=== PATIENT | male | born 1940 | race Caucasian/White ===

== ENCOUNTER 2020-01-01 15:48 | Inpatient (IN) | payer MEDICARE, OTHER ==
--- NOTE | 2020-01-01 15:59 | ED ---
SOB HPI - General Chief Complaint: Shortness of Breath Stated Complaint: abnormal labs Time Seen by Provider: 01/01/20 15:49 Source: patient, RN notes reviewed, old records reviewed Mode of arrival: wheelchair Limitations: no limitations - History of Present Illness Initial Comments: This is a 79-year-old male to the ER for evaluation patient to the ER for evaluation regards to shortness of breath. No chest pain. She is accepted in transfer from outside facility for evaluation. Patient presents today for evaluation regards to continued evaluation regarding shortness of breath MD Complaint: shortness of breath, cough Severity: moderate Severity scale (1-10): 4 Quality: dull Consistency: constant Improves With: nothing Worsens With: lying flat, exertion, movement Known History Of: asthma, congestive heart failure Context: recent URI Associated Symptoms: cough, sputum production Treatments Prior to Arrival: none - Related Data Home Medications Medication Instructions Recorded Confirmed Aspirin EC [Ecotrin Low Dose] 81 mg PO DAILY 01/01/20 01/01/20 Atorvastatin Calcium [Lipitor] 80 mg PO HS 01/01/20 01/01/20 Carvedilol [Coreg] 25 mg PO BID 01/01/20 01/01/20 Cholecalciferol [Vitamin D3 (25 2,000 unit PO DAILY 01/01/20 01/01/20 Mcg = 1000 Iu)] Loratadine [Claritin] 10 mg PO DAILY 01/01/20 01/01/20 Multivitamins, Thera [Multivitamin 1 tab PO DAILY 01/01/20 01/01/20 (formulary)] Vascepa 1gm 1 gm PO QID 01/01/20 01/01/20 metFORMIN HCL [Glucophage] 1,000 mg PO BID 01/01/20 01/01/20 Allergies Allergy/AdvReac Type Severity Reaction Status Date / Time No Known Allergies Allergy Verified 01/01/20 16:53 Review of Systems ROS Statement: Those systems with pertinent positive or pertinent negative responses have been documented in the HPI. ROS Other: All systems not noted in ROS Statement are negative. Past Medical History Past Medical History: Coronary Artery Disease (CAD), Cancer, Diabetes Mellitus, Hyperlipidemia, Hypertension History of Any Multi-Drug Resistant Organisms: None Reported Past Surgical History: Appendectomy, Heart Catheterization With Stent Additional Past Surgical History / Comment(s): skin cancer, left upper lobe resection lung CA Smoking Status: Former smoker Past Alcohol Use History: None Reported Past Drug Use History: None Reported General Exam Limitations: no limitations General appearance: alert, in no apparent distress Head exam: Present: atraumatic, normocephalic, normal inspection Eye exam: Present: normal appearance, PERRL, EOMI. Absent: scleral icterus, conjunctival injection, periorbital swelling ENT exam: Present: normal exam, mucous membranes moist Neck exam: Present: normal inspection. Absent: tenderness, meningismus, lymphadenopathy Respiratory exam: Present: normal lung sounds bilaterally. Absent: respiratory distress, wheezes, rales, rhonchi, stridor Cardiovascular Exam: Present: regular rate, normal rhythm, normal heart sounds. Absent: systolic murmur, diastolic murmur, rubs, gallop, clicks GI/Abdominal exam: Present: soft, normal bowel sounds. Absent: distended, tenderness, guarding, rebound, rigid Extremities exam: Present: normal inspection, full ROM, normal capillary refill. Absent: tenderness, pedal edema, joint swelling, calf tenderness Back exam: Present: normal inspection Neurological exam: Present: alert, oriented X3, CN II-XII intact Psychiatric exam: Present: normal affect, normal mood Skin exam: Present: warm, dry, intact, normal color. Absent: rash Course Vital Signs 01/01/20 01/01/20 15:50 17:10 Temperature 97.8 F Pulse Rate 89 Respiratory 18 17 Rate Blood Pressure 181/95 O2 Sat by Pulse 96 Oximetry - Reevaluation(s) Reevaluation #1: 01/01/20 16:30 Medical records reviewed Reevaluation #2: 01/01/20 16:30 Transfer paperwork is reviewed Reevaluation #3: 01/01/20 18:25 Patient informed of elevated troponin here in the ER EKG is without change CT chest is negative for acute disease - Consultations Consultation #1: Patient will be admitted to [facility] physicians Medical Decision Making - Medical Decision Making 79 male DF for evaluation patient Dese for evaluation of shortness of breath now she with exertion he also during exertion gets lower extremity pain leg pain. Patient is elevated troponin here in the ER nonacute non-STEMI. No EKG changes CT was negative for PE - Lab Data Result diagrams: 01/01/20 16:44 01/01/20 16:44 Lab Results 01/01/20 01/01/20 01/01/20 Range/Units 16:44 16:44 16:44 WBC 6.7 (3.8-10.6) k/uL RBC 4.80 (4.30-5.90) m/uL Hgb 14.4 (13.0-17.5) gm/dL Hct 44.8 (39.0-53.0) % MCV 93.3 (80.0-100.0) fL MCH 30.1 (25.0-35.0) pg MCHC 32.2 (31.0-37.0) g/dL RDW 14.3 (11.5-15.5) % Plt Count 212 (150-450) k/uL Neutrophils % 60 % Lymphocytes % 27 % Monocytes % 7 % Eosinophils % 2 % Basophils % 1 % Neutrophils # 4.0 (1.3-7.7) k/uL Lymphocytes # 1.8 (1.0-4.8) k/uL Monocytes # 0.5 (0-1.0) k/uL Eosinophils # 0.2 (0-0.7) k/uL Basophils # 0.1 (0-0.2) k/uL PT 11.2 (9.0-12.0) sec INR 1.1 (<1.2) APTT 25.2 (22.0-30.0) sec Sodium 134 L (137-145) mmol/L Potassium 5.1 (3.5-5.1) mmol/L Chloride 103 (98-107) mmol/L Carbon Dioxide 23 (22-30) mmol/L Anion Gap 8 mmol/L BUN 30 H (9-20) mg/dL Creatinine 0.92 (0.66-1.25) mg/dL Est GFR (CKD-EPI)AfAm >90 (>60 ml/min/1.73 sqM) Est GFR (CKD-EPI)NonAf 80 (>60 ml/min/1.73 sqM) Glucose 125 H (74-99) mg/dL Calcium 8.6 (8.4-10.2) mg/dL Magnesium 1.2 L (1.6-2.3) mg/dL Total Bilirubin 0.9 (0.2-1.3) mg/dL AST 71 H (17-59) U/L ALT 58 H (4-49) U/L Alkaline Phosphatase 93 (38-126) U/L Troponin I (0.000-0.034) ng/mL NT-Pro-B Natriuret Pep pg/mL Total Protein 6.4 (6.3-8.2) g/dL Albumin 3.9 (3.5-5.0) g/dL 01/01/20 01/01/20 Range/Units 16:44 16:44 WBC (3.8-10.6) k/uL RBC (4.30-5.90) m/uL Hgb (13.0-17.5) gm/dL Hct (39.0-53.0) % MCV (80.0-100.0) fL MCH (25.0-35.0) pg MCHC (31.0-37.0) g/dL RDW (11.5-15.5) % Plt Count (150-450) k/uL Neutrophils % % Lymphocytes % % Monocytes % % Eosinophils % % Basophils % % Neutrophils # (1.3-7.7) k/uL Lymphocytes # (1.0-4.8) k/uL Monocytes # (0-1.0) k/uL Eosinophils # (0-0.7) k/uL Basophils # (0-0.2) k/uL PT (9.0-12.0) sec INR (<1.2) APTT (22.0-30.0) sec Sodium (137-145) mmol/L Potassium (3.5-5.1) mmol/L Chloride (98-107) mmol/L Carbon Dioxide (22-30) mmol/L Anion Gap mmol/L BUN (9-20) mg/dL Creatinine (0.66-1.25) mg/dL Est GFR (CKD-EPI)AfAm (>60 ml/min/1.73 sqM) Est GFR (CKD-EPI)NonAf (>60 ml/min/1.73 sqM) Glucose (74-99) mg/dL Calcium (8.4-10.2) mg/dL Magnesium (1.6-2.3) mg/dL Total Bilirubin (0.2-1.3) mg/dL AST (17-59) U/L ALT (4-49) U/L Alkaline Phosphatase (38-126) U/L Troponin I 0.279 H* (0.000-0.034) ng/mL NT-Pro-B Natriuret Pep 1200 pg/mL Total Protein (6.3-8.2) g/dL Albumin (3.5-5.0) g/dL - EKG Data -: EKG Interpreted by Me (EKG shows sinus rhythm 86 MA 134 QRS 100 QTc 469) - Radiology Data Radiology results: report reviewed (CTA chest negative for PE), image reviewed Critical Care Time Critical Care Time: Yes Total Critical Care Time: 31 Disposition Clinical Impression: NSTEMI (non-ST elevated myocardial infarction) Disposition: ADMITTED IP TO THIS HOSP Condition: Fair Is patient prescribed a controlled substance at d/c from ED?: No Referrals: Jack Torres MD [Primary Care Provider] - 1-2 days
[2020-01-01] MEDS ORDERED: SODIUM CHLORIDE 0.9% 1,000 ML IV STA (16:39)
[2020-01-01] MEDS ORDERED: SODIUM CHLORIDE 0.9% 500 ML 500 ML IV STA (16:39)
[2020-01-01 17:03] LABS: Basophils # (A) 0.1 k/uL (0-0.2); Basophils % (A) 1 %; Eosinophils # (A) 0.2 k/uL (0-0.7); Eosinophils % (A) 2 %; HCT 44.8 % (39.0-53.0); HGB 14.4 gm/dL (13.0-17.5); Lymphocytes # (A) 1.8 k/uL (1.0-4.8); Lymphocytes % (A) 27 %; MCH 30.1 pg (25.0-35.0); MCHC 32.2 g/dL (31.0-37.0); MCV 93.3 fL (80.0-100.0); Mean Platelet Volume 7.1; Monocytes # (A) 0.5 k/uL (0-1.0); Monocytes % (A) 7 %; Neutrophils % (A) 60 %; Platelet Count 212 k/uL (150-450); RDW 14.3 % (11.5-15.5); WBC 6.7 k/uL (3.8-10.6)
[2020-01-01 17:13] LABS: ALT 58 U/L (4-49); AST 71 U/L (17-59); African American GFR (CKD) >90 (>60 ml/min/1.73 sqM); Albumin 3.9 g/dL (3.5-5.0); Alkaline Phosphatase 93 U/L (38-126); Anion Gap 8 mmol/L; Blood Urea Nitrogen 30 mg/dL (9-20); Calcium 8.6 mg/dL (8.4-10.2); Carbon Dioxide 23 mmol/L (22-30); Chloride 103 mmol/L (98-107); Glucose 125 mg/dL (74-99); Magnesium 1.2 mg/dL (1.6-2.3); Non-African American GFR(CKD) 80 (>60 ml/min/1.73 sqM); Potassium 5.1 mmol/L (3.5-5.1); Sodium 134 mmol/L (137-145); Total Bilirubin 0.9 mg/dL (0.2-1.3); Total Protein 6.4 g/dL (6.3-8.2)
[2020-01-01 17:14] LABS: INR 1.1 (<1.2); Partial Thromboplastin Time 25.2 sec (22.0-30.0); Prothrombin Time 11.2 sec (9.0-12.0)
--- NOTE | 2020-01-01 18:05 | CT ---
EXAMINATION TYPE: CT angio chest DATE OF EXAM: 01/01/2020 COMPARISON: None HISTORY: Elevated d-dimer and shortness of breath. CT DLP: 342.7 mGycm Automated exposure control for dose reduction was used. CONTRAST: CTA scan of the thorax is performed with IV Contrast, patient injected with 73ml mL of Isovue 370, pu lmonary embolism protocol. MIP images are created and reviewed. 3D reconstructed images are created on an independent workstation and reviewed. FINDINGS: LUNGS: The lungs are grossly clear, there is no concerning parenchymal mass or nodule identified. T here are extensive emphysematous changes within the lungs. Some minimal thickening along the minor fi ssure noted on axial image #100. Interstitial changes are present at the lung bases. Calcified granul jose cruz likely present in the subpleural region at the right lung base. There is no pleural effusion or p neumothorax seen. The tracheobronchial tree is patent. AORTA: No additional significant abnormality is seen. MEDIASTINUM: There is satisfactory enhancement of the pulmonary artery and its branches, there is no CT evidence for pulmonary embolism. There are no greater than 1 cm hilar or mediastinal lymph nodes. There are coronary calcifications present No pericardial effusion is seen. Some soft tissue promine nce present in the infrahilar location on the right OTHER: Small hiatal hernia is present. Calcified gallstones present within the gallbladder. IMPRESSION: THICKENING ALONG THE MINOR FISSURE DOES NOT APPEAR MASSLIKE, FOLLOW-UP TO ASSESS FOR STABILITY, SUSPE CT THERE MAY BE SOME RIGHT HILAR ADENOPATHY. EXTENSIVE EMPHYSEMA. CORONARY ARTERY DISEASE. NO EVIDENT PULMONARY EMBOLISM. SMALL HIATAL HERNIA. INTERSTITIAL LUNG DISEASE. CHOLELITHIASIS.
[2020-01-01] MEDS ORDERED: HEPARIN SODIUM,PORCINE 5,000 UNIT/ML 1 ML VIAL IV ONE (18:21)
[2020-01-01] MEDS ORDERED: ASPIRIN 81 MG PO STA (18:21)
[2020-01-01] MEDS ORDERED: MAGNESIUM OXIDE 400 MG TAB PO STA (18:21)
[2020-01-01] MEDS ORDERED: NITROGLYCERIN SL TABS 0.4 MG TAB SUBLINGUAL PRN (18:21)
[2020-01-01] MEDS ORDERED: HEPARIN SODIUM,PORCINE 5,000 UNIT/ML 1 ML VIAL IV PRN (18:21)
[2020-01-01] MEDS ORDERED: HEPARIN SOD,PORK IN 0.45% NACL 25,000 UNIT in 0.45% NACL 1 250ML.BAG IV SCH (18:30)
[2020-01-01] MEDS: MAGNESIUM SULFATE-D5W PMX 1 GM in DEXTROSE/WATER 1 100ML.BAG IVPB SCH ×2 (19:25→21:29)
[2020-01-01] MEDS ORDERED: LABETALOL 5 MG/ML VIAL MDV IVP STA (19:32)
[2020-01-01] MEDS ORDERED: METOPROLOL TARTRATE 25 MG TAB PO SCH (21:00)
[2020-01-01] MEDS: ATORVASTATIN 80 MG TAB PO SCH (21:29)
[2020-01-01] MEDS: carvediloL 12.5 MG TAB PO SCH (21:31)
[2020-01-01 21:35] LABS: Glucose,Whole Blood 139 mg/dL (75-99)
[2020-01-01] MEDS: INSULIN ASPART (NovoLOG) 100 UNIT/ML VIAL SQ SCH (21:35)
[2020-01-02] MEDS ORDERED: LORazepam 2 MG/ML INJ IV PRN ×3 (00:07)
--- NOTE | 2020-01-02 00:07 | P.HPIM ---
History of Present Illness H&P Date: 01/01/20 Chief Complaint: Exertional dyspnea, elevated troponin 79-year-old male with diabetes mellitus, hypertension, coronary artery disease with stents 20 years ago. Patient comes in due to abnormal blood test result of elevated troponin at his PCP office who recommended that he goes to the hospital for evaluation. Patient adds that for the past 2 months he's been having exertional dyspnea whenever he used to walk long distances however now he is limited to 200 yards when he starts having difficulty in breathing he stops and will resolve on its own within 10-15 minutes. He denies any chest pain when he feels heaviness and can't breathe. He denies any passing out or sweating or lightheadedness nausea or vomiting. Patient hadn't had any cardiac workup in a while he gets most of his care in [place] where he spends 8 months out of the year. Currently he denies any chest pain he feels comfortable resting denies any headache fevers chills denies any sick contact or recent traveling denies any abdominal pain nausea or vomiting denies any GI bleeding In the ED CTA of the chest showed no acute PE but showed evidence of possible cholelithiasis. EKG showed normal sinus rhythm Troponins were elevated Magnesium was low Review of Systems Pertinent positives as noted in HPI. All other systems were reviewed and are negative Past Medical History Past Medical History: Coronary Artery Disease (CAD), Cancer, Diabetes Mellitus, Hyperlipidemia, Hypertension History of Any Multi-Drug Resistant Organisms: None Reported Past Surgical History: Appendectomy, Heart Catheterization With Stent Additional Past Surgical History / Comment(s): skin cancer, left upper lobe resection lung CA Smoking Status: Former smoker Past Alcohol Use History: None Reported Past Drug Use History: None Reported - Past Family History Father Family Medical History: Coronary Artery Disease (CAD) Medications and Allergies Home Medications Medication Instructions Recorded Confirmed Type Aspirin EC [Ecotrin Low Dose] 81 mg PO DAILY 01/01/20 01/01/20 History Atorvastatin Calcium [Lipitor] 80 mg PO HS 01/01/20 01/01/20 History Carvedilol [Coreg] 25 mg PO BID 01/01/20 01/01/20 History Cholecalciferol [Vitamin D3 (25 2,000 unit PO DAILY 01/01/20 01/01/20 History Mcg = 1000 Iu)] Loratadine [Claritin] 10 mg PO DAILY 01/01/20 01/01/20 History Multivitamins, Thera [Multivitamin 1 tab PO DAILY 01/01/20 01/01/20 History (formulary)] Vascepa 1gm 1 gm PO QID 01/01/20 01/01/20 History metFORMIN HCL [Glucophage] 1,000 mg PO BID 01/01/20 01/01/20 History Allergies Allergy/AdvReac Type Severity Reaction Status Date / Time No Known Allergies Allergy Verified 01/01/20 16:53 Physical Exam Vitals: Vital Signs Temp Pulse Resp BP Pulse Ox 01/01/20 19:12 80 18 197/107 94 L 01/01/20 17:10 17 01/01/20 15:50 97.8 F 89 18 181/95 96 Intake and Output 01/01/20 01/01/20 01/01/20 06:59 14:59 22:59 Other: Weight 73.936 kg Constitutional: No acute distress, conversant, pleasant Eyes: Anicteric sclerae, moist conjunctiva, Pupils equal round reactive to light ENMT: NC/AT Oropharynx clear, no erythema, or exudates Neck: Supple, FROM, no masses, or JVD No carotid bruits No thyromegaly Lungs: Clear to auscultation Clear to percussion Normal respiratory effort, no accessory muscle use Cardiovascular: Heart regular in rate and rhythm, No murmurs, gallops, or rubs No peripheral edema Abdominal: Soft Nontender, no guarding, rebound or rigidity Abdomen moving with respiration Normoactive bowel sounds No hepatomegaly, No splenomegaly No palpable mass No abdominal wall hernia noted Skin: Normal temperature, tone, texture, turgor No induration No subcutaneous nodules No rash, lesions No ulcers Extremities: No digital cyanosis No clubbing Pedal pulses intact and symmetrical Radial pulses intact and symmetrical No calf tenderness Psychiatric: Alert and oriented to person, place and time Appropriate affect fair judgement Neuro Muscles Strength 5/5 in all 4 extremities Sensation to light touch grossly present throughout Cranial nerves II-XII grossly intact No focal sensory deficits Lymphatics: no palpable cervical or supraclavicular , or inguinal lymph nodes Results CBC & Chem 7: 01/01/20 16:44 01/01/20 16:44 Labs: Abnormal Lab Results - Last 24 Hours (Table) 01/01/20 01/01/20 Range/Units 16:44 16:44 Sodium 134 L (137-145) mmol/L BUN 30 H (9-20) mg/dL Glucose 125 H (74-99) mg/dL Magnesium 1.2 L (1.6-2.3) mg/dL AST 71 H (17-59) U/L ALT 58 H (4-49) U/L Troponin I 0.279 H* (0.000-0.034) ng/mL Assessment and Plan Assessment: NSTEMI Exertional dyspnea suggestive of angina History of CAD with stents 20 years ago Trend cardiac enzymes Cardiac monitoring Cardiology consult Aspirin and statin nitro when necessary Resume home meds Pain control Supplemental oxygen if needed to keep O2 sat above 92% Heparin drip Regular alcohol intake on daily basis Monitor for any symptoms or signs of alcohol withdrawal Benzos per CIWA Thiamine Hypomagnesemia Replace and follow up levels in the morning Chronic conditions Diabetes mellitus insulin sliding scale Hypertension, hyperlipidemia resume home meds CODE STATUS: Full code DVT prophylaxis: On heparin drip for ACS Discussed with: Patient, ER Anticipated length of stay more than [address]: Home A total of 75 minutes was spent on the care of this complex patient more than 50% of the time was spent in counseling and care coordination.
[2020-01-02 06:06] LABS: Basophils % (A) 1 %; Eosinophils # (A) 0.1 k/uL (0-0.7); Eosinophils % (A) 2 %; HGB 14.2 gm/dL (13.0-17.5); Lymphocytes # (A) 1.4 k/uL (1.0-4.8); Lymphocytes % (A) 24 %; MCHC 32.2 g/dL (31.0-37.0); MCV 93.2 fL (80.0-100.0); Monocytes # (A) 0.5 k/uL (0-1.0); Monocytes % (A) 8 %; Neutrophils # (A) 3.8 k/uL (1.3-7.7); Neutrophils % (A) 64 %; Platelet Count 202 k/uL (150-450); RBC 4.72 m/uL (4.30-5.90); RDW 13.9 % (11.5-15.5); WBC 5.9 k/uL (3.8-10.6)
[2020-01-02 06:16] LABS: ALT 44 U/L (4-49); AST 36 U/L (17-59); African American GFR (CKD) >90 (>60 ml/min/1.73 sqM); Albumin 3.3 g/dL (3.5-5.0); Alkaline Phosphatase 89 U/L (38-126); Anion Gap 5 mmol/L; Blood Urea Nitrogen 20 mg/dL (9-20); Calcium 8.1 mg/dL (8.4-10.2); Carbon Dioxide 27 mmol/L (22-30); Chloride 105 mmol/L (98-107); Cholesterol 134 mg/dL (<200); Glucose 119 mg/dL (74-99); HDL Cholesterol 55 mg/dL (40-60); LDL Cholesterol,Calculated 63 mg/dL (0-99); Magnesium 1.6 mg/dL (1.6-2.3); Non-African American GFR(CKD) 84 (>60 ml/min/1.73 sqM); Potassium 4.1 mmol/L (3.5-5.1); Sodium 137 mmol/L (137-145); Total Protein 5.7 g/dL (6.3-8.2); Triglycerides 79 mg/dL (<150)
[2020-01-02] MEDS: carvediloL 12.5 MG TAB PO SCH ×2 (06:36→18:08)
[2020-01-02] MEDS: INSULIN ASPART (NovoLOG) 100 UNIT/ML VIAL SQ SCH ×4 (06:41→21:27)
[2020-01-02 06:43] LABS: Glucose,Whole Blood 119 mg/dL (75-99)
[2020-01-02] MEDS ORDERED: ASPIRIN 325 MG TAB PO SCH (09:00)
[2020-01-02] MEDS ORDERED: ATORVASTATIN 80 MG TAB PO STA (09:13)
[2020-01-02] MEDS ORDERED: ALPRAZolam 0.5 MG TAB PO PRN (09:13)
[2020-01-02] MEDS ORDERED: ASPIRIN 325 MG TAB PO STA (09:13)
[2020-01-02] MEDS ORDERED: SODIUM CHLORIDE 0.9% 1,000 ML in EMPTY BAG 1 BAG IV ONE (09:13)
[2020-01-02] MEDS ORDERED: NITROGLYCERIN SL TABS 0.4 MG TAB SUBLINGUAL PRN (09:13)
[2020-01-02] MEDS ORDERED: ALPRAZolam 0.25 MG TAB PO PRN (09:13)
--- NOTE | 2020-01-02 10:17 | CONS ---
CONSULTATION Mr. Clayton is a 79-year-old male with known history of hyperlipidemia, history of diabetes mellitus, hypertension, prior history of smoking, history of coronary artery disease, status post 2 vessel stenting in 1998 with chronically occluded 1 vessel, who presented to the emergency room with progressive dyspnea. He has been having the symptoms for couple months, but yesterday seen his primary care physician in [place] when he had a troponin that was unremarkable. In view of that, was referred back to the hospital. He has been complaining of progressive dyspnea over the last 2 months, limiting his activity. He has no associated chest pain. He has no dizziness or palpitation. No syncope. No PND, orthopnea, or peripheral edema. 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 Coronary risk factors are remarkable for the hypertension, hyperlipidemia, and diabetes mellitus. MEDICATION: Include aspirin, 1 g 4 times a day, metformin 1 g twice a day, carvedilol 25 mg twice a day and Lipitor 80 mg daily. REVIEW OF SYSTEMS: RESPIRATORY SYSTEM: He has dyspnea on exertion. No recent wheezing or cough. GI SYSTEM: No recent GI bleeding. No peptic ulcer disease. SYSTEM: No dysuria or hematuria. NERVOUS SYSTEM: No stroke or seizure. PHYSICAL EXAMINATION: He is a 79-year-old male, alert, oriented, in no apparent distress. Blood pressure 154/80 with a heart rate in the 70s. HEAD: Normocephalic. EYES: Sclerae nonicteric. NECK: Good upstroke, no jugular venous distention. LUNGS: Clear to auscultation. HEART: Regular rate and rhythm, S1, S2. No S3 with systolic murmur, ejection type heard at the base. No diastolic murmur, no rub. ABDOMEN: Soft, nontender, positive bowel sounds, no organomegaly. EXTREMITIES: No edema, intact pulses. LAB DATA: Revealed BUN and creatinine 20 and 0.85, potassium 4.1, hemoglobin of 14.2. His troponin 0.29, 0.28, 0.27. Cholesterol is 134, LDL of 63. EKG revealed a sinus mechanism, normal axis and intervals with nonspecific ST-T wave changes. Chest CT angiogram revealed a small hiatal hernia with gallstones. IMPRESSION: 1. Progressive symptoms of dyspnea on exertion with mild elevation of troponin suggestive of non ST-segment elevation myocardial infarction. 2. History of coronary artery disease, status post percutaneous revascularization in known chronically occluded vessel with a prior history of cardiomyopathy, according to the patient, improved. 3. History of hypertension. 4. Hyperlipidemia. 5. Diabetes mellitus. 6. History of daily alcohol intake. RECOMMENDATION: I would recommend to obtain an echocardiogram with Doppler. I will recommend to proceed with coronary angiography to assess his status and guide his treatment. The rationale behind the procedures, risks, and complication were discussed with the patient who is in full understanding and agreement. Depending on the results of testing, further recommendation will be made. Thank you for this consult. Will follow with you. DEISY / IJN: [id number] /
--- NOTE | 2020-01-02 12:00 | ECHOF ---
Referral Reason:cp MEASUREMENTS -------- HEIGHT: 182.9 cm WEIGHT: 73.9 kg BP: RVIDd: 3.1 cm (< 3.3) IVSd: 1.2 cm (0.6 - 1.1) LVIDd: 4.9 cm (3.9 - 5.3) LVPWd: 1.1 cm (0.6 - 1.1) EDV(Teich): 112 ml IVSs: 1.5 cm LVIDs: 4.2 cm LVPWs: 1.2 cm %IVS Thck: 25 % ESV(Teich): 79 ml EF(Teich): 29 % %FS: 14 % SV(Teich): 32 ml LA Diam: 4.7 cm (2.7 - 3.8) LALs A4C: 5.2 cm LAAs A4C: 18.0 cm LAESV A-L A4C: 53 ml LAESV MOD A4C: 51 ml LALs A2C: 4.7 cm LAAs A2C: 18.0 cm LAESV A-L A2C: 59 ml LAESV MOD A2C: 55 ml LAESV(A-L): 59 ml LAESV Index (A-L): 30.23 ml/m Ao Diam: 3.4 cm (2.0 - 3.7) AV Cusp: 1.4 cm (1.5 - 2.6) LA Diam: 4.5 cm (2.7 - 3.8) MV EXCURSION: 18.048 mm (> 18.000) MV EF SLOPE: 57 mm/s (70 - 150) EPSS: 1.2 cm MV E Tyler: 0.39 m/s MV DecT: 263 ms MV Dec Upton: 1.5 m/s MV A Tyler: 0.64 m/s MV E/A Ratio: 0.61 MV PHT: 76 ms TR Vmax: 2.35 m/s TR maxP.16 mmHg RAP: 5.00 mmHg RVSP: 27.16 mmHg FINDINGS -------- Sinus rhythm. This was a technically good study. The left ventricular size is normal. There is mild concentric left ventricular hypertrophy. Overa ll left ventricular systolic function is mild-moderately impaired with, an EF between 40 - 45 %. Se ptal Hypokinesis The right ventricle is normal in size. The left atrium is moderately dilated. LA is moderately dilated 34-39 ml/m2 The right atrial size is normal. The aortic valve is trileaflet, and appears structurally normal. No aortic stenosis or regurgitation. Mild mitral regurgitation is present. Mild tricuspid regurgitation present. Right ventricular systolic pressure is normal at < 35 mmHg. There is no pulmonic regurgitation present. The aortic root size is normal. There is no pericardial effusion. CONCLUSIONS -------- 1. The left ventricular size is normal. 2. There is mild concentric left ventricular hypertrophy. 3. Overall left ventricular systolic function is mild-moderately impaired with, an EF between 40 - 45 %. 4. Septal Hypokinesis 5. The right ventricle is normal in size. 6. The left atrium is moderately dilated. 7. LA is moderately dilated 34-39 ml/m2 8. The right atrial size is normal. 9. Mild mitral regurgitation is present. 10. Mild tricuspid regurgitation present. MEN'[employer] GOLF COACH: Chikis Sanchez RDCS
[2020-01-02 12:16] LABS: Glucose,Whole Blood 136 mg/dL (75-99)
[2020-01-02] MEDS ORDERED: VERAPAMIL 2.5 MG/ML 2 ML AMP ONE (12:21)
[2020-01-02] MEDS ORDERED: LIDOCAINE 1% INJ 10MG/ML (20 ML MDV) ONE (12:21)
[2020-01-02] MEDS ORDERED: SODIUM CHLORIDE 0.9% 1,000 ML IV ONE (12:44)
[2020-01-02] MEDS ORDERED: fentaNYL (PF) 50 MCG/ML 2 ML AMP ONE (12:46)
[2020-01-02] MEDS ORDERED: fentaNYL (PF) 50 MCG/ML 2 ML AMP IVP ONE (13:03)
[2020-01-02] MEDS ORDERED: LIDOCAINE 1% INJ 10MG/ML (20 ML MDV) SQ ONE (13:07)
[2020-01-02] MEDS ORDERED: VERAPAMIL SYRINGE (5 MG/10 ML) INTRAARTER ONE (13:13)
[2020-01-02] MEDS ORDERED: HEPARIN SODIUM 1,000 UN/ML (10ML VL) IV ONE (13:25)
[2020-01-02] MEDS ORDERED: IOPAMIDOL-370 100ML BTL INJ ONE (13:27)
[2020-01-02] MEDS ORDERED: RX INFO: IV CONTRAST WAS GIVEN 1 EACH MISC MISCELLANE PRN (13:47)
[2020-01-02] MEDS ORDERED: HEPARIN SODIUM,PORCINE 5,000 UNIT/ML 1 ML VIAL IV PRN (13:50)
[2020-01-02] MEDS ORDERED: SODIUM CHLORIDE 0.9% 1,000 ML IV SCH (14:00)
--- NOTE | 2020-01-02 14:34 | CC ---
CARDIAC CATHETERIZATION REPORT Mr. Clayton is a 79-year-old male with known history of coronary artery disease, status post percutaneous revascularization done over 10 years ago at [facility], history of hypertension, hyperlipidemia, diabetes mellitus, who presented with symptoms of progressive dyspnea going on for the last few weeks. He had minimal troponin elevation, but no acute ST-segment changes. In view of that, recommendation made regarding cardiac catheterization. The procedures, risks, and complication were discussed with the patient who is in full understanding and agreement. 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 Using Xylocaine anesthesia and Seldinger technique, a 6-[place] sheath was introduced in the right radial artery. Selective right and left coronary angiography performed using 5-[place] 3.5 bend right and left Holli catheter, multiple views of the coronary artery including hemiaxial views obtained, the 5-[place] right and left Holli catheter was used to cross the aortic valve and left ventricular end-diastolic pressure was calculated. Following that, catheter and sheath were removed. Hemostasis was obtained with deployment of a TR band. There was no immediate complication. Patient is returned to his room in stable condition. Of note, the patient received 4000 units of intravenous heparin as well as intra-arterial verapamil. FINDINGS: FLUOROSCOPY: There was severe calcification involving all the coronary arteries next. LEFT MAIN: This is a large-sized vessel, bifurcating into left circumflex, left anterior descending artery. Left main coronary artery has no evidence of high-grade stenosis. LEFT ANTERIOR DESCENDING ARTERY: This is a large-sized vessel, reaching toward the apex with a wraparound apex segment, proximally. The left anterior descending artery has an eccentric lesion in a heavily calcified segment with stenosis up to 80%-90%. The stented segment in the mid LAD is patent with [id number] in-stent restenosis. The rest of the vessel has no high-grade stenosis. LEFT CIRCUMFLEX: This is a large nondominant vessel, giving rise to a large obtuse marginal branch. The left circumflex proximally has a 90% to 95% stenosis. There is another plaque in the mid segment of the left circumflex with area of stenosis up to 80%. There appears to be a stent in the mid circumflex that is patent. RIGHT CORONARY ARTERY: This vessel is totally occluded proximally with collaterals with a conus branch to the mid RCA into the distal RCA. There is also collateral from the left coronary system toward the right PDA. LEFT VENTRICULOGRAM: Left ventriculogram is not performed. HEMODYNAMICS: There was no gradient across the aortic valve. The left ventricular end- diastolic pressure was 8-12 mmHg. CONCLUSION: 1. Severely calcified coronary artery. 2. Severe triple-vessel coronary artery disease with chronic occlusion of the right coronary artery and significant disease in the LAD and the left circumflex. RECOMMENDATION: In view of the multivessel disease, history of diabetes and the severe calcification, I recommend proceeding with evaluation for coronary artery bypass grafting. The rationale behind that recommendation were discussed with the patient and he is full understanding and agreement. Duration of procedure is 23 minutes. MMROSINAL / COCON: [id number] /
[2020-01-02] MEDS: HEPARIN SOD,PORK IN 0.45% NACL 25,000 UNIT in 0.45% NACL 1 250ML.BAG IV SCH (15:12)
[2020-01-02] MEDS: NITROGLYCERIN OINT 1 INCH/GM PACKET TOPICAL SCH (15:14)
[2020-01-02] MEDS ORDERED: MD COMMUNICATION TO PHARMACY 1 EACH MISC PO ONE ×4 (15:15)
[2020-01-02 15:23] LABS: INR 1.2 (<1.2)
[2020-01-02 16:13] LABS: Basophils % (A) 1 %; Eosinophils # (A) 0.2 k/uL (0-0.7); Eosinophils % (A) 3 %; HCT 45.1 % (39.0-53.0); HGB 14.2 gm/dL (13.0-17.5); Lymphocytes # (A) 1.4 k/uL (1.0-4.8); Lymphocytes % (A) 21 %; MCH 29.6 pg (25.0-35.0); MCHC 31.5 g/dL (31.0-37.0); MCV 94.1 fL (80.0-100.0); Mean Platelet Volume 7.1; Monocytes # (A) 0.4 k/uL (0-1.0); Monocytes % (A) 7 %; Neutrophils # (A) 4.4 k/uL (1.3-7.7); Neutrophils % (A) 68 %; Platelet Count 197 k/uL (150-450); RBC 4.79 m/uL (4.30-5.90); RDW 13.9 % (11.5-15.5); WBC 6.5 k/uL (3.8-10.6)
[2020-01-02 16:36] LABS: Partial Thromboplastin Time 109.1 sec (22.0-30.0)
[2020-01-02 16:56] LABS: Glucose,Whole Blood 118 mg/dL (75-99)
--- NOTE | 2020-01-02 17:07 | P.GSCN ---
History of Present Illness Consult date: 01/02/20 Reason for Consult: Non-STEMI this admission, multivessel coronary artery disease, evaluation for myocardial revascularization surgery. Requesting physician: Deloris Huizar History of present illness: This is a 79-year-old gentleman who is followed by Dr. Jack Torres family care physician in [facility]. He is a past medical history significant for hypertension, hyperlipidemia, previous myocardial infarction in 1998 and previous stent placement to his left anterior descending coronary artery and circumflex artery in 1998, history of lung cancer status post left upper lobectomy in 2012 with 3 treatments of chemotherapy postoperatively, basal and squamous cell skin cancer, diabetes mellitus type 2, remote history of nicotine abuse quit smoking 15 years ago, daily alcohol use with 4 glasses of wine daily and family history of early onset coronary artery disease with his father dying of an [place] in his early 50s and 2 of his uncles dying in their early 50s of myocardial infarction. The patient spends most of his time in [place] and the bower in [place] in the [place] area. He reports that he is quite active and plays golf about 3 days a week, and recently has been complaining of progressive shortness of breath over the last couple of months and weakness to his bilateral lower extremities. Denies any complaints of chest pain, nausea, vomiting, fever, chills, orthopnea, peripheral edema, presyncope or syncope. Due to his complaints of progressive shortness of breath and weakness to his lower extremities he sought medical attention at his primary care office. According to the patient and his he underwent some blood work at his physician's office and was subsequently called by the primary care office informing him that he needed to proceed to the nearest emergency department. He presented to the emergency department here at [facility] yesterday 01/01/2020 with the above mentioned symptoms. While in the emergency department a 12-lead EKG was completed which demonstrated normal sinus rhythm with nonspecific STT wave changes. He also underwent a CT angiogram of his chest which showed no evidence of pulmonary embolism, coronary artery calcifications, extensive emphysema, interstitial lung disease, a small hiatal hernia with cholelithiasis. A 2-D echocardiogram was also completed which showed an overall left ventricular systolic function to be mild to moderately impaired with an ejection fraction between 40 and 45%, septal hypokinesis, mild mitral valve regurgitation and mild tricuspid valve regurgitation. Laboratory results showed a WBC count of 6.7, hemoglobin 14.4, platelets 212, BUN 30, creatinine 0.92, magnesium 1.2, AST 71, ALT 58, and positive troponins as high as 0.290. Due to the patient's presenting symptoms, positive troponins and h istory of coronary artery disease he was seen by Dr. Huizar from cardiology associates. The patient underwent a heart catheterization today 01/02/2020 which demonstrated an 80-90% stenosis to his proximal left anterior descending coronary artery, the stented segment in the mid left anterior descending coronary artery to be patent with mild to moderate in stent restenosis, a 90-95% stenosis to his proximal circumflex coronary artery, and 80% stenosis to his mid circumflex coronary artery, the stent to his mid circumflex coronary artery showed to be patent, and a totally occluded right coronary artery proximally with collaterals with a conus branch to the mid right coronary artery into the distal right coronary artery. It also demonstrated collaterals from the left coronary artery toward the right PDA. The cardiac catheterization findings were discussed with the patient and his by Dr. Huizar and a consult was placed to Dr. Tam Gama for further treatment recommendations and recommendations on myocardial revascularization surgery. Review of Systems A 14 point review of systems was negative except as mentioned in the HPI. Past Medical History Past Medical History: Coronary Artery Disease (CAD), Cancer, COPD, Diabetes Mellitus, Eye Disorder (History of cataracts bilaterally), Hyperlipidemia, Hypertension, Myocardial Infarction (non Q-wave) History of Any Multi-Drug Resistant Organisms: None Reported Past Surgical History: Appendectomy, Heart Catheterization With Stent Additional Past Surgical History / Comment(s): skin cancer, left upper lobe resection lung CA in 2012, bilateral cataracts. Past Anesthesia/Blood Transfusion Reactions: No Reported Reaction Date of Last Stent Placement:: 1998 Past Psychological History: No Psychological Hx Reported Smoking Status: Former smoker (Quit 15 years ago) Past Alcohol Use History: Daily (Drinks 4 glasses of wine daily) Past Drug Use History: None Reported - Past Family History Father Family Medical History: Coronary Artery Disease (CAD) (Past awake in his early 50s from a myocardial infarction), Myocardial Infarction (AZ) Mother Additional Family Medical History / Comment(s): Rheumatoid arthritis Medications and Allergies Home Medications Medication Instructions Recorded Confirmed Type Aspirin EC [Ecotrin Low Dose] 81 mg PO DAILY 01/01/20 01/01/20 History Atorvastatin Calcium [Lipitor] 80 mg PO HS 01/01/20 01/01/20 History Carvedilol [Coreg] 25 mg PO BID 01/01/20 01/01/20 History Cholecalciferol [Vitamin D3 (25 2,000 unit PO DAILY 01/01/20 01/01/20 History Mcg = 1000 Iu)] Loratadine [Claritin] 10 mg PO DAILY 01/01/20 01/01/20 History Multivitamins, Thera [Multivitamin 1 tab PO DAILY 01/01/20 01/01/20 History (formulary)] Vascepa 1gm 1 gm PO QID 01/01/20 01/01/20 History metFORMIN HCL [Glucophage] 1,000 mg PO BID 01/01/20 01/01/20 History Allergies Allergy/AdvReac Type Severity Reaction Status Date / Time No Known Allergies Allergy Verified 01/01/20 16:53 Surgical - Exam Vital Signs Temp Pulse Resp BP Pulse Ox 97.8 F 89 18 181/95 96 01/01/20 15:50 01/01/20 15:50 01/01/20 15:50 01/01/20 15:50 01/01/20 15:50 - General well developed, well nourished, no distress, no pain - Eyes PERRL, normal ocular movement - ENT normal pinna, normal nares, normal mucosa, no hearing loss, no congestion - Neck Neck is supple, no lymphadenopathy. no masses, no bruits, trachea midline, no venous distension - Respiratory Lungs sounds essentially clear throughout, few scattered crackles to his right lower lobe. No wheezes or rhonchi. Respirations are symmetrical and nonlabored. - Cardiovascular Regular rhythm and rate. S1 and S2 present, negative for S3 or gallop. Positive systolic murmur 2/6 or best to his left sternal border. - Abdomen Abdomen is soft, nontender and nondistended. Active bowel sounds present in all 4 abdominal quadrants. No guarding or rigidity. No organomegaly appreciated. - Genitourinary Deferred - Rectum Deferred - Integumentary no rash, no growths, no abnormal pigmentation - Neurologic Cranial nerves II through XII intact. normal coordination, normal sensation - Musculoskeletal normal gait, normal posture - Psychiatric oriented to time, oriented to person, oriented to place, speech is normal, memory intact Results - Labs 01/02/20 14:46 01/02/20 05:32 Abnormal Lab Results - Last 24 Hours (Table) 01/01/20 01/01/20 01/01/20 Range/Units 16:44 16:44 20:10 APTT (22.0-30.0) sec Sodium 134 L (137-145) mmol/L BUN 30 H (9-20) mg/dL Glucose 125 H (74-99) mg/dL POC Glucose (mg/dL) (75-99) mg/dL Calcium (8.4-10.2) mg/dL Magnesium 1.2 L (1.6-2.3) mg/dL AST 71 H (17-59) U/L ALT 58 H (4-49) U/L Troponin I 0.279 H* 0.282 H* (0.000-0.034) ng/mL Total Protein (6.3-8.2) g/dL Albumin (3.5-5.0) g/dL 01/01/20 01/01/20 01/02/20 Range/Units 21:34 22:50 01:04 APTT 50.3 H (22.0-30.0) sec Sodium (137-145) mmol/L BUN (9-20) mg/dL Glucose (74-99) mg/dL POC Glucose (mg/dL) 139 H (75-99) mg/dL Calcium (8.4-10.2) mg/dL Magnesium (1.6-2.3) mg/dL AST (17-59) U/L ALT (4-49) U/L Troponin I 0.290 H* (0.000-0.034) ng/mL Total Protein (6.3-8.2) g/dL Albumin (3.5-5.0) g/dL 01/02/20 01/02/20 01/02/20 Range/Units 05:32 06:38 12:14 APTT (22.0-30.0) sec Sodium (137-145) mmol/L BUN (9-20) mg/dL Glucose 119 H (74-99) mg/dL POC Glucose (mg/dL) 119 H 136 H (75-99) mg/dL Calcium 8.1 L (8.4-10.2) mg/dL Magnesium (1.6-2.3) mg/dL AST (17-59) U/L ALT (4-49) U/L Troponin I (0.000-0.034) ng/mL Total Protein 5.7 L (6.3-8.2) g/dL Albumin 3.3 L (3.5-5.0) g/dL Diabetes panel 01/01/20 01/02/20 Range/Units 16:44 05:32 Sodium 134 L 137 (137-145) mmol/L Potassium 5.1 4.1 (3.5-5.1) mmol/L Chloride 103 105 (98-107) mmol/L Carbon Dioxide 23 27 (22-30) mmol/L BUN 30 H 20 (9-20) mg/dL Creatinine 0.92 0.85 (0.66-1.25) mg/dL Glucose 125 H 119 H (74-99) mg/dL Calcium 8.6 8.1 L (8.4-10.2) mg/dL AST 71 H 36 (17-59) U/L ALT 58 H 44 (4-49) U/L Alkaline Phosphatase 93 89 (38-126) U/L Total Protein 6.4 5.7 L (6.3-8.2) g/dL Albumin 3.9 3.3 L (3.5-5.0) g/dL Triglycerides 79 (<150) mg/dL HDL Cholesterol 55 (40-60) mg/dL Calcium panel 01/01/20 01/02/20 Range/Units 16:44 05:32 Calcium 8.6 8.1 L (8.4-10.2) mg/dL Albumin 3.9 3.3 L (3.5-5.0) g/dL Pituitary panel 01/01/20 01/02/20 Range/Units 16:44 05:32 Sodium 134 L 137 (137-145) mmol/L Potassium 5.1 4.1 (3.5-5.1) mmol/L Chloride 103 105 (98-107) mmol/L Carbon Dioxide 23 27 (22-30) mmol/L BUN 30 H 20 (9-20) mg/dL Creatinine 0.92 0.85 (0.66-1.25) mg/dL Glucose 125 H 119 H (74-99) mg/dL Calcium 8.6 8.1 L (8.4-10.2) mg/dL Adrenal panel 01/01/20 01/02/20 Range/Units 16:44 05:32 Sodium 134 L 137 (137-145) mmol/L Potassium 5.1 4.1 (3.5-5.1) mmol/L Chloride 103 105 (98-107) mmol/L Carbon Dioxide 23 27 (22-30) mmol/L BUN 30 H 20 (9-20) mg/dL Creatinine 0.92 0.85 (0.66-1.25) mg/dL Glucose 125 H 119 H (74-99) mg/dL Calcium 8.6 8.1 L (8.4-10.2) mg/dL Total Bilirubin 0.9 1.0 (0.2-1.3) mg/dL AST 71 H 36 (17-59) U/L ALT 58 H 44 (4-49) U/L Alkaline Phosphatase 93 89 (38-126) U/L Total Protein 6.4 5.7 L (6.3-8.2) g/dL Albumin 3.9 3.3 L (3.5-5.0) g/dL - Imaging Additional studies: 2-D echocardiogram report and cardiac catheterization results reviewed. Assessment and Plan Assessment: 1. Multivessel coronary artery disease 2. Positive troponins this admission, non-ST elevation myocardial infarction this admission 3. Progressive dyspnea on exertion 4. History of hypertension 5. Hyperlipidemia 6. Diabetes mellitus type 2, on oral agents 7. Daily EtOH use, 4 glasses of wine daily 8. Remote history of nicotine dependence quit 15 years ago 9. History of lung cancer, status post left upper lobectomy in 2012 10. History of coronary artery disease status post stent placement to his left anterior descending coronary artery and right coronary artery in 1998 11. Family history of early onset coronary artery disease 12. History of skin cancer, squamous cell and basal cell carcinoma Plan: The patient was seen and examined at the bedside on the cardiac stepdown unit, with his present. His chart and diagnostics were reviewed. His case was discussed in detail with Dr. Tam Gama from cardiothoracic surgery, and the patient will be evaluated by the cardiothoracic surgeon tomorrow. Preoperative testing and preoperative teaching was initiated. A 5 m walk test was completed with time 1: 4.08 seconds, time 2: 3.95 seconds, time 3: 3.83 seconds. The usual preoperative course of myocardial revascularization surgery was discussed in detail with the patient and his at his bedside, risks and benefits were reviewed and all questions were answered to the best of my ability. Once his preoperative testing has been collected a STS risk score will be calculated in discussed with the patient by the cardiothoracic surgeon. Discussed with the patient the possibility for myocardial revascularization surgery and once his preoperative testing has been collected will be scheduled for myocardial revascularization surgery with date to follow. Continue to optimize with medical management, aspirin, statin and beta junior. Cardiology management recommendations per Dr. Huizar. Medical management and other comorbidities per primary care service. More recommendations to follow based on patient's clinical course, preoperative testing results and once the cardiothoracic surgeon has a chance to review the patient's cardiac catheterization films. Thank you Dr. Huizar for this consult and we look forward to working with you in the care of this patient. Time with Patient: Greater than 30
--- NOTE | 2020-01-02 17:16 | P.PN ---
Subjective Progress Note Date: 01/02/20 Principal diagnosis: Severe CAD Patient was seen after cardiac cath. He denies any chest pain, shortness breath or palpitations. No nausea or vomiting. No fever or chills. Objective - Vital Signs Vital signs: Vital Signs Temp 97.6 F 01/02/20 15:23 Pulse 71 01/02/20 15:23 Resp 16 01/02/20 15:23 BP 168/84 01/02/20 15:23 Pulse Ox 98 01/02/20 15:23 Intake & Output 01/01/20 01/02/20 01/02/20 18:59 06:59 18:59 Intake Total 1640 198 Output Total 1050 300 Balance 590 -102 Weight 73.936 kg 74.09 kg Intake: IV 50 Intake, IV Titration 1040 148 Amount Sodium Chloride 0.9% 1, 1040 000 ml @ 130 mls/hr IV . [id number] STA Rx#:[id number] Sodium Chloride 0.9% 1, 148 000 ml In Empty Bag 1 bag @ 1 ML/KG/HR 74.09 mls/ hr IV .[id number] ONE Rx#: [id number] Oral 600 Output: Urine 1050 300 Other: Voiding Method Toilet # Voids 2 - Exam General: [non toxic], [no distress], [appears at stated age] Derm: [warm], [dry] Head: [atraumatic], [normocephalic], [symmetric] Eyes: [EOMI], [no lid lag], [anicteric sclera] Mouth: [no lip lesion], [mucus membranes moist] Cardiovascular: [S1S2 reg], [no murmur], [positive posterior tibial pulse bilateral], Lungs: [CTA bilateral], [no rhonchi, no rales] , [no accessory muscle use] Abdominal: [soft], [ nontender to palpation], [no guarding], [no appreciable organomegaly] Ext: [no gross muscle atrophy], [no edema], [no contractures] Neuro: [ CN II-XI grossly intact], [no focal neuro deficits] Psych: [Alert], [oriented], [appropriate affect] - Labs CBC & Chem 7: 01/02/20 14:46 01/02/20 05:32 Labs: Abnormal Lab Results - Last 24 Hours (Table) 01/01/20 01/01/20 01/01/20 Range/Units 16:44 16:44 20:10 INR (<1.2) APTT (22.0-30.0) sec Sodium 134 L (137-145) mmol/L BUN 30 H (9-20) mg/dL Glucose 125 H (74-99) mg/dL POC Glucose (mg/dL) (75-99) mg/dL Calcium (8.4-10.2) mg/dL Magnesium 1.2 L (1.6-2.3) mg/dL AST 71 H (17-59) U/L ALT 58 H (4-49) U/L Troponin I 0.279 H* 0.282 H* (0.000-0.034) ng/mL Total Protein (6.3-8.2) g/dL Albumin (3.5-5.0) g/dL 01/01/20 01/01/20 01/02/20 Range/Units 21:34 22:50 01:04 INR (<1.2) APTT 50.3 H (22.0-30.0) sec Sodium (137-145) mmol/L BUN (9-20) mg/dL Glucose (74-99) mg/dL POC Glucose (mg/dL) 139 H (75-99) mg/dL Calcium (8.4-10.2) mg/dL Magnesium (1.6-2.3) mg/dL AST (17-59) U/L ALT (4-49) U/L Troponin I 0.290 H* (0.000-0.034) ng/mL Total Protein (6.3-8.2) g/dL Albumin (3.5-5.0) g/dL 01/02/20 01/02/20 01/02/20 Range/Units 05:32 06:38 12:14 INR (<1.2) APTT (22.0-30.0) sec Sodium (137-145) mmol/L BUN (9-20) mg/dL Glucose 119 H (74-99) mg/dL POC Glucose (mg/dL) 119 H 136 H (75-99) mg/dL Calcium 8.1 L (8.4-10.2) mg/dL Magnesium (1.6-2.3) mg/dL AST (17-59) U/L ALT (4-49) U/L Troponin I (0.000-0.034) ng/mL Total Protein 5.7 L (6.3-8.2) g/dL Albumin 3.3 L (3.5-5.0) g/dL 01/02/20 01/02/20 Range/Units 14:46 16:38 INR 1.2 H (<1.2) APTT 109.1 H* (22.0-30.0) sec Sodium (137-145) mmol/L BUN (9-20) mg/dL Glucose (74-99) mg/dL POC Glucose (mg/dL) 118 H (75-99) mg/dL Calcium (8.4-10.2) mg/dL Magnesium (1.6-2.3) mg/dL AST (17-59) U/L ALT (4-49) U/L Troponin I (0.000-0.034) ng/mL Total Protein (6.3-8.2) g/dL Albumin (3.5-5.0) g/dL Assessment and Plan Assessment: Severe CAD with non-ST elevation Diabetes mellitus Hypertension Dyslipidemia Cardiac cath shows multivessel disease. Continue aspirin and Lipitor. Ca rdiology recommends cardiothoracic surgery for CABG. Continue beta junior. Telemetry monitoring. Follow echocardiogram. Insulin sliding scale. Regular Accu-Cheks. Hypoglycemic precautions. Continue Coreg. Monitor vitals, adjust medications if necessary. Continue Lipitor.
[2020-01-02] MEDS: THIAMINE 100 MG TAB PO SCH (18:08)
--- NOTE | 2020-01-02 18:25 | US ---
EXAMINATION TYPE: US carotid duplex BILAT DATE OF EXAM: 01/02/2020 COMPARISON: NONE CLINICAL HISTORY: Pre-Op Cardiac Surgery. EXAM MEASUREMENTS: RIGHT: Peak Systolic Velocity (PSV) cm/sec ----- Right CCA: 59.7 ----- Right ICA: 76.8 ----- Right ECA: 127.4 ICA/CCA ratio: 1.3 RIGHT: End Diastole cm/sec ----- Right CCA: 12.0 ----- Right ICA: 27.4 ----- Right ECA: 4.7 LEFT: Peak Systolic Velocity (PSV) cm/sec ----- Left CCA: 50.5 ----- Left ICA: 69.1 ----- Left ECA: 167.3 ICA/CCA ratio: 1.4 LEFT: End Diastole cm/sec ----- Left CCA: 9.5 ----- Left ICA: 23.0 ----- Left ECA: 0.0 VERTEBRALS (direction of flow): Right Vertebral: Antegrade Left Vertebral: Antegrade Rhythm: Normal Grayscale images show moderate to severe eccentric plaque centered at bilateral carotid bulb level bu t velocity measurements and ratios in both internal carotid arteries remain within normal limits. Inc reased peak systolic velocity left external carotid artery incidentally noted. IMPRESSION: Moderate to severe atelectatic change bilaterally without hemodynamically significant janeen nosis seen in either internal carotid artery. Criteria for Assigning % of Stenosis / Diameter reduction (Estimation based on the indirect measurements of the internal carotid artery velocities (ICA PSV). 1. Normal (no stenosis)=ICA PSV < 125 cm/s: ratio < 2.0: ICA EDV<40 cm/s. 2. Less than 50% stenosis=ICA PSV < 125 cm/s: ratio < 2.0: ICA EDV<40 cm/s. 3. 50 to 69% stenosis=ICA PSV of 125 to 230 cm/s: ration 2.0 ? 4.0: ICA EDV 40-100 cm/s. 4. Greater than 70% stenosis to near occlusion= ICA PSV > 230 cm/s: ratio > 4.0: ICA EDV > 100 cm/s. 5. Near occlusion= ICA PSV velocities may be low or undetectable: variable ratio and ICA EDV. 6. Total occlusion=unable to detect flow.
--- NOTE | 2020-01-02 19:21 | XR ---
EXAMINATION TYPE: XR chest 2V DATE OF EXAM: 01/02/2020 COMPARISON: CTA chest yesterday. HISTORY: Preopen cardiac surgery. TECHNIQUE: Frontal and lateral views of the chest are obtained. FINDINGS: There is background chronic emphysematous and pulmonary fibrotic changes bilaterally witho ut new suspicious focal air space opacity, pleural effusion, or pneumothorax seen. Stable left basila r pleural thickening. The cardiac silhouette size is stable and upper limits of normal. The osseous structures are demineralized. Underlying dextroconvex scoliosis centered mid to lower thoracic spine is present. IMPRESSION: Chronic changes without acute pulmonary process.
[2020-01-02 20:23] LABS: Glucose,Whole Blood 210 mg/dL (75-99)
[2020-01-02] MEDS: ATORVASTATIN 80 MG TAB PO SCH (20:30)
[2020-01-02] MEDS: MUPIROCIN 2% OINT 22 GM TUBE NASAL SCH (21:37)
[2020-01-03 02:15] LABS: Appearance,Urine Clear (Clear); Bilirubin,Urine Negative (Negative); Blood,Urine Negative (Negative); Color,Urine Yellow; Glucose,Urine (UA) 2+ (Negative); Hyaline Casts,Urine 1 /lpf (0-2); Ketones,Urine Negative (Negative); Leukocyte Esterase,Urine Negative (Negative); Mucus,Urine Rare /hpf; Nitrite,Urine Negative (Negative); PH, Urine 6.5 (5.0-8.0); Protein,Urine 2+ (Negative); RBC,Urine <1 /hpf (0-5); Specific Gravity,Urine 1.025 (1.001-1.035); Squamous Epithelial Cell,Urine <1 /hpf (0-4); Urobilinogen,Urine <2.0 mg/dL (<2.0); WBC,Urine <1 /hpf (0-5)
[2020-01-03 04:22] LABS: Glucose,Whole Blood 100 mg/dL (75-99)
[2020-01-03] MEDS ORDERED: CLEVIDIPINE BUTYRATE 25 MG in EMPTY BAG 1 BAG IV ONE (05:00)
[2020-01-03] MEDS ORDERED: NOREPINEPHRINE 4 MG in SODIUM CHLORIDE 0.9% 250 ML IV ONE (05:00)
[2020-01-03] MEDS ORDERED: LACTATED RINGERS 1,000 ML IV ONE (05:00)
[2020-01-03] MEDS ORDERED: NITROGLYCERIN-D5W PMX 50 MG in DEXTROSE/WATER 1 250ML.BAG IV ONE (05:00)
[2020-01-03] MEDS: NITROGLYCERIN OINT 1 INCH/GM PACKET TOPICAL SCH ×3 (06:08→17:52)
[2020-01-03 06:12] LABS: Glucose,Whole Blood 118 mg/dL (75-99)
[2020-01-03] MEDS: INSULIN ASPART (NovoLOG) 100 UNIT/ML VIAL SQ SCH ×4 (06:44→20:23)
[2020-01-03] MEDS: carvediloL 12.5 MG TAB PO SCH ×2 (06:54→17:52)
[2020-01-03] MEDS: THIAMINE 100 MG TAB PO SCH ×2 (06:54→17:51)
[2020-01-03 07:59] LABS: Basophils # (A) 0.1 k/uL (0-0.2); Basophils % (A) 1 %; Eosinophils # (A) 0.2 k/uL (0-0.7); Eosinophils % (A) 3 %; HCT 46.4 % (39.0-53.0); HGB 14.6 gm/dL (13.0-17.5); Lymphocytes # (A) 1.1 k/uL (1.0-4.8); Lymphocytes % (A) 17 %; MCH 29.4 pg (25.0-35.0); MCHC 31.4 g/dL (31.0-37.0); MCV 93.6 fL (80.0-100.0); Mean Platelet Volume 6.9; Monocytes # (A) 0.5 k/uL (0-1.0); Monocytes % (A) 7 %; Neutrophils # (A) 4.5 k/uL (1.3-7.7); Neutrophils % (A) 69 %; Platelet Count 206 k/uL (150-450); RBC 4.96 m/uL (4.30-5.90); RDW 14.2 % (11.5-15.5); WBC 6.6 k/uL (3.8-10.6)
[2020-01-03 08:08] LABS: INR 1.1 (<1.2); Partial Thromboplastin Time 43.1 sec (22.0-30.0); Prothrombin Time 10.9 sec (9.0-12.0)
[2020-01-03 08:23] LABS: Potassium 4.1 mmol/L (3.5-5.1)
[2020-01-03 08:25] LABS: African American GFR (CKD) >90 (>60 ml/min/1.73 sqM); Anion Gap 6 mmol/L; Blood Urea Nitrogen 20 mg/dL (9-20); Calcium 8.6 mg/dL (8.4-10.2); Carbon Dioxide 27 mmol/L (22-30); Chloride 103 mmol/L (98-107); Glucose 123 mg/dL (74-99); Magnesium 1.3 mg/dL (1.6-2.3); Non-African American GFR(CKD) 87 (>60 ml/min/1.73 sqM); Sodium 136 mmol/L (137-145)
[2020-01-03] MEDS ORDERED: ASPIRIN 81 MG PO SCH (09:00)
[2020-01-03] MEDS: MUPIROCIN 2% OINT 22 GM TUBE NASAL SCH ×2 (09:02→20:58)
[2020-01-03] MEDS: lisinopriL 5 MG TAB PO SCH ×2 (10:48→20:10)
--- NOTE | 2020-01-03 10:48 | PN ---
PROGRESS NOTE Mr. Clayton is a 79-year-old male who presented with non ST-segment elevation myocardial infarction, underwent cardiac catheterization, was found to have severe triple-vessel coronary artery disease with heavily calcified coronary arteries. His echocardiogram revealed a mildly to moderately impaired left ventricular systolic function. He is doing well since last night. His breathing is stable overall. He denies any dizziness or palpitation. He denies any nausea. He is in sinus mechanism. He continues to be on aspirin once a day, on IV heparin, Lipitor 80 mg daily, Coreg 25 mg twice a day, nitroglycerin paste 1 inch q.8 hours. PHYSICAL EXAMINATION: Blood pressure running in the 120s to 160s with a heart rate in the 70s. LUNGS: Clear. HEART: Regular rate and rhythm, S1, S2. No S3 with a systolic murmur, no diastolic murmur. ABDOMEN: Soft, nontender. EXTREMITIES: No edema, right radial pulse intact. LAB DATA: Revealed troponin down to 0.182. BUN and creatinine 20 and 0.8, hemoglobin of 14.6. He had a chest x-ray that showed no acute infiltrate. IMPRESSION: 1. Severe triple-vessel coronary artery disease with non ST-segment elevation myocardial infarction. 2. Prior history of coronary artery disease. 3. Hypertension. 4. Hyperlipidemia. RECOMMENDATION: We will await the input of the cardiovascular surgeon for surgical intervention. Patient had diabetes and multivessel disease with proximal LAD. I will add to his regimen lisinopril to optimize his blood pressure control. Depending on the surgeon's decision, I am hopeful that he will undergo coronary artery bypass grafting tomorrow. MMODL / IJN: [id number] /
[2020-01-03 12:02] LABS: Glucose,Whole Blood 147 mg/dL (75-99)
[2020-01-03] MEDS: MAGNESIUM SULFATE-D5W PMX 1 GM in DEXTROSE/WATER 1 100ML.BAG IVPB SCH ×3 (13:05→17:15)
--- NOTE | 2020-01-03 13:30 | P.CNPUL ---
History of Present Illness Consult date: 01/03/20 Requesting physician: Sathish Mitchell Reason for consult: dyspnea Chief complaint: Exertional dyspnea History of present illness: This is a 79-year-old white male patient with past medical history lung cancer status post left upper lobectomy in 2012 followed by chemotherapy postoperatively, [id number] smoking history, currently in remission, hypertension, hyperlipidemia, previous myocardial infarction in 1998, coronary artery disease with PCI and stenting of the LAD and the circumflex in 1998, daily EtOH use, diabetes mellitus, family history of early onset coronary artery disease. Patient has a PCP in [facility], however patient spends a lot of time in the [facility] in the summer. He has been having symptoms of progressive exertional dyspnea the last couple months and weakness in his bilateral lower extremities. Denied any chest pain, no nausea, vomiting, or diaphoresis, no orthopnea, no peripheral edema, no palpitations. On 01/01/2020 patient presented to the emergency department for evaluation of his shortness of breath. He was transferred from another facility. Patient was noted to have elevated troponins here in the emergency department concerning for nonacute non- ST elevated myocardial infarction. EKG showed normal sinus rhythm with nonspecific ST abnormality. CTA chest showed thickening along the minor fissure which does not appear masslike, some right hilar adenopathy, extensive emphysema, coronary artery disease, no evident pulmonary embolism, small hiatal hernia, interstitial lung disease and cholelithiasis. His troponins were 0.279, 0.282, 0.290, 0.182. Heart catheterization was done yesterday on 01/02/2020 showing severely calcified coronary artery, severe triple-vessel coronary artery disease with chronic occlusion of the right coronary artery and significant disease in LAD and the left circumflex. Patient was referred to CT surgery for consideration for myocardial revascularization. Echocardiogram showed mild concentric LVH, mild to moderate impairment of the LV function with an EF of 40- 45%, septal hypokinesis, no aortic stenosis or regurgitation, mild MR, mild TR, no pulmonary hypertension. Chronic Doppler was negative for evidence of hemodynamically significant stenosis. Bedside spirometry revealed FEV1 of 1.64 L or 55% of predicted, FVC is 2.92 L or 70% of predicted, with FEV1/FVC of 78% of predicted, consistent with moderately severe obstruction. Review of Systems All systems: negative Constitutional: Denies chills, Denies fever Eyes: denies blurred vision, denies pain Ears, nose, mouth and throat: Denies headache, Denies sore throat Cardiovascular: Denies chest pain, Denies shortness of breath Respiratory: Reports dyspnea, Denies cough Gastrointestinal: Denies abdominal pain, Denies diarrhea, Denies nausea, Denies vomiting Musculoskeletal: Denies myalgias Integumentary: Denies pruritus, Denies rash Neurological: Denies numbness, Denies weakness Psychiatric: Denies anxiety, Denies depression Endocrine: Denies fatigue, Denies weight change Past Medical History Past Medical History: Coronary Artery Disease (CAD), Cancer, COPD, Diabetes Mellitus, Eye Disorder (History of cataracts bilaterally), Hyperlipidemia, Hypertension, Myocardial Infarction (non Q-wave) History of Any Multi-Drug Resistant Organisms: None Reported Past Surgical History: Appendectomy, Heart Catheterization With Stent Additional Past Surgical History / Comment(s): skin cancer, left upper lobe r esection lung CA in 2012, bilateral cataracts. Past Anesthesia/Blood Transfusion Reactions: No Reported Reaction Date of Last Stent Placement:: 1998 Past Psychological History: No Psychological Hx Reported Smoking Status: Former smoker (Quit 15 years ago) Past Alcohol Use History: Daily (Drinks 4 glasses of wine daily) Past Drug Use History: None Reported - Past Family History Father Family Medical History: Coronary Artery Disease (CAD) (Past awake in his early 50s from a myocardial infarction), Myocardial Infarction (ID) Mother Additional Family Medical History / Comment(s): Rheumatoid arthritis Medications and Allergies Home Medications Medication Instructions Recorded Confirmed Type Aspirin EC [Ecotrin Low Dose] 81 mg PO DAILY 01/01/20 01/01/20 History Atorvastatin Calcium [Lipitor] 80 mg PO HS 01/01/20 01/01/20 History Carvedilol [Coreg] 25 mg PO BID 01/01/20 01/01/20 History Cholecalciferol [Vitamin D3 (25 2,000 unit PO DAILY 01/01/20 01/01/20 History Mcg = 1000 Iu)] Loratadine [Claritin] 10 mg PO DAILY 01/01/20 01/01/20 History Multivitamins, Thera [Multivitamin 1 tab PO DAILY 01/01/20 01/01/20 History (formulary)] Vascepa 1gm 1 gm PO QID 01/01/20 01/01/20 History metFORMIN HCL [Glucophage] 1,000 mg PO BID 01/01/20 01/01/20 History Allergies Allergy/AdvReac Type Severity Reaction Status Date / Time No Known Allergies Allergy Verified 01/01/20 16:53 Physical Exam Vitals: Vital Signs Temp Pulse Resp BP Pulse Ox 01/03/20 08:00 97.6 F 76 132/75 95 01/03/20 04:00 71 17 159/84 98 01/03/20 00:00 77 17 128/72 98 01/02/20 20:00 97.6 F 85 16 139/76 93 L 01/02/20 18:21 97 01/02/20 17:32 97.6 F 93 16 157/87 95 01/02/20 16:32 98.6 F 70 16 169/95 97 01/02/20 16:00 97.6 F 83 16 157/87 95 01/02/20 15:23 97.6 F 71 16 168/84 98 01/02/20 15:02 98.2 F 70 16 160/86 97 01/02/20 14:32 98.0 F 67 16 175/89 97 01/02/20 14:17 98.0 F 67 16 168/84 97 01/02/20 14:02 98.2 F 67 16 165/89 97 01/02/20 13:47 98.2 F 70 16 150/91 90 L Intake and Output 01/02/20 01/03/20 01/03/20 22:59 06:59 14:59 Intake Total 267.266 49.565 545.201 Output Total 400 200 Balance -132.734 49.565 345.201 Intake: Intake, IV Titration 27.266 49.565 65.201 Amount Heparin Sod,Pork in 0.45% 27.266 49.565 65.201 NaCl 25,000 unit In 0.45 % NaCl 1 250ml.bag @ 12 UNITS/KG/HR 8.891 mls/hr IV .Q24H [facility] Rx#: [id number] Oral 240 480 Output: Urine 400 200 Other: Voiding Method Toilet Toilet # Voids 1 1 Weight 72.3 kg GENERAL EXAM: Alert, very pleasant, 79-year-old thin white male on 2 L of oxygen and the pulse ox of 95%, comfortable in no apparent distress. HEAD: Normocephalic/atraumatic. EYES: Normal reaction of pupils, equal size. Conjunctiva pink, sclera white. NOSE: Clear with pink turbinates. THROAT: No erythema or exudates. NECK: No masses, no JVD, no thyroid enlargement, no adenopathy. CHEST: No chest wall deformity. Symmetrical expansion. LUNGS: Equal air entry with no crackles, wheeze, rhonchi or dullness. CVS: Regular rate and rhythm, normal S1 and S2, no gallops, no murmurs, no rubs ABDOMEN: Soft, nontender. No hepatosplenomegaly, normal bowel sounds, no guarding or rigidity. EXTREMITIES: No clubbing, no edema, no cyanosis, 2+ pulses and upper and lower extremities. MUSCULOSKELETAL: Muscle strength and tone normal. SPINE: No scoliosis or deformity SKIN: No rashes CENTRAL NERVOUS SYSTEM: Alert and oriented -3. No focal deficits, tone is n ormal in all 4 extremities. PSYCHIATRIC: Alert and oriented -3. Appropriate affect. Intact judgment and insight. Results - Laboratory Findings CBC and BMP: 01/03/20 07:40 01/03/20 07:40 PT/INR, D-dimer PT 10.9 sec (9.0-12.0) 01/03/20 07:40 INR 1.1 (<1.2) 01/03/20 07:40 Abnormal lab findings: Abnormal Labs 01/01/20 01/01/20 01/01/20 16:44 16:44 20:10 INR APTT Sodium 134 L BUN 30 H Glucose 125 H POC Glucose (mg/dL) Calcium Magnesium 1.2 L AST 71 H ALT 58 H Troponin I 0.279 H* 0.282 H* Total Protein Albumin Urine Protein Urine Glucose (UA) Urine Mucus Crossmatch 01/01/20 01/01/20 01/02/20 21:34 22:50 01:04 INR APTT 50.3 H Sodium BUN Glucose POC Glucose (mg/dL) 139 H Calcium Magnesium AST ALT Troponin I 0.290 H* Total Protein Albumin Urine Protein Urine Glucose (UA) Urine Mucus Crossmatch 01/02/20 01/02/20 01/02/20 05:32 06:38 12:14 INR APTT Sodium BUN Glucose 119 H POC Glucose (mg/dL) 119 H 136 H Calcium 8.1 L Magnesium AST ALT Troponin I Total Protein 5.7 L Albumin 3.3 L Urine Protein Urine Glucose (UA) Urine Mucus Crossmatch 01/02/20 01/02/20 01/02/20 14:46 16:38 20:21 INR 1.2 H APTT 109.1 H* Sodium BUN Glucose POC Glucose (mg/dL) 118 H 210 H Calcium Magnesium AST ALT Troponin I Total Protein Albumin Urine Protein Urine Glucose (UA) Urine Mucus Crossmatch 01/02/20 01/02/20 01/03/20 23:00 23:15 04:18 INR APTT 31.4 H Sodium BUN Glucose POC Glucose (mg/dL) 100 H Calcium Magnesium AST ALT Troponin I Total Protein Albumin Urine Protein 2+ H Urine Glucose (UA) 2+ H Urine Mucus Rare H Crossmatch 01/03/20 01/03/20 01/03/20 06:10 07:40 07:40 INR APTT 43.1 H Sodium 136 L BUN Glucose 123 H POC Glucose (mg/dL) 118 H Calcium Magnesium 1.3 L AST ALT Troponin I Total Protein Albumin Urine Protein Urine Glucose (UA) Urine Mucus Crossmatch 01/03/20 01/03/20 01/03/20 07:40 07:40 11:50 INR APTT Sodium BUN Glucose POC Glucose (mg/dL) 147 H Calcium Magnesium AST ALT Troponin I 0.182 H* Total Protein Albumin Urine Protein Urine Glucose (UA) Urine Mucus Crossmatch See Detail - Diagnostic Findings Chest x-ray: report reviewed, image reviewed CT scan - chest: report reviewed, image reviewed Additional studies: EKG, echocardiogram, cardiac cath report, carotid Doppler reviewed Assessment and Plan Plan: Assessment: #1. Acute non-ST elevated myocardial infarction #2. Multivessel coronary artery disease, showing severely calcified coronary artery, severe triple-vessel coronary artery disease with chronic occlusion of the right coronary artery and significant disease in the LAD and the left circumflex, and patient is being evaluated for myocardial revascularization surgery #3. Progressive exertional dyspnea related to the above #4. History of tobacco dependence, currently in remission, carries [id number] smoking history #5. History of lung cancer, status post left upper lobectomy in 2013 followed by chemotherapy #6. Diabetes mellitus type 2 #7. History of coronary artery disease with previous PCI stenting of the LAD and RCA in 1998 #8. Family history of early onset coronary artery disease #9. History of skin cancer #10. Daily EtOH use #11. Bedside spirometry revealed FEV1 of 55% of predicted, FVC of 70% of predicted, consistent with moderately severe obstruction, related to history of COPD Plan: Bedside spirometry results reviewed, patient has moderately severe COPD. Will add albuterol inhaler 4 times daily, patient is awaiting to be evaluated for myocardial revascularization surgery. We will continue the patient's in the postoperative period. Appears to be stable at this time, he is undergoing preoperative evaluation. I performed a history & physical examination of the patient and discussed their management with my nurse practitioner, Pratibha Waller. I reviewed the nurse practitioner's note and agree with the documented findings and plan of care. Lung sounds are positive for diminished breath sounds. The findings and the impression was discussed with the patient. I attest to the documentation by the nurse practitioner. Time with Patient: Greater than 30
[2020-01-03 13:32] LABS: Hemoglobin A1C 6.7 % (4.0-6.0)
[2020-01-03 14:56] LABS: Hepatitis A Antibody IgM Non-Reactive (Non-Reactive); Hepatitis B Core IgM Non-Reactive (Non-Reactive); Hepatitis B Surface Antigen Non-Reactive (Non-Reactive); Hepatitis C IgG Antibody Non-Reactive (Non-Reactive)
--- NOTE | 2020-01-03 16:13 | P.PN ---
Subjective Progress Note Date: 01/03/20 Principal diagnosis: Multivessel coronary artery disease, non-ST elevation myocardial infarction this admission. 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 The patient is ambulatory in his room, currently sitting in a recliner in no acute distress. Denies any pain. Does complain of mild shortness of breath with exertion but currently is not having any shortness of breath. Remains in normal sinus rhythm. Anticipates coronary artery bypass surgery tomorrow, all questions were answered by Dr. Gama. Objective - Vital Signs Vital signs: Vital Signs Temp 97.6 F 01/02/20 20:00 Pulse 71 01/03/20 04:00 Resp 17 01/03/20 04:00 BP 159/84 01/03/20 04:00 Pulse Ox 98 01/03/20 04:00 Intake & Output 01/02/20 01/03/20 01/03/20 18:59 06:59 18:59 Intake Total 465.266 49.565 545.201 Output Total 300 400 200 Balance 165.266 -350.435 345.201 Weight 72.3 kg Intake: IV 50 Intake, IV Titration 175.266 49.565 65.201 Amount Heparin Sod,Pork in 0.45% 27.266 49.565 65.201 NaCl 25,000 unit In 0.45 % NaCl 1 250ml.bag @ 12 UNITS/KG/HR 8.891 mls/hr IV .Q24H [facility] Rx#: [id number] Sodium Chloride 0.9% 1, 148 000 ml In Empty Bag 1 bag @ 1 ML/KG/HR 74.09 mls/ hr IV .[id number] [facility] Rx#: [id number] Oral 240 480 Output: Urine 300 400 200 Other: Voiding Method Toilet # Voids 1 1 - Constitutional General appearance: Present: cooperative, no acute distress - Respiratory Details: Lungs sounds clear bilaterally. Respirations even, nonlabored. Currently on 2 L nasal cannula with oxygen saturation 92%. Able to achieve 2000 mL on his incentive spirometry. Strong cough. - Cardiovascular Details: S1, S2 present. Regular rate and rhythm, sinus rhythm on telemetry. Palpable peripheral pulses bilaterally. No edema present. No calf pain or tenderness noted. - Gastrointestinal Gastrointestinal Comment(s): Abdomen soft, nontender, nondistended. Active bowel sounds present 4 quadrants. Tolerating diet. - Genitourinary Genitourinary Comment(s): Continues to void - Integumentary Integumentary Comment(s): Skin is warm and dry with evidence of good perfusion - Neurologic Neurologic: Present: CNII-XII intact - Musculoskeletal Musculoskeletal: Present: gait normal, strength equal bilaterally - Psychiatric Psychiatric: Present: A&O x's 3, appropriate affect, intact judgment & insight - Allied health notes Allied health notes reviewed: nursing - Labs CBC & Chem 7: 01/03/20 07:40 01/03/20 07:40 Labs: Abnormal Lab Results - Last 24 Hours (Table) 01/02/20 01/02/20 01/02/20 Range/Units 12:14 14:46 16:38 INR 1.2 H (<1.2) APTT 109.1 H* (22.0-30.0) sec Sodium (137-145) mmol/L Glucose (74-99) mg/dL POC Glucose (mg/dL) 136 H 118 H (75-99) mg/dL Magnesium (1.6-2.3) mg/dL Troponin I (0.000-0.034) ng/mL Urine Protein (Negative) Urine Glucose (UA) (Negative) Urine Mucus (None) /hpf Crossmatch 01/02/20 01/02/20 01/02/20 Range/Units 20:21 23:00 23:15 INR (<1.2) APTT 31.4 H (22.0-30.0) sec Sodium (137-145) mmol/L Glucose (74-99) mg/dL POC Glucose (mg/dL) 210 H (75-99) mg/dL Magnesium (1.6-2.3) mg/dL Troponin I (0.000-0.034) ng/mL Urine Protein 2+ H (Negative) Urine Glucose (UA) 2+ H (Negative) Urine Mucus Rare H (None) /hpf Crossmatch 01/03/20 01/03/20 01/03/20 Range/Units 04:18 06:10 07:40 INR (<1.2) APTT 43.1 H (22.0-30.0) sec Sodium (137-145) mmol/L Glucose (74-99) mg/dL POC Glucose (mg/dL) 100 H 118 H (75-99) mg/dL Magnesium (1.6-2.3) mg/dL Troponin I (0.000-0.034) ng/mL Urine Protein (Negative) Urine Glucose (UA) (Negative) Urine Mucus (None) /hpf Crossmatch 01/03/20 01/03/20 01/03/20 Range/Units 07:40 07:40 07:40 INR (<1.2) APTT (22.0-30.0) sec Sodium 136 L (137-145) mmol/L Glucose 123 H (74-99) mg/dL POC Glucose (mg/dL) (75-99) mg/dL Magnesium 1.3 L (1.6-2.3) mg/dL Troponin I 0.182 H* (0.000-0.034) ng/mL Urine Protein (Negative) Urine Glucose (UA) (Negative) Urine Mucus (None) /hpf Crossmatch See Detail Microbiology - Last 24 Hours (Table) 01/02/20 21:35 Nasal Screen MRSA/MSSA - Preliminary Nasal Swab Assessment and Plan Assessment: 1. Multivessel coronary artery disease, non-STEMI this admission 2. History of coronary artery disease status post stent placement to the LAD and RCA in 1998 3. History of hypertension 4. History of hyperlipidemia 5. Diabetes mellitus type 2 with preoperative hemoglobin A1c 6.7% 6. Daily EtOH use 7. 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 History of lung cancer, status post left upper lobectomy in 2013 followed by chemotherapy 9. History of squamous cell and basal cell skin cancer 10. Family history of early onset coronary artery disease Plan: 1. Continue aspirin, statin, beta junior therapy, heparin drip 2. Our plan is for myocardial revascularization with extracorporeal circulation on standby, left internal mammary artery and endoscopic vein harvesting with intraoperative transesophageal echocardiogram to be performed by Dr. Gama tomorrow. Nothing by mouth after midnight 3. STS risk score calculated and discussed with patient 4. Increase activity, ambulate as tolerated 5. Continue CIWA protocol 6. Medical management other comorbidities per primary care service 7. More recommendations to follow Time with Patient: Greater than 30
--- NOTE | 2020-01-03 16:59 | P.PN ---
Subjective Progress Note Date: 01/03/20 Principal diagnosis: Severe CAD Patient was seen and examined. He denies any chest pain, shortness breath or palpitations. No nausea or vomiting. No fever or chills. Agreeable for surgery [facility] plans for CABG tomorrow. Objective - Vital Signs Vital signs: Vital Signs Temp 97.6 F 01/03/20 08:00 Pulse 79 01/03/20 12:00 Resp 17 01/03/20 04:00 BP 150/77 01/03/20 12:00 Pulse Ox 92 L 01/03/20 12:00 Intake & Output 01/02/20 01/03/20 01/03/20 18:59 06:59 18:59 Intake Total 465.266 49.565 665.201 Output Total 300 400 200 Balance 165.266 -350.435 465.201 Weight 72.3 kg Intake: IV 50 Intake, IV Titration 175.266 49.565 65.201 Amount Heparin Sod,Pork in 0.45% 27.266 49.565 65.201 NaCl 25,000 unit In 0.45 % NaCl 1 250ml.bag @ 12 UNITS/KG/HR 8.891 mls/hr IV .Q24H [facility] Rx#: [id number] Sodium Chloride 0.9% 1, 148 000 ml In Empty Bag 1 bag @ 1 ML/KG/HR 74.09 mls/ hr IV .[id number] [facility] Rx#: [id number] Oral 240 600 Output: Urine 300 400 200 Other: Voiding Method Toilet # Voids 1 1 - Exam General: [non toxic], [no distress], [appears at stated age] Derm: [warm], [dry] Head: [atraumatic], [normocephalic], [symmetric] Eyes: [EOMI], [no lid lag], [anicteric sclera] Mouth: [no lip lesion], [mucus membranes moist] Cardiovascular: [S1S2 reg], [no murmur], [positive posterior tibial pulse bilateral], Lungs: [CTA bilateral], [no rhonchi, no rales] , [no accessory muscle use] Abdominal: [soft], [ nontender to palpation], [no guarding], [no appreciable organomegaly] Ext: [no gross muscle atrophy], [no edema], [no contractures] Neuro: [ CN II-XI grossly intact], [no focal neuro deficits] Psych: [Alert], [oriented], [appropriate affect] - Labs CBC & Chem 7: 01/03/20 07:40 01/03/20 07:40 Labs: Abnormal Lab Results - Last 24 Hours (Table) 01/02/20 01/02/20 01/02/20 Range/Units 20:21 23:00 23:15 APTT 31.4 H (22.0-30.0) sec Sodium (137-145) mmol/L Glucose (74-99) mg/dL POC Glucose (mg/dL) 210 H (75-99) mg/dL Hemoglobin A1c (4.0-6.0) % Magnesium (1.6-2.3) mg/dL Troponin I (0.000-0.034) ng/mL Urine Protein 2+ H (Negative) Urine Glucose (UA) 2+ H (Negative) Urine Mucus Rare H (None) /hpf Crossmatch 01/03/20 01/03/20 01/03/20 Range/Units 04:18 06:10 07:40 APTT 43.1 H (22.0-30.0) sec Sodium (137-145) mmol/L Glucose (74-99) mg/dL POC Glucose (mg/dL) 100 H 118 H (75-99) mg/dL Hemoglobin A1c (4.0-6.0) % Magnesium (1.6-2.3) mg/dL Troponin I (0.000-0.034) ng/mL Urine Protein (Negative) Urine Glucose (UA) (Negative) Urine Mucus (None) /hpf Crossmatch 01/03/20 01/03/20 01/03/20 Range/Units 07:40 07:40 07:40 APTT (22.0-30.0) sec Sodium 136 L (137-145) mmol/L Glucose 123 H (74-99) mg/dL POC Glucose (mg/dL) (75-99) mg/dL Hemoglobin A1c 6.7 H (4.0-6.0) % Magnesium 1.3 L (1.6-2.3) mg/dL Troponin I (0.000-0.034) ng/mL Urine Protein (Negative) Urine Glucose (UA) (Negative) Urine Mucus (None) /hpf Crossmatch See Detail 01/03/20 01/03/20 Range/Units 07:40 11:50 APTT (22.0-30.0) sec Sodium (137-145) mmol/L Glucose (74-99) mg/dL POC Glucose (mg/dL) 147 H (75-99) mg/dL Hemoglobin A1c (4.0-6.0) % Magnesium (1.6-2.3) mg/dL Troponin I 0.182 H* (0.000-0.034) ng/mL Urine Protein (Negative) Urine Glucose (UA) (Negative) Urine Mucus (None) /hpf Crossmatch Microbiology - Last 24 Hours (Table) 01/02/20 21:35 Nasal Screen MRSA/MSSA - Preliminary Nasal Swab Assessment and Plan Assessment: Severe CAD with non-ST elevation Diabetes mellitus Hypertension Dyslipidemia Cardiac cath shows multivessel disease. Continue aspirin and Lipitor. Cardiology recommends cardiothoracic surgery for CABG, scheduled for tomorrow. Continue beta junior. Telemetry monitoring. Follow echocardiogram. Insulin sliding scale. Regular Accu-Cheks. Hypoglycemic precautions. Continue Coreg. Monitor vitals, adjust medications if necessary. Continue Lipitor. [Preoperative imaging underway. Plans for CABG tomorrow. Patient is pending clinical improvement. Pulmonology and cardiology on board.]
[2020-01-03 17:09] LABS: Glucose,Whole Blood 192 mg/dL (75-99)
[2020-01-03] MEDS: HEPARIN SOD,PORK IN 0.45% NACL 25,000 UNIT in 0.45% NACL 1 250ML.BAG IV SCH ×2 (17:57→20:11)
[2020-01-03] MEDS: ALBUTEROL HFA INHALER INHALATION SCH ×2 (18:35→19:31)
[2020-01-03 20:04] LABS: Glucose,Whole Blood 120 mg/dL (75-99)
[2020-01-03] MEDS: ATORVASTATIN 80 MG TAB PO SCH (20:10)
[2020-01-04] MEDS: NITROGLYCERIN OINT 1 INCH/GM PACKET TOPICAL SCH (01:21)
[2020-01-04 02:00] LABS: Glucose,Whole Blood 120 mg/dL (75-99)
[2020-01-04] MEDS ORDERED: NITROGLYCERIN-D5W PMX 25 MG/250 ML BTL IV ONE (05:00)
[2020-01-04] MEDS ORDERED: PHENYLEPHRINE 10 MG/ML VIAL IV ONE (05:00)
[2020-01-04] MEDS ORDERED: TRANEXAMIC ACID 2,000 MG in SODIUM CHLORIDE 0.9% 80 ML IV ONE (05:00)
[2020-01-04] MEDS ORDERED: ceFAZolin 2 GM in SODIUM CHLORIDE 0.9% 30 ML IVPB ONE (05:00)
[2020-01-04] MEDS ORDERED: SODIUM BICARB 8.4% 50 ML SYR (1 MEQ/ML) IV ONE (05:00)
[2020-01-04] MEDS ORDERED: PAPAVERINE 360 MG in SODIUM CHLORIDE 0.9% 90 ML IV ONE (05:00)
[2020-01-04] MEDS ORDERED: ceFAZolin 2,000 MG in SODIUM CHLORIDE 0.9% 30 ML IVPB ONE (05:00)
[2020-01-04] MEDS ORDERED: PROTAMINE SULFATE 10 MG/ML 25 ML VIAL IV ONE (05:00)
[2020-01-04] MEDS ORDERED: MAGNESIUM SULFATE SYG 4.06 MEQ/ML SYRINGE IV ONE (05:00)
[2020-01-04] MEDS ORDERED: CALCIUM CHLORIDE 100 MG/ML 10 ML SYRINGE IVP ONE (05:00)
[2020-01-04] MEDS ORDERED: MANNITOL 25% 12.5 GM/50 ML VIAL IV ONE ×2 (05:00)
[2020-01-04] MEDS ORDERED: ASPIRIN 325 MG TAB PO ONE (05:00)
[2020-01-04] MEDS ORDERED: PHENYLEPHRINE 40 MG in SODIUM CHLORIDE 0.9% 250 ML IV ONE (05:00)
[2020-01-04] MEDS ORDERED: HEPARIN SODIUM,PORCINE 5,000 UNIT in SODIUM CHLORIDE 0.9% 500 ML 500 ML IV ONE (05:00)
[2020-01-04] MEDS ORDERED: CARDIOPLEGIC SOLN (K+ 16 MEQ/L 1,000 ML with SOD BICARB SYR 8.4% (1 MEQ/ML) 20 ML, LIDO... PERFUSION ONE ×3 (05:00)
[2020-01-04] MEDS ORDERED: HEPARIN SODIUM 1,000 UN/ML (10ML VL) IV ONE (05:00)
[2020-01-04] MEDS ORDERED: ceFAZolin 1,000 MG in SODIUM CHLORIDE 0.9% IRRIGATIO 1,000 ML IRRIGATION ONE (05:00)
[2020-01-04] MEDS ORDERED: ATORVASTATIN 10 MG TAB PO ONE (05:00)
[2020-01-04] MEDS ORDERED: CHLORHEXIDINE GLUCONATE 15 ML CUP MUCOUS MEM ONE (05:00)
[2020-01-04] MEDS ORDERED: METOPROLOL TARTRATE 12.5 MG TAB PO ONE (05:00)
[2020-01-04] MEDS ORDERED: ALBUMIN HUMAN 5% 500 ML in EMPTY BAG 1 BAG IVPB ONE ×6 (05:00)
[2020-01-04] MEDS ORDERED: INSULIN REGULAR 100 UNIT in SODIUM CHLORIDE 0.9% 100 ML IV ONE (05:00)
[2020-01-04] MEDS ORDERED: PROTAMINE SULFATE 250 MG in EMPTY BAG 1 BAG IV ONE (05:00)
[2020-01-04] MEDS ORDERED: ALBUMIN HUMAN 25% 50 ML in EMPTY BAG 1 BAG IVPB ONE (05:00)
[2020-01-04 05:30] LABS: Glucose,Whole Blood 153 mg/dL (75-99)
[2020-01-04] MEDS ORDERED: IV FLUID CONTINUATION 600 ML IV ONE (06:00)
[2020-01-04] MEDS ORDERED: MAGNESIUM SULFATE 4 MEQ/ML 10ML VIAL ONE (07:34)
[2020-01-04] MEDS ORDERED: PROPOFOL 10 MG/ML 20 ML VIAL IV ONE (07:34)
[2020-01-04] MEDS ORDERED: fentaNYL (PF) 50 MCG/ML 2 ML AMP ONE (07:34)
[2020-01-04] MEDS ORDERED: ALBUMIN HUMAN 5% (25gm) 500 ML VIAL IVPB ONE (07:34)
[2020-01-04] MEDS ORDERED: SODIUM CHLORIDE 0.9% IRRIG 1,000 ML BTL IRRIGATION ONE (07:34)
[2020-01-04] MEDS ORDERED: fentaNYL (PF) 50 MCG/ML 50 ML VIAL ONE (07:34)
[2020-01-04] MEDS ORDERED: MIDAZOLAM 2 MG/2 ML VIAL ONE (07:34)
[2020-01-04] MEDS ORDERED: ELECTROLYTE-R (PH 7.4) 1,000 ML IV.SOLN IV ONE (07:34)
[2020-01-04] MEDS ORDERED: INSULIN REGULAR 100 UNIT/ML VIAL ONE (07:34)
[2020-01-04] MEDS ORDERED: POTASSIUM CHLORIDE OPEN HEART 20 MEQ/50 ML BAG IVPB ONE (07:34)
[2020-01-04] MEDS ORDERED: VECURONIUM 10 MG VIAL IV ONE (07:34)
[2020-01-04] MEDS ORDERED: NITROGLYCERIN-D5W PMX 50 MG/250 ML BOTTLE IV ONE (07:34)
[2020-01-04] MEDS ORDERED: HEPARIN SODIUM,PORCINE 5,000 UNIT/ML 1 ML VIAL ONE (07:34)
[2020-01-04] MEDS ORDERED: EPINEPHrine 1 MG/ML 1 ML AMP ONE (07:34)
[2020-01-04] MEDS ORDERED: TRANEXAMIC ACID 1,000 MG/10 ML VIAL ONE (07:34)
[2020-01-04] MEDS ORDERED: SODIUM CHLORIDE 0.9% 250 ML BAG ONE (07:34)
[2020-01-04] MEDS ORDERED: CALCIUM CHLORIDE 100 MG/ML 10 ML SYRINGE ONE (07:34)
[2020-01-04] MEDS: ALBUTEROL HFA INHALER INHALATION SCH ×2 (08:10→12:50)
[2020-01-04 08:32] LABS: ABG Base Excess -2.9 mmol/L; ABG Glucose Whole Blood 121 mg/dL (75-99); ABG HCO3 23 mmol/L (21-25); ABG Hematocrit 40 % (34.0-46.0); ABG Ionized Calcium 4.6 mg/dL (4.5-5.3); ABG Lactic Acid Whole Blood 0.7 mmol/L (0.5-1.6); ABG Oxygen Saturation 99.8 % (94-97); ABG PCO2 40 mmHg (35-45); ABG PH 7.36 (7.35-7.45); ABG PO2 231 mmHg (83-108); ABG Potassium Whole Blood 3.9 mmol/L (3.4-4.5); ABG Sodium Whole Blood 137 mmol/L (135-146); ABG TCO2 24 mmol/L (19-24)
[2020-01-04 10:03] LABS: ABG Base Excess -5.8 mmol/L; ABG Glucose Whole Blood 148 mg/dL (75-99); ABG HCO3 22 mmol/L (21-25); ABG Hematocrit 35 % (34.0-46.0); ABG Ionized Calcium 4.6 mg/dL (4.5-5.3); ABG Lactic Acid Whole Blood 0.5 mmol/L (0.5-1.6); ABG Oxygen Saturation 99.9 % (94-97); ABG PCO2 52 mmHg (35-45); ABG PH 7.23 (7.35-7.45); ABG PO2 356 mmHg (83-108); ABG Potassium Whole Blood 4.6 mmol/L (3.4-4.5); ABG Sodium Whole Blood 137 mmol/L (135-146); ABG TCO2 24 mmol/L (19-24)
[2020-01-04 10:26] LABS: ABG Base Excess -4.5 mmol/L; ABG Glucose Whole Blood 162 mg/dL (75-99); ABG HCO3 23 mmol/L (21-25); ABG Hematocrit 33 % (34.0-46.0); ABG Ionized Calcium 4.3 mg/dL (4.5-5.3); ABG Lactic Acid Whole Blood 0.5 mmol/L (0.5-1.6); ABG PCO2 50 mmHg (35-45); ABG PH 7.27 (7.35-7.45); ABG Potassium Whole Blood 4.3 mmol/L (3.4-4.5); ABG Sodium Whole Blood 139 mmol/L (135-146); ABG TCO2 24 mmol/L (19-24)
[2020-01-04 10:59] LABS: ABG Base Excess -10.5 mmol/L; ABG Glucose Whole Blood 214 mg/dL (75-99); ABG HCO3 18 mmol/L (21-25); ABG Hematocrit 33 % (34.0-46.0); ABG Ionized Calcium 4.2 mg/dL (4.5-5.3); ABG Oxygen Saturation 96.7 % (94-97); ABG PCO2 54 mmHg (35-45); ABG PO2 110 mmHg (83-108); ABG Potassium Whole Blood 4.4 mmol/L (3.4-4.5); ABG Sodium Whole Blood 138 mmol/L (135-146); ABG TCO2 20 mmol/L (19-24)
[2020-01-04 11:10] LABS: ABG Base Excess -2.2 mmol/L; ABG Glucose Whole Blood 195 mg/dL (75-99); ABG HCO3 22 mmol/L (21-25); ABG Lactic Acid Whole Blood 1.7 mmol/L (0.5-1.6); ABG PCO2 36 mmHg (35-45); ABG Potassium Whole Blood 3.8 mmol/L (3.4-4.5); ABG Sodium Whole Blood 141 mmol/L (135-146); ABG TCO2 24 mmol/L (19-24)
[2020-01-04] MEDS ORDERED: SODIUM CHLORIDE 0.9% 50 ML with VASOPRESSIN 20 UNIT IVPB ONE ×2 (11:15)
[2020-01-04 12:05] LABS: ABG Base Excess -2.7 mmol/L; ABG Glucose Whole Blood 135 mg/dL (75-99); ABG HCO3 22 mmol/L (21-25); ABG Ionized Calcium 3.9 mg/dL (4.5-5.3); ABG Lactic Acid Whole Blood 1.4 mmol/L (0.5-1.6); ABG PCO2 39 mmHg (35-45); ABG PH 7.37 (7.35-7.45); ABG PO2 329 mmHg (83-108); ABG Potassium Whole Blood 3.8 mmol/L (3.4-4.5); ABG Sodium Whole Blood 137 mmol/L (135-146); ABG TCO2 24 mmol/L (19-24)
[2020-01-04 12:30] LABS: ABG Base Excess -2.1 mmol/L; ABG Glucose Whole Blood 116 mg/dL (75-99); ABG HCO3 23 mmol/L (21-25); ABG Ionized Calcium 3.8 mg/dL (4.5-5.3); ABG Lactic Acid Whole Blood 1.1 mmol/L (0.5-1.6); ABG PCO2 39 mmHg (35-45); ABG PH 7.38 (7.35-7.45); ABG PO2 363 mmHg (83-108); ABG Potassium Whole Blood 3.5 mmol/L (3.4-4.5); ABG Sodium Whole Blood 139 mmol/L (135-146); ABG TCO2 24 mmol/L (19-24)
[2020-01-04 13:02] LABS: ABG Base Excess -6.2 mmol/L; ABG Glucose Whole Blood 119 mg/dL (75-99); ABG HCO3 22 mmol/L (21-25); ABG Ionized Calcium 4.8 mg/dL (4.5-5.3); ABG Oxygen Saturation 96.2 % (94-97); ABG PCO2 58 mmHg (35-45); ABG PO2 96 mmHg (83-108); ABG Potassium Whole Blood 4.6 mmol/L (3.4-4.5); ABG Sodium Whole Blood 138 mmol/L (135-146); ABG TCO2 24 mmol/L (19-24)
[2020-01-04 13:21] LABS: ABG Base Excess -2.6 mmol/L; ABG Glucose Whole Blood 160 mg/dL (75-99); ABG HCO3 25 mmol/L (21-25); ABG Ionized Calcium 4.5 mg/dL (4.5-5.3); ABG Oxygen Saturation 90.3 % (94-97); ABG PCO2 59 mmHg (35-45); ABG PH 7.24 (7.35-7.45); ABG PO2 66 mmHg (83-108); ABG Potassium Whole Blood 3.6 mmol/L (3.4-4.5); ABG Sodium Whole Blood 140 mmol/L (135-146); ABG TCO2 27 mmol/L (19-24)
[2020-01-04 13:30] LABS: ABG PO2 >420 mmHg (83-108)
[2020-01-04 13:31] LABS: ABG Lactic Acid Whole Blood 2.5 mmol/L (0.5-1.6); ABG PH 7.14 (7.35-7.45)
[2020-01-04 13:32] LABS: ABG Hematocrit 22 % (34.0-46.0); ABG Ionized Calcium 3.5 mg/dL (4.5-5.3); ABG PO2 >420 mmHg (83-108)
[2020-01-04 13:33] LABS: ABG Hematocrit 24 % (34.0-46.0)
[2020-01-04 13:34] LABS: ABG Hematocrit 22 % (34.0-46.0)
[2020-01-04 13:34] LABS: ABG Lactic Acid Whole Blood 2.8 mmol/L (0.5-1.6); ABG PH 7.18 (7.35-7.45)
[2020-01-04 13:35] LABS: ABG Hematocrit 23 % (34.0-46.0); ABG Lactic Acid Whole Blood 2.4 mmol/L (0.5-1.6)
[2020-01-04 13:35] LABS: ABG Hematocrit 22 % (34.0-46.0)
[2020-01-04 13:42] LABS: ABG Base Excess -1.6 mmol/L; ABG Glucose Whole Blood 164 mg/dL (75-99); ABG HCO3 25 mmol/L (21-25); ABG Oxygen Saturation 97.3 % (94-97); ABG PCO2 49 mmHg (35-45); ABG PH 7.31 (7.35-7.45); ABG PO2 91 mmHg (83-108); ABG Potassium Whole Blood 3.7 mmol/L (3.4-4.5); ABG Sodium Whole Blood 141 mmol/L (135-146); ABG TCO2 26 mmol/L (19-24)
[2020-01-04 14:03] LABS: ABG Hematocrit 21 % (34.0-46.0)
[2020-01-04 14:04] LABS: ABG Ionized Calcium 3.4 mg/dL (4.5-5.3)
[2020-01-04 14:27] LABS: ABG Base Excess -0.6 mmol/L; ABG Glucose Whole Blood 143 mg/dL (75-99); ABG HCO3 25 mmol/L (21-25); ABG Oxygen Saturation 98.7 % (94-97); ABG PCO2 44 mmHg (35-45); ABG PH 7.36 (7.35-7.45); ABG PO2 117 mmHg (83-108); ABG Potassium Whole Blood 3.4 mmol/L (3.4-4.5); ABG Sodium Whole Blood 141 mmol/L (135-146); ABG TCO2 26 mmol/L (19-24)
[2020-01-04 14:28] LABS: ABG Ionized Calcium 3.9 mg/dL (4.5-5.3)
[2020-01-04 14:43] LABS: ABG Hematocrit 24 % (34.0-46.0); ABG Lactic Acid Whole Blood 2.3 mmol/L (0.5-1.6)
[2020-01-04 15:26] LABS: Glucose,Whole Blood 161 mg/dL (75-99)
[2020-01-04] MEDS ORDERED: ALBUMIN HUMAN 5% 250 ML IVPB ONE ×2 (15:29)
[2020-01-04] MEDS ORDERED: METOCLOPRAMIDE 5 MG/ML 2 ML VIAL IVP PRN (15:43)
[2020-01-04] MEDS ORDERED: BENZOCAINE/MENTHOL LOZENG 1 EACH LOZENGE MUCOUS MEM PRN (15:43)
[2020-01-04] MEDS ORDERED: IPRATROPIUM-ALBUTEROL 3 ML NEB INHALATION PRN (15:43)
[2020-01-04] MEDS ORDERED: Magnesium Replacement Protocol 1 EACH MISC MISCELLANE PRN (15:43)
[2020-01-04] MEDS ORDERED: ONDANSETRON 4 MG/2 ML VIAL IVP PRN (15:43)
[2020-01-04] MEDS ORDERED: DEXTROSE 5% IN WATER 100 ML with AMIODARONE 150 MG IV PRN (15:43)
[2020-01-04] MEDS ORDERED: AMIODARONE 360 MG in DEXTROSE 5% IN WATER 200 ML IV PRN ×2 (15:43)
[2020-01-04] MEDS ORDERED: CALCIUM GLUCONATE 2 GM in SODIUM CHLORIDE 0.9% 100 ML IVPB PRN (15:43)
[2020-01-04] MEDS ORDERED: Potassium Replacement Protocol 1 EACH MISC MISCELLANE PRN (15:43)
[2020-01-04] MEDS ORDERED: AMIODARONE 300 MG in DEXTROSE 5% IN WATER 250 ML IV PRN ×2 (15:43)
[2020-01-04] MEDS ORDERED: Phosphorus Replacement Protoco 1 EACH MISC MISCELLANE PRN (15:43)
[2020-01-04] MEDS ORDERED: LORazepam 2 MG/ML INJ IV PRN ×3 (15:43)
[2020-01-04 15:56] LABS: ABG Base Excess -0.6 mmol/L; ABG HCO3 26 mmol/L (21-25); ABG Oxygen Saturation 93.4 % (94-97); ABG PCO2 56 mmHg (35-45); ABG PH 7.28 (7.35-7.45); ABG PO2 75 mmHg (83-108); ABG TCO2 28 mmol/L (19-24)
[2020-01-04 15:58] LABS: Ionized Calcium 5.2 mg/dL (4.5-5.3)
--- NOTE | 2020-01-04 15:59 | P.OP ---
Date of Procedure: 01/04/20 Preoperative Diagnosis: Coronary artery disease, unstable angina, subendocardial VT Postoperative Diagnosis: Same Procedure(s) Performed: Coronary artery bypass grafting 3 with off-pump PIÑA to LAD and on pump beating heart saphenous vein graft to the acute marginal and saphenous vein graft to the obtuse marginal with endarterectomy and patch angioplasty of the acute marginal. Also placement of intra-aortic balloon pump and ligation of left atrial ap pendage with a 40 mm AtriCure clip and endovascular vein harvest Implants: 40 mm AtriCure Anesthesia: ROBERT Surgeon: Tam Gama [employer] Tech #1: Sathish Mitchell [employer] Tech #2: Analilia Moncada Estimated Blood Loss (ml): 500 Urine output (ml): 900 Pathology: other (Endarterectomy left circumflex coronary artery) Condition: stable Disposition: ICU Indications for Procedure: 79-year-old male with history of Operative Findings: The heart was displaced far into the left chest and rotated clockwise and posteriorly. Coronary arteries were diffusely diseased and calcified. Saphenous vein and PIÑA were good. Description of Procedure: The patient was brought to the operating room, placed supine on the operating table, anesthetized and intubated. [place] catheter had been placed via the right internal jugular approach and radial artery line had been placed in the preop holding area. The anterior torso and lower extremities were sterilely prepped and draped in standard fashion. The left greater saphenous vein was harvested from mid calf to groin using endoscopic vein harvest technique and was of good quality. Simultaneous sternotomy was performed left hemisternum was retracted upwards. The heart was displaced into the left chest and the left pleural space was completely fused. Adhesions were taken down and the left internal mammary artery was harvested on a vascular pedicle left intact on its origin from the subclavian and divided distally. There was an excellent conduit. 32-Ecuadorean chest tube was placed in the anterior chest base to drain this area. Standard sternal retractor was placed. Pericardium was opened in the midline and the heart exposed with pericardial sutures. Heart was noted to be rotated significantly to the left. We were able to expose the LAD. Patient was systemically heparinized. The LAD was stabilized in its proximal portion. The LAD was diffusely calcified. Proximally there was a area of the LAD that was soft and blue and was felt to be graftable. The LAD was opened here. A probe only passed a short distance proximally with passed easily distally. Blood flow was controlled with a 1.5 mm flow through. It was a 2 mm vessel. PIÑA to the LAD anastomosis was performed with running 8-0 Prolene suture. On completion the anastomosis the flow through was removed 50 probe the proximal distal portion anastomosis. Suture was tied with good result and hemostasis and the inflow open. The AMY pedicle was tacked surrounding epicardium with 6-0 silk sutures. Next the saphenous vein was evaluated and the best piece was prepared for use for the obtuse marginal coronary artery. It was loaded onto passport anastomotic connector and connected to the ascending aorta to the left of midline in the midportion of the ascending aorta. Inferior wall was examined. The PDA was not felt to be an appropriate target for bypass. The distal circumflex posterior lateral branch was very very small and also not appropriate. Was decided to Simply graft the colon branch. The OM branch was very calcified to touch however there was evidence of the loose spot fairly proximally. Unfortunately we lifted the heart to close the obtuse marginal coronary artery the patient's pressure dropped. Despite multiple manipulations to try to expose the left side of the heart we could not successfully do the rotational abnormalities. In the interim in doing so blood pressure did not, however and the right ventricle looked particularly dilated. We began open cardiac massage and metanephrine and the patient initially responded well. He has not interim an intra-aortic balloon pump was placed via the right femoral artery percutaneously and she was. This proceeded without event. Despite this the patient again became hypotensive with a distended right ventricle 1V epinephrine were off. At this point it was felt best solution was repeated go on pump and complete the bypass surgery pump-assisted. It was cannulated for cardiopulmonary bypass 7 mm soft flow cannula the distal ascending aorta and a two-stage venous cannula through the right atrium into the inferior vena cava. His placed on bypass and stabilized. We now able to expose the lateral wall the heart and stabilize the obtuse marginal vessel. On opening spot it became evident that there was severe calcific plaque which would not allow standard bypass in this area. The arteriotomy was extended distally and endarterectomy of this circumflex coronary artery was performed. We got an excellent distal feather and were very happy with our endarterectomy we then did a long patch angioplasty with vein graft. Proceeded uneventfully. On completion the inflow was opened and good hemostasis was noted. Because of the RV dysfunction it was decided to try to graft something on the right side. The PDA was again examined and again felt not to be an appropriate target. There was a large acute marginal branch and it was decided to graft this. The vessel was stabilized and opened and easily accepted a 1.5 mm probe proximally and distally. Blood flow w as controlled a 1.5 mm flow through. End to side anastomosis between a second piece of saphenous vein to the acute marginal branch was performed with running 7-0 Prolene suture. On completion of the anastomosis good backbleeding was noted in the acute marginal after removal of the flow through effectively probing the proximal distal portion anastomosis. Suture was tied with good hemostasis the vein was cut to appropriate length to meet the ascending aorta. The heartstring device was deployed in the mid anterior descending aorta and the proximal anastomosis performed with running 5-0 Prolene. Patient approximately anastomosis the heartstring device was suture was tied with good result and hemostasis. Inflow was open. A 40 mm AtriCure clip was applied to the base of the left atrial appendage. Patient was now weaned from cardioplegic bypass with Primacor and was cut. He well, cardiac outputs were good and ventricular function on both the right and left ventricle looked good. We began protamine and decannulated in standard fashion. The right atrial site was oversewn with a 0 silk tie is aortic site was oversewn with a 4 pledgeted Prolene suture. Just is protamine was finishing the patient became severely hypotensive with elevated pulmonary artery pressures and again the right ventricle dilated. This was felt to be due to a protamine reaction. Open cardiac massage was given and resuscitation was performed with epinephrine. Once the blood pressure recovered an epinephrine drip was started. Over the next 40 minutes we stabilized the patient on epinephrine and Levophed and low- dose along with a Primacor drip. He also had the balloon pump. Once we were satisfied that the patient was hemodynamically stable we obtained hemostasis throughout. The right pleural space was drained with a 32-Ecuadorean chest tube in the mediastinum with 36-Ecuadorean chest tube. Chest was irrigated with antibiotic solution and after assuring good hemostasis and hemodynamic stability the sternum was closed with 8 sternal wires. Fascia was closed with 0 Ethibond. Atrial and ventricular pacing wires had been placed and initially the patient was paced but at this point patient was in sinus rhythm the patient was put on VVI back-up. Fascia was closed with 0 Ethibond, containing is 66 layers of the leg were closed with layers of Vicryl suture, dry sterile dressings were applied the patient was transferred to the ICU in stable condition. He did receive 1 unit of packed red blood cells prior to separation from cardiotomy bypass and also received 1 bag of platelets and 4 bags of FFP. Inotropes on transfer were Primacor and low dose epi.
[2020-01-04 16:00] LABS: Allen Test Performed? no
--- NOTE | 2020-01-04 16:04 | P.PN ---
Subjective Progress Note Date: 01/04/20 Principal diagnosis: coronary artery disease, exertional dyspnea This is a 79-year-old white male patient with past medical history lung cancer status post left upper lobectomy in 2012 followed by chemotherapy postoperatively, [id number] smoking history, currently in remission, hypertension, hyperlipidemia, previous myocardial infarction in 1998, coronary artery disease with PCI and stenting of the LAD and the circumflex in 1998, daily EtOH use, diabetes mellitus, family history of early onset coronary artery disease. Patient has a PCP in [facility], however patient spends a lot of time in the [facility] in the summer. He has been having symptoms of progressive exertional dyspnea the last couple months and weakness in his bilateral lower extremities. Denied any chest pain, no nausea, vomiting, or diaphoresis, no orthopnea, no peripheral edema, no palpitations. On 01/01/2020 patient presented to the emergency department for evaluation of his shortness of breath. He was transferred from another facility. Patient was noted to have elevated troponins here in the emergency department concerning for nonacute non- ST elevated myocardial infarction. EKG showed normal sinus rhythm with nonspecific ST abnormality. CTA chest showed thickening along the minor fissure which does not appear masslike, some right hilar adenopathy, extensive emphysema, coronary artery disease, no evident pulmonary embolism, small hiatal hernia, interstitial lung disease and cholelithiasis. His troponins were 0.279, 0.282, 0.290, 0.182. Heart catheterization was done yesterday on 01/02/2020 showing severely calcified coronary artery, severe triple-vessel coronary artery disease with chronic occlusion of the right coronary artery and significant disease in LAD and the left circumflex. Patient was referred to CT surgery for consideration for myocardial revascularization. Echocardiogram showed mild concentric LVH, mild to moderate impairment of the LV function with an EF of 40- 45%, septal hypokinesis, no aortic stenosis or regurgitation, mild MR, mild TR, no pulmonary hypertension. Chronic Doppler was negative for evidence of hemodynamically significant stenosis. Bedside spirometry revealed FEV1 of 1.64 L or 55% of predicted, FVC is 2.92 L or 70% of predicted, with FEV1/FVC of 78% of predicted, consistent with moderately severe obstruction. On 01/04/2020 patient seen in follow-up in the postoperative period following three-vessel coronary artery bypass grafting in the intensive care unit, he is sedated, intubated, current vent settings are SIMV with a rate of 12, tidal volume is 500, FiO2 100%, PEEP of 5, the rate was increased to 16. Currently on lactated Ringer's at 50 ML per hour, nitroglycerin at 10 mics per minute, levo fed at 0.02 mics per kilo per minute, nitroglycerin at 5 mics per kilo per minute, Primacor is at 0.375 mics per kilo per minute, and epinephrine at 0.3 mics per kilo per minute, during the surgery patient had to be placed on IABP on which he remains with one-to-one augmentation, and augmented diastolic of 10 9 mmHg, PA pressures are 80/27, CVP is 12, cardiac output is 5.1, and cardiac index is 2.7. Patient has pacemaker wires in place, currently in sinus rhythm. postoperative blood gas shows pO2 of 117, pCO2 44, and pH of 7.36, operative hemoglobin was 7.7. patient received 1 unit of packed red blood cells, 4 units of fresh frozen plasma and 1 unit of platelets, with another one ordered. 2 mediastinal chest tubes with 80 mL of sanguinous output, and right and left chest tubes Y connected together with 100 mL of sanguinous output. patient is still quite sedated, no plans for extubation in view of hemodynamic status, IABP support. Awaiting repeat blood gases and postoperative chest x-ray. Objective - Vital Signs Vital signs: Vital Signs Temp 97.8 F 01/04/20 06:36 Pulse 94 01/04/20 06:36 Resp 20 01/04/20 06:36 BP 189/97 01/04/20 06:36 Pulse Ox 98 01/04/20 06:36 Intake & Output 01/03/20 01/04/20 01/04/20 18:59 06:59 18:59 Intake Total 1025.201 801.413 8256 Output Total 200 3400 Balance 825.201 132.968 -1648 Weight 73.8 kg Intake: IV 25 33 Intake, IV Titration 185.201 107.968 Amount Heparin Sod,Pork in 0.45% 65.201 107.968 NaCl 25,000 unit In 0.45 % NaCl 1 250ml.bag @ 12 UNITS/KG/HR 8.891 mls/hr IV .Q[facility]H [facility] Rx#: [id number] Sodium Chloride 0.9% 1, 120 000 ml @ 100 mls/hr IV . Q10H [facility] Rx#:[id number] Oral 840 Blood Product 1719 Ffp 24 Cpd Unit 306 [id number] Ffp 24 Cpd Unit 298 [id number] Ffp 24 Cpd Unit 303 [id number] Ffp 24 Cpd Unit 290 [id number] Platelet Pheresis Acda1 212 Unit [id number] Rc As-1 Unit 310 [id number] Output: Urine 200 900 Estimated Blood Loss 2500 Other: Voiding Method Toilet # Voids 1 2 - Exam GENERAL EXAM: sedated, intubated, white male, on SIMV mode of ventilation, with FiO2 100%, on multiple drips, and IABP with 1:1 augmentation, comfortable in no apparent distress. HEAD: Normocephalic/atraumatic. EYES: Normal reaction of pupils, equal size. Conjunctiva pink, sclera white. NOSE: Clear with pink turbinates. THROAT: No erythema or exudates. NECK: No masses, no JVD, no thyroid enlargement, no adenopathy. CHEST: No chest wall deformity. Symmetrical expansion. midsternal incision is clean dry and intact, AV wires connected to external pacemaker box with the backup rate, 2 mediastinal and right and left pleural chest tubes in place, with moderate amount of ceruminous output and the Pleurx, no evidence of air leak LUNGS: Equal air entry with no crackles, wheeze, rhonchi or dullness. CVS: Regular rate and rhythm, normal S1 and S2, no gallops, no murmurs, no rubs ABDOMEN: Soft, nontender. No hepatosplenomegaly, normal bowel sounds, no guarding or rigidity. EXTREMITIES: No clubbing, no edema, no cyanosis, 2+ pulses and upper and lower extremities.SCDs are present on bilateral lower extremities MUSCULOSKELETAL: Muscle strength and tone normal. SPINE: No scoliosis or deformity SKIN: No rashes CENTRAL NERVOUS SYSTEM: sedated. No focal deficits, tone is normal in all 4 extremities. - Labs CBC & Chem 7: 01/03/20 07:40 01/03/20 07:40 Labs: Abnormal Lab Results - Last 24 Hours (Table) 01/03/20 01/03/20 01/03/20 Range/Units 07:40 16:58 18:08 APTT 56.2 H (22.0-30.0) sec ABG pH (7.35-7.45) ABG pCO2 (35-45) mmHg ABG pO2 (83-108) mmHg ABG HCO3 (21-25) mmol/L ABG Total CO2 (19-24) mmol/L ABG O2 Saturation (94-97) % ABG Hematocrit (34.0-46.0) % ABG Potassium (3.4-4.5) mmol/L ABG Ionized Calcium (4.5-5.3) mg/dL ABG Glucose (75-99) mg/dL ABG Lactic Acid (0.5-1.6) mmol/L Hemoglobin (13.0-17.5) gm/dL POC Glucose (mg/dL) 192 H (75-99) mg/dL Arterial Blood Potassium (3.4-4.5) mmol/L Arterial Blood Glucose (75-99) mg/dL Crossmatch See Detail 01/03/20 01/04/20 01/04/20 Range/Units 20:02 01:59 05:29 APTT (22.0-30.0) sec ABG pH (7.35-7.45) ABG pCO2 (35-45) mmHg ABG pO2 (83-108) mmHg ABG HCO3 (21-25) mmol/L ABG Total CO2 (19-24) mmol/L ABG O2 Saturation (94-97) % ABG Hematocrit (34.0-46.0) % ABG Potassium (3.4-4.5) mmol/L ABG Ionized Calcium (4.5-5.3) mg/dL ABG Glucose (75-99) mg/dL ABG Lactic Acid (0.5-1.6) mmol/L Hemoglobin (13.0-17.5) gm/dL POC Glucose (mg/dL) 120 H 120 H 153 H (75-99) mg/dL Arterial Blood Potassium (3.4-4.5) mmol/L Arterial Blood Glucose (75-99) mg/dL Crossmatch 01/04/20 01/04/20 01/04/20 Range/Units 08:25 08:36 10:30 APTT (22.0-30.0) sec ABG pH 7.23 L 7.27 L (7.35-7.45) ABG pCO2 52 H 50 H (35-45) mmHg ABG pO2 356 H 231 H >420 H (83-108) mmHg ABG HCO3 (21-25) mmol/L ABG Total CO2 (19-24) mmol/L ABG O2 Saturation 99.9 H 99.8 H 100.0 H (94-97) % ABG Hematocrit 33 L (34.0-46.0) % ABG Potassium 4.6 H (3.4-4.5) mmol/L ABG Ionized Calcium 4.3 L (4.5-5.3) mg/dL ABG Glucose 148 H 121 H 162 H (75-99) mg/dL ABG Lactic Acid (0.5-1.6) mmol/L Hemoglobin 11.4 L 12.9 L 10.6 L (13.0-17.5) gm/dL POC Glucose (mg/dL) (75-99) mg/dL Arterial Blood Potassium 4.6 H (3.4-4.5) mmol/L Arterial Blood Glucose 148 H 121 H 162 H (75-99) mg/dL Crossmatch 01/04/20 01/04/20 01/04/20 Range/Units 11:03 11:14 12:09 APTT (22.0-30.0) sec ABG pH 7.14 L* (7.35-7.45) ABG pCO2 54 H (35-45) mmHg ABG pO2 110 H >420 H 329 H (83-108) mmHg ABG HCO3 18 L (21-25) mmol/L ABG Total CO2 (19-24) mmol/L ABG O2 Saturation 100.0 H 100.0 H (94-97) % ABG Hematocrit 33 L 22 L 24 L (34.0-46.0) % ABG Potassium (3.4-4.5) mmol/L ABG Ionized Calcium 4.2 L 3.5 L* 3.9 L (4.5-5.3) mg/dL ABG Glucose 214 H 195 H 135 H (75-99) mg/dL ABG Lactic Acid 2.5 H* 1.7 H (0.5-1.6) mmol/L Hemoglobin 10.8 L 7.2 L 7.7 L (13.0-17.5) gm/dL POC Glucose (mg/dL) (75-99) mg/dL Arterial Blood Potassium (3.4-4.5) mmol/L Arterial Blood Glucose 214 H 195 H 135 H (75-99) mg/dL Crossmatch 01/04/20 01/04/20 01/04/20 Range/Units 12:34 13:06 13:25 APTT (22.0-30.0) sec ABG pH 7.18 L* 7.24 L (7.35-7.45) ABG pCO2 58 H 59 H (35-45) mmHg ABG pO2 363 H 66 L (83-108) mmHg ABG HCO3 (21-25) mmol/L ABG Total CO2 27 H (19-24) mmol/L ABG O2 Saturation 100.0 H 90.3 L (94-97) % ABG Hematocrit 22 L 22 L 23 L (34.0-46.0) % ABG Potassium 4.6 H (3.4-4.5) mmol/L ABG Ionized Calcium 3.8 L (4.5-5.3) mg/dL ABG Glucose 116 H 119 H 160 H (75-99) mg/dL ABG Lactic Acid 2.8 H* 2.4 H* (0.5-1.6) mmol/L Hemoglobin 7.2 L 7.2 L 7.5 L (13.0-17.5) gm/dL POC Glucose (mg/dL) (75-99) mg/dL Arterial Blood Potassium 4.6 H (3.4-4.5) mmol/L Arterial Blood Glucose 116 H 119 H 160 H (75-99) mg/dL Crossmatch 01/04/20 01/04/20 01/04/20 Range/Units 13:46 14:31 15:23 APTT (22.0-30.0) sec ABG pH 7.31 L (7.35-7.45) ABG pCO2 49 H (35-45) mmHg ABG pO2 117 H (83-108) mmHg ABG HCO3 (21-25) mmol/L ABG Total CO2 26 H 26 H (19-24) mmol/L ABG O2 Saturation 97.3 H 98.7 H (94-97) % ABG Hematocrit 21 L 24 L (34.0-46.0) % ABG Potassium (3.4-4.5) mmol/L ABG Ionized Calcium 3.4 L* 3.9 L (4.5-5.3) mg/dL ABG Glucose 164 H 143 H (75-99) mg/dL ABG Lactic Acid 2.0 H 2.3 H* (0.5-1.6) mmol/L Hemoglobin 6.8 L* 7.7 L (13.0-17.5) gm/dL POC Glucose (mg/dL) 161 H (75-99) mg/dL Arterial Blood Potassium (3.4-4.5) mmol/L Arterial Blood Glucose 164 H 143 H (75-99) mg/dL Crossmatch Microbiology - Last 24 Hours (Table) 01/02/20 21:35 Nasal Screen MRSA/MSSA - Final Nasal Swab Staphylococcus aureus,Not MRSA Assessment and Plan Plan: Assessment: #1. Acute non-ST elevated myocardial infarction #2. Multivessel coronary artery disease, showing severely calcified coronary artery, severe triple-vessel coronary artery disease with chronic occlusion of the right coronary artery and significant disease in the LAD and the left circumflex, status post three-vessel bypass grafting including PIÑA to the LAD, on 01/04/2020 with intraoperative and postoperative IABP support at 1:1 augmentation #3. Acute blood loss anemia related to myocardial revascularization surgery, normal outcome of surgery, requiring transfusion with 1 unit of packed red blood cells, 4 units of fresh frozen plasma, and 2 units of platelets #4. Routine postoperative ventilator management, patient will be maintained on ventilator support on postoperative day 0 in view of postoperative bleeding and hemodynamic instability, requiring IABP support #5. Progressive exertional dyspnea related to the above #6. History of tobacco dependence, currently in remission, carries [id number] smoking history #7. History of lung cancer, status post left upper lobectomy in 2012 followed by chemotherapy #8. Diabetes mellitus type 2 #9. History of coronary artery disease with previous PCI stenting of the LAD and RCA in 1998 #10. Family history of early onset coronary artery disease #11. History of skin cancer #12. Daily EtOH use #13. Bedside spirometry revealed FEV1 of 55% of predicted, FVC of 70% of predicted, consistent with moderately severe obstruction, related to history of COPD Plan: Repeat postoperative blood gases are pending, chest x-rays pending, case discussed with cardiothoracic surgery, we'll maintain ventilator support today in view of postoperative bleeding, and hypotension. Patient remains on pre ssors, and milrinone, has received blood product. Continue nebulized treatments while on the vent, close hemodynamic monitoring, close chest tube output monitoring. continue close glucose monitoring, urine output, cardiac dysrhythmia. we'll continue to closely follow along with CT surgery. I performed a history & physical examination of the patient and discussed their management with my nurse practitioner, Pratibha Waller. I reviewed the nurse practitioner's note and agree with the documented findings and plan of care. Lung sounds are positive for diminished breath sounds. The findings and the impression was discussed with the patient. I attest to the documentation by the nurse practitioner. Time with Patient: Greater than 30
--- NOTE | 2020-01-04 16:05 | XR ---
EXAMINATION TYPE: XR chest 1V portable DATE OF EXAM: 01/04/2020 Comparison: 01/02/2020 Clinical History: 79-year-old male Post Operative Cardiac Surgery Findings: Distal main pulmonary outflow tract. Mediastinal drains are present. Bilateral chest tubes. No apprec iable pneumothorax. Median sternotomy wires with postoperative clips. Epicardial pacer leads. Patchy bibasilar opacities as well as diffuse interstitial opacities. Small left effusion. Impression: 1. Findings suggest postoperative interstitial pulmonary edema. 2. More focal patchy pulmonary edema at the left greater than right lung bases with small left effus ion.
[2020-01-04 16:07] LABS: ALT 17 U/L (4-49); AST 38 U/L (17-59); African American GFR (CKD) >90 (>60 ml/min/1.73 sqM); Albumin 2.7 g/dL (3.5-5.0); Alkaline Phosphatase 35 U/L (38-126); Anion Gap 2 mmol/L; Blood Urea Nitrogen 15 mg/dL (9-20); Calcium 8.6 mg/dL (8.4-10.2); Carbon Dioxide 27 mmol/L (22-30); Chloride 107 mmol/L (98-107); Glucose 143 mg/dL (74-99); INR 1.3 (<1.2); Magnesium 2.1 mg/dL (1.6-2.3); Non-African American GFR(CKD) >90 (>60 ml/min/1.73 sqM); Partial Thromboplastin Time 32.1 sec (22.0-30.0); Potassium 3.6 mmol/L (3.5-5.1); Sodium 136 mmol/L (137-145); Total Bilirubin 1.2 mg/dL (0.2-1.3); Total Protein 4.3 g/dL (6.3-8.2)
[2020-01-04] MEDS: EPINEPHrine 4 MG in DEXTROSE 5% IN WATER 250 ML IV ONE ×4 (16:07→20:20)
[2020-01-04] MEDS: LACTATED RINGERS 1,000 ML IV SCH (16:09)
[2020-01-04] MEDS: ALBUMIN HUMAN 5% 250 ML in EMPTY BAG 1 BAG IVPB PRN (16:10)
[2020-01-04 16:11] LABS: Basophils % (A) 0 %; Eosinophils # (A) 0.1 k/uL (0-0.7); Eosinophils % (A) 1 %; HCT 23.6 % (39.0-53.0); Lymphocytes # (A) 1.2 k/uL (1.0-4.8); Lymphocytes % (A) 11 %; MCH 30.5 pg (25.0-35.0); MCHC 32.8 g/dL (31.0-37.0); MCV 93.1 fL (80.0-100.0); Mean Platelet Volume 7.6; Monocytes # (A) 0.7 k/uL (0-1.0); Monocytes % (A) 7 %; Neutrophils # (A) 8.3 k/uL (1.3-7.7); Neutrophils % (A) 80 %; Platelet Count 124 k/uL (150-450); RBC 2.54 m/uL (4.30-5.90); RDW 14.4 % (11.5-15.5); WBC 10.4 k/uL (3.8-10.6)
[2020-01-04] MEDS: MILRINONE-D5W PMX 20 MG in DEXTROSE/WATER 1 100ML.BAG IV SCH ×2 (16:13→22:17)
[2020-01-04 16:15] LABS: HGB 7.7 gm/dL (13.0-17.5)
[2020-01-04 16:21] LABS: Glucose,Whole Blood 177 mg/dL (75-99)
[2020-01-04] MEDS: INSULIN REGULAR 100 UNIT in SODIUM CHLORIDE 0.9% 100 ML IV SCH (16:27)
[2020-01-04 16:28] LABS: ABG Base Excess -1.2 mmol/L; ABG HCO3 26 mmol/L (21-25); ABG PCO2 54 mmHg (35-45); ABG PH 7.29 (7.35-7.45); ABG PO2 81 mmHg (83-108); ABG TCO2 27 mmol/L (19-24)
[2020-01-04 16:31] LABS: Allen Test Performed? no
[2020-01-04] MEDS: IPRATROPIUM-ALBUTEROL 3 ML NEB INHALATION SCH ×3 (16:50→20:05)
[2020-01-04 17:01] LABS: ABG Base Excess -1.7 mmol/L; ABG HCO3 25 mmol/L (21-25); ABG Oxygen Saturation 96.1 % (94-97); ABG PCO2 52 mmHg (35-45); ABG PH 7.29 (7.35-7.45); ABG PO2 87 mmHg (83-108); ABG TCO2 27 mmol/L (19-24); Allen Test Performed? Yes
--- NOTE | 2020-01-04 17:48 | P.PN ---
Subjective Progress Note Date: 01/04/20 Principal diagnosis: Severe CAD Patient was seen and examined. Status post CABG. Currently sedated and intubated. Rate of 16, tidal volume 500, FiO2 100% with PEEP of 5. Patient is currently on epinephrine drip at 0.15 mics per kilo per minute. Intra-aortic balloon pump was placed with one-to-one augmentation during the surgery. Patient with mediastinal chest tubes and bilateral chest tubes with bloody output. ABG shows pH 7.29, pCO2 of 52, pO2 of 87. 2 unit PRBC ordered along with 4 units FFP and 2 units platelets. Objective - Vital Signs Vital signs: Vital Signs Temp 95.2 F L 01/04/20 17:09 Pulse 90 01/04/20 17:09 Resp 22 01/04/20 17:09 BP 156/38 01/04/20 17:09 Pulse Ox 98 01/04/20 06:36 Intake & Output 01/03/20 01/04/20 01/04/20 18:59 06:59 18:59 Intake Total 1025.201 328.622 9603 Output Total 200 3400 Balance 825.201 132.968 -1648 Weight 73.8 kg Intake: IV 25 33 Intake, IV Titration 185.201 107.968 Amount Heparin Sod,Pork in 0.45% 65.201 107.968 NaCl 25,000 unit In 0.45 % NaCl 1 250ml.bag @ 12 UNITS/KG/HR 8.891 mls/hr IV .Q24H FRANK Rx#: [id number] Sodium Chloride 0.9% 1, 120 000 ml @ 100 mls/hr IV . Q10H FRANK Rx#:[id number] Oral 840 Blood Product 1719 Ffp 24 Cpd Unit 306 [id number] Ffp 24 Cpd Unit 298 [id number] Ffp 24 Cpd Unit 303 [id number] Ffp 24 Cpd Unit 290 [id number] Platelet Irr Pheresis 3 0 Acda Unit [id number] Platelet Pheresis Acda1 212 Unit [id number] Rc As-1 Unit 310 [id number] Output: Urine 200 900 Estimated Blood Loss 2500 Other: Voiding Method Toilet # Voids 1 2 - Exam General: [non toxic], [sedated and intubated], [appears at stated age], [intra- aortic balloon pump in place] Derm: [warm], [dry] Head: [atraumatic], [normocephalic], [symmetric] Eyes: [EOMI], [no lid lag], [anicteric sclera] Mouth: [no lip lesion], [mucus membranes moist] Cardiovascular: [S1S2 reg], [no murmur], [positive posterior tibial pulse bilateral], [mediastinal and chest tube producing bloody output] Lungs: [Decreased breath sounds bilateral], [no rhonchi, no rales] , [no accessory muscle use] Abdominal: [soft], [ nontender to palpation], [no guarding], [no appreciable organomegaly] Ext: [no gross muscle atrophy], [no edema], [no contractures] Neuro: [Unable to determine] Psych: [Sedated] - Labs CBC & Chem 7: 01/04/20 15:30 01/04/20 15:30 Labs: Abnormal Lab Results - Last 24 Hours (Table) 01/03/20 01/03/20 01/03/20 Range/Units 07:40 18:08 20:02 RBC (4.30-5.90) m/uL Hgb (13.0-17.5) gm/dL Hct (39.0-53.0) % Plt Count (150-450) k/uL Neutrophils # (1.3-7.7) k/uL PT (9.0-12.0) sec INR (<1.2) APTT 56.2 H (22.0-30.0) sec Fibrinogen (200-500) mg/dL ABG pH (7.35-7.45) ABG pCO2 (35-45) mmHg ABG pO2 (83-108) mmHg ABG HCO3 (21-25) mmol/L ABG Total CO2 (19-24) mmol/L ABG O2 Saturation (94-97) % ABG Hematocrit (34.0-46.0) % ABG Potassium (3.4-4.5) mmol/L ABG Ionized Calcium (4.5-5.3) mg/dL ABG Glucose (75-99) mg/dL ABG Lactic Acid (0.5-1.6) mmol/L Hemoglobin (13.0-17.5) gm/dL Sodium (137-145) mmol/L Glucose (74-99) mg/dL POC Glucose (mg/dL) 120 H (75-99) mg/dL Alkaline Phosphatase (38-126) U/L Total Protein (6.3-8.2) g/dL Albumin (3.5-5.0) g/dL Arterial Blood Potassium (3.4-4.5) mmol/L Arterial Blood Glucose (75-99) mg/dL Crossmatch See Detail 01/04/20 01/04/20 01/04/20 Range/Units 01:59 05:29 08:25 RBC (4.30-5.90) m/uL Hgb (13.0-17.5) gm/dL Hct (39.0-53.0) % Plt Count (150-450) k/uL Neutrophils # (1.3-7.7) k/uL PT (9.0-12.0) sec INR (<1.2) APTT (22.0-30.0) sec Fibrinogen (200-500) mg/dL ABG pH 7.23 L (7.35-7.45) ABG pCO2 52 H (35-45) mmHg ABG pO2 356 H (83-108) mmHg ABG HCO3 (21-25) mmol/L ABG Total CO2 (19-24) mmol/L ABG O2 Saturation 99.9 H (94-97) % ABG Hematocrit (34.0-46.0) % ABG Potassium 4.6 H (3.4-4.5) mmol/L ABG Ionized Calcium (4.5-5.3) mg/dL ABG Glucose 148 H (75-99) mg/dL ABG Lactic Acid (0.5-1.6) mmol/L Hemoglobin 11.4 L (13.0-17.5) gm/dL Sodium (137-145) mmol/L Glucose (74-99) mg/dL POC Glucose (mg/dL) 120 H 153 H (75-99) mg/dL Alkaline Phosphatase (38-126) U/L Total Protein (6.3-8.2) g/dL Albumin (3.5-5.0) g/dL Arterial Blood Potassium 4.6 H (3.4-4.5) mmol/L Arterial Blood Glucose 148 H (75-99) mg/dL Crossmatch 01/04/20 01/04/20 01/04/20 Range/Units 08:36 10:30 11:03 RBC (4.30-5.90) m/uL Hgb (13.0-17.5) gm/dL Hct (39.0-53.0) % Plt Count (150-450) k/uL Neutrophils # (1.3-7.7) k/uL PT (9.0-12.0) sec INR (<1.2) APTT (22.0-30.0) sec Fibrinogen (200-500) mg/dL ABG pH 7.27 L 7.14 L* (7.35-7.45) ABG pCO2 50 H 54 H (35-45) mmHg ABG pO2 231 H >420 H 110 H (83-108) mmHg ABG HCO3 18 L (21-25) mmol/L ABG Total CO2 (19-24) mmol/L ABG O2 Saturation 99.8 H 100.0 H (94-97) % ABG Hematocrit 33 L 33 L (34.0-46.0) % ABG Potassium (3.4-4.5) mmol/L ABG Ionized Calcium 4.3 L 4.2 L (4.5-5.3) mg/dL ABG Glucose 121 H 162 H 214 H (75-99) mg/dL ABG Lactic Acid 2.5 H* (0.5-1.6) mmol/L Hemoglobin 12.9 L 10.6 L 10.8 L (13.0-17.5) gm/dL Sodium (137-145) mmol/L Glucose (74-99) mg/dL POC Glucose (mg/dL) (75-99) mg/dL Alkaline Phosphatase (38-126) U/L Total Protein (6.3-8.2) g/dL Albumin (3.5-5.0) g/dL Arterial Blood Potassium (3.4-4.5) mmol/L Arterial Blood Glucose 121 H 162 H 214 H (75-99) mg/dL Crossmatch 01/04/20 01/04/20 01/04/20 Range/Units 11:14 12:09 12:34 RBC (4.30-5.90) m/uL Hgb (13.0-17.5) gm/dL Hct (39.0-53.0) % Plt Count (150-450) k/uL Neutrophils # (1.3-7.7) k/uL PT (9.0-12.0) sec INR (<1.2) APTT (22.0-30.0) sec Fibrinogen (200-500) mg/dL ABG pH (7.35-7.45) ABG pCO2 (35-45) mmHg ABG pO2 >420 H 329 H 363 H (83-108) mmHg ABG HCO3 (21-25) mmol/L ABG Total CO2 (19-24) mmol/L ABG O2 Saturation 100.0 H 100.0 H 100.0 H (94-97) % ABG Hematocrit 22 L 24 L 22 L (34.0-46.0) % ABG Potassium (3.4-4.5) mmol/L ABG Ionized Calcium 3.5 L* 3.9 L 3.8 L (4.5-5.3) mg/dL ABG Glucose 195 H 135 H 116 H (75-99) mg/dL ABG Lactic Acid 1.7 H (0.5-1.6) mmol/L Hemoglobin 7.2 L 7.7 L 7.2 L (13.0-17.5) gm/dL Sodium (137-145) mmol/L Glucose (74-99) mg/dL POC Glucose (mg/dL) (75-99) mg/dL Alkaline Phosphatase (38-126) U/L Total Protein (6.3-8.2) g/dL Albumin (3.5-5.0) g/dL Arterial Blood Potassium (3.4-4.5) mmol/L Arterial Blood Glucose 195 H 135 H 116 H (75-99) mg/dL Crossmatch 01/04/20 01/04/20 01/04/20 Range/Units 13:06 13:25 13:46 RBC (4.30-5.90) m/uL Hgb (13.0-17.5) gm/dL Hct (39.0-53.0) % Plt Count (150-450) k/uL Neutrophils # (1.3-7.7) k/uL PT (9.0-12.0) sec INR (<1.2) APTT (22.0-30.0) sec Fibrinogen (200-500) mg/dL ABG pH 7.18 L* 7.24 L 7.31 L (7.35-7.45) ABG pCO2 58 H 59 H 49 H (35-45) mmHg ABG pO2 66 L (83-108) mmHg ABG HCO3 (21-25) mmol/L ABG Total CO2 27 H 26 H (19-24) mmol/L ABG O2 Saturation 90.3 L 97.3 H (94-97) % ABG Hematocrit 22 L 23 L 21 L (34.0-46.0) % ABG Potassium 4.6 H (3.4-4.5) mmol/L ABG Ionized Calcium 3.4 L* (4.5-5.3) mg/dL ABG Glucose 119 H 160 H 164 H (75-99) mg/dL ABG Lactic Acid 2.8 H* 2.4 H* 2.0 H (0.5-1.6) mmol/L Hemoglobin 7.2 L 7.5 L 6.8 L* (13.0-17.5) gm/dL Sodium (137-145) mmol/L Glucose (74-99) mg/dL POC Glucose (mg/dL) (75-99) mg/dL Alkaline Phosphatase (38-126) U/L Total Protein (6.3-8.2) g/dL Albumin (3.5-5.0) g/dL Arterial Blood Potassium 4.6 H (3.4-4.5) mmol/L Arterial Blood Glucose 119 H 160 H 164 H (75-99) mg/dL Crossmatch 01/04/20 01/04/20 01/04/20 Range/Units 14:31 15:23 15:30 RBC 2.54 L (4.30-5.90) m/uL Hgb 7.7 L D (13.0-17.5) gm/dL Hct 23.6 L (39.0-53.0) % Plt Count 124 L (150-450) k/uL Neutrophils # 8.3 H (1.3-7.7) k/uL PT (9.0-12.0) sec INR (<1.2) APTT (22.0-30.0) sec Fibrinogen (200-500) mg/dL ABG pH (7.35-7.45) ABG pCO2 (35-45) mmHg ABG pO2 117 H (83-108) mmHg ABG HCO3 (21-25) mmol/L ABG Total CO2 26 H (19-24) mmol/L ABG O2 Saturation 98.7 H (94-97) % ABG Hematocrit 24 L (34.0-46.0) % ABG Potassium (3.4-4.5) mmol/L ABG Ionized Calcium 3.9 L (4.5-5.3) mg/dL ABG Glucose 143 H (75-99) mg/dL ABG Lactic Acid 2.3 H* (0.5-1.6) mmol/L Hemoglobin 7.7 L (13.0-17.5) gm/dL Sodium (137-145) mmol/L Glucose (74-99) mg/dL POC Glucose (mg/dL) 161 H (75-99) mg/dL Alkaline Phosphatase (38-126) U/L Total Protein (6.3-8.2) g/dL Albumin (3.5-5.0) g/dL Arterial Blood Potassium (3.4-4.5) mmol/L Arterial Blood Glucose 143 H (75-99) mg/dL Crossmatch 01/04/20 01/04/20 01/04/20 Range/Units 15:30 15:30 15:30 RBC (4.30-5.90) m/uL Hgb (13.0-17.5) gm/dL Hct (39.0-53.0) % Plt Count (150-450) k/uL Neutrophils # (1.3-7.7) k/uL PT 13.0 H (9.0-12.0) sec INR 1.3 H (<1.2) APTT 32.1 H (22.0-30.0) sec Fibrinogen 144 L (200-500) mg/dL ABG pH (7.35-7.45) ABG pCO2 (35-45) mmHg ABG pO2 (83-108) mmHg ABG HCO3 (21-25) mmol/L ABG Total CO2 (19-24) mmol/L ABG O2 Saturation (94-97) % ABG Hematocrit (34.0-46.0) % ABG Potassium (3.4-4.5) mmol/L ABG Ionized Calcium (4.5-5.3) mg/dL ABG Glucose (75-99) mg/dL ABG Lactic Acid (0.5-1.6) mmol/L Hemoglobin (13.0-17.5) gm/dL Sodium 136 L (137-145) mmol/L Glucose 143 H (74-99) mg/dL POC Glucose (mg/dL) (75-99) mg/dL Alkaline Phosphatase 35 L (38-126) U/L Total Protein 4.3 L (6.3-8.2) g/dL Albumin 2.7 L (3.5-5.0) g/dL Arterial Blood Potassium (3.4-4.5) mmol/L Arterial Blood Glucose (75-99) mg/dL Crossmatch 01/04/20 01/04/20 01/04/20 Range/Units 15:52 16:19 16:22 RBC (4.30-5.90) m/uL Hgb (13.0-17.5) gm/dL Hct (39.0-53.0) % Plt Count (150-450) k/uL Neutrophils # (1.3-7.7) k/uL PT (9.0-12.0) sec INR (<1.2) APTT (22.0-30.0) sec Fibrinogen (200-500) mg/dL ABG pH 7.28 L 7.29 L (7.35-7.45) ABG pCO2 56 H 54 H (35-45) mmHg ABG pO2 75 L 81 L (83-108) mmHg ABG HCO3 26 H 26 H (21-25) mmol/L ABG Total CO2 28 H 27 H (19-24) mmol/L ABG O2 Saturation 93.4 L (94-97) % ABG Hematocrit (34.0-46.0) % ABG Potassium (3.4-4.5) mmol/L ABG Ionized Calcium (4.5-5.3) mg/dL ABG Glucose (75-99) mg/dL ABG Lactic Acid (0.5-1.6) mmol/L Hemoglobin (13.0-17.5) gm/dL Sodium (137-145) mmol/L Glucose (74-99) mg/dL POC Glucose (mg/dL) 177 H (75-99) mg/dL Alkaline Phosphatase (38-126) U/L Total Protein (6.3-8.2) g/dL Albumin (3.5-5.0) g/dL Arterial Blood Potassium (3.4-4.5) mmol/L Arterial Blood Glucose (75-99) mg/dL Crossmatch 01/04/20 Range/Units 16:56 RBC (4.30-5.90) m/uL Hgb (13.0-17.5) gm/dL Hct (39.0-53.0) % Plt Count (150-450) k/uL Neutrophils # (1.3-7.7) k/uL PT (9.0-12.0) sec INR (<1.2) APTT (22.0-30.0) sec Fibrinogen (200-500) mg/dL ABG pH 7.29 L (7.35-7.45) ABG pCO2 52 H (35-45) mmHg ABG pO2 (83-108) mmHg ABG HCO3 (21-25) mmol/L ABG Total CO2 27 H (19-24) mmol/L ABG O2 Saturation (94-97) % ABG Hematocrit (34.0-46.0) % ABG Potassium (3.4-4.5) mmol/L ABG Ionized Calcium (4.5-5.3) mg/dL ABG Glucose (75-99) mg/dL ABG Lactic Acid (0.5-1.6) mmol/L Hemoglobin (13.0-17.5) gm/dL Sodium (137-145) mmol/L Glucose (74-99) mg/dL POC Glucose (mg/dL) (75-99) mg/dL Alkaline Phosphatase (38-126) U/L Total Protein (6.3-8.2) g/dL Albumin (3.5-5.0) g/dL Arterial Blood Potassium (3.4-4.5) mmol/L Arterial Blood Glucose (75-99) mg/dL Crossmatch Microbiology - Last 24 Hours (Table) 01/02/20 21:35 Nasal Screen MRSA/MSSA - Final Nasal Swab Staphylococcus aureus,Not MRSA Assessment and Plan Assessment: Acute hypoxic respiratory failure Acute blood loss anemia Hypotension Severe CAD with non-ST elevation Diabetes mellitus Hypertension Dyslipidemia COPD Currently sedated and ventilated. Daily ABG. Repeat chest x-ray tomorrow morning. Full ventilator support. Ventilator management as per pulmonology. Hemoglobin 7.7. INR 1.3. 2 units PRBC, 2 units of platelets and 4 units of FFP has been ordered. Repeat CBC tomorrow morning. Continue epinephrine drip. Continue milrinone drip. Maintain MAP greater than 65. Cardiac cath shows multivessel disease. POD 0 CABG triple-vessel bypass. Continue aspirin and Lipitor. Continue beta junior. Telemetry monitoring. Cardiology and Cardiothoracic surgery on board. [id number] glucose 177. Insulin sliding scale. Regular Accu-Cheks. Hypoglycemic precautions. Continue Coreg. Monitor vitals, adjust medications if necessary. Continue Lipitor. DuoNeb as needed for shortness of breath or wheezing.
[2020-01-04] MEDS: ACETAMINOPHEN IV (For NPO) 1,000 MG in EMPTY BAG 1 BAG IVPB SCH ×2 (17:57→23:54)
[2020-01-04] MEDS: POTASSIUM CHLORIDE 10 MEQ in WATER FOR INJECTION 1 100ML.BAG IVPB SCH ×2 (17:59→21:21)
[2020-01-04 18:06] LABS: Glucose,Whole Blood 173 mg/dL (75-99)
[2020-01-04 18:20] LABS: ABG Base Excess -1.5 mmol/L; ABG HCO3 25 mmol/L (21-25); ABG Oxygen Saturation 99.2 % (94-97); ABG PCO2 51 mmHg (35-45); ABG PO2 149 mmHg (83-108); ABG TCO2 27 mmol/L (19-24); Allen Test Performed? Yes
[2020-01-04 18:41] LABS: Basophils % (A) 0 %; Eosinophils # (A) 0.1 k/uL (0-0.7); Eosinophils % (A) 1 %; HCT 20.8 % (39.0-53.0); Lymphocytes # (A) 0.8 k/uL (1.0-4.8); Lymphocytes % (A) 7 %; MCH 29.8 pg (25.0-35.0); MCHC 31.9 g/dL (31.0-37.0); MCV 93.5 fL (80.0-100.0); Mean Platelet Volume 7.7; Monocytes # (A) 0.6 k/uL (0-1.0); Monocytes % (A) 6 %; Neutrophils # (A) 9.6 k/uL (1.3-7.7); Neutrophils % (A) 86 %; Platelet Count 172 k/uL (150-450); RBC 2.23 m/uL (4.30-5.90); RDW 14.5 % (11.5-15.5); WBC 11.2 k/uL (3.8-10.6)
[2020-01-04 18:46] LABS: HGB 6.6 gm/dL (13.0-17.5)
[2020-01-04] MEDS ORDERED: FUROSEMIDE 10 MG/ML 2 ML VIAL IV STA (18:55)
[2020-01-04 19:10] LABS: Glucose,Whole Blood 181 mg/dL (75-99)
[2020-01-04 20:03] LABS: Glucose,Whole Blood 177 mg/dL (75-99)
[2020-01-04 20:59] LABS: Glucose,Whole Blood 176 mg/dL (75-99)
[2020-01-04] MEDS: THIAMINE 100 MG TAB PO SCH (21:26)
[2020-01-04 21:37] LABS: Basophils % (A) 0 %; Eosinophils # (A) 0.1 k/uL (0-0.7); Eosinophils % (A) 1 %; HCT 21.9 % (39.0-53.0); HGB 7.2 gm/dL (13.0-17.5); Lymphocytes # (A) 0.5 k/uL (1.0-4.8); Lymphocytes % (A) 5 %; MCH 29.4 pg (25.0-35.0); MCHC 32.9 g/dL (31.0-37.0); MCV 89.6 fL (80.0-100.0); Monocytes # (A) 0.6 k/uL (0-1.0); Monocytes % (A) 6 %; Neutrophils # (A) 8.5 k/uL (1.3-7.7); Neutrophils % (A) 88 %; Platelet Count 146 k/uL (150-450); RBC 2.44 m/uL (4.30-5.90); RDW 15.2 % (11.5-15.5); WBC 9.8 k/uL (3.8-10.6)
[2020-01-04 22:17] LABS: Glucose,Whole Blood 151 mg/dL (75-99)
[2020-01-04 23:09] LABS: Glucose,Whole Blood 157 mg/dL (75-99)
[2020-01-04] MEDS: HEPARIN SODIUM,PORCINE 5,000 UNIT/ML 1 ML VIAL SQ SCH (23:52)
[2020-01-05 00:05] LABS: ABG Base Excess -1.1 mmol/L; ABG HCO3 24 mmol/L (21-25); ABG Oxygen Saturation 97.8 % (94-97); ABG PCO2 37 mmHg (35-45); ABG PH 7.41 (7.35-7.45); ABG PO2 91 mmHg (83-108); ABG TCO2 25 mmol/L (19-24)
[2020-01-05 00:19] LABS: Glucose,Whole Blood 149 mg/dL (75-99)
[2020-01-05] MEDS: EPINEPHrine 4 MG in DEXTROSE 5% IN WATER 250 ML IV ONE ×6 (00:21→07:34)
[2020-01-05 01:00] LABS: Glucose,Whole Blood 153 mg/dL (75-99)
[2020-01-05 01:02] LABS: Magnesium 1.8 mg/dL (1.6-2.3); Potassium 3.7 mmol/L (3.5-5.1)
[2020-01-05] MEDS: MUPIROCIN 2% OINT 22 GM TUBE NASAL SCH ×3 (01:02→21:37)
[2020-01-05] MEDS ORDERED: POTASSIUM CHLORIDE 20 MEQ in WATER FOR INJECTION 1 100ML.BAG IVPB ONE (01:26)
[2020-01-05] MEDS: MAGNESIUM SULFATE-D5W PMX 1 GM in DEXTROSE/WATER 1 100ML.BAG IVPB SCH ×2 (01:39→03:13)
[2020-01-05 02:09] LABS: Glucose,Whole Blood 148 mg/dL (75-99)
[2020-01-05 03:21] LABS: Glucose,Whole Blood 152 mg/dL (75-99)
[2020-01-05] MEDS ORDERED: HYDROcodone/APAP 5-325MG 1 EACH TAB PO PRN (03:31)
[2020-01-05 04:13] LABS: Glucose,Whole Blood 158 mg/dL (75-99)
[2020-01-05 04:40] LABS: Basophils % (A) 0 %; Eosinophils # (A) 0.1 k/uL (0-0.7); Eosinophils % (A) 1 %; HCT 20.9 % (39.0-53.0); Lymphocytes # (A) 0.9 k/uL (1.0-4.8); Lymphocytes % (A) 9 %; MCH 29.5 pg (25.0-35.0); MCHC 32.6 g/dL (31.0-37.0); MCV 90.5 fL (80.0-100.0); Mean Platelet Volume 7.9; Monocytes # (A) 0.8 k/uL (0-1.0); Monocytes % (A) 7 %; Neutrophils # (A) 8.5 k/uL (1.3-7.7); Neutrophils % (A) 81 %; Platelet Count 144 k/uL (150-450); RBC 2.31 m/uL (4.30-5.90); RDW 15.6 % (11.5-15.5); WBC 10.4 k/uL (3.8-10.6)
[2020-01-05 04:43] LABS: Ionized Calcium 4.9 mg/dL (4.5-5.3)
[2020-01-05 04:44] LABS: HGB 6.8 gm/dL (13.0-17.5)
[2020-01-05 04:53] LABS: Albumin 2.4 g/dL (3.5-5.0); Calcium 7.8 mg/dL (8.4-10.2); Magnesium 2.5 mg/dL (1.6-2.3); Potassium 3.9 mmol/L (3.5-5.1); Total Bilirubin 0.6 mg/dL (0.2-1.3); Total Protein 3.9 g/dL (6.3-8.2)
[2020-01-05] MEDS ORDERED: POTASSIUM CHLORIDE 20 MEQ in WATER FOR INJECTION 1 100ML.BAG IVPB STA (05:11)
[2020-01-05 05:19] LABS: Glucose,Whole Blood 136 mg/dL (75-99)
[2020-01-05 06:19] LABS: Glucose,Whole Blood 137 mg/dL (75-99)
[2020-01-05 06:58] LABS: Glucose,Whole Blood 133 mg/dL (75-99)
--- NOTE | 2020-01-05 07:17 | XR ---
EXAMINATION TYPE: XR chest 1V portable DATE OF EXAM: 01/05/2020 CLINICAL HISTORY: Postopen cardiac surgery progress study. TECHNIQUE: Single AP portable semiupright view of the chest is obtained. COMPARISON: Chest x-ray from one day earlier and older studies FINDINGS: Stable endotracheal tube. New orogastric tube projects below diaphragm. Stable right physician/internist al jugular [place] catheter. Stable bilateral chest tubes and mediastinal drainage catheter. Left a trial appendage clip along with overlying sternal wires and mediastinal clips are all redemonstrated. Background reticular interstitial changes bilaterally with small left pleural effusion. No pneumothor ax seen bilaterally. Cardiac silhouette size remains within normal limits. Osseous structures are int act. IMPRESSION: Suspect bilateral interstitial edema on background chronic parenchymal change with persis tent small left pleural effusion and associated left basilar atelectasis. No significant change from most recent x-ray. Post cardiac surgical changes redemonstrated and stable. No pneumothorax noted.
[2020-01-05 07:38] LABS: ABG Base Excess -2.5 mmol/L; ABG HCO3 22 mmol/L (21-25); ABG Oxygen Saturation 98.8 % (94-97); ABG PCO2 37 mmHg (35-45); ABG PH 7.39 (7.35-7.45); ABG PO2 109 mmHg (83-108); ABG TCO2 24 mmol/L (19-24)
[2020-01-05 07:39] LABS: Allen Test Performed? no
[2020-01-05 08:00] LABS: Glucose,Whole Blood 123 mg/dL (75-99)
[2020-01-05] MEDS: IPRATROPIUM-ALBUTEROL 3 ML NEB INHALATION SCH ×4 (08:07→20:15)
[2020-01-05] MEDS: ASPIRIN 325 MG TAB PO SCH (08:39)
[2020-01-05] MEDS: HEPARIN SODIUM,PORCINE 5,000 UNIT/ML 1 ML VIAL SQ SCH ×3 (08:39→23:11)
[2020-01-05] MEDS: PANTOPRAZOLE 40 MG/10 ML VIAL IVP SCH (08:40)
[2020-01-05] MEDS: METOPROLOL TARTRATE 12.5 MG TAB PO SCH ×2 (08:40→21:28)
[2020-01-05] MEDS: ATORVASTATIN 40 MG TAB PO SCH (08:40)
[2020-01-05] MEDS: THIAMINE 100 MG TAB PO SCH ×2 (08:40→17:46)
[2020-01-05] MEDS ORDERED: MAGNESIUM HYDROXIDE 2,400 MG/10 ML CUP PO PRN (09:00)
[2020-01-05] MEDS ORDERED: bisacodyL 10 MG SUPP RECTAL PRN (09:00)
[2020-01-05 09:01] LABS: Glucose,Whole Blood 117 mg/dL (75-99)
[2020-01-05] MEDS ORDERED: LIDOCAINE 1% INJ 10MG/ML (20 ML MDV) ONE (09:25)
--- NOTE | 2020-01-05 10:01 | PN ---
PROGRESS NOTE Mr. Clayton is a 79-year-old male with a history of coronary artery disease who presented with non ST-segment elevation myocardial infarction. He underwent coronary bypass grafting yesterday. He received a PIÑA to the LAD, saphenous vein graft to the obtuse marginal branch and through obtuse marginal branch with placement of intraaortic balloon pump and left atrial appendage clipping. Ultimately, he had episode of hypotension requiring the balloon pump placement. He continues to have intraaortic balloon pump. He is in sinus mechanism. He is on norepinephrine and Primacor. He is intubated and sedated. He has no evidence of significant ventricular ectopic activity. PHYSICAL EXAMINATION: His blood pressure is 141/40 with a heart rate in the 80s, his PA pressure is in the 50s. LUNGS: Clear anteriorly HEART: Regular rate and rhythm, S1, S2. No S3. No rub appreciated. ABDOMEN: Soft with no organomegaly. EXTREMITIES: No edema. Intraaortic balloon pump in place. Oozing is noted from the right IJ [place]-Malaika. LAB DATA: Revealed a pH 7.39, pCO2 of 37, PO2 of 109. His hemoglobin is 6.8, BUN and creatinine 17 and 1.03. IMPRESSION: 1. Status post coronary artery bypass grafting. 2. Placement of intraaortic balloon pump intraoperatively. 3. Prior history of stenting done over 10 years. 4. History of diabetes. 5. Hypertension. 6. Hyperlipidemia. RECOMMENDATION: From the cardiac standpoint, will continue present therapy with supportive care. I am hopeful that we can wean the intraaortic balloon pump off after weaning the vasopressors. Depending on his progress, further recommendation will be made regarding weaning and extubation. MMODL / IJN: [id number] /
[2020-01-05 10:05] LABS: ABG Base Excess -3.1 mmol/L; ABG HCO3 22 mmol/L (21-25); ABG Oxygen Saturation 97.6 % (94-97); ABG PCO2 35 mmHg (35-45); ABG PO2 91 mmHg (83-108); ABG TCO2 23 mmol/L (19-24)
[2020-01-05 10:10] LABS: Glucose,Whole Blood 105 mg/dL (75-99)
[2020-01-05 10:32] LABS: INR 1.2 (<1.2)
[2020-01-05 10:33] LABS: Partial Thromboplastin Time 32.6 sec (22.0-30.0)
[2020-01-05 10:57] LABS: Glucose,Whole Blood 108 mg/dL (75-99)
[2020-01-05] MEDS: LACTATED RINGERS 1,000 ML IV SCH (11:00)
[2020-01-05] MEDS: MILRINONE-D5W PMX 20 MG in DEXTROSE/WATER 1 100ML.BAG IV SCH ×2 (11:01→22:15)
[2020-01-05] MEDS: NOREPINEPHRINE 4 MG in SODIUM CHLORIDE 0.9% 250 ML IV SCH (11:01)
[2020-01-05 12:01] LABS: Glucose,Whole Blood 119 mg/dL (75-99)
[2020-01-05] MEDS ORDERED: ALBUMIN HUMAN 25% 50 ML in EMPTY BAG 1 BAG IVPB ONE (12:07)
[2020-01-05] MEDS ORDERED: FUROSEMIDE 10 MG/ML 2 ML VIAL IV ONE (12:07)
[2020-01-05 12:58] LABS: Glucose,Whole Blood 134 mg/dL (75-99)
--- NOTE | 2020-01-05 13:13 | P.PN ---
Subjective Progress Note Date: 01/05/20 Pt continues to be intubated/sedated, IABP in place, 2 x chest tubes and 1 x mediastinal chest tube with bloody output, +RIJ, +salazar. Current gtts include: amiodarone, LR, milrinone, norepinephrine, propofol, Objective - Vital Signs Vital signs: Vital Signs Temp 97.9 F 01/05/20 12:00 Pulse 90 01/05/20 12:45 Resp 23 01/05/20 12:45 BP 110/57 01/05/20 12:45 Pulse Ox 95 01/05/20 12:45 Intake & Output 01/04/20 01/05/20 01/05/20 18:59 06:59 18:59 Intake Total 2750.883 3410.939 1258.000 Output Total 4390 1350 368 Balance -0074.845 7537.939 890.000 Weight 85.2 kg 85.2 kg Intake: IV 120 533 494 Lactated Ringers 1,000 ml 250 @ 50 mls/hr IV .Q20H [facility] Rx#:[id number] Nitroglycerine 33 6 cardiac output 60 380 160 pressure bags 27 120 78 Intake, IV Titration 609.541 1115.939 454.000 Amount ACETAMINOPHEN IV (For NPO 200 ) 1,000 mg In Empty Bag 1 bag @ 400 mls/hr IVPB Q6HR [facility] Rx#:[id number] Albumin Human 5% 250 ml 250 250 In Empty Bag 1 bag @ 250 mls/hr IVPB Q1HR PRN Rx#: [id number] EPINEPHrine 4 mg In 131.917 801.841 261.530 Dextrose 5% in Water 250 ml @ 0.01 MCG/KG/MIN 2. 768 mls/hr IV .Q24H [facility] Rx#:[id number] Insulin Regular 100 unit 59.971 21.917 In Sodium Chloride 0.9% 100 ml @ Per Protocol IV .Q0M [facility] Rx#:[id number] Lactated Ringers 1,000 ml 150 600 @ 50 mls/hr IV .Q20H [facility] Rx#:[id number] Magnesium Sulfate-D5w Pmx 200 1 gm In Dextrose/Water 1 100ml.bag @ 100 mls/hr IVPB Q1H [facility] Rx#: [id number] Milrinone-D5w Pmx 20 mg 50.372 100 In Dextrose/Water 1 100ml .bag @ Per Protocol IV . Q0M [facility] Rx#:[id number] Potassium Chloride 10 meq 100 100 In Water For Injection 1 100ml.bag @ 100 mls/hr IVPB Q1H [facility] Rx#: [id number] Potassium Chloride 20 meq 100 In Water For Injection 1 100ml.bag @ 50 mls/hr IVPB ONCE ONE Rx#: [id number] Potassium Chloride 20 meq 100 In Water For Injection 1 100ml.bag @ 50 mls/hr IVPB ONCE STA Rx#: [id number] ceFAZolin 2 gm In Sodium 50 50 Chloride 0.9% 50 ml @ 100 mls/hr IVPB Q8HR [facility] Rx# :[id number] propofoL 1,000 mg In 18.966 55.755 70.553 Empty Bag 1 bag @ Titrate IV .Q0M [facility] Rx#: [id number] Blood Product 1930 310 310 Ffp 24 Cpd Unit 306 [id number] Ffp 24 Cpd Unit 298 [id number] Ffp 24 Cpd Unit 303 [id number] Ffp 24 Cpd Unit 290 [id number] Platelet Irr Pheresis 3 211 Acda Unit [id number] Platelet Pheresis Acda1 212 Unit [id number] Rc As-1 Unit 0 310 [id number] Rc As-1 Unit 0 310 [id number] Rc As-1 Unit 310 [id number] Output: Chest Tube Drainage 840 900 185 left and right pleural 590 330 45 mediastinal x2 250 570 140 Urine 1050 450 183 Estimated Blood Loss 2500 Other: Voiding Method Indwelling Catheter Indwelling Catheter Indwelling Catheter ABP, PAP, CO, CI - Last Documented Arterial Blood Pressure 128/51 Pulmonary Artery Pressure 50/24 Cardiac Output 6.3 Cardiac Index 3.3 - Exam Gen: intubated/sedated HEENT: normocephalic, atraumatic, moist mucous membranes : no SPT, no CVAT, salazar catheter is present MSK: no pitting edema, no clubbing - Labs CBC & Chem 7: 01/05/20 04:25 01/05/20 10:05 Labs: Abnormal Lab Results - Last 24 Hours (Table) 01/03/20 01/04/20 01/04/20 Range/Units 07:40 08:25 08:36 WBC (3.8-10.6) k/uL RBC (4.30-5.90) m/uL Hgb (13.0-17.5) gm/dL Hct (39.0-53.0) % RDW (11.5-15.5) % Plt Count (150-450) k/uL Neutrophils # (1.3-7.7) k/uL Lymphocytes # (1.0-4.8) k/uL PT (9.0-12.0) sec INR (<1.2) APTT (22.0-30.0) sec Fibrinogen (200-500) mg/dL ABG pH 7.23 L (7.35-7.45) ABG pCO2 52 H (35-45) mmHg ABG pO2 356 H 231 H (83-108) mmHg ABG HCO3 (21-25) mmol/L ABG Total CO2 (19-24) mmol/L ABG O2 Saturation 99.9 H 99.8 H (94-97) % ABG Hematocrit (34.0-46.0) % ABG Potassium 4.6 H (3.4-4.5) mmol/L ABG Ionized Calcium (4.5-5.3) mg/dL ABG Glucose 148 H 121 H (75-99) mg/dL ABG Lactic Acid (0.5-1.6) mmol/L Hemoglobin 11.4 L 12.9 L (13.0-17.5) gm/dL Sodium (137-145) mmol/L Glucose (74-99) mg/dL POC Glucose (mg/dL) (75-99) mg/dL Calcium (8.4-10.2) mg/dL Magnesium (1.6-2.3) mg/dL Alkaline Phosphatase (38-126) U/L Total Protein (6.3-8.2) g/dL Albumin (3.5-5.0) g/dL Arterial Blood Potassium 4.6 H (3.4-4.5) mmol/L Arterial Blood Glucose 148 H 121 H (75-99) mg/dL Crossmatch See Detail 01/04/20 01/04/20 01/04/20 Range/Units 10:30 11:03 11:14 WBC (3.8-10.6) k/uL RBC (4.30-5.90) m/uL Hgb (13.0-17.5) gm/dL Hct (39.0-53.0) % RDW (11.5-15.5) % Plt Count (150-450) k/uL Neutrophils # (1.3-7.7) k/uL Lymphocytes # (1.0-4.8) k/uL PT (9.0-12.0) sec INR (<1.2) APTT (22.0-30.0) sec Fibrinogen (200-500) mg/dL ABG pH 7.27 L 7.14 L* (7.35-7.45) ABG pCO2 50 H 54 H (35-45) mmHg ABG pO2 >420 H 110 H >420 H (83-108) mmHg ABG HCO3 18 L (21-25) mmol/L ABG Total CO2 (19-24) mmol/L ABG O2 Saturation 100.0 H 100.0 H (94-97) % ABG Hematocrit 33 L 33 L 22 L (34.0-46.0) % ABG Potassium (3.4-4.5) mmol/L ABG Ionized Calcium 4.3 L 4.2 L 3.5 L* (4.5-5.3) mg/dL ABG Glucose 162 H 214 H 195 H (75-99) mg/dL ABG Lactic Acid 2.5 H* 1.7 H (0.5-1.6) mmol/L Hemoglobin 10.6 L 10.8 L 7.2 L (13.0-17.5) gm/dL Sodium (137-145) mmol/L Glucose (74-99) mg/dL POC Glucose (mg/dL) (75-99) mg/dL Calcium (8.4-10.2) mg/dL Magnesium (1.6-2.3) mg/dL Alkaline Phosphatase (38-126) U/L Total Protein (6.3-8.2) g/dL Albumin (3.5-5.0) g/dL Arterial Blood Potassium (3.4-4.5) mmol/L Arterial Blood Glucose 162 H 214 H 195 H (75-99) mg/dL Crossmatch 01/04/20 01/04/20 01/04/20 Range/Units 12:09 12:34 13:06 WBC (3.8-10.6) k/uL RBC (4.30-5.90) m/uL Hgb (13.0-17.5) gm/dL Hct (39.0-53.0) % RDW (11.5-15.5) % Plt Count (150-450) k/uL Neutrophils # (1.3-7.7) k/uL Lymphocytes # (1.0-4.8) k/uL PT (9.0-12.0) sec INR (<1.2) APTT (22.0-30.0) sec Fibrinogen (200-500) mg/dL ABG pH 7.18 L* (7.35-7.45) ABG pCO2 58 H (35-45) mmHg ABG pO2 329 H 363 H (83-108) mmHg ABG HCO3 (21-25) mmol/L ABG Total CO2 (19-24) mmol/L ABG O2 Saturation 100.0 H 100.0 H (94-97) % ABG Hematocrit 24 L 22 L 22 L (34.0-46.0) % ABG Potassium 4.6 H (3.4-4.5) mmol/L ABG Ionized Calcium 3.9 L 3.8 L (4.5-5.3) mg/dL ABG Glucose 135 H 116 H 119 H (75-99) mg/dL ABG Lactic Acid 2.8 H* (0.5-1.6) mmol/L Hemoglobin 7.7 L 7.2 L 7.2 L (13.0-17.5) gm/dL Sodium (137-145) mmol/L Glucose (74-99) mg/dL POC Glucose (mg/dL) (75-99) mg/dL Calcium (8.4-10.2) mg/dL Magnesium (1.6-2.3) mg/dL Alkaline Phosphatase (38-126) U/L Total Protein (6.3-8.2) g/dL Albumin (3.5-5.0) g/dL Arterial Blood Potassium 4.6 H (3.4-4.5) mmol/L Arterial Blood Glucose 135 H 116 H 119 H (75-99) mg/dL Crossmatch 01/04/20 01/04/20 01/04/20 Range/Units 13:25 13:46 14:31 WBC (3.8-10.6) k/uL RBC (4.30-5.90) m/uL Hgb (13.0-17.5) gm/dL Hct (39.0-53.0) % RDW (11.5-15.5) % Plt Count (150-450) k/uL Neutrophils # (1.3-7.7) k/uL Lymphocytes # (1.0-4.8) k/uL PT (9.0-12.0) sec INR (<1.2) APTT (22.0-30.0) sec Fibrinogen (200-500) mg/dL ABG pH 7.24 L 7.31 L (7.35-7.45) ABG pCO2 59 H 49 H (35-45) mmHg ABG pO2 66 L 117 H (83-108) mmHg ABG HCO3 (21-25) mmol/L ABG Total CO2 27 H 26 H 26 H (19-24) mmol/L ABG O2 Saturation 90.3 L 97.3 H 98.7 H (94-97) % ABG Hematocrit 23 L 21 L 24 L (34.0-46.0) % ABG Potassium (3.4-4.5) mmol/L ABG Ionized Calcium 3.4 L* 3.9 L (4.5-5.3) mg/dL ABG Glucose 160 H 164 H 143 H (75-99) mg/dL ABG Lactic Acid 2.4 H* 2.0 H 2.3 H* (0.5-1.6) mmol/L Hemoglobin 7.5 L 6.8 L* 7.7 L (13.0-17.5) gm/dL Sodium (137-145) mmol/L Glucose (74-99) mg/dL POC Glucose (mg/dL) (75-99) mg/dL Calcium (8.4-10.2) mg/dL Magnesium (1.6-2.3) mg/dL Alkaline Phosphatase (38-126) U/L Total Protein (6.3-8.2) g/dL Albumin (3.5-5.0) g/dL Arterial Blood Potassium (3.4-4.5) mmol/L Arterial Blood Glucose 160 H 164 H 143 H (75-99) mg/dL Crossmatch 01/04/20 01/04/20 01/04/20 Range/Units 15:23 15:30 15:30 WBC (3.8-10.6) k/uL RBC 2.54 L (4.30-5.90) m/uL Hgb 7.7 L D (13.0-17.5) gm/dL Hct 23.6 L (39.0-53.0) % RDW (11.5-15.5) % Plt Count 124 L (150-450) k/uL Neutrophils # 8.3 H (1.3-7.7) k/uL Lymphocytes # (1.0-4.8) k/uL PT 13.0 H (9.0-12.0) sec INR 1.3 H (<1.2) APTT 32.1 H (22.0-30.0) sec Fibrinogen (200-500) mg/dL ABG pH (7.35-7.45) ABG pCO2 (35-45) mmHg ABG pO2 (83-108) mmHg ABG HCO3 (21-25) mmol/L ABG Total CO2 (19-24) mmol/L ABG O2 Saturation (94-97) % ABG Hematocrit (34.0-46.0) % ABG Potassium (3.4-4.5) mmol/L ABG Ionized Calcium (4.5-5.3) mg/dL ABG Glucose (75-99) mg/dL ABG Lactic Acid (0.5-1.6) mmol/L Hemoglobin (13.0-17.5) gm/dL Sodium (137-145) mmol/L Glucose (74-99) mg/dL POC Glucose (mg/dL) 161 H (75-99) mg/dL Calcium (8.4-10.2) mg/dL Magnesium (1.6-2.3) mg/dL Alkaline Phosphatase (38-126) U/L Total Protein (6.3-8.2) g/dL Albumin (3.5-5.0) g/dL Arterial Blood Potassium (3.4-4.5) mmol/L Arterial Blood Glucose (75-99) mg/dL Crossmatch 01/04/20 01/04/20 01/04/20 Range/Units 15:30 15:30 15:52 WBC (3.8-10.6) k/uL RBC (4.30-5.90) m/uL Hgb (13.0-17.5) gm/dL Hct (39.0-53.0) % RDW (11.5-15.5) % Plt Count (150-450) k/uL Neutrophils # (1.3-7.7) k/uL Lymphocytes # (1.0-4.8) k/uL PT (9.0-12.0) sec INR (<1.2) APTT (22.0-30.0) sec Fibrinogen 144 L (200-500) mg/dL ABG pH 7.28 L (7.35-7.45) ABG pCO2 56 H (35-45) mmHg ABG pO2 75 L (83-108) mmHg ABG HCO3 26 H (21-25) mmol/L ABG Total CO2 28 H (19-24) mmol/L ABG O2 Saturation 93.4 L (94-97) % ABG Hematocrit (34.0-46.0) % ABG Potassium (3.4-4.5) mmol/L ABG Ionized Calcium (4.5-5.3) mg/dL ABG Glucose (75-99) mg/dL ABG Lactic Acid (0.5-1.6) mmol/L Hemoglobin (13.0-17.5) gm/dL Sodium 136 L (137-145) mmol/L Glucose 143 H (74-99) mg/dL POC Glucose (mg/dL) (75-99) mg/dL Calcium (8.4-10.2) mg/dL Magnesium (1.6-2.3) mg/dL Alkaline Phosphatase 35 L (38-126) U/L Total Protein 4.3 L (6.3-8.2) g/dL Albumin 2.7 L (3.5-5.0) g/dL Arterial Blood Potassium (3.4-4.5) mmol/L Arterial Blood Glucose (75-99) mg/dL Crossmatch 01/04/20 01/04/20 01/04/20 Range/Units 16:19 16:22 16:56 WBC (3.8-10.6) k/uL RBC (4.30-5.90) m/uL Hgb (13.0-17.5) gm/dL Hct (39.0-53.0) % RDW (11.5-15.5) % Plt Count (150-450) k/uL Neutrophils # (1.3-7.7) k/uL Lymphocytes # (1.0-4.8) k/uL PT (9.0-12.0) sec INR (<1.2) APTT (22.0-30.0) sec Fibrinogen (200-500) mg/dL ABG pH 7.29 L 7.29 L (7.35-7.45) ABG pCO2 54 H 52 H (35-45) mmHg ABG pO2 81 L (83-108) mmHg ABG HCO3 26 H (21-25) mmol/L ABG Total CO2 27 H 27 H (19-24) mmol/L ABG O2 Saturation (94-97) % ABG Hematocrit (34.0-46.0) % ABG Potassium (3.4-4.5) mmol/L ABG Ionized Calcium (4.5-5.3) mg/dL ABG Glucose (75-99) mg/dL ABG Lactic Acid (0.5-1.6) mmol/L Hemoglobin (13.0-17.5) gm/dL Sodium (137-145) mmol/L Glucose (74-99) mg/dL POC Glucose (mg/dL) 177 H (75-99) mg/dL Calcium (8.4-10.2) mg/dL Magnesium (1.6-2.3) mg/dL Alkaline Phosphatase (38-126) U/L Total Protein (6.3-8.2) g/dL Albumin (3.5-5.0) g/dL Arterial Blood Potassium (3.4-4.5) mmol/L Arterial Blood Glucose (75-99) mg/dL Crossmatch 01/04/20 01/04/20 01/04/20 Range/Units 18:05 18:18 18:33 WBC 11.2 H (3.8-10.6) k/uL RBC 2.23 L (4.30-5.90) m/uL Hgb 6.6 L* (13.0-17.5) gm/dL Hct 20.8 L (39.0-53.0) % RDW (11.5-15.5) % Plt Count (150-450) k/uL Neutrophils # 9.6 H (1.3-7.7) k/uL Lymphocytes # 0.8 L (1.0-4.8) k/uL PT (9.0-12.0) sec INR (<1.2) APTT (22.0-30.0) sec Fibrinogen (200-500) mg/dL ABG pH 7.30 L (7.35-7.45) ABG pCO2 51 H (35-45) mmHg ABG pO2 149 H (83-108) mmHg ABG HCO3 (21-25) mmol/L ABG Total CO2 27 H (19-24) mmol/L ABG O2 Saturation 99.2 H (94-97) % ABG Hematocrit (34.0-46.0) % ABG Potassium (3.4-4.5) mmol/L ABG Ionized Calcium (4.5-5.3) mg/dL ABG Glucose (75-99) mg/dL ABG Lactic Acid (0.5-1.6) mmol/L Hemoglobin (13.0-17.5) gm/dL Sodium (137-145) mmol/L Glucose (74-99) mg/dL POC Glucose (mg/dL) 173 H (75-99) mg/dL Calcium (8.4-10.2) mg/dL Magnesium (1.6-2.3) mg/dL Alkaline Phosphatase (38-126) U/L Total Protein (6.3-8.2) g/dL Albumin (3.5-5.0) g/dL Arterial Blood Potassium (3.4-4.5) mmol/L Arterial Blood Glucose (75-99) mg/dL Crossmatch 01/04/20 01/04/20 01/04/20 Range/Units 19:08 20:01 20:57 WBC (3.8-10.6) k/uL RBC (4.30-5.90) m/uL Hgb (13.0-17.5) gm/dL Hct (39.0-53.0) % RDW (11.5-15.5) % Plt Count (150-450) k/uL Neutrophils # (1.3-7.7) k/uL Lymphocytes # (1.0-4.8) k/uL PT (9.0-12.0) sec INR (<1.2) APTT (22.0-30.0) sec Fibrinogen (200-500) mg/dL ABG pH (7.35-7.45) ABG pCO2 (35-45) mmHg ABG pO2 (83-108) mmHg ABG HCO3 (21-25) mmol/L ABG Total CO2 (19-24) mmol/L ABG O2 Saturation (94-97) % ABG Hematocrit (34.0-46.0) % ABG Potassium (3.4-4.5) mmol/L ABG Ionized Calcium (4.5-5.3) mg/dL ABG Glucose (75-99) mg/dL ABG Lactic Acid (0.5-1.6) mmol/L Hemoglobin (13.0-17.5) gm/dL Sodium (137-145) mmol/L Glucose (74-99) mg/dL POC Glucose (mg/dL) 181 H 177 H 176 H (75-99) mg/dL Calcium (8.4-10.2) mg/dL Magnesium (1.6-2.3) mg/dL Alkaline Phosphatase (38-126) U/L Total Protein (6.3-8.2) g/dL Albumin (3.5-5.0) g/dL Arterial Blood Potassium (3.4-4.5) mmol/L Arterial Blood Glucose (75-99) mg/dL Crossmatch 01/04/20 01/04/20 01/04/20 Range/Units 21:30 21:30 22:16 WBC (3.8-10.6) k/uL RBC 2.44 L (4.30-5.90) m/uL Hgb 7.2 L (13.0-17.5) gm/dL Hct 21.9 L (39.0-53.0) % RDW (11.5-15.5) % Plt Count 146 L (150-450) k/uL Neutrophils # 8.5 H (1.3-7.7) k/uL Lymphocytes # 0.5 L (1.0-4.8) k/uL PT (9.0-12.0) sec INR (<1.2) APTT (22.0-30.0) sec Fibrinogen 145 L (200-500) mg/dL ABG pH (7.35-7.45) ABG pCO2 (35-45) mmHg ABG pO2 (83-108) mmHg ABG HCO3 (21-25) mmol/L ABG Total CO2 (19-24) mmol/L ABG O2 Saturation (94-97) % ABG Hematocrit (34.0-46.0) % ABG Potassium (3.4-4.5) mmol/L ABG Ionized Calcium (4.5-5.3) mg/dL ABG Glucose (75-99) mg/dL ABG Lactic Acid (0.5-1.6) mmol/L Hemoglobin (13.0-17.5) gm/dL Sodium (137-145) mmol/L Glucose (74-99) mg/dL POC Glucose (mg/dL) 151 H (75-99) mg/dL Calcium (8.4-10.2) mg/dL Magnesium (1.6-2.3) mg/dL Alkaline Phosphatase (38-126) U/L Total Protein (6.3-8.2) g/dL Albumin (3.5-5.0) g/dL Arterial Blood Potassium (3.4-4.5) mmol/L Arterial Blood Glucose (75-99) mg/dL Crossmatch 01/04/20 01/05/20 01/05/20 Range/Units 23:07 00:03 00:17 WBC (3.8-10.6) k/uL RBC (4.30-5.90) m/uL Hgb (13.0-17.5) gm/dL Hct (39.0-53.0) % RDW (11.5-15.5) % Plt Count (150-450) k/uL Neutrophils # (1.3-7.7) k/uL Lymphocytes # (1.0-4.8) k/uL PT (9.0-12.0) sec INR (<1.2) APTT (22.0-30.0) sec Fibrinogen (200-500) mg/dL ABG pH (7.35-7.45) ABG pCO2 (35-45) mmHg ABG pO2 (83-108) mmHg ABG HCO3 (21-25) mmol/L ABG Total CO2 25 H (19-24) mmol/L ABG O2 Saturation 97.8 H (94-97) % ABG Hematocrit (34.0-46.0) % ABG Potassium (3.4-4.5) mmol/L ABG Ionized Calcium (4.5-5.3) mg/dL ABG Glucose (75-99) mg/dL ABG Lactic Acid (0.5-1.6) mmol/L Hemoglobin (13.0-17.5) gm/dL Sodium (137-145) mmol/L Glucose (74-99) mg/dL POC Glucose (mg/dL) 157 H 149 H (75-99) mg/dL Calcium (8.4-10.2) mg/dL Magnesium (1.6-2.3) mg/dL Alkaline Phosphatase (38-126) U/L Total Protein (6.3-8.2) g/dL Albumin (3.5-5.0) g/dL Arterial Blood Potassium (3.4-4.5) mmol/L Arterial Blood Glucose (75-99) mg/dL Crossmatch 01/05/20 01/05/20 01/05/20 Range/Units 00:59 02:06 03:19 WBC (3.8-10.6) k/uL RBC (4.30-5.90) m/uL Hgb (13.0-17.5) gm/dL Hct (39.0-53.0) % RDW (11.5-15.5) % Plt Count (150-450) k/uL Neutrophils # (1.3-7.7) k/uL Lymphocytes # (1.0-4.8) k/uL PT (9.0-12.0) sec INR (<1.2) APTT (22.0-30.0) sec Fibrinogen (200-500) mg/dL ABG pH (7.35-7.45) ABG pCO2 (35-45) mmHg ABG pO2 (83-108) mmHg ABG HCO3 (21-25) mmol/L ABG Total CO2 (19-24) mmol/L ABG O2 Saturation (94-97) % ABG Hematocrit (34.0-46.0) % ABG Potassium (3.4-4.5) mmol/L ABG Ionized Calcium (4.5-5.3) mg/dL ABG Glucose (75-99) mg/dL ABG Lactic Acid (0.5-1.6) mmol/L Hemoglobin (13.0-17.5) gm/dL Sodium (137-145) mmol/L Glucose (74-99) mg/dL POC Glucose (mg/dL) 153 H 148 H 152 H (75-99) mg/dL Calcium (8.4-10.2) mg/dL Magnesium (1.6-2.3) mg/dL Alkaline Phosphatase (38-126) U/L Total Protein (6.3-8.2) g/dL Albumin (3.5-5.0) g/dL Arterial Blood Potassium (3.4-4.5) mmol/L Arterial Blood Glucose (75-99) mg/dL Crossmatch 01/05/20 01/05/20 01/05/20 Range/Units 04:12 04:25 04:25 WBC (3.8-10.6) k/uL RBC 2.31 L (4.30-5.90) m/uL Hgb 6.8 L* (13.0-17.5) gm/dL Hct 20.9 L (39.0-53.0) % RDW 15.6 H (11.5-15.5) % Plt Count 144 L (150-450) k/uL Neutrophils # 8.5 H (1.3-7.7) k/uL Lymphocytes # 0.9 L (1.0-4.8) k/uL PT (9.0-12.0) sec INR (<1.2) APTT (22.0-30.0) sec Fibrinogen (200-500) mg/dL ABG pH (7.35-7.45) ABG pCO2 (35-45) mmHg ABG pO2 (83-108) mmHg ABG HCO3 (21-25) mmol/L ABG Total CO2 (19-24) mmol/L ABG O2 Saturation (94-97) % ABG Hematocrit (34.0-46.0) % ABG Potassium (3.4-4.5) mmol/L ABG Ionized Calcium (4.5-5.3) mg/dL ABG Glucose (75-99) mg/dL ABG Lactic Acid (0.5-1.6) mmol/L Hemoglobin (13.0-17.5) gm/dL Sodium 132 L (137-145) mmol/L Glucose 146 H (74-99) mg/dL POC Glucose (mg/dL) 158 H (75-99) mg/dL Calcium 7.8 L (8.4-10.2) mg/dL Magnesium 2.5 H (1.6-2.3) mg/dL Alkaline Phosphatase 32 L (38-126) U/L Total Protein 3.9 L (6.3-8.2) g/dL Albumin 2.4 L (3.5-5.0) g/dL Arterial Blood Potassium (3.4-4.5) mmol/L Arterial Blood Glucose (75-99) mg/dL Crossmatch 01/05/20 01/05/20 01/05/20 Range/Units 05:18 06:18 06:56 WBC (3.8-10.6) k/uL RBC (4.30-5.90) m/uL Hgb (13.0-17.5) gm/dL Hct (39.0-53.0) % RDW (11.5-15.5) % Plt Count (150-450) k/uL Neutrophils # (1.3-7.7) k/uL Lymphocytes # (1.0-4.8) k/uL PT (9.0-12.0) sec INR (<1.2) APTT (22.0-30.0) sec Fibrinogen (200-500) mg/dL ABG pH (7.35-7.45) ABG pCO2 (35-45) mmHg ABG pO2 (83-108) mmHg ABG HCO3 (21-25) mmol/L ABG Total CO2 (19-24) mmol/L ABG O2 Saturation (94-97) % ABG Hematocrit (34.0-46.0) % ABG Potassium (3.4-4.5) mmol/L ABG Ionized Calcium (4.5-5.3) mg/dL ABG Glucose (75-99) mg/dL ABG Lactic Acid (0.5-1.6) mmol/L Hemoglobin (13.0-17.5) gm/dL Sodium (137-145) mmol/L Glucose (74-99) mg/dL POC Glucose (mg/dL) 136 H 137 H 133 H (75-99) mg/dL Calcium (8.4-10.2) mg/dL Magnesium (1.6-2.3) mg/dL Alkaline Phosphatase (38-126) U/L Total Protein (6.3-8.2) g/dL Albumin (3.5-5.0) g/dL Arterial Blood Potassium (3.4-4.5) mmol/L Arterial Blood Glucose (75-99) mg/dL Crossmatch 01/05/20 01/05/20 01/05/20 Range/Units 07:37 07:58 08:59 WBC (3.8-10.6) k/uL RBC (4.30-5.90) m/uL Hgb (13.0-17.5) gm/dL Hct (39.0-53.0) % RDW (11.5-15.5) % Plt Count (150-450) k/uL Neutrophils # (1.3-7.7) k/uL Lymphocytes # (1.0-4.8) k/uL PT (9.0-12.0) sec INR (<1.2) APTT (22.0-30.0) sec Fibrinogen (200-500) mg/dL ABG pH (7.35-7.45) ABG pCO2 (35-45) mmHg ABG pO2 109 H (83-108) mmHg ABG HCO3 (21-25) mmol/L ABG Total CO2 (19-24) mmol/L ABG O2 Saturation 98.8 H (94-97) % ABG Hematocrit (34.0-46.0) % ABG Potassium (3.4-4.5) mmol/L ABG Ionized Calcium (4.5-5.3) mg/dL ABG Glucose (75-99) mg/dL ABG Lactic Acid (0.5-1.6) mmol/L Hemoglobin (13.0-17.5) gm/dL Sodium (137-145) mmol/L Glucose (74-99) mg/dL POC Glucose (mg/dL) 123 H 117 H (75-99) mg/dL Calcium (8.4-10.2) mg/dL Magnesium (1.6-2.3) mg/dL Alkaline Phosphatase (38-126) U/L Total Protein (6.3-8.2) g/dL Albumin (3.5-5.0) g/dL Arterial Blood Potassium (3.4-4.5) mmol/L Arterial Blood Glucose (75-99) mg/dL Crossmatch 01/05/20 01/05/20 01/05/20 Range/Units 10:03 10:04 10:05 WBC (3.8-10.6) k/uL RBC (4.30-5.90) m/uL Hgb (13.0-17.5) gm/dL Hct (39.0-53.0) % RDW (11.5-15.5) % Plt Count (150-450) k/uL Neutrophils # (1.3-7.7) k/uL Lymphocytes # (1.0-4.8) k/uL PT (9.0-12.0) sec INR 1.2 H (<1.2) APTT 32.6 H (22.0-30.0) sec Fibrinogen (200-500) mg/dL ABG pH (7.35-7.45) ABG pCO2 (35-45) mmHg ABG pO2 (83-108) mmHg ABG HCO3 (21-25) mmol/L ABG Total CO2 (19-24) mmol/L ABG O2 Saturation 97.6 H (94-97) % ABG Hematocrit (34.0-46.0) % ABG Potassium (3.4-4.5) mmol/L ABG Ionized Calcium (4.5-5.3) mg/dL ABG Glucose (75-99) mg/dL ABG Lactic Acid (0.5-1.6) mmol/L Hemoglobin (13.0-17.5) gm/dL Sodium (137-145) mmol/L Glucose (74-99) mg/dL POC Glucose (mg/dL) 105 H (75-99) mg/dL Calcium (8.4-10.2) mg/dL Magnesium (1.6-2.3) mg/dL Alkaline Phosphatase (38-126) U/L Total Protein (6.3-8.2) g/dL Albumin (3.5-5.0) g/dL Arterial Blood Potassium (3.4-4.5) mmol/L Arterial Blood Glucose (75-99) mg/dL Crossmatch 01/05/20 01/05/20 01/05/20 Range/Units 10:55 12:00 12:56 WBC (3.8-10.6) k/uL RBC (4.30-5.90) m/uL Hgb (13.0-17.5) gm/dL Hct (39.0-53.0) % RDW (11.5-15.5) % Plt Count (150-450) k/uL Neutrophils # (1.3-7.7) k/uL Lymphocytes # (1.0-4.8) k/uL PT (9.0-12.0) sec INR (<1.2) APTT (22.0-30.0) sec Fibrinogen (200-500) mg/dL ABG pH (7.35-7.45) ABG pCO2 (35-45) mmHg ABG pO2 (83-108) mmHg ABG HCO3 (21-25) mmol/L ABG Total CO2 (19-24) mmol/L ABG O2 Saturation (94-97) % ABG Hematocrit (34.0-46.0) % ABG Potassium (3.4-4.5) mmol/L ABG Ionized Calcium (4.5-5.3) mg/dL ABG Glucose (75-99) mg/dL ABG Lactic Acid (0.5-1.6) mmol/L Hemoglobin (13.0-17.5) gm/dL Sodium (137-145) mmol/L Glucose (74-99) mg/dL POC Glucose (mg/dL) 108 H 119 H 134 H (75-99) mg/dL Calcium (8.4-10.2) mg/dL Magnesium (1.6-2.3) mg/dL Alkaline Phosphatase (38-126) U/L Total Protein (6.3-8.2) g/dL Albumin (3.5-5.0) g/dL Arterial Blood Potassium (3.4-4.5) mmol/L Arterial Blood Glucose (75-99) mg/dL Crossmatch Microbiology - Last 24 Hours (Table) 01/02/20 21:35 Nasal Screen MRSA/MSSA - Final Nasal Swab Staphylococcus aureus,Not MRSA Assessment and Plan Assessment: Acute hypoxic respiratory failure Acute blood loss anemia Hypotension Severe CAD with non-ST elevation Diabetes mellitus Hypertension Dyslipidemia COPD Currently sedated and ventilated. Daily ABG. Repeat chest x-ray tomorrow morning. Full ventilator support. Ventilator management as per pulmonology. Hemoglobin 7.7. INR 1.3. Repeat CBC tomorrow morning. Continue epinephrine drip. Continue milrinone drip. Maintain MAP greater than 65. Cardiac cath shows multivessel disease. POD 1 CABG triple-vessel bypass. Continue aspirin and Lipitor. Continue beta junior. Telemetry monitoring. Cardiology and Cardiothoracic surgery on board. [id number] glucose 177. Insulin sliding scale. Regular Accu-Cheks. Hypoglycemic precautions. Continue Coreg. Monitor vitals, adjust medications if necessary. Continue Lipitor. DuoNeb as needed for shortness of breath or wheezing Start Tube feedings today
[2020-01-05] MEDS: POTASSIUM CHLORIDE 10 MEQ in WATER FOR INJECTION 1 100ML.BAG IVPB SCH ×2 (13:15→16:00)
[2020-01-05] MEDS: EPINEPHrine 4 MG in DEXTROSE 5% IN WATER 250 ML IV SCH ×4 (13:27→17:55)
--- NOTE | 2020-01-05 13:51 | P.PN ---
Subjective Progress Note Date: 01/05/20 Principal diagnosis: Multivessel coronary artery disease, non-ST elevation myocardial infarction this admission, unstable angina. Past medical history significant for coronary art kate disease with stent placement to the LAD and RCA in 1998, hypertension, hyperlipidemia, diabetes mellitus type 2, daily EtOH use, previous tobacco dependence, lung cancer status post left upper lobectomy in 2012, followed by chemotherapy, squamous cell and basal cell skin cancer, and family history of early onset coronary artery disease. POD #1 coronary artery bypass grafting 3 with off-pump left internal mammary artery to the left anterior descending coronary artery and on pump beating heart saphenous vein graft to the acute marginal and a saphenous vein graft to the obtuse marginal with endarterectomy and patch angioplasty of the obtuse marginal. Also placement of intra-aortic balloon pump and ligation of the left atrial appendage with a 40 mm AtriCure clip and endovascular vein harvest left greater saphenous vein from the thigh to just below the knee. Postoperative acute blood loss anemia, expected given cardiopulmonary bypass and hemodilution. Postoperative hypotension, unexpected, currently on epinephrine drip. The patient was seen in follow-up today on 01/05/2020 at his bedside in the intensive care unit. He remains intubated with mechanical ventilator support and is sedated on propofol drip. Current mechanical ventilator settings are assist control 24, TV 550, FiO2 65% and PEEP of 5. He remains with epinephrine drip in place at 0.24 mcg/kg/m. Current cardiac output is 5.1, cardiac index 2.7, PA pressures 62/27, CVP 12 mm/hg. Lab results this morning show a hemoglobin 10.4, hemoglobin 6.8, hematocrit 20.9, platelets 144, BUN 17 and creatinine 1.03. He was transfused 1 unit of PRBCs this morning. IABP remains in place on a one-to-one setting, current augmented pressure is 120 mmHg, with blood pressure 91/58 with a map of 87 mmHg. Bedside telemetry showing normal sinus rhythm heart rate 85, atrial and ventricular epicardial pacemaker wires remain in place and connected the backup bedside pacemaker generator with a VVI 50 BPM. The patient is moving all 4 extremities appropriately with verbal stimuli and shaking his head yes and no appropriately to questions. Left and right pleural chest tubes and mediastinal chest tubes remain in place to low continuous wall suction -20 cm H2O. No air leak is present. Draining thin serosanguineous drainage with 80 mL output from the left and right pleural chest tubes in the last 8 hours and 950 mL output since surgery. Mediastinal chest tubes with 300 mL output in the last 8 hours and 900 mL output since surgery. Objective - Vital Signs Vital signs: Vital Signs Temp 97.9 F 01/05/20 12:00 Pulse 90 01/05/20 12:45 Resp 23 01/05/20 12:45 BP 110/57 01/05/20 12:45 Pulse Ox 95 01/05/20 12:45 Intake & Output 01/04/20 01/05/20 01/05/20 18:59 06:59 18:59 Intake Total 2750.883 3410.939 1258.000 Output Total 4390 1350 368 Balance -9853.904 7469.939 890.000 Weight 85.2 kg 85.2 kg Intake: IV 120 533 494 Lactated Ringers 1,000 ml 250 @ 50 mls/hr IV .Q20H [facility] Rx#:[id number] Nitroglycerine 33 6 cardiac output 60 380 160 pressure bags 27 120 78 Intake, IV Titration 643.157 3743.939 454.000 Amount ACETAMINOPHEN IV (For NPO 200 ) 1,000 mg In Empty Bag 1 bag @ 400 mls/hr IVPB Q6HR [facility] Rx#:[id number] Albumin Human 5% 250 ml 250 250 In Empty Bag 1 bag @ 250 mls/hr IVPB Q1HR PRN Rx#: [id number] EPINEPHrine 4 mg In 131.917 801.841 261.530 Dextrose 5% in Water 250 ml @ 0.01 MCG/KG/MIN 2. 768 mls/hr IV .Q24H ONE Rx#:[id number] Insulin Regular 100 unit 59.971 21.917 In Sodium Chloride 0.9% 100 ml @ Per Protocol IV .Q0M [facility] Rx#:[id number] Lactated Ringers 1,000 ml 150 600 @ 50 mls/hr IV .Q20H [facility] Rx#:[id number] Magnesium Sulfate-D5w Pmx 200 1 gm In Dextrose/Water 1 100ml.bag @ 100 mls/hr IVPB Q1H [facility] Rx#: [id number] Milrinone-D5w Pmx 20 mg 50.372 100 In Dextrose/Water 1 100ml .bag @ Per Protocol IV . Q0M [facility] Rx#:[id number] Potassium Chloride 10 meq 100 100 In Water For Injection 1 100ml.bag @ 100 mls/hr IVPB Q1H [facility] Rx#: [id number] Potassium Chloride 20 meq 100 In Water For Injection 1 100ml.bag @ 50 mls/hr IVPB ONCE ONE Rx#: [id number] Potassium Chloride 20 meq 100 In Water For Injection 1 100ml.bag @ 50 mls/hr IVPB ONCE STA Rx#: [id number] ceFAZolin 2 gm In Sodium 50 50 Chloride 0.9% 50 ml @ 100 mls/hr IVPB Q8HR [facility] Rx# :[id number] propofoL 1,000 mg In 18.966 55.755 70.553 Empty Bag 1 bag @ Titrate IV .Q0M [facility] Rx#: [id number] Blood Product 1930 310 310 Ffp 24 Cpd Unit 306 [id number] Ffp 24 Cpd Unit 298 [id number] Ffp 24 Cpd Unit 303 [id number] Ffp 24 Cpd Unit 290 [id number] Platelet Irr Pheresis 3 211 Acda Unit [id number] Platelet Pheresis Acda1 212 Unit [id number] Rc As-1 Unit 0 310 [id number] Rc As-1 Unit 0 310 [id number] Rc As-1 Unit 310 [id number] Output: Chest Tube Drainage 840 900 185 left and right pleural 590 330 45 mediastinal x2 250 570 140 Urine 1050 450 183 Estimated Blood Loss 2500 Other: Voiding Method Indwelling Catheter Indwelling Catheter Indwelling Catheter ABP, PAP, CO, CI - Last Documented Arterial Blood Pressure 128/51 Pulmonary Artery Pressure 50/24 Cardiac Output 6.3 Cardiac Index 3.3 - Constitutional Constitutional Comment(s): Patient remains sedated on propofol drip, intubated with mechanical ventilator support. Moving all 4 extremities appropriately with verbal stimuli. - EENT Eyes: Present: PERRLA, normal appearance ENT: Present: hearing grossly normal - Neck Details: Neck is supple, no JVD. Right IJ Cordis with Hardy-Malaika catheter in place. - Respiratory Details: Lung sounds essentially clear throughout, diminished to his bilateral bases. No wheezes, rhonchi or crackles. Respirations are symmetrical and nonlabored with mechanical ventilator support. Current mechanical ventilator settings are assist control 24, TV 550, FiO2 65% and PEEP of 5. Left and right pleural chest tubes and mediastinal chest tubes remain in place to low continuous wall suction -20 cm H2O. No air leak is present. Draining thin serosanguineous drainage with 80 mL output from the left and right pleural chest tubes in the last 8 hours and 950 mL output since surgery. Mediastinal chest tubes with 300 mL output in the last 8 hours and 900 mL output since surgery. ABG results this morning show a pH of 7.40, pCO2 35, pO2 91, HCO3 22, oxygen saturation 97.6 and base excess - 3.1. - Cardiovascular Details: Regular rhythm and rate. S1 and S2 present, negative for S3, gallop or murmur. Sternum is stable. Knee-high EDUARDO hose and sequential compression devices in place to his bilateral lower extremities. Right IJ Cordis with Hardy-Malaika catheter in place, current cardiac output 5.1, cardiac index 2.7, PA pressures 62/27, CVP 12 mmHg. Right radial arterial line in place and functioning. Right femoral IABP in place on a one-to-one setting with current augmented pressure 120 mmHg, with blood pressure 91/58 with a map of 87 mmHg. no edema present. Atrial and ventricular epicardial pacemaker wires in place and connected to backup bedside pacemaker generator with a VVI 50 BPM. Positive palpable pulses to all 4 extremities. - Gastrointestinal Gastrointestinal Comment(s): Abdomen soft, nontender nondistended. Active bowel sounds present all 4 abdominal quadrants. No guarding or rigidity. No organomegaly appreciated. OG tube in place to low intermittent wall suction. - Genitourinary Genitourinary Comment(s): Prieto catheter for accurate I&O. Draining clear raoul urine with 300 mL output in the last 8 hours. - Integumentary Integumentary Comment(s): Skin is warm and dry. No clubbing or cyanosis is present. Midline sternal incision is clean, dry and approximated. No drainage or redness is present. Left lower extremity EVH site is clean, dry and approximated. No drainage or redness is present. Right groin IABP insertion site clean, dry and intact. Scant serosanguineous drainage from the right IJ insertion site. - Neurologic Neurologic Comment(s): Unable to thoroughly assess due to the patient being sedated on propofol drip. - Musculoskeletal Musculoskeletal: Present: generalized weakness, strength equal bilaterally - Psychiatric Psychiatric Comment(s): Unable to thoroughly assess due to the patient being sedated on propofol drip and he remains intubated with mechanical ventilator support. - Allied health notes Allied health notes reviewed: nursing - Labs CBC & Chem 7: 01/05/20 04:25 01/05/20 10:05 Labs: Abnormal Lab Results - Last 24 Hours (Table) 01/03/20 01/04/20 01/04/20 Range/Units 07:40 08:25 08:36 WBC (3.8-10.6) k/uL RBC (4.30-5.90) m/uL Hgb (13.0-17.5) gm/dL Hct (39.0-53.0) % RDW (11.5-15.5) % Plt Count (150-450) k/uL Neutrophils # (1.3-7.7) k/uL Lymphocytes # (1.0-4.8) k/uL PT (9.0-12.0) sec INR (<1.2) APTT (22.0-30.0) sec Fibrinogen (200-500) mg/dL ABG pH 7.23 L (7.35-7.45) ABG pCO2 52 H (35-45) mmHg ABG pO2 356 H 231 H (83-108) mmHg ABG HCO3 (21-25) mmol/L ABG Total CO2 (19-24) mmol/L ABG O2 Saturation 99.9 H 99.8 H (94-97) % ABG Hematocrit (34.0-46.0) % ABG Potassium 4.6 H (3.4-4.5) mmol/L ABG Ionized Calcium (4.5-5.3) mg/dL ABG Glucose 148 H 121 H (75-99) mg/dL ABG Lactic Acid (0.5-1.6) mmol/L Hemoglobin 11.4 L 12.9 L (13.0-17.5) gm/dL Sodium (137-145) mmol/L Glucose (74-99) mg/dL POC Glucose (mg/dL) (75-99) mg/dL Calcium (8.4-10.2) mg/dL Magnesium (1.6-2.3) mg/dL Alkaline Phosphatase (38-126) U/L Total Protein (6.3-8.2) g/dL Albumin (3.5-5.0) g/dL Arterial Blood Potassium 4.6 H (3.4-4.5) mmol/L Arterial Blood Glucose 148 H 121 H (75-99) mg/dL Crossmatch See Detail 01/04/20 01/04/20 01/04/20 Range/Units 10:30 11:03 11:14 WBC (3.8-10.6) k/uL RBC (4.30-5.90) m/uL Hgb (13.0-17.5) gm/dL Hct (39.0-53.0) % RDW (11.5-15.5) % Plt Count (150-450) k/uL Neutrophils # (1.3-7.7) k/uL Lymphocytes # (1.0-4.8) k/uL PT (9.0-12.0) sec INR (<1.2) APTT (22.0-30.0) sec Fibrinogen (200-500) mg/dL ABG pH 7.27 L 7.14 L* (7.35-7.45) ABG pCO2 50 H 54 H (35-45) mmHg ABG pO2 >420 H 110 H >420 H (83-108) mmHg ABG HCO3 18 L (21-25) mmol/L ABG Total CO2 (19-24) mmol/L ABG O2 Saturation 100.0 H 100.0 H (94-97) % ABG Hematocrit 33 L 33 L 22 L (34.0-46.0) % ABG Potassium (3.4-4.5) mmol/L ABG Ionized Calcium 4.3 L 4.2 L 3.5 L* (4.5-5.3) mg/dL ABG Glucose 162 H 214 H 195 H (75-99) mg/dL ABG Lactic Acid 2.5 H* 1.7 H (0.5-1.6) mmol/L Hemoglobin 10.6 L 10.8 L 7.2 L (13.0-17.5) gm/dL Sodium (137-145) mmol/L Glucose (74-99) mg/dL POC Glucose (mg/dL) (75-99) mg/dL Calcium (8.4-10.2) mg/dL Magnesium (1.6-2.3) mg/dL Alkaline Phosphatase (38-126) U/L Total Protein (6.3-8.2) g/dL Albumin (3.5-5.0) g/dL Arterial Blood Potassium (3.4-4.5) mmol/L Arterial Blood Glucose 162 H 214 H 195 H (75-99) mg/dL Crossmatch 01/04/20 01/04/20 01/04/20 Range/Units 12:09 12:34 13:06 WBC (3.8-10.6) k/uL RBC (4.30-5.90) m/uL Hgb (13.0-17.5) gm/dL Hct (39.0-53.0) % RDW (11.5-15.5) % Plt Count (150-450) k/uL Neutrophils # (1.3-7.7) k/uL Lymphocytes # (1.0-4.8) k/uL PT (9.0-12.0) sec INR (<1.2) APTT (22.0-30.0) sec Fibrinogen (200-500) mg/dL ABG pH 7.18 L* (7.35-7.45) ABG pCO2 58 H (35-45) mmHg ABG pO2 329 H 363 H (83-108) mmHg ABG HCO3 (21-25) mmol/L ABG Total CO2 (19-24) mmol/L ABG O2 Saturation 100.0 H 100.0 H (94-97) % ABG Hematocrit 24 L 22 L 22 L (34.0-46.0) % ABG Potassium 4.6 H (3.4-4.5) mmol/L ABG Ionized Calcium 3.9 L 3.8 L (4.5-5.3) mg/dL ABG Glucose 135 H 116 H 119 H (75-99) mg/dL ABG Lactic Acid 2.8 H* (0.5-1.6) mmol/L Hemoglobin 7.7 L 7.2 L 7.2 L (13.0-17.5) gm/dL Sodium (137-145) mmol/L Glucose (74-99) mg/dL POC Glucose (mg/dL) (75-99) mg/dL Calcium (8.4-10.2) mg/dL Magnesium (1.6-2.3) mg/dL Alkaline Phosphatase (38-126) U/L Total Protein (6.3-8.2) g/dL Albumin (3.5-5.0) g/dL Arterial Blood Potassium 4.6 H (3.4-4.5) mmol/L Arterial Blood Glucose 135 H 116 H 119 H (75-99) mg/dL Crossmatch 01/04/20 01/04/20 01/04/20 Range/Units 13:25 13:46 14:31 WBC (3.8-10.6) k/uL RBC (4.30-5.90) m/uL Hgb (13.0-17.5) gm/dL Hct (39.0-53.0) % RDW (11.5-15.5) % Plt Count (150-450) k/uL Neutrophils # (1.3-7.7) k/uL Lymphocytes # (1.0-4.8) k/uL PT (9.0-12.0) sec INR (<1.2) APTT (22.0-30.0) sec Fibrinogen (200-500) mg/dL ABG pH 7.24 L 7.31 L (7.35-7.45) ABG pCO2 59 H 49 H (35-45) mmHg ABG pO2 66 L 117 H (83-108) mmHg ABG HCO3 (21-25) mmol/L ABG Total CO2 27 H 26 H 26 H (19-24) mmol/L ABG O2 Saturation 90.3 L 97.3 H 98.7 H (94-97) % ABG Hematocrit 23 L 21 L 24 L (34.0-46.0) % ABG Potassium (3.4-4.5) mmol/L ABG Ionized Calcium 3.4 L* 3.9 L (4.5-5.3) mg/dL ABG Glucose 160 H 164 H 143 H (75-99) mg/dL ABG Lactic Acid 2.4 H* 2.0 H 2.3 H* (0.5-1.6) mmol/L Hemoglobin 7.5 L 6.8 L* 7.7 L (13.0-17.5) gm/dL Sodium (137-145) mmol/L Glucose (74-99) mg/dL POC Glucose (mg/dL) (75-99) mg/dL Calcium (8.4-10.2) mg/dL Magnesium (1.6-2.3) mg/dL Alkaline Phosphatase (38-126) U/L Total Protein (6.3-8.2) g/dL Albumin (3.5-5.0) g/dL Arterial Blood Potassium (3.4-4.5) mmol/L Arterial Blood Glucose 160 H 164 H 143 H (75-99) mg/dL Crossmatch 01/04/20 01/04/20 01/04/20 Range/Units 15:23 15:30 15:30 WBC (3.8-10.6) k/uL RBC 2.54 L (4.30-5.90) m/uL Hgb 7.7 L D (13.0-17.5) gm/dL Hct 23.6 L (39.0-53.0) % RDW (11.5-15.5) % Plt Count 124 L (150-450) k/uL Neutrophils # 8.3 H (1.3-7.7) k/uL Lymphocytes # (1.0-4.8) k/uL PT 13.0 H (9.0-12.0) sec INR 1.3 H (<1.2) APTT 32.1 H (22.0-30.0) sec Fibrinogen (200-500) mg/dL ABG pH (7.35-7.45) ABG pCO2 (35-45) mmHg ABG pO2 (83-108) mmHg ABG HCO3 (21-25) mmol/L ABG Total CO2 (19-24) mmol/L ABG O2 Saturation (94-97) % ABG Hematocrit (34.0-46.0) % ABG Potassium (3.4-4.5) mmol/L ABG Ionized Calcium (4.5-5.3) mg/dL ABG Glucose (75-99) mg/dL ABG Lactic Acid (0.5-1.6) mmol/L Hemoglobin (13.0-17.5) gm/dL Sodium (137-145) mmol/L Glucose (74-99) mg/dL POC Glucose (mg/dL) 161 H (75-99) mg/dL Calcium (8.4-10.2) mg/dL Magnesium (1.6-2.3) mg/dL Alkaline Phosphatase (38-126) U/L Total Protein (6.3-8.2) g/dL Albumin (3.5-5.0) g/dL Arterial Blood Potassium (3.4-4.5) mmol/L Arterial Blood Glucose (75-99) mg/dL Crossmatch 01/04/20 01/04/20 01/04/20 Range/Units 15:30 15:30 15:52 WBC (3.8-10.6) k/uL RBC (4.30-5.90) m/uL Hgb (13.0-17.5) gm/dL Hct (39.0-53.0) % RDW (11.5-15.5) % Plt Count (150-450) k/uL Neutrophils # (1.3-7.7) k/uL Lymphocytes # (1.0-4.8) k/uL PT (9.0-12.0) sec INR (<1.2) APTT (22.0-30.0) sec Fibrinogen 144 L (200-500) mg/dL ABG pH 7.28 L (7.35-7.45) ABG pCO2 56 H (35-45) mmHg ABG pO2 75 L (83-108) mmHg ABG HCO3 26 H (21-25) mmol/L ABG Total CO2 28 H (19-24) mmol/L ABG O2 Saturation 93.4 L (94-97) % ABG Hematocrit (34.0-46.0) % ABG Potassium (3.4-4.5) mmol/L ABG Ionized Calcium (4.5-5.3) mg/dL ABG Glucose (75-99) mg/dL ABG Lactic Acid (0.5-1.6) mmol/L Hemoglobin (13.0-17.5) gm/dL Sodium 136 L (137-145) mmol/L Glucose 143 H (74-99) mg/dL POC Glucose (mg/dL) (75-99) mg/dL Calcium (8.4-10.2) mg/dL Magnesium (1.6-2.3) mg/dL Alkaline Phosphatase 35 L (38-126) U/L Total Protein 4.3 L (6.3-8.2) g/dL Albumin 2.7 L (3.5-5.0) g/dL Arterial Blood Potassium (3.4-4.5) mmol/L Arterial Blood Glucose (75-99) mg/dL Crossmatch 01/04/20 01/04/20 01/04/20 Range/Units 16:19 16:22 16:56 WBC (3.8-10.6) k/uL RBC (4.30-5.90) m/uL Hgb (13.0-17.5) gm/dL Hct (39.0-53.0) % RDW (11.5-15.5) % Plt Count (150-450) k/uL Neutrophils # (1.3-7.7) k/uL Lymphocytes # (1.0-4.8) k/uL PT (9.0-12.0) sec INR (<1.2) APTT (22.0-30.0) sec Fibrinogen (200-500) mg/dL ABG pH 7.29 L 7.29 L (7.35-7.45) ABG pCO2 54 H 52 H (35-45) mmHg ABG pO2 81 L (83-108) mmHg ABG HCO3 26 H (21-25) mmol/L ABG Total CO2 27 H 27 H (19-24) mmol/L ABG O2 Saturation (94-97) % ABG Hematocrit (34.0-46.0) % ABG Potassium (3.4-4.5) mmol/L ABG Ionized Calcium (4.5-5.3) mg/dL ABG Glucose (75-99) mg/dL ABG Lactic Acid (0.5-1.6) mmol/L Hemoglobin (13.0-17.5) gm/dL Sodium (137-145) mmol/L Glucose (74-99) mg/dL POC Glucose (mg/dL) 177 H (75-99) mg/dL Calcium (8.4-10.2) mg/dL Magnesium (1.6-2.3) mg/dL Alkaline Phosphatase (38-126) U/L Total Protein (6.3-8.2) g/dL Albumin (3.5-5.0) g/dL Arterial Blood Potassium (3.4-4.5) mmol/L Arterial Blood Glucose (75-99) mg/dL Crossmatch 01/04/20 01/04/20 01/04/20 Range/Units 18:05 18:18 18:33 WBC 11.2 H (3.8-10.6) k/uL RBC 2.23 L (4.30-5.90) m/uL Hgb 6.6 L* (13.0-17.5) gm/dL Hct 20.8 L (39.0-53.0) % RDW (11.5-15.5) % Plt Count (150-450) k/uL Neutrophils # 9.6 H (1.3-7.7) k/uL Lymphocytes # 0.8 L (1.0-4.8) k/uL PT (9.0-12.0) sec INR (<1.2) APTT (22.0-30.0) sec Fibrinogen (200-500) mg/dL ABG pH 7.30 L (7.35-7.45) ABG pCO2 51 H (35-45) mmHg ABG pO2 149 H (83-108) mmHg ABG HCO3 (21-25) mmol/L ABG Total CO2 27 H (19-24) mmol/L ABG O2 Saturation 99.2 H (94-97) % ABG Hematocrit (34.0-46.0) % ABG Potassium (3.4-4.5) mmol/L ABG Ionized Calcium (4.5-5.3) mg/dL ABG Glucose (75-99) mg/dL ABG Lactic Acid (0.5-1.6) mmol/L Hemoglobin (13.0-17.5) gm/dL Sodium (137-145) mmol/L Glucose (74-99) mg/dL POC Glucose (mg/dL) 173 H (75-99) mg/dL Calcium (8.4-10.2) mg/dL Magnesium (1.6-2.3) mg/dL Alkaline Phosphatase (38-126) U/L Total Protein (6.3-8.2) g/dL Albumin (3.5-5.0) g/dL Arterial Blood Potassium (3.4-4.5) mmol/L Arterial Blood Glucose (75-99) mg/dL Crossmatch 01/04/20 01/04/20 01/04/20 Range/Units 19:08 20:01 20:57 WBC (3.8-10.6) k/uL RBC (4.30-5.90) m/uL Hgb (13.0-17.5) gm/dL Hct (39.0-53.0) % RDW (11.5-15.5) % Plt Count (150-450) k/uL Neutrophils # (1.3-7.7) k/uL Lymphocytes # (1.0-4.8) k/uL PT (9.0-12.0) sec INR (<1.2) APTT (22.0-30.0) sec Fibrinogen (200-500) mg/dL ABG pH (7.35-7.45) ABG pCO2 (35-45) mmHg ABG pO2 (83-108) mmHg ABG HCO3 (21-25) mmol/L ABG Total CO2 (19-24) mmol/L ABG O2 Saturation (94-97) % ABG Hematocrit (34.0-46.0) % ABG Potassium (3.4-4.5) mmol/L ABG Ionized Calcium (4.5-5.3) mg/dL ABG Glucose (75-99) mg/dL ABG Lactic Acid (0.5-1.6) mmol/L Hemoglobin (13.0-17.5) gm/dL Sodium (137-145) mmol/L Glucose (74-99) mg/dL POC Glucose (mg/dL) 181 H 177 H 176 H (75-99) mg/dL Calcium (8.4-10.2) mg/dL Magnesium (1.6-2.3) mg/dL Alkaline Phosphatase (38-126) U/L Total Protein (6.3-8.2) g/dL Albumin (3.5-5.0) g/dL Arterial Blood Potassium (3.4-4.5) mmol/L Arterial Blood Glucose (75-99) mg/dL Crossmatch 01/04/20 01/04/20 01/04/20 Range/Units 21:30 21:30 22:16 WBC (3.8-10.6) k/uL RBC 2.44 L (4.30-5.90) m/uL Hgb 7.2 L (13.0-17.5) gm/dL Hct 21.9 L (39.0-53.0) % RDW (11.5-15.5) % Plt Count 146 L (150-450) k/uL Neutrophils # 8.5 H (1.3-7.7) k/uL Lymphocytes # 0.5 L (1.0-4.8) k/uL PT (9.0-12.0) sec INR (<1.2) APTT (22.0-30.0) sec Fibrinogen 145 L (200-500) mg/dL ABG pH (7.35-7.45) ABG pCO2 (35-45) mmHg ABG pO2 (83-108) mmHg ABG HCO3 (21-25) mmol/L ABG Total CO2 (19-24) mmol/L ABG O2 Saturation (94-97) % ABG Hematocrit (34.0-46.0) % ABG Potassium (3.4-4.5) mmol/L ABG Ionized Calcium (4.5-5.3) mg/dL ABG Glucose (75-99) mg/dL ABG Lactic Acid (0.5-1.6) mmol/L Hemoglobin (13.0-17.5) gm/dL Sodium (137-145) mmol/L Glucose (74-99) mg/dL POC Glucose (mg/dL) 151 H (75-99) mg/dL Calcium (8.4-10.2) mg/dL Magnesium (1.6-2.3) mg/dL Alkaline Phosphatase (38-126) U/L Total Protein (6.3-8.2) g/dL Albumin (3.5-5.0) g/dL Arterial Blood Potassium (3.4-4.5) mmol/L Arterial Blood Glucose (75-99) mg/dL Crossmatch 01/04/20 01/05/20 01/05/20 Range/Units 23:07 00:03 00:17 WBC (3.8-10.6) k/uL RBC (4.30-5.90) m/uL Hgb (13.0-17.5) gm/dL Hct (39.0-53.0) % RDW (11.5-15.5) % Plt Count (150-450) k/uL Neutrophils # (1.3-7.7) k/uL Lymphocytes # (1.0-4.8) k/uL PT (9.0-12.0) sec INR (<1.2) APTT (22.0-30.0) sec Fibrinogen (200-500) mg/dL ABG pH (7.35-7.45) ABG pCO2 (35-45) mmHg ABG pO2 (83-108) mmHg ABG HCO3 (21-25) mmol/L ABG Total CO2 25 H (19-24) mmol/L ABG O2 Saturation 97.8 H (94-97) % ABG Hematocrit (34.0-46.0) % ABG Potassium (3.4-4.5) mmol/L ABG Ionized Calcium (4.5-5.3) mg/dL ABG Glucose (75-99) mg/dL ABG Lactic Acid (0.5-1.6) mmol/L Hemoglobin (13.0-17.5) gm/dL Sodium (137-145) mmol/L Glucose (74-99) mg/dL POC Glucose (mg/dL) 157 H 149 H (75-99) mg/dL Calcium (8.4-10.2) mg/dL Magnesium (1.6-2.3) mg/dL Alkaline Phosphatase (38-126) U/L Total Protein (6.3-8.2) g/dL Albumin (3.5-5.0) g/dL Arterial Blood Potassium (3.4-4.5) mmol/L Arterial Blood Glucose (75-99) mg/dL Crossmatch 01/05/20 01/05/20 01/05/20 Range/Units 00:59 02:06 03:19 WBC (3.8-10.6) k/uL RBC (4.30-5.90) m/uL Hgb (13.0-17.5) gm/dL Hct (39.0-53.0) % RDW (11.5-15.5) % Plt Count (150-450) k/uL Neutrophils # (1.3-7.7) k/uL Lymphocytes # (1.0-4.8) k/uL PT (9.0-12.0) sec INR (<1.2) APTT (22.0-30.0) sec Fibrinogen (200-500) mg/dL ABG pH (7.35-7.45) ABG pCO2 (35-45) mmHg ABG pO2 (83-108) mmHg ABG HCO3 (21-25) mmol/L ABG Total CO2 (19-24) mmol/L ABG O2 Saturation (94-97) % ABG Hematocrit (34.0-46.0) % ABG Potassium (3.4-4.5) mmol/L ABG Ionized Calcium (4.5-5.3) mg/dL ABG Glucose (75-99) mg/dL ABG Lactic Acid (0.5-1.6) mmol/L Hemoglobin (13.0-17.5) gm/dL Sodium (137-145) mmol/L Glucose (74-99) mg/dL POC Glucose (mg/dL) 153 H 148 H 152 H (75-99) mg/dL Calcium (8.4-10.2) mg/dL Magnesium (1.6-2.3) mg/dL Alkaline Phosphatase (38-126) U/L Total Protein (6.3-8.2) g/dL Albumin (3.5-5.0) g/dL Arterial Blood Potassium (3.4-4.5) mmol/L Arterial Blood Glucose (75-99) mg/dL Crossmatch 01/05/20 01/05/20 01/05/20 Range/Units 04:12 04:25 04:25 WBC (3.8-10.6) k/uL RBC 2.31 L (4.30-5.90) m/uL Hgb 6.8 L* (13.0-17.5) gm/dL Hct 20.9 L (39.0-53.0) % RDW 15.6 H (11.5-15.5) % Plt Count 144 L (150-450) k/uL Neutrophils # 8.5 H (1.3-7.7) k/uL Lymphocytes # 0.9 L (1.0-4.8) k/uL PT (9.0-12.0) sec INR (<1.2) APTT (22.0-30.0) sec Fibrinogen (200-500) mg/dL ABG pH (7.35-7.45) ABG pCO2 (35-45) mmHg ABG pO2 (83-108) mmHg ABG HCO3 (21-25) mmol/L ABG Total CO2 (19-24) mmol/L ABG O2 Saturation (94-97) % ABG Hematocrit (34.0-46.0) % ABG Potassium (3.4-4.5) mmol/L ABG Ionized Calcium (4.5-5.3) mg/dL ABG Glucose (75-99) mg/dL ABG Lactic Acid (0.5-1.6) mmol/L Hemoglobin (13.0-17.5) gm/dL Sodium 132 L (137-145) mmol/L Glucose 146 H (74-99) mg/dL POC Glucose (mg/dL) 158 H (75-99) mg/dL Calcium 7.8 L (8.4-10.2) mg/dL Magnesium 2.5 H (1.6-2.3) mg/dL Alkaline Phosphatase 32 L (38-126) U/L Total Protein 3.9 L (6.3-8.2) g/dL Albumin 2.4 L (3.5-5.0) g/dL Arterial Blood Potassium (3.4-4.5) mmol/L Arterial Blood Glucose (75-99) mg/dL Crossmatch 01/05/20 01/05/20 01/05/20 Range/Units 05:18 06:18 06:56 WBC (3.8-10.6) k/uL RBC (4.30-5.90) m/uL Hgb (13.0-17.5) gm/dL Hct (39.0-53.0) % RDW (11.5-15.5) % Plt Count (150-450) k/uL Neutrophils # (1.3-7.7) k/uL Lymphocytes # (1.0-4.8) k/uL PT (9.0-12.0) sec INR (<1.2) APTT (22.0-30.0) sec Fibrinogen (200-500) mg/dL ABG pH (7.35-7.45) ABG pCO2 (35-45) mmHg ABG pO2 (83-108) mmHg ABG HCO3 (21-25) mmol/L ABG Total CO2 (19-24) mmol/L ABG O2 Saturation (94-97) % ABG Hematocrit (34.0-46.0) % ABG Potassium (3.4-4.5) mmol/L ABG Ionized Calcium (4.5-5.3) mg/dL ABG Glucose (75-99) mg/dL ABG Lactic Acid (0.5-1.6) mmol/L Hemoglobin (13.0-17.5) gm/dL Sodium (137-145) mmol/L Glucose (74-99) mg/dL POC Glucose (mg/dL) 136 H 137 H 133 H (75-99) mg/dL Calcium (8.4-10.2) mg/dL Magnesium (1.6-2.3) mg/dL Alkaline Phosphatase (38-126) U/L Total Protein (6.3-8.2) g/dL Albumin (3.5-5.0) g/dL Arterial Blood Potassium (3.4-4.5) mmol/L Arterial Blood Glucose (75-99) mg/dL Crossmatch 01/05/20 01/05/20 01/05/20 Range/Units 07:37 07:58 08:59 WBC (3.8-10.6) k/uL RBC (4.30-5.90) m/uL Hgb (13.0-17.5) gm/dL Hct (39.0-53.0) % RDW (11.5-15.5) % Plt Count (150-450) k/uL Neutrophils # (1.3-7.7) k/uL Lymphocytes # (1.0-4.8) k/uL PT (9.0-12.0) sec INR (<1.2) APTT (22.0-30.0) sec Fibrinogen (200-500) mg/dL ABG pH (7.35-7.45) ABG pCO2 (35-45) mmHg ABG pO2 109 H (83-108) mmHg ABG HCO3 (21-25) mmol/L ABG Total CO2 (19-24) mmol/L ABG O2 Saturation 98.8 H (94-97) % ABG Hematocrit (34.0-46.0) % ABG Potassium (3.4-4.5) mmol/L ABG Ionized Calcium (4.5-5.3) mg/dL ABG Glucose (75-99) mg/dL ABG Lactic Acid (0.5-1.6) mmol/L Hemoglobin (13.0-17.5) gm/dL Sodium (137-145) mmol/L Glucose (74-99) mg/dL POC Glucose (mg/dL) 123 H 117 H (75-99) mg/dL Calcium (8.4-10.2) mg/dL Magnesium (1.6-2.3) mg/dL Alkaline Phosphatase (38-126) U/L Total Protein (6.3-8.2) g/dL Albumin (3.5-5.0) g/dL Arterial Blood Potassium (3.4-4.5) mmol/L Arterial Blood Glucose (75-99) mg/dL Crossmatch 01/05/20 01/05/20 01/05/20 Range/Units 10:03 10:04 10:05 WBC (3.8-10.6) k/uL RBC (4.30-5.90) m/uL Hgb (13.0-17.5) gm/dL Hct (39.0-53.0) % RDW (11.5-15.5) % Plt Count (150-450) k/uL Neutrophils # (1.3-7.7) k/uL Lymphocytes # (1.0-4.8) k/uL PT (9.0-12.0) sec INR 1.2 H (<1.2) APTT 32.6 H (22.0-30.0) sec Fibrinogen (200-500) mg/dL ABG pH (7.35-7.45) ABG pCO2 (35-45) mmHg ABG pO2 (83-108) mmHg ABG HCO3 (21-25) mmol/L ABG Total CO2 (19-24) mmol/L ABG O2 Saturation 97.6 H (94-97) % ABG Hematocrit (34.0-46.0) % ABG Potassium (3.4-4.5) mmol/L ABG Ionized Calcium (4.5-5.3) mg/dL ABG Glucose (75-99) mg/dL ABG Lactic Acid (0.5-1.6) mmol/L Hemoglobin (13.0-17.5) gm/dL Sodium (137-145) mmol/L Glucose (74-99) mg/dL POC Glucose (mg/dL) 105 H (75-99) mg/dL Calcium (8.4-10.2) mg/dL Magnesium (1.6-2.3) mg/dL Alkaline Phosphatase (38-126) U/L Total Protein (6.3-8.2) g/dL Albumin (3.5-5.0) g/dL Arterial Blood Potassium (3.4-4.5) mmol/L Arterial Blood Glucose (75-99) mg/dL Crossmatch 01/05/20 01/05/20 01/05/20 Range/Units 10:55 12:00 12:56 WBC (3.8-10.6) k/uL RBC (4.30-5.90) m/uL Hgb (13.0-17.5) gm/dL Hct (39.0-53.0) % RDW (11.5-15.5) % Plt Count (150-450) k/uL Neutrophils # (1.3-7.7) k/uL Lymphocytes # (1.0-4.8) k/uL PT (9.0-12.0) sec INR (<1.2) APTT (22.0-30.0) sec Fibrinogen (200-500) mg/dL ABG pH (7.35-7.45) ABG pCO2 (35-45) mmHg ABG pO2 (83-108) mmHg ABG HCO3 (21-25) mmol/L ABG Total CO2 (19-24) mmol/L ABG O2 Saturation (94-97) % ABG Hematocrit (34.0-46.0) % ABG Potassium (3.4-4.5) mmol/L ABG Ionized Calcium (4.5-5.3) mg/dL ABG Glucose (75-99) mg/dL ABG Lactic Acid (0.5-1.6) mmol/L Hemoglobin (13.0-17.5) gm/dL Sodium (137-145) mmol/L Glucose (74-99) mg/dL POC Glucose (mg/dL) 108 H 119 H 134 H (75-99) mg/dL Calcium (8.4-10.2) mg/dL Magnesium (1.6-2.3) mg/dL Alkaline Phosphatase (38-126) U/L Total Protein (6.3-8.2) g/dL Albumin (3.5-5.0) g/dL Arterial Blood Potassium (3.4-4.5) mmol/L Arterial Blood Glucose (75-99) mg/dL Crossmatch Microbiology - Last 24 Hours (Table) 01/02/20 21:35 Nasal Screen MRSA/MSSA - Final Nasal Swab Staphylococcus aureus,Not MRSA - Imaging and Cardiology Chest x-ray: report reviewed, image reviewed Assessment and Plan Assessment: 1. Multivessel coronary artery disease, status post 3 vessel myocardial revascularization surgery 2. Positive troponins this admission, non-ST elevation myocardial infarction this admission 3. Progressive dyspnea on exertion 4. History of hypertension 5. Hyperlipidemia 6. Diabetes mellitus type 2, on oral agents 7. Daily EtOH use, 4 glasses of wine daily 8. Remote history of nicotine dependence quit 15 years ago 9. History of lung cancer, status post left upper lobectomy in 2012 10. History of coronary artery disease status post stent placement to his left anterior descending coronary artery and right coronary artery in 1998 11. Family history of early onset coronary artery disease 12. History of skin cancer, squamous cell and basal cell carcinoma 13. Postoperative acute blood loss anemia 14. Postoperative hypotension Plan: 1. Continue aspirin, statin and Plavix. 2. Hold metoprolol tartrate today. 3. IABP was removed today without incident by Dr. Tam Gama at 10:45 AM. Right groin was examined, there is no evidence of hematoma. The balloon pump was turned off, the balloon was removed en yesenia and the FemoStop was placed with direct pressure. There was no residual bleeding or hematoma noted. The right lower extremity is warm and with good Doppler pulse. There were no immediate complications and his follow-up cardiac index 2.9 and cardiac output 5.6. 4. Continue Primacor drip at 0.375 mcg/kg/m. 5. Continue to wean epinephrine drip and norepinephrine drip to keep map equal to or greater than 70 mmHg. 6. Keep left/right pleural chest tubes and mediastinal chest tubes in place to low continuous wall suction -20 cm H2O. 7. Keep right IJ Cordis and Hardy-Malaika catheter in place for hemodynamic monitoring. 8. Keep Prieto catheter in place for accurate I&O's. 9. Bronchodilator and mechanical ventilator management per pulmonary critical care medicine recommendations. 10. GI and DVT prophylaxis. 11. Pain control per current when necessary orders. 12. Keep propofol in place for sedation while remains intubated. 13. Tube feedings will be initiated, recommendations per dietitian. 14. The patient's and his daughter have been updated on his care, questions have been answered. 15. We will continue to monitor daily labs and chest x-rays. 1 unit of PRBCs transfusion today for hemoglobin of 6.8. 16. More recommendations to follow based on patient's clinical course. Time with Patient: Greater than 30
--- NOTE | 2020-01-05 14:14 | P.PN ---
Subjective Progress Note Date: 01/05/20 Principal diagnosis: Status post CABG 3. Postoperative day #1. This is a 79-year-old white male patient with past medical history lung cancer status post left upper lobectomy in 2012 followed by chemotherapy postoperatively, [id number] smoking history, currently in remission, hypertension, hyperlipidemia, previous myocardial infarction in 1998, coronary artery disease with PCI and stenting of the LAD and the circumflex in 1998, daily EtOH use, diabetes mellitus, family history of early onset coronary artery disease. Patient has a PCP in [facility], however patient spends a lot of time in the [facility] in the summer. He has been having symptoms of progressive exertional dyspnea the last couple months and weakness in his bilateral lower extremities. Denied any chest pain, no nausea, vomiting, or diaphoresis, no orthopnea, no peripheral edema, no palpitations. On 01/01/2020 patient presented to the emergency department for evaluation of his shortness of breath. He was transferred from another facility. Patient was noted to have elevated troponins here in the emergency department concerning for nonacute non- ST elevated myocardial infarction. EKG showed normal sinus rhythm with nonspecific ST abnormality. CTA chest showed thickening along the minor fissure which does not appear masslike, some right hilar adenopathy, extensive emphysema, coronary artery disease, no evident pulmonary embolism, small hiatal hernia, interstitial lung disease and cholelithiasis. His troponins were 0.279, 0.282, 0.290, 0.182. Heart catheterization was done yesterday on 01/02/2020 showing severely calcified coronary artery, severe triple-vessel coronary artery disease with chronic occlusion of the right coronary artery and significant disease in LAD and the left circumflex. Patient was referred to CT surgery for consideration for myocardial revascularization. Echocardiogram showed mild concentric LVH, mild to moderate impairment of the LV function with an EF of 40- 45%, septal hypokinesis, no aortic stenosis or regurgitation, mild MR, mild TR, no pulmonary hypertension. Chronic Doppler was negative for evidence of hemodynamically significant stenosis. Bedside spirometry revealed FEV1 of 1.64 L or 55% of predicted, FVC is 2.92 L or 70% of predicted, with FEV1/FVC of 78% of predicted, consistent with moderately severe obstruction. On 01/04/2020 patient seen in follow-up in the postoperative period following three-vessel coronary artery bypass grafting in the intensive care unit, he is sedated, intubated, current vent settings are SIMV with a rate of 12, tidal volume is 500, FiO2 100%, PEEP of 5, the rate was increased to 16. Currently on lactated Ringer's at 50 ML per hour, nitroglycerin at 10 mics per minute, levo fed at 0.02 mics per kilo per minute, nitroglycerin at 5 mics per kilo per minute, Primacor is at 0.375 mics per kilo per minute, and epinephrine at 0.3 mics per kilo per minute, during the surgery patient had to be placed on IABP on which he remains with one-to-one augmentation, and augmented diastolic of 10 9 mmHg, PA pressures are 80/27, CVP is 12, cardiac output is 5.1, and cardiac index is 2.7. Patient has pacemaker wires in place, currently in sinus rhythm. postoperative blood gas shows pO2 of 117, pCO2 44, and pH of 7.36, operative hemoglobin was 7.7. patient received 1 unit of packed red blood cells, 4 units of fresh frozen plasma and 1 unit of platelets, with another one ordered. 2 mediastinal chest tubes with 80 mL of sanguinous output, and right and left chest tubes Y connected together with 100 mL of sanguinous output. patient is still quite sedated, no plans for extubation in view of hemodynamic status, IABP support. Awaiting repeat blood gases and postoperative chest x-ray. Patient was reevaluated today on 01/05/20, remains intubated and on mechanical ventilation. Patient is on assist control rate of 24 tidal volume is 550 FiO2 is 50% and PEEP is at 5. ABG showed a pO2 of 91 pCO2 of 35 pH of 7.40. Intra- aortic balloon pump was discontinued today, however the patient remains on multiple pressors and inotropes. He is on epinephrine at 0.17 mcg/kg/m norepinephrine at 0.03 mcg/kg/m he is also on milrinone 0.375 mcg/kg/m. On propofol at 20 mcg/kg/m, patient was noted to have low hemoglobin of 6.8 today, and a unit of packed RBCs was given earlier today. His cardiac index is 3.2 after removal of intra-aortic balloon pump. Chest x-ray clearly shows evidence of pulmonary edema, and the patient is receiving diuretics as per your thoracic surgery on the case. Hemoglobin today is 6.8. ABG as noted above. Basic metabolic profile is relatively normal however his BUN is 17 and his creatinine is slightly up to 1.03 from 0.69 yesterday. Patient is in normal sinus rhythm, rate of 85, atrial and ventricular epicardial pacemaker wires remain in place. And he is connected to a backup pacemaker generator with VVI 50 beats per minutes. Patient is arousable, moving all extremities, seems appropriate. Left and right pleural chest tubes and mediastinal chest seems to remain in place to low continuous suction. No air leaks noted. Objective - Vital Signs Vital signs: Vital Signs Temp 97.9 F 01/05/20 12:00 Pulse 90 01/05/20 12:45 Resp 23 01/05/20 12:45 BP 110/57 01/05/20 12:45 Pulse Ox 95 01/05/20 12:45 Intake & Output 01/04/20 01/05/20 01/05/20 18:59 06:59 18:59 Intake Total 2750.883 3410.939 1276.893 Output Total 4390 1350 368 Balance -2390.708 5057.939 908.893 Weight 85.2 kg 85.2 kg Intake: IV 120 533 494 Lactated Ringers 1,000 ml 250 @ 50 mls/hr IV .Q20H [facility] Rx#:[id number] Nitroglycerine 33 6 cardiac output 60 380 160 pressure bags 27 120 78 Intake, IV Titration 021.887 3293.939 472.893 Amount ACETAMINOPHEN IV (For NPO 200 ) 1,000 mg In Empty Bag 1 bag @ 400 mls/hr IVPB Q6HR [facility] Rx#:[id number] Albumin Human 5% 250 ml 250 250 In Empty Bag 1 bag @ 250 mls/hr IVPB Q1HR PRN Rx#: [id number] EPINEPHrine 4 mg In 131.917 801.841 261.530 Dextrose 5% in Water 250 ml @ 0.01 MCG/KG/MIN 2. 768 mls/hr IV .Q24H [facility] Rx#:[id number] Insulin Regular 100 unit 59.971 21.917 In Sodium Chloride 0.9% 100 ml @ Per Protocol IV .Q0M [facility] Rx#:[id number] Lactated Ringers 1,000 ml 150 600 @ 50 mls/hr IV .Q20H [facility] Rx#:[id number] Magnesium Sulfate-D5w Pmx 200 1 gm In Dextrose/Water 1 100ml.bag @ 100 mls/hr IVPB Q1H [facility] Rx#: [id number] Milrinone-D5w Pmx 20 mg 50.372 100 In Dextrose/Water 1 100ml .bag @ Per Protocol IV . Q0M [facility] Rx#:[id number] Potassium Chloride 10 meq 100 100 In Water For Injection 1 100ml.bag @ 100 mls/hr IVPB Q1H [facility] Rx#: [id number] Potassium Chloride 20 meq 100 In Water For Injection 1 100ml.bag @ 50 mls/hr IVPB ONCE ONE Rx#: [id number] Potassium Chloride 20 meq 100 In Water For Injection 1 100ml.bag @ 50 mls/hr IVPB ONCE STA Rx#: [id number] ceFAZolin 2 gm In Sodium 50 50 Chloride 0.9% 50 ml @ 100 mls/hr IVPB Q8HR [facility] Rx# :[id number] propofoL 1,000 mg In 18.966 55.755 89.446 Empty Bag 1 bag @ Titrate IV .Q0M [facility] Rx#: [id number] Blood Product 1930 310 310 Ffp 24 Cpd Unit 306 [id number] Ffp 24 Cpd Unit 298 [id number] Ffp 24 Cpd Unit 303 [id number] Ffp 24 Cpd Unit 290 [id number] Platelet Irr Pheresis 3 211 Acda Unit [id number] Platelet Pheresis Acda1 212 Unit [id number] Rc As-1 Unit 0 310 [id number] Rc As-1 Unit 0 310 [id number] Rc As-1 Unit 310 [id number] Output: Chest Tube Drainage 840 900 185 left and right pleural 590 330 45 mediastinal x2 250 570 140 Urine 1050 450 183 Estimated Blood Loss 2500 Other: Voiding Method Indwelling Catheter Indwelling Catheter Indwelling Catheter ABP, PAP, CO, CI - Last Documented Arterial Blood Pressure 128/51 Pulmonary Artery Pressure 50/24 Cardiac Output 6.3 Cardiac Index 3.3 - Exam GENERAL EXAM: sedated, intubated, on propofol. Head: Atraumatic, normocephalic. EYES: Normal reaction of pupils, equal size. Conjunctiva pink, sclera white. NOSE: Clear with pink turbinates. THROAT: No erythema or exudates. NECK: No masses, no JVD, no thyroid enlargement, no adenopathy. CHEST: No chest wall deformity. Symmetrical expansion. Left and right pleural c hest tubes and mediastinal chest tubes remain in place to low continuous wall suction -20 cm H2O. No air leak is present. Draining thin serosanguineous drainage with 80 mL output from the left and right pleural chest tubes in the last 8 hours and 950 mL output since surgery. Mediastinal chest tubes with 300 mL output in the last 8 hours and 900 mL output since surgery. LUNGS: Equal air entry minimal crackles at the bases. CVS:Regular rhythm and rate. S1 and S2 present, negative for S3, gallop or murmur. Sternum is stable. Knee-high EDUARDO hose and sequential compression devices in place to his bilateral lower extremities. Right IJ Cordis with Delanson- Malaika catheter in place, current cardiac output 5.1, cardiac index 2.7, PA pressures 62/27, CVP 12 mmHg. Right radial arterial line in place and functioning. Right femoral IABP in place on a one-to-one setting with current augmented pressure 120 mmHg, with blood pressure 91/58 with a map of 87 mmHg. no edema present. Atrial and ventricular epicardial pacemaker wires in place and connected to backup bedside pacemaker generator with a VVI 50 BPM. Positive palpable pulses to all 4 extremities. ABDOMEN: Soft, nontender. No hepatosplenomegaly, normal bowel sounds, no guarding or rigidity. EXTREMITIES: No clubbing, no edema, no cyanosis, 2+ pulses and upper and lower extremities.SCDs are present on bilateral lower extremities MUSCULOSKELETAL: Muscle strength and tone normal. SPINE: No scoliosis or deformity SKIN: No rashes CENTRAL NERVOUS SYSTEM: sedated. However noted to be arousable in spite of propofol, and follows simple instructions. - Labs CBC & Chem 7: 01/05/20 04:25 01/05/20 10:05 Labs: Abnormal Lab Results - Last 24 Hours (Table) 01/03/20 01/04/20 01/04/20 Range/Units 07:40 13:46 14:31 WBC (3.8-10.6) k/uL RBC (4.30-5.90) m/uL Hgb (13.0-17.5) gm/dL Hct (39.0-53.0) % RDW (11.5-15.5) % Plt Count (150-450) k/uL Neutrophils # (1.3-7.7) k/uL Lymphocytes # (1.0-4.8) k/uL PT (9.0-12.0) sec INR (<1.2) APTT (22.0-30.0) sec Fibrinogen (200-500) mg/dL ABG pH 7.31 L (7.35-7.45) ABG pCO2 49 H (35-45) mmHg ABG pO2 117 H (83-108) mmHg ABG HCO3 (21-25) mmol/L ABG Total CO2 26 H 26 H (19-24) mmol/L ABG O2 Saturation 97.3 H 98.7 H (94-97) % ABG Hematocrit 21 L 24 L (34.0-46.0) % ABG Ionized Calcium 3.4 L* 3.9 L (4.5-5.3) mg/dL ABG Glucose 164 H 143 H (75-99) mg/dL ABG Lactic Acid 2.0 H 2.3 H* (0.5-1.6) mmol/L Hemoglobin 6.8 L* 7.7 L (13.0-17.5) gm/dL Sodium (137-145) mmol/L Glucose (74-99) mg/dL POC Glucose (mg/dL) (75-99) mg/dL Calcium (8.4-10.2) mg/dL Magnesium (1.6-2.3) mg/dL Alkaline Phosphatase (38-126) U/L Total Protein (6.3-8.2) g/dL Albumin (3.5-5.0) g/dL Arterial Blood Glucose 164 H 143 H (75-99) mg/dL Crossmatch See Detail 01/04/20 01/04/20 01/04/20 Range/Units 15:23 15:30 15:30 WBC (3.8-10.6) k/uL RBC 2.54 L (4.30-5.90) m/uL Hgb 7.7 L D (13.0-17.5) gm/dL Hct 23.6 L (39.0-53.0) % RDW (11.5-15.5) % Plt Count 124 L (150-450) k/uL Neutrophils # 8.3 H (1.3-7.7) k/uL Lymphocytes # (1.0-4.8) k/uL PT 13.0 H (9.0-12.0) sec INR 1.3 H (<1.2) APTT 32.1 H (22.0-30.0) sec Fibrinogen (200-500) mg/dL ABG pH (7.35-7.45) ABG pCO2 (35-45) mmHg ABG pO2 (83-108) mmHg ABG HCO3 (21-25) mmol/L ABG Total CO2 (19-24) mmol/L ABG O2 Saturation (94-97) % ABG Hematocrit (34.0-46.0) % ABG Ionized Calcium (4.5-5.3) mg/dL ABG Glucose (75-99) mg/dL ABG Lactic Acid (0.5-1.6) mmol/L Hemoglobin (13.0-17.5) gm/dL Sodium (137-145) mmol/L Glucose (74-99) mg/dL POC Glucose (mg/dL) 161 H (75-99) mg/dL Calcium (8.4-10.2) mg/dL Magnesium (1.6-2.3) mg/dL Alkaline Phosphatase (38-126) U/L Total Protein (6.3-8.2) g/dL Albumin (3.5-5.0) g/dL Arterial Blood Glucose (75-99) mg/dL Crossmatch 01/04/20 01/04/20 01/04/20 Range/Units 15:30 15:30 15:52 WBC (3.8-10.6) k/uL RBC (4.30-5.90) m/uL Hgb (13.0-17.5) gm/dL Hct (39.0-53.0) % RDW (11.5-15.5) % Plt Count (150-450) k/uL Neutrophils # (1.3-7.7) k/uL Lymphocytes # (1.0-4.8) k/uL PT (9.0-12.0) sec INR (<1.2) APTT (22.0-30.0) sec Fibrinogen 144 L (200-500) mg/dL ABG pH 7.28 L (7.35-7.45) ABG pCO2 56 H (35-45) mmHg ABG pO2 75 L (83-108) mmHg ABG HCO3 26 H (21-25) mmol/L ABG Total CO2 28 H (19-24) mmol/L ABG O2 Saturation 93.4 L (94-97) % ABG Hematocrit (34.0-46.0) % ABG Ionized Calcium (4.5-5.3) mg/dL ABG Glucose (75-99) mg/dL ABG Lactic Acid (0.5-1.6) mmol/L Hemoglobin (13.0-17.5) gm/dL Sodium 136 L (137-145) mmol/L Glucose 143 H (74-99) mg/dL POC Glucose (mg/dL) (75-99) mg/dL Calcium (8.4-10.2) mg/dL Magnesium (1.6-2.3) mg/dL Alkaline Phosphatase 35 L (38-126) U/L Total Protein 4.3 L (6.3-8.2) g/dL Albumin 2.7 L (3.5-5.0) g/dL Arterial Blood Glucose (75-99) mg/dL Crossmatch 01/04/20 01/04/20 01/04/20 Range/Units 16:19 16:22 16:56 WBC (3.8-10.6) k/uL RBC (4.30-5.90) m/uL Hgb (13.0-17.5) gm/dL Hct (39.0-53.0) % RDW (11.5-15.5) % Plt Count (150-450) k/uL Neutrophils # (1.3-7.7) k/uL Lymphocytes # (1.0-4.8) k/uL PT (9.0-12.0) sec INR (<1.2) APTT (22.0-30.0) sec Fibrinogen (200-500) mg/dL ABG pH 7.29 L 7.29 L (7.35-7.45) ABG pCO2 54 H 52 H (35-45) mmHg ABG pO2 81 L (83-108) mmHg ABG HCO3 26 H (21-25) mmol/L ABG Total CO2 27 H 27 H (19-24) mmol/L ABG O2 Saturation (94-97) % ABG Hematocrit (34.0-46.0) % ABG Ionized Calcium (4.5-5.3) mg/dL ABG Glucose (75-99) mg/dL ABG Lactic Acid (0.5-1.6) mmol/L Hemoglobin (13.0-17.5) gm/dL Sodium (137-145) mmol/L Glucose (74-99) mg/dL POC Glucose (mg/dL) 177 H (75-99) mg/dL Calcium (8.4-10.2) mg/dL Magnesium (1.6-2.3) mg/dL Alkaline Phosphatase (38-126) U/L Total Protein (6.3-8.2) g/dL Albumin (3.5-5.0) g/dL Arterial Blood Glucose (75-99) mg/dL Crossmatch 01/04/20 01/04/20 01/04/20 Range/Units 18:05 18:18 18:33 WBC 11.2 H (3.8-10.6) k/uL RBC 2.23 L (4.30-5.90) m/uL Hgb 6.6 L* (13.0-17.5) gm/dL Hct 20.8 L (39.0-53.0) % RDW (11.5-15.5) % Plt Count (150-450) k/uL Neutrophils # 9.6 H (1.3-7.7) k/uL Lymphocytes # 0.8 L (1.0-4.8) k/uL PT (9.0-12.0) sec INR (<1.2) APTT (22.0-30.0) sec Fibrinogen (200-500) mg/dL ABG pH 7.30 L (7.35-7.45) ABG pCO2 51 H (35-45) mmHg ABG pO2 149 H (83-108) mmHg ABG HCO3 (21-25) mmol/L ABG Total CO2 27 H (19-24) mmol/L ABG O2 Saturation 99.2 H (94-97) % ABG Hematocrit (34.0-46.0) % ABG Ionized Calcium (4.5-5.3) mg/dL ABG Glucose (75-99) mg/dL ABG Lactic Acid (0.5-1.6) mmol/L Hemoglobin (13.0-17.5) gm/dL Sodium (137-145) mmol/L Glucose (74-99) mg/dL POC Glucose (mg/dL) 173 H (75-99) mg/dL Calcium (8.4-10.2) mg/dL Magnesium (1.6-2.3) mg/dL Alkaline Phosphatase (38-126) U/L Total Protein (6.3-8.2) g/dL Albumin (3.5-5.0) g/dL Arterial Blood Glucose (75-99) mg/dL Crossmatch 01/04/20 01/04/20 01/04/20 Range/Units 19:08 20:01 20:57 WBC (3.8-10.6) k/uL RBC (4.30-5.90) m/uL Hgb (13.0-17.5) gm/dL Hct (39.0-53.0) % RDW (11.5-15.5) % Plt Count (150-450) k/uL Neutrophils # (1.3-7.7) k/uL Lymphocytes # (1.0-4.8) k/uL PT (9.0-12.0) sec INR (<1.2) APTT (22.0-30.0) sec Fibrinogen (200-500) mg/dL ABG pH (7.35-7.45) ABG pCO2 (35-45) mmHg ABG pO2 (83-108) mmHg ABG HCO3 (21-25) mmol/L ABG Total CO2 (19-24) mmol/L ABG O2 Saturation (94-97) % ABG Hematocrit (34.0-46.0) % ABG Ionized Calcium (4.5-5.3) mg/dL ABG Glucose (75-99) mg/dL ABG Lactic Acid (0.5-1.6) mmol/L Hemoglobin (13.0-17.5) gm/dL Sodium (137-145) mmol/L Glucose (74-99) mg/dL POC Glucose (mg/dL) 181 H 177 H 176 H (75-99) mg/dL Calcium (8.4-10.2) mg/dL Magnesium (1.6-2.3) mg/dL Alkaline Phosphatase (38-126) U/L Total Protein (6.3-8.2) g/dL Albumin (3.5-5.0) g/dL Arterial Blood Glucose (75-99) mg/dL Crossmatch 01/04/20 01/04/20 01/04/20 Range/Units 21:30 21:30 22:16 WBC (3.8-10.6) k/uL RBC 2.44 L (4.30-5.90) m/uL Hgb 7.2 L (13.0-17.5) gm/dL Hct 21.9 L (39.0-53.0) % RDW (11.5-15.5) % Plt Count 146 L (150-450) k/uL Neutrophils # 8.5 H (1.3-7.7) k/uL Lymphocytes # 0.5 L (1.0-4.8) k/uL PT (9.0-12.0) sec INR (<1.2) APTT (22.0-30.0) sec Fibrinogen 145 L (200-500) mg/dL ABG pH (7.35-7.45) ABG pCO2 (35-45) mmHg ABG pO2 (83-108) mmHg ABG HCO3 (21-25) mmol/L ABG Total CO2 (19-24) mmol/L ABG O2 Saturation (94-97) % ABG Hematocrit (34.0-46.0) % ABG Ionized Calcium (4.5-5.3) mg/dL ABG Glucose (75-99) mg/dL ABG Lactic Acid (0.5-1.6) mmol/L Hemoglobin (13.0-17.5) gm/dL Sodium (137-145) mmol/L Glucose (74-99) mg/dL POC Glucose (mg/dL) 151 H (75-99) mg/dL Calcium (8.4-10.2) mg/dL Magnesium (1.6-2.3) mg/dL Alkaline Phosphatase (38-126) U/L Total Protein (6.3-8.2) g/dL Albumin (3.5-5.0) g/dL Arterial Blood Glucose (75-99) mg/dL Crossmatch 01/04/20 01/05/20 01/05/20 Range/Units 23:07 00:03 00:17 WBC (3.8-10.6) k/uL RBC (4.30-5.90) m/uL Hgb (13.0-17.5) gm/dL Hct (39.0-53.0) % RDW (11.5-15.5) % Plt Count (150-450) k/uL Neutrophils # (1.3-7.7) k/uL Lymphocytes # (1.0-4.8) k/uL PT (9.0-12.0) sec INR (<1.2) APTT (22.0-30.0) sec Fibrinogen (200-500) mg/dL ABG pH (7.35-7.45) ABG pCO2 (35-45) mmHg ABG pO2 (83-108) mmHg ABG HCO3 (21-25) mmol/L ABG Total CO2 25 H (19-24) mmol/L ABG O2 Saturation 97.8 H (94-97) % ABG Hematocrit (34.0-46.0) % ABG Ionized Calcium (4.5-5.3) mg/dL ABG Glucose (75-99) mg/dL ABG Lactic Acid (0.5-1.6) mmol/L Hemoglobin (13.0-17.5) gm/dL Sodium (137-145) mmol/L Glucose (74-99) mg/dL POC Glucose (mg/dL) 157 H 149 H (75-99) mg/dL Calcium (8.4-10.2) mg/dL Magnesium (1.6-2.3) mg/dL Alkaline Phosphatase (38-126) U/L Total Protein (6.3-8.2) g/dL Albumin (3.5-5.0) g/dL Arterial Blood Glucose (75-99) mg/dL Crossmatch 01/05/20 01/05/20 01/05/20 Range/Units 00:59 02:06 03:19 WBC (3.8-10.6) k/uL RBC (4.30-5.90) m/uL Hgb (13.0-17.5) gm/dL Hct (39.0-53.0) % RDW (11.5-15.5) % Plt Count (150-450) k/uL Neutrophils # (1.3-7.7) k/uL Lymphocytes # (1.0-4.8) k/uL PT (9.0-12.0) sec INR (<1.2) APTT (22.0-30.0) sec Fibrinogen (200-500) mg/dL ABG pH (7.35-7.45) ABG pCO2 (35-45) mmHg ABG pO2 (83-108) mmHg ABG HCO3 (21-25) mmol/L ABG Total CO2 (19-24) mmol/L ABG O2 Saturation (94-97) % ABG Hematocrit (34.0-46.0) % ABG Ionized Calcium (4.5-5.3) mg/dL ABG Glucose (75-99) mg/dL ABG Lactic Acid (0.5-1.6) mmol/L Hemoglobin (13.0-17.5) gm/dL Sodium (137-145) mmol/L Glucose (74-99) mg/dL POC Glucose (mg/dL) 153 H 148 H 152 H (75-99) mg/dL Calcium (8.4-10.2) mg/dL Magnesium (1.6-2.3) mg/dL Alkaline Phosphatase (38-126) U/L Total Protein (6.3-8.2) g/dL Albumin (3.5-5.0) g/dL Arterial Blood Glucose (75-99) mg/dL Crossmatch 01/05/20 01/05/20 01/05/20 Range/Units 04:12 04:25 04:25 WBC (3.8-10.6) k/uL RBC 2.31 L (4.30-5.90) m/uL Hgb 6.8 L* (13.0-17.5) gm/dL Hct 20.9 L (39.0-53.0) % RDW 15.6 H (11.5-15.5) % Plt Count 144 L (150-450) k/uL Neutrophils # 8.5 H (1.3-7.7) k/uL Lymphocytes # 0.9 L (1.0-4.8) k/uL PT (9.0-12.0) sec INR (<1.2) APTT (22.0-30.0) sec Fibrinogen (200-500) mg/dL ABG pH (7.35-7.45) ABG pCO2 (35-45) mmHg ABG pO2 (83-108) mmHg ABG HCO3 (21-25) mmol/L ABG Total CO2 (19-24) mmol/L ABG O2 Saturation (94-97) % ABG Hematocrit (34.0-46.0) % ABG Ionized Calcium (4.5-5.3) mg/dL ABG Glucose (75-99) mg/dL ABG Lactic Acid (0.5-1.6) mmol/L Hemoglobin (13.0-17.5) gm/dL Sodium 132 L (137-145) mmol/L Glucose 146 H (74-99) mg/dL POC Glucose (mg/dL) 158 H (75-99) mg/dL Calcium 7.8 L (8.4-10.2) mg/dL Magnesium 2.5 H (1.6-2.3) mg/dL Alkaline Phosphatase 32 L (38-126) U/L Total Protein 3.9 L (6.3-8.2) g/dL Albumin 2.4 L (3.5-5.0) g/dL Arterial Blood Glucose (75-99) mg/dL Crossmatch 01/05/20 01/05/20 01/05/20 Range/Units 05:18 06:18 06:56 WBC (3.8-10.6) k/uL RBC (4.30-5.90) m/uL Hgb (13.0-17.5) gm/dL Hct (39.0-53.0) % RDW (11.5-15.5) % Plt Count (150-450) k/uL Neutrophils # (1.3-7.7) k/uL Lymphocytes # (1.0-4.8) k/uL PT (9.0-12.0) sec INR (<1.2) APTT (22.0-30.0) sec Fibrinogen (200-500) mg/dL ABG pH (7.35-7.45) ABG pCO2 (35-45) mmHg ABG pO2 (83-108) mmHg ABG HCO3 (21-25) mmol/L ABG Total CO2 (19-24) mmol/L ABG O2 Saturation (94-97) % ABG Hematocrit (34.0-46.0) % ABG Ionized Calcium (4.5-5.3) mg/dL ABG Glucose (75-99) mg/dL ABG Lactic Acid (0.5-1.6) mmol/L Hemoglobin (13.0-17.5) gm/dL Sodium (137-145) mmol/L Glucose (74-99) mg/dL POC Glucose (mg/dL) 136 H 137 H 133 H (75-99) mg/dL Calcium (8.4-10.2) mg/dL Magnesium (1.6-2.3) mg/dL Alkaline Phosphatase (38-126) U/L Total Protein (6.3-8.2) g/dL Albumin (3.5-5.0) g/dL Arterial Blood Glucose (75-99) mg/dL Crossmatch 01/05/20 01/05/20 01/05/20 Range/Units 07:37 07:58 08:59 WBC (3.8-10.6) k/uL RBC (4.30-5.90) m/uL Hgb (13.0-17.5) gm/dL Hct (39.0-53.0) % RDW (11.5-15.5) % Plt Count (150-450) k/uL Neutrophils # (1.3-7.7) k/uL Lymphocytes # (1.0-4.8) k/uL PT (9.0-12.0) sec INR (<1.2) APTT (22.0-30.0) sec Fibrinogen (200-500) mg/dL ABG pH (7.35-7.45) ABG pCO2 (35-45) mmHg ABG pO2 109 H (83-108) mmHg ABG HCO3 (21-25) mmol/L ABG Total CO2 (19-24) mmol/L ABG O2 Saturation 98.8 H (94-97) % ABG Hematocrit (34.0-46.0) % ABG Ionized Calcium (4.5-5.3) mg/dL ABG Glucose (75-99) mg/dL ABG Lactic Acid (0.5-1.6) mmol/L Hemoglobin (13.0-17.5) gm/dL Sodium (137-145) mmol/L Glucose (74-99) mg/dL POC Glucose (mg/dL) 123 H 117 H (75-99) mg/dL Calcium (8.4-10.2) mg/dL Magnesium (1.6-2.3) mg/dL Alkaline Phosphatase (38-126) U/L Total Protein (6.3-8.2) g/dL Albumin (3.5-5.0) g/dL Arterial Blood Glucose (75-99) mg/dL Crossmatch 01/05/20 01/05/20 01/05/20 Range/Units 10:03 10:04 10:05 WBC (3.8-10.6) k/uL RBC (4.30-5.90) m/uL Hgb (13.0-17.5) gm/dL Hct (39.0-53.0) % RDW (11.5-15.5) % Plt Count (150-450) k/uL Neutrophils # (1.3-7.7) k/uL Lymphocytes # (1.0-4.8) k/uL PT (9.0-12.0) sec INR 1.2 H (<1.2) APTT 32.6 H (22.0-30.0) sec Fibrinogen (200-500) mg/dL ABG pH (7.35-7.45) ABG pCO2 (35-45) mmHg ABG pO2 (83-108) mmHg ABG HCO3 (21-25) mmol/L ABG Total CO2 (19-24) mmol/L ABG O2 Saturation 97.6 H (94-97) % ABG Hematocrit (34.0-46.0) % ABG Ionized Calcium (4.5-5.3) mg/dL ABG Glucose (75-99) mg/dL ABG Lactic Acid (0.5-1.6) mmol/L Hemoglobin (13.0-17.5) gm/dL Sodium (137-145) mmol/L Glucose (74-99) mg/dL POC Glucose (mg/dL) 105 H (75-99) mg/dL Calcium (8.4-10.2) mg/dL Magnesium (1.6-2.3) mg/dL Alkaline Phosphatase (38-126) U/L Total Protein (6.3-8.2) g/dL Albumin (3.5-5.0) g/dL Arterial Blood Glucose (75-99) mg/dL Crossmatch 01/05/20 01/05/20 01/05/20 Range/Units 10:55 12:00 12:56 WBC (3.8-10.6) k/uL RBC (4.30-5.90) m/uL Hgb (13.0-17.5) gm/dL Hct (39.0-53.0) % RDW (11.5-15.5) % Plt Count (150-450) k/uL Neutrophils # (1.3-7.7) k/uL Lymphocytes # (1.0-4.8) k/uL PT (9.0-12.0) sec INR (<1.2) APTT (22.0-30.0) sec Fibrinogen (200-500) mg/dL ABG pH (7.35-7.45) ABG pCO2 (35-45) mmHg ABG pO2 (83-108) mmHg ABG HCO3 (21-25) mmol/L ABG Total CO2 (19-24) mmol/L ABG O2 Saturation (94-97) % ABG Hematocrit (34.0-46.0) % ABG Ionized Calcium (4.5-5.3) mg/dL ABG Glucose (75-99) mg/dL ABG Lactic Acid (0.5-1.6) mmol/L Hemoglobin (13.0-17.5) gm/dL Sodium (137-145) mmol/L Glucose (74-99) mg/dL POC Glucose (mg/dL) 108 H 119 H 134 H (75-99) mg/dL Calcium (8.4-10.2) mg/dL Magnesium (1.6-2.3) mg/dL Alkaline Phosphatase (38-126) U/L Total Protein (6.3-8.2) g/dL Albumin (3.5-5.0) g/dL Arterial Blood Glucose (75-99) mg/dL Crossmatch Microbiology - Last 24 Hours (Table) 01/02/20 21:35 Nasal Screen MRSA/MSSA - Final Nasal Swab Staphylococcus aureus,Not MRSA Assessment and Plan Assessment: Impression: Status post three-vessel CABG, Recent non-ST elevation myocardial infarction on this admission. Type 2 diabetes. Daily alcohol use. History of lung cancer/adenocarcinoma stage IIB and previous left upper lobectomy in 2012. Postoperative acute blood loss anemia, expected. Postoperative hypotension, expected. Patient required intra-aortic balloon pump placement post surgery. This was removed today. Recommendation: Continue ventilatory support. Continue pressors as needed. Titrate accordingly. Keep mean arterial pressure above 60. Continue inotropes and titrate accordingly. Continue diuretics as needed. Intra-aortic balloon pump has been removed today. Continue bronchodilators. Continue GI and DVT prophylaxis. Continue pain control. Discussed his status with Dr. Gama today, we both feel that it is would be best to wait on weaning for the next 24 hours and the address weaning and po ssibly extubation tomorrow. Await more hemodynamic stability before weaning and extubation. We'll continue to follow. Critical care time is 33 minutes Time with Patient: Greater than 30
[2020-01-05 14:32] LABS: Glucose,Whole Blood 129 mg/dL (75-99)
[2020-01-05 14:40] LABS: Anisocytosis Slight; HGB 7.5 gm/dL (13.0-17.5); MCH 28.2 pg (25.0-35.0); MCHC 32.5 g/dL (31.0-37.0); MCV 86.7 fL (80.0-100.0); Mean Platelet Volume 8.1; Platelet Count 128 k/uL (150-450); RBC 2.65 m/uL (4.30-5.90); RDW 17.8 % (11.5-15.5); WBC 12.4 k/uL (3.8-10.6)
[2020-01-05 14:59] LABS: Glucose,Whole Blood 125 mg/dL (75-99)
[2020-01-05 15:56] LABS: Glucose,Whole Blood 115 mg/dL (75-99)
[2020-01-05] MEDS: CLOPIDOGREL 75 MG TAB OG-TUBE SCH (15:59)
[2020-01-05] MEDS: INSULIN REGULAR 100 UNIT in SODIUM CHLORIDE 0.9% 100 ML IV SCH (16:03)
[2020-01-05 16:55] LABS: Glucose,Whole Blood 94 mg/dL (75-99)
[2020-01-05] MEDS: HYDROcodone/APAP 5-325MG 1 EACH TAB PO PRN (17:46)
[2020-01-05 17:56] LABS: Glucose,Whole Blood 106 mg/dL (75-99)
[2020-01-05 19:08] LABS: Glucose,Whole Blood 135 mg/dL (75-99)
[2020-01-05 20:01] LABS: Glucose,Whole Blood 143 mg/dL (75-99)
[2020-01-05 20:45] LABS: ABG Base Excess -3.3 mmol/L; ABG HCO3 21 mmol/L (21-25); ABG Oxygen Saturation 97.3 % (94-97); ABG PCO2 32 mmHg (35-45); ABG PH 7.43 (7.35-7.45); ABG PO2 88 mmHg (83-108); ABG TCO2 22 mmol/L (19-24); Allen Test Performed? Yes
[2020-01-05] MEDS: FUROSEMIDE 10 MG/ML 2 ML VIAL IV SCH ×2 (21:44→23:38)
[2020-01-05] MEDS: CHLORHEXIDINE GLUCONATE 15 ML CUP MUCOUS MEM SCH (21:44)
[2020-01-05] MEDS: SENNOSIDES-DOCUSATE SODIUM 1 EACH TAB PO SCH (21:44)
[2020-01-05 22:14] LABS: Glucose,Whole Blood 111 mg/dL (75-99)
[2020-01-05 23:08] LABS: Glucose,Whole Blood 113 mg/dL (75-99)
[2020-01-06 00:08] LABS: Glucose,Whole Blood 155 mg/dL (75-99)
[2020-01-06 01:11] LABS: Glucose,Whole Blood 163 mg/dL (75-99)
[2020-01-06 01:57] LABS: Glucose,Whole Blood 157 mg/dL (75-99)
[2020-01-06 02:55] LABS: Glucose,Whole Blood 148 mg/dL (75-99)
[2020-01-06 04:26] LABS: Glucose,Whole Blood 161 mg/dL (75-99)
[2020-01-06 04:33] LABS: Anisocytosis Slight; Basophils % (A) 0 %; Eosinophils # (A) 0.2 k/uL (0-0.7); Eosinophils % (A) 1 %; HCT 21.7 % (39.0-53.0); HGB 7.1 gm/dL (13.0-17.5); Lymphocytes % (A) 8 %; MCH 28.4 pg (25.0-35.0); MCHC 32.8 g/dL (31.0-37.0); MCV 86.5 fL (80.0-100.0); Mean Platelet Volume 8.8; Monocytes # (A) 0.8 k/uL (0-1.0); Monocytes % (A) 6 %; Neutrophils # (A) 10.9 k/uL (1.3-7.7); Neutrophils % (A) 82 %; Platelet Count 123 k/uL (150-450); RBC 2.51 m/uL (4.30-5.90); RDW 18.1 % (11.5-15.5); WBC 13.3 k/uL (3.8-10.6)
[2020-01-06 04:45] LABS: Ionized Calcium 4.9 mg/dL (4.5-5.3)
[2020-01-06 04:51] LABS: Albumin 2.4 g/dL (3.5-5.0); Calcium 7.8 mg/dL (8.4-10.2); Magnesium 1.9 mg/dL (1.6-2.3); Potassium 3.8 mmol/L (3.5-5.1); Total Bilirubin 0.4 mg/dL (0.2-1.3)
[2020-01-06] MEDS ORDERED: POTASSIUM BICARBONATE/CIT AC 20 MEQ TABLET.EFF PO ONE (04:59)
[2020-01-06 05:09] LABS: Glucose,Whole Blood 158 mg/dL (75-99)
[2020-01-06] MEDS: MAGNESIUM SULFATE-D5W PMX 1 GM in DEXTROSE/WATER 1 100ML.BAG IVPB SCH ×2 (05:19→07:06)
[2020-01-06] MEDS: LACTATED RINGERS 1,000 ML IV SCH (05:20)
[2020-01-06] MEDS: THIAMINE 100 MG TAB PO SCH ×2 (05:20→19:09)
[2020-01-06] MEDS: NOREPINEPHRINE 4 MG in SODIUM CHLORIDE 0.9% 250 ML IV SCH (05:23)
[2020-01-06] MEDS: HYDROcodone/APAP 5-325MG 1 EACH TAB PO PRN (05:27)
[2020-01-06 06:20] LABS: Glucose,Whole Blood 181 mg/dL (75-99)
[2020-01-06 07:00] LABS: Glucose,Whole Blood 155 mg/dL (75-99)
[2020-01-06 07:25] LABS: ABG Base Excess -2.5 mmol/L; ABG HCO3 22 mmol/L (21-25); ABG Oxygen Saturation 98.2 % (94-97); ABG PCO2 32 mmHg (35-45); ABG PH 7.44 (7.35-7.45); ABG PO2 101 mmHg (83-108); ABG TCO2 23 mmol/L (19-24)
[2020-01-06 07:27] LABS: Allen Test Performed? no
[2020-01-06] MEDS: EPINEPHrine 4 MG in DEXTROSE 5% IN WATER 250 ML IV SCH ×6 (08:00→14:14)
[2020-01-06] MEDS: ATORVASTATIN 40 MG TAB PO SCH (08:02)
[2020-01-06] MEDS: CHLORHEXIDINE GLUCONATE 15 ML CUP MUCOUS MEM SCH (08:02)
[2020-01-06] MEDS: CLOPIDOGREL 75 MG TAB OG-TUBE SCH (08:02)
[2020-01-06] MEDS: MUPIROCIN 2% OINT 22 GM TUBE NASAL SCH ×2 (08:02→21:17)
[2020-01-06] MEDS: PANTOPRAZOLE 40 MG/10 ML VIAL IVP SCH (08:02)
[2020-01-06] MEDS: FUROSEMIDE 10 MG/ML 2 ML VIAL IV SCH ×3 (08:02→23:55)
[2020-01-06] MEDS: HEPARIN SODIUM,PORCINE 5,000 UNIT/ML 1 ML VIAL SQ SCH ×3 (08:02→23:55)
[2020-01-06] MEDS: ASPIRIN 325 MG TAB PO SCH (08:02)
--- NOTE | 2020-01-06 08:17 | XR ---
EXAMINATION TYPE: XR chest 1V portable DATE OF EXAM: 01/06/2020 Comparison: 01/05/2020 Clinical History: 79-year-old male Post Operative Cardiac Surgery Findings: Right-sided IJ Rohwer-Malaika catheter with tip at the main pulmonary outflow tract. Mediastinal drains. S atisfactory ET and NG tubes. Bilateral chest tubes. No appreciable pneumothorax. Median sternotomy wi res and post-CABG clips in the mediastinum. Heart borderline in size. Small left pleural effusion wit h retrocardiac and left basilar opacity persists. Mild interstitial density persists. Impression: 1. Correlate for continued mild interstitial pulmonary edema. 2. Continued small left pleural effusion with prominent retrocardiac atelectasis and/or consolidation .
[2020-01-06 08:22] LABS: Glucose,Whole Blood 157 mg/dL (75-99)
[2020-01-06] MEDS: IPRATROPIUM-ALBUTEROL 3 ML NEB INHALATION SCH ×4 (08:39→20:01)
[2020-01-06 09:03] LABS: Glucose,Whole Blood 186 mg/dL (75-99)
[2020-01-06 10:02] LABS: Glucose,Whole Blood 146 mg/dL (75-99)
[2020-01-06 10:05] LABS: ABG Base Excess -2.6 mmol/L; ABG HCO3 22 mmol/L (21-25); ABG Oxygen Saturation 96.9 % (94-97); ABG PCO2 33 mmHg (35-45); ABG PH 7.43 (7.35-7.45); ABG PO2 82 mmHg (83-108); ABG TCO2 23 mmol/L (19-24)
[2020-01-06] MEDS: METOPROLOL TARTRATE 12.5 MG TAB PO SCH (10:10)
--- NOTE | 2020-01-06 10:47 | PN ---
PROGRESS NOTE Mr. Clayton is a 79-year-old male who has a history of coronary artery disease who presented with non ST-segment elevation myocardial infarction, underwent cardiac catheterization, found to have severe triple-vessel disease, underwent cardiac bypass grafting. Intraoperatively had hemodynamic stability requiring intra-aortic balloon pump that was removed yesterday. He continues to be intubated and sedated. He continues to be on epinephrine, norepinephrine and Primacor. He is in sinus mechanism. His urine output is good. He has no evidence of ventricular ectopic activity. He continues to be at this time on aspirin, Lipitor 40 mg daily, Plavix 75 mg daily, furosemide 20 mg IV q.8 hours, metoprolol tartrate 12.5 mg twice a day. PHYSICAL EXAMINATION: Blood pressure 120/40 with a heart rate in the 90s. His PA pressure is 50. LUNGS: Clear anteriorly. Heart is regular rate and rhythm, S1-S2. No rub appreciated. ABDOMEN: Soft. No organomegaly. EXTREMITIES no significant edema. LAB DATA: Revealed a pH 7.44, pCO2 32, PO2 0.01, hemoglobin of 7.1, white blood cells 13.3, BUN and creatinine 21 and 0.11. His chest x-ray shows a small effusion, but no significant infiltrate with fluid overload. IMPRESSION: 1. Status post coronary artery bypass grafting with bypass to the LAD, OM and to the right coronary artery. 2. History of lung cancer adenocarcinoma status post lobectomy in 2012. 3. History of hypertension. 4. Hyperlipidemia. 5. Intraoperative hypotension requiring intra-aortic balloon pump and vasopressor. RECOMMENDATIONS: I am hoping that we will start weaning his norepinephrine and epinephrine today. His cardiac output is stable as well his urine output. Once stabilized, then we can start to wean and hopefully extubate. Continue to follow his renal function and depending on his progress, further recommendations will be made. MMODL / IJN: [id number] /
[2020-01-06 10:54] LABS: Glucose,Whole Blood 119 mg/dL (75-99)
--- NOTE | 2020-01-06 10:57 | P.PN ---
Subjective Progress Note Date: 01/06/20 Principal diagnosis: Multivessel coronary artery disease, non-ST elevation myocardial infarction this admission, unstable angina. Past medical history significant for coronary art kate disease with stent placement to the LAD and RCA in 1998, hypertension, hyperlipidemia, diabetes mellitus type 2, daily EtOH use, previous tobacco dependence, lung cancer status post left upper lobectomy in 2012, followed by chemotherapy, squamous cell and basal cell skin cancer, and family history of early onset coronary artery disease. POD #2 coronary artery bypass grafting 3 with off-pump left internal mammary artery to the left anterior descending coronary artery and on pump beating heart saphenous vein graft to the acute marginal and a saphenous vein graft to the obtuse marginal with endarterectomy and patch angioplasty of the obtuse marginal. Also placement of intra-aortic balloon pump and ligation of the left atrial appendage with a 40 mm AtriCure clip and endovascular vein harvest left greater saphenous vein from the thigh to just below the knee. Postoperative acute blood loss anemia, expected given cardiopulmonary bypass and hemodilution. Postoperative hypotension, unexpected, currently on epinephrine drip and norepinephrine drip. The patient was seen in follow-up today on 01/06/2020 at his bedside in the intensive care unit. Remains intubated with mechanical ventilator support and is sedated on propofol drip at 40 mcg/kg/m. Current mechanical ventilator settings are assist control 22, TV 550, FiO2 45% and PEEP of 5. ABG results this morning show a pH of 7.44, pCO2 32, pO2 101, HCO3 22, oxygen saturation 98.2, He remains with epinephrine drip in place at 0.03 mcg/kg/m and norepinephrine drip at 0.04 mcg/kg/m. Right IJ Cordis and Austin-Malaika catheter remains in place with current hemodynamics showing a cardiac output of 5.3, cardiac index 2.8, PA pressures 48/28, CVP 8 mm/hg. Lab results this morning show a WBC count of 13.3, hemoglobin 7.1, hematocrit 21.7, platelets 123, BUN 20 and creatinine 1.11. He was transfused 1 unit of PRBCs yesterday 01/05/2020 for hemoglobin of 6.8. IABP removed yesterday by Dr. Gama. Right groin IABP site is clean, dry and soft to palpate. Bedside telemetry showing normal sinus rhythm heart rate 94, atrial and ventricular epicardial pacemaker wires remain in place and connected the backup bedside pacemaker generator with a VVI 50 BPM. The patient is moving all 4 extremities appropriately with verbal stimuli and shaking his head yes and no appropriately to questions. Left and right pleural chest tubes and mediastinal chest tubes remain in place to low continuous wall suction -20 cm H2O. No air leak is present. Draining thin serosanguineous drainage with 60 mL output from the left and right pleural chest tubes in the last 8 hours and 150 mL output in the last 24 hours. Mediastinal chest tubes with 90 mL output in the last 8 hours and 300 mL output in the last 24 hours. OG tube remains in place and tube feedings of vital AF was initiated yesterday and is infusing at 45 mL an hour and will be increased today to his goal rate of 55 mL per hour. Objective - Vital Signs Vital signs: Vital Signs Temp 98.7 F 01/06/20 04:00 Pulse 87 01/06/20 10:00 Resp 21 01/06/20 10:00 BP 101/53 01/06/20 10:00 Pulse Ox 99 01/06/20 10:00 Intake & Output 01/05/20 01/06/20 01/06/20 18:59 06:59 18:59 Intake Total 2027.285 2360.702 846.141 Output Total 698 695 252 Balance 3213.684 5061.702 594.141 Weight 85.2 kg 87.1 kg Intake: IV 889 988 326 Lactated Ringers 1,000 ml 500 600 200 @ 50 mls/hr IV .Q20H [facility] Rx#:[id number] Nitroglycerine 6 cardiac output 260 280 90 pressure bags 123 108 36 Intake, IV Titration 738.285 802.702 310.141 Amount EPINEPHrine 4 mg In 261.530 Dextrose 5% in Water 250 ml @ 0.01 MCG/KG/MIN 2. 768 mls/hr IV .Q24H [facility] Rx#:[id number] EPINEPHrine 4 mg In 185.576 188.133 37.861 Dextrose 5% in Water 250 ml @ 0.14 MCG/KG/MIN 44. 73 mls/hr IV .Q5H36M [facility] Rx#:[id number] Insulin Regular 100 unit 42.732 50.636 26.833 In Sodium Chloride 0.9% 100 ml @ Per Protocol IV .Q0M [facility] Rx#:[id number] Magnesium Sulfate-D5w Pmx 200 1 gm In Dextrose/Water 1 100ml.bag @ 100 mls/hr IVPB Q1H [facility] Rx#: [id number] Milrinone-D5w Pmx 20 mg 100 93.27 In Dextrose/Water 1 100ml .bag @ Per Protocol IV . Q0M [facility] Rx#:[id number] Norepinephrine 4 mg In 270.663 45.447 Sodium Chloride 0.9% 250 ml @ 0.03 MCG/KG/MIN 9. 738 mls/hr IV .Q24H [facility] Rx#:[id number] propofoL 1,000 mg In 148.447 200 Empty Bag 1 bag @ Titrate IV .Q0M [facility] Rx#: [id number] Tube Feeding 60 480 180 Blood Product 310 Rc As-1 Unit 310 [id number] Other 30 90 30 Output: Chest Tube Drainage 265 240 70 left and right pleural 75 80 10 mediastinal x2 190 160 60 Urine 433 455 182 Other: Voiding Method Indwelling Catheter Indwelling Catheter Indwelling Catheter ABP, PAP, CO, CI - Last Documented Arterial Blood Pressure 112/42 Pulmonary Artery Pressure 50/27 Cardiac Output 7.6 Cardiac Index 4 - Constitutional Constitutional Comment(s): The patient remains intubated with mechanical ventilator support and is currently sedated on 40 mcg/kg/m of propofol. General appearance: Present: no acute distress - EENT Eyes: Present: PERRLA, normal appearance. Absent: scleral icterus - Neck Details: Neck is supple, no JVD, right IJ Cordis in place with Austin-Malaika catheter. - Respiratory Details: Lungs sounds essentially clear throughout, diminished to his bilateral bases. Respirations are symmetrical and nonlabored with mechanical ventilator support. Current mechanical ventilator settings are as follows, assist-control 22, TV 550, FiO2 45%, PEEP 5. Left and right pleural chest tubes and mediastinal chest tubes remain in place to low continuous wall suction -20 cm H2O. No air leak is present. Left and right pleural chest tubes draining thin serosanguineous drainage with 60 mL output in the last 8 hours and 150 mL output in the last 24 hours. Mediastinal chest tubes draining thin serosanguineous drainage with 90 mL output in the last 8 hours, 300 mL output in the last 24 hours. - Cardiovascular Details: Regular rhythm and rate. S1 and S2 present, negative for S3, gallop or murmur. Sternum is stable. Bedside telemetry showing normal sinus rhythm heart rate 94. Atrial and ventricular epicardial pacemaker wires in place and connected to back up to bedside pacemaker generator with a VVI 50 BPM. Right IJ Cordis in place with Austin-Malaika catheter, current cardiac output 5.3, cardiac index 2.8, PA pressures 48/28, CVP 8 mmHg. Heart hugger is in place. Knee-high EDUARDO hose and sequential compression devices in place to his bilateral lower extremities. No edema present. - Gastrointestinal Gastrointestinal Comment(s): Abdomen is soft, nontender and nondistended. Hypoactive bowel sounds present in all 4 abdominal quadrants. OG tube in place with tube feedings of vital AF infusing at 45 mL per hour, with goal rate of 55 mL per hour. No guarding or rigidity. No organomegaly appreciated. - Genitourinary Genitourinary Comment(s): Prieto catheter for accurate I&O. Draining clear yellow urine. 365 mL output the last 8 hours. - Integumentary Integumentary Comment(s): Skin is warm and dry. No clubbing or cyanosis is present. Midline sternal incision is clean, dry and approximated. No drainage or redness is present. Gauze dressing is clean, dry and in place. Left lower extremity EVH site is clean, dry and approximated. No drainage or redness is present. - Neurologic Neurologic Comment(s): Unable to assess adequately at this time as the patient remains intubated with mechanical ventilator support and is sedated on Diprivan drip at 40 mcg/kg/m - Musculoskeletal Musculoskeletal: Present: generalized weakness, strength equal bilaterally - Psychiatric Psychiatric Comment(s): Unable to assess adequately at this time as the patient remains intubated with mechanical ventilator support and is sedated on Diprivan drip at 40 mcg/kg/m - Allied health notes Allied health notes reviewed: nursing - Labs CBC & Chem 7: 01/06/20 04:25 01/06/20 04:25 Labs: Abnormal Lab Results - Last 24 Hours (Table) 01/03/20 01/05/20 01/05/20 Range/Units 07:40 10:05 10:55 WBC (3.8-10.6) k/uL RBC (4.30-5.90) m/uL Hgb (13.0-17.5) gm/dL Hct (39.0-53.0) % RDW (11.5-15.5) % Plt Count (150-450) k/uL Neutrophils # (1.3-7.7) k/uL INR 1.2 H (<1.2) APTT 32.6 H (22.0-30.0) sec ABG pCO2 (35-45) mmHg ABG pO2 (83-108) mmHg ABG O2 Saturation (94-97) % Sodium (137-145) mmol/L Carbon Dioxide (22-30) mmol/L Glucose (74-99) mg/dL POC Glucose (mg/dL) 108 H (75-99) mg/dL Calcium (8.4-10.2) mg/dL Total Protein (6.3-8.2) g/dL Albumin (3.5-5.0) g/dL Crossmatch See Detail 01/05/20 01/05/20 01/05/20 Range/Units 12:00 12:56 14:22 WBC 12.4 H (3.8-10.6) k/uL RBC 2.65 L (4.30-5.90) m/uL Hgb 7.5 L (13.0-17.5) gm/dL Hct 23.0 L (39.0-53.0) % RDW 17.8 H (11.5-15.5) % Plt Count 128 L (150-450) k/uL Neutrophils # (1.3-7.7) k/uL INR (<1.2) APTT (22.0-30.0) sec ABG pCO2 (35-45) mmHg ABG pO2 (83-108) mmHg ABG O2 Saturation (94-97) % Sodium (137-145) mmol/L Carbon Dioxide (22-30) mmol/L Glucose (74-99) mg/dL POC Glucose (mg/dL) 119 H 134 H (75-99) mg/dL Calcium (8.4-10.2) mg/dL Total Protein (6.3-8.2) g/dL Albumin (3.5-5.0) g/dL Crossmatch 01/05/20 01/05/20 01/05/20 Range/Units 14:22 14:57 15:54 WBC (3.8-10.6) k/uL RBC (4.30-5.90) m/uL Hgb (13.0-17.5) gm/dL Hct (39.0-53.0) % RDW (11.5-15.5) % Plt Count (150-450) k/uL Neutrophils # (1.3-7.7) k/uL INR (<1.2) APTT (22.0-30.0) sec ABG pCO2 (35-45) mmHg ABG pO2 (83-108) mmHg ABG O2 Saturation (94-97) % Sodium (137-145) mmol/L Carbon Dioxide (22-30) mmol/L Glucose (74-99) mg/dL POC Glucose (mg/dL) 129 H 125 H 115 H (75-99) mg/dL Calcium (8.4-10.2) mg/dL Total Protein (6.3-8.2) g/dL Albumin (3.5-5.0) g/dL Crossmatch 01/05/20 01/05/20 01/05/20 Range/Units 17:54 19:06 19:59 WBC (3.8-10.6) k/uL RBC (4.30-5.90) m/uL Hgb (13.0-17.5) gm/dL Hct (39.0-53.0) % RDW (11.5-15.5) % Plt Count (150-450) k/uL Neutrophils # (1.3-7.7) k/uL INR (<1.2) APTT (22.0-30.0) sec ABG pCO2 (35-45) mmHg ABG pO2 (83-108) mmHg ABG O2 Saturation (94-97) % Sodium (137-145) mmol/L Carbon Dioxide (22-30) mmol/L Glucose (74-99) mg/dL POC Glucose (mg/dL) 106 H 135 H 143 H (75-99) mg/dL Calcium (8.4-10.2) mg/dL Total Protein (6.3-8.2) g/dL Albumin (3.5-5.0) g/dL Crossmatch 08/01/05/20 01/05/20 Range/Units 20:39 22:12 23:06 WBC (3.8-10.6) k/uL RBC (4.30-5.90) m/uL Hgb (13.0-17.5) gm/dL Hct (39.0-53.0) % RDW (11.5-15.5) % Plt Count (150-450) k/uL Neutrophils # (1.3-7.7) k/uL INR (<1.2) APTT (22.0-30.0) sec ABG pCO2 32 L (35-45) mmHg ABG pO2 (83-108) mmHg ABG O2 Saturation 97.3 H (94-97) % Sodium (137-145) mmol/L Carbon Dioxide (22-30) mmol/L Glucose (74-99) mg/dL POC Glucose (mg/dL) 111 H 113 H (75-99) mg/dL Calcium (8.4-10.2) mg/dL Total Protein (6.3-8.2) g/dL Albumin (3.5-5.0) g/dL Crossmatch 01/06/20 01/06/20 01/06/20 Range/Units 00:07 01:08 01:55 WBC (3.8-10.6) k/uL RBC (4.30-5.90) m/uL Hgb (13.0-17.5) gm/dL Hct (39.0-53.0) % RDW (11.5-15.5) % Plt Count (150-450) k/uL Neutrophils # (1.3-7.7) k/uL INR (<1.2) APTT (22.0-30.0) sec ABG pCO2 (35-45) mmHg ABG pO2 (83-108) mmHg ABG O2 Saturation (94-97) % Sodium (137-145) mmol/L Carbon Dioxide (22-30) mmol/L Glucose (74-99) mg/dL POC Glucose (mg/dL) 155 H 163 H 157 H (75-99) mg/dL Calcium (8.4-10.2) mg/dL Total Protein (6.3-8.2) g/dL Albumin (3.5-5.0) g/dL Crossmatch 01/06/20 01/06/20 01/06/20 Range/Units 02:54 04:25 04:25 WBC 13.3 H (3.8-10.6) k/uL RBC 2.51 L (4.30-5.90) m/uL Hgb 7.1 L (13.0-17.5) gm/dL Hct 21.7 L (39.0-53.0) % RDW 18.1 H (11.5-15.5) % Plt Count 123 L (150-450) k/uL Neutrophils # 10.9 H (1.3-7.7) k/uL INR (<1.2) APTT (22.0-30.0) sec ABG pCO2 (35-45) mmHg ABG pO2 (83-108) mmHg ABG O2 Saturation (94-97) % Sodium 130 L (137-145) mmol/L Carbon Dioxide 21 L (22-30) mmol/L Glucose 144 H (74-99) mg/dL POC Glucose (mg/dL) 148 H (75-99) mg/dL Calcium 7.8 L (8.4-10.2) mg/dL Total Protein 4.0 L (6.3-8.2) g/dL Albumin 2.4 L (3.5-5.0) g/dL Crossmatch 01/06/20 01/06/20 01/06/20 Range/Units 04:25 05:07 06:19 WBC (3.8-10.6) k/uL RBC (4.30-5.90) m/uL Hgb (13.0-17.5) gm/dL Hct (39.0-53.0) % RDW (11.5-15.5) % Plt Count (150-450) k/uL Neutrophils # (1.3-7.7) k/uL INR (<1.2) APTT (22.0-30.0) sec ABG pCO2 (35-45) mmHg ABG pO2 (83-108) mmHg ABG O2 Saturation (94-97) % Sodium (137-145) mmol/L Carbon Dioxide (22-30) mmol/L Glucose (74-99) mg/dL POC Glucose (mg/dL) 161 H 158 H 181 H (75-99) mg/dL Calcium (8.4-10.2) mg/dL Total Protein (6.3-8.2) g/dL Albumin (3.5-5.0) g/dL Crossmatch 01/06/20 01/06/20 01/06/20 Range/Units 06:57 07:23 08:20 WBC (3.8-10.6) k/uL RBC (4.30-5.90) m/uL Hgb (13.0-17.5) gm/dL Hct (39.0-53.0) % RDW (11.5-15.5) % Plt Count (150-450) k/uL Neutrophils # (1.3-7.7) k/uL INR (<1.2) APTT (22.0-30.0) sec ABG pCO2 32 L (35-45) mmHg ABG pO2 (83-108) mmHg ABG O2 Saturation 98.2 H (94-97) % Sodium (137-145) mmol/L Carbon Dioxide (22-30) mmol/L Glucose (74-99) mg/dL POC Glucose (mg/dL) 155 H 157 H (75-99) mg/dL Calcium (8.4-10.2) mg/dL Total Protein (6.3-8.2) g/dL Albumin (3.5-5.0) g/dL Crossmatch 01/06/20 01/06/20 01/06/20 Range/Units 09:01 10:00 10:04 WBC (3.8-10.6) k/uL RBC (4.30-5.90) m/uL Hgb (13.0-17.5) gm/dL Hct (39.0-53.0) % RDW (11.5-15.5) % Plt Count (150-450) k/uL Neutrophils # (1.3-7.7) k/uL INR (<1.2) APTT (22.0-30.0) sec ABG pCO2 33 L (35-45) mmHg ABG pO2 82 L (83-108) mmHg ABG O2 Saturation (94-97) % Sodium (137-145) mmol/L Carbon Dioxide (22-30) mmol/L Glucose (74-99) mg/dL POC Glucose (mg/dL) 186 H 146 H (75-99) mg/dL Calcium (8.4-10.2) mg/dL Total Protein (6.3-8.2) g/dL Albumin (3.5-5.0) g/dL Crossmatch - Imaging and Cardiology Chest x-ray: report reviewed, image reviewed Assessment and Plan Assessment: 1. Multivessel coronary artery disease, status post 3 vessel myocardial revascularization surgery 2. Positive troponins this admission, non-ST elevation myocardial infarction this admission 3. Progressive dyspnea on exertion 4. History of hypertension 5. Hyperlipidemia 6. Diabetes mellitus type 2, on oral agents 7. Daily EtOH use, 4 glasses of wine daily 8. Remote history of nicotine dependence quit 15 years ago 9. History of lung cancer, status post left upper lobectomy in 2012 10. History of coronary artery disease status post stent placement to his left anterior descending coronary artery and right coronary artery in 1998 11. Family history of early onset coronary artery disease 12. History of skin cancer, squamous cell and basal cell carcinoma 13. Postoperative acute blood loss anemia 14. Postoperative hypotension Plan: 1. Continue aspirin, statin, subcu heparin and Plavix. 2. Continue to hold metoprolol tartrate today. 3. Transfuse 1 unit of PRBCs for hemoglobin of 7.1 today. 4. Continue Primacor drip at 0.375 mcg/kg/m. 5. Continue to wean epinephrine drip and norepinephrine drip to keep map equal to or greater than 70 mmHg. 6. Keep left/right pleural chest tubes and mediastinal chest tubes in place to low continuous wall suction -20 cm H2O. 7. Keep right IJ Cordis and Austin-Malaika catheter in place for hemodynamic monitoring. 8. Keep Prieto catheter in place for accurate I&O's. 9. Bronchodilator and mechanical ventilator management, weaning trials per pulmonary critical care medicine recommendations. 10. GI and DVT prophylaxis. 11. Pain control per current when necessary orders. 12. Continue tube feedings and advance to goal rate of 55 mL per hour. 13. The patient's and his daughter have been updated on his care, questions have been answered. 14. We will continue to monitor daily labs and chest x-rays. 15. More recommendations to follow based on patient's clinical course. Time with Patient: Greater than 30
--- NOTE | 2020-01-06 11:05 | P.PN ---
Subjective Progress Note Date: 01/06/20 Pt responds to voice today while off of sedation. IABP removed yesterday. No longer being paced. Still requiring: amio, milrinone, epi, norepi. Temporarily off of propofol at time of my eval. Objective - Vital Signs Vital signs: Vital Signs Temp 98.6 F 01/06/20 10:44 Pulse 96 01/06/20 10:44 Resp 19 01/06/20 10:44 BP 151/51 01/06/20 10:44 Pulse Ox 96 01/06/20 10:44 Intake & Output 01/05/20 01/06/20 01/06/20 18:59 06:59 18:59 Intake Total 2027.285 2360.702 970.831 Output Total 698 695 252 Balance 9592.877 6113.702 718.831 Weight 85.2 kg 87.1 kg Intake: IV 889 988 326 Lactated Ringers 1,000 ml 500 600 200 @ 50 mls/hr IV .Q20H [facility] Rx#:[id number] Nitroglycerine 6 cardiac output 260 280 90 pressure bags 123 108 36 Intake, IV Titration 738.285 802.702 434.831 Amount EPINEPHrine 4 mg In 261.530 Dextrose 5% in Water 250 ml @ 0.01 MCG/KG/MIN 2. 768 mls/hr IV .Q24H [facility] Rx#:[id number] EPINEPHrine 4 mg In 185.576 188.133 42.600 Dextrose 5% in Water 250 ml @ 0.14 MCG/KG/MIN 44. 73 mls/hr IV .Q5H36M [facility] Rx#:[id number] Insulin Regular 100 unit 42.732 50.636 31.976 In Sodium Chloride 0.9% 100 ml @ Per Protocol IV .Q0M [facility] Rx#:[id number] Magnesium Sulfate-D5w Pmx 200 1 gm In Dextrose/Water 1 100ml.bag @ 100 mls/hr IVPB Q1H [facility] Rx#: [id number] Milrinone-D5w Pmx 20 mg 100 93.27 In Dextrose/Water 1 100ml .bag @ Per Protocol IV . Q0M [facility] Rx#:[id number] Norepinephrine 4 mg In 270.663 64.490 Sodium Chloride 0.9% 250 ml @ 0.03 MCG/KG/MIN 9. 738 mls/hr IV .Q24H [facility] Rx#:[id number] propofoL 1,000 mg In 148.447 200 95.765 Empty Bag 1 bag @ Titrate IV .Q0M [facility] Rx#: [id number] Tube Feeding 60 480 180 Blood Product 310 0 Rc As-1 Unit 310 [id number] Rc As-1 Unit 0 [id number] Other 30 90 30 Output: Chest Tube Drainage 265 240 70 left and right pleural 75 80 10 mediastinal x2 190 160 60 Urine 433 455 182 Other: Voiding Method Indwelling Catheter Indwelling Catheter Indwelling Catheter ABP, PAP, CO, CI - Last Documented Arterial Blood Pressure 112/42 Pulmonary Artery Pressure 50/27 Cardiac Output 7.6 Cardiac Index 4 - Exam Gen: intubated/responsive to voice HEENT: normocephalic, atraumatic, moist mucous membranes : no SPT, no CVAT, salazar catheter is present MSK: no pitting edema, no clubbing Lines: 3 x chest tubes (1 mediastinal), RIJ, Salazar - Labs CBC & Chem 7: 01/06/20 04:25 01/06/20 04:25 Labs: Abnormal Lab Results - Last 24 Hours (Table) 01/03/20 01/05/20 01/05/20 Range/Units 07:40 12:00 12:56 WBC (3.8-10.6) k/uL RBC (4.30-5.90) m/uL Hgb (13.0-17.5) gm/dL Hct (39.0-53.0) % RDW (11.5-15.5) % Plt Count (150-450) k/uL Neutrophils # (1.3-7.7) k/uL ABG pCO2 (35-45) mmHg ABG pO2 (83-108) mmHg ABG O2 Saturation (94-97) % Sodium (137-145) mmol/L Carbon Dioxide (22-30) mmol/L Glucose (74-99) mg/dL POC Glucose (mg/dL) 119 H 134 H (75-99) mg/dL Calcium (8.4-10.2) mg/dL Total Protein (6.3-8.2) g/dL Albumin (3.5-5.0) g/dL Crossmatch See Detail 01/05/20 01/05/20 01/05/20 Range/Units 14:22 14:22 14:57 WBC 12.4 H (3.8-10.6) k/uL RBC 2.65 L (4.30-5.90) m/uL Hgb 7.5 L (13.0-17.5) gm/dL Hct 23.0 L (39.0-53.0) % RDW 17.8 H (11.5-15.5) % Plt Count 128 L (150-450) k/uL Neutrophils # (1.3-7.7) k/uL ABG pCO2 (35-45) mmHg ABG pO2 (83-108) mmHg ABG O2 Saturation (94-97) % Sodium (137-145) mmol/L Carbon Dioxide (22-30) mmol/L Glucose (74-99) mg/dL POC Glucose (mg/dL) 129 H 125 H (75-99) mg/dL Calcium (8.4-10.2) mg/dL Total Protein (6.3-8.2) g/dL Albumin (3.5-5.0) g/dL Crossmatch 01/05/20 01/05/20 01/05/20 Range/Units 15:54 17:54 19:06 WBC (3.8-10.6) k/uL RBC (4.30-5.90) m/uL Hgb (13.0-17.5) gm/dL Hct (39.0-53.0) % RDW (11.5-15.5) % Plt Count (150-450) k/uL Neutrophils # (1.3-7.7) k/uL ABG pCO2 (35-45) mmHg ABG pO2 (83-108) mmHg ABG O2 Saturation (94-97) % Sodium (137-145) mmol/L Carbon Dioxide (22-30) mmol/L Glucose (74-99) mg/dL POC Glucose (mg/dL) 115 H 106 H 135 H (75-99) mg/dL Calcium (8.4-10.2) mg/dL Total Protein (6.3-8.2) g/dL Albumin (3.5-5.0) g/dL Crossmatch 01/05/20 01/05/20 01/05/20 Range/Units 19:59 20:39 22:12 WBC (3.8-10.6) k/uL RBC (4.30-5.90) m/uL Hgb (13.0-17.5) gm/dL Hct (39.0-53.0) % RDW (11.5-15.5) % Plt Count (150-450) k/uL Neutrophils # (1.3-7.7) k/uL ABG pCO2 32 L (35-45) mmHg ABG pO2 (83-108) mmHg ABG O2 Saturation 97.3 H (94-97) % Sodium (137-145) mmol/L Carbon Dioxide (22-30) mmol/L Glucose (74-99) mg/dL POC Glucose (mg/dL) 143 H 111 H (75-99) mg/dL Calcium (8.4-10.2) mg/dL Total Protein (6.3-8.2) g/dL Albumin (3.5-5.0) g/dL Crossmatch 01/05/20 01/06/20 01/06/20 Range/Units 23:06 00:07 01:08 WBC (3.8-10.6) k/uL RBC (4.30-5.90) m/uL Hgb (13.0-17.5) gm/dL Hct (39.0-53.0) % RDW (11.5-15.5) % Plt Count (150-450) k/uL Neutrophils # (1.3-7.7) k/uL ABG pCO2 (35-45) mmHg ABG pO2 (83-108) mmHg ABG O2 Saturation (94-97) % Sodium (137-145) mmol/L Carbon Dioxide (22-30) mmol/L Glucose (74-99) mg/dL POC Glucose (mg/dL) 113 H 155 H 163 H (75-99) mg/dL Calcium (8.4-10.2) mg/dL Total Protein (6.3-8.2) g/dL Albumin (3.5-5.0) g/dL Crossmatch 01/06/20 01/06/20 01/06/20 Range/Units 01:55 02:54 04:25 WBC 13.3 H (3.8-10.6) k/uL RBC 2.51 L (4.30-5.90) m/uL Hgb 7.1 L (13.0-17.5) gm/dL Hct 21.7 L (39.0-53.0) % RDW 18.1 H (11.5-15.5) % Plt Count 123 L (150-450) k/uL Neutrophils # 10.9 H (1.3-7.7) k/uL ABG pCO2 (35-45) mmHg ABG pO2 (83-108) mmHg ABG O2 Saturation (94-97) % Sodium (137-145) mmol/L Carbon Dioxide (22-30) mmol/L Glucose (74-99) mg/dL POC Glucose (mg/dL) 157 H 148 H (75-99) mg/dL Calcium (8.4-10.2) mg/dL Total Protein (6.3-8.2) g/dL Albumin (3.5-5.0) g/dL Crossmatch 01/06/20 01/06/20 01/06/20 Range/Units 04:25 04:25 05:07 WBC (3.8-10.6) k/uL RBC (4.30-5.90) m/uL Hgb (13.0-17.5) gm/dL Hct (39.0-53.0) % RDW (11.5-15.5) % Plt Count (150-450) k/uL Neutrophils # (1.3-7.7) k/uL ABG pCO2 (35-45) mmHg ABG pO2 (83-108) mmHg ABG O2 Saturation (94-97) % Sodium 130 L (137-145) mmol/L Carbon Dioxide 21 L (22-30) mmol/L Glucose 144 H (74-99) mg/dL POC Glucose (mg/dL) 161 H 158 H (75-99) mg/dL Calcium 7.8 L (8.4-10.2) mg/dL Total Protein 4.0 L (6.3-8.2) g/dL Albumin 2.4 L (3.5-5.0) g/dL Crossmatch 01/06/20 01/06/20 01/06/20 Range/Units 06:19 06:57 07:23 WBC (3.8-10.6) k/uL RBC (4.30-5.90) m/uL Hgb (13.0-17.5) gm/dL Hct (39.0-53.0) % RDW (11.5-15.5) % Plt Count (150-450) k/uL Neutrophils # (1.3-7.7) k/uL ABG pCO2 32 L (35-45) mmHg ABG pO2 (83-108) mmHg ABG O2 Saturation 98.2 H (94-97) % Sodium (137-145) mmol/L Carbon Dioxide (22-30) mmol/L Glucose (74-99) mg/dL POC Glucose (mg/dL) 181 H 155 H (75-99) mg/dL Calcium (8.4-10.2) mg/dL Total Protein (6.3-8.2) g/dL Albumin (3.5-5.0) g/dL Crossmatch 01/06/20 01/06/20 01/06/20 Range/Units 08:20 09:01 10:00 WBC (3.8-10.6) k/uL RBC (4.30-5.90) m/uL Hgb (13.0-17.5) gm/dL Hct (39.0-53.0) % RDW (11.5-15.5) % Plt Count (150-450) k/uL Neutrophils # (1.3-7.7) k/uL ABG pCO2 (35-45) mmHg ABG pO2 (83-108) mmHg ABG O2 Saturation (94-97) % Sodium (137-145) mmol/L Carbon Dioxide (22-30) mmol/L Glucose (74-99) mg/dL POC Glucose (mg/dL) 157 H 186 H 146 H (75-99) mg/dL Calcium (8.4-10.2) mg/dL Total Protein (6.3-8.2) g/dL Albumin (3.5-5.0) g/dL Crossmatch 01/06/20 01/06/20 Range/Units 10:04 10:52 WBC (3.8-10.6) k/uL RBC (4.30-5.90) m/uL Hgb (13.0-17.5) gm/dL Hct (39.0-53.0) % RDW (11.5-15.5) % Plt Count (150-450) k/uL Neutrophils # (1.3-7.7) k/uL ABG pCO2 33 L (35-45) mmHg ABG pO2 82 L (83-108) mmHg ABG O2 Saturation (94-97) % Sodium (137-145) mmol/L Carbon Dioxide (22-30) mmol/L Glucose (74-99) mg/dL POC Glucose (mg/dL) 119 H (75-99) mg/dL Calcium (8.4-10.2) mg/dL Total Protein (6.3-8.2) g/dL Albumin (3.5-5.0) g/dL Crossmatch Assessment and Plan Assessment: Acute hypoxic respiratory failure Acute blood loss anemia Hypotension Severe CAD with non-ST elevation Diabetes mellitus Hypertension Dyslipidemia COPD Currently sedated and ventilated. Daily ABG. Repeat chest x-ray tomorrow morning. Full ventilator support. Ventilator management as per pulmonology. Hemoglobin 7.7. INR 1.3. Repeat CBC tomorrow morning. Continue norepi/epinephrine drip. Continue milrinone drip. Maintain MAP greater than 65. Cardiac cath shows multivessel disease. POD 2 CABG triple-vessel bypass. Continue aspirin and Lipitor. Continue beta junior. Telemetry monitoring. Cardiology and Cardiothoracic surgery on board. [id number] glucose 177. Insulin sliding scale. Regular Accu-Cheks. Hypoglycemic precautions. Continue Coreg. Monitor vitals, adjust medications if necessary. Continue Lipitor. DuoNeb as needed for shortness of breath or wheezing Plans to extubate today if possible
[2020-01-06 11:41] LABS: Glucose,Whole Blood 109 mg/dL (75-99)
[2020-01-06 11:41] LABS: ABG Base Excess -2.3 mmol/L; ABG HCO3 22 mmol/L (21-25); ABG Oxygen Saturation 98.5 % (94-97); ABG PCO2 34 mmHg (35-45); ABG PH 7.42 (7.35-7.45); ABG PO2 106 mmHg (83-108); ABG TCO2 23 mmol/L (19-24)
--- NOTE | 2020-01-06 12:56 | P.PN ---
Subjective Progress Note Date: 01/06/20 Principal diagnosis: Status post CABG 3. Postoperative day #2 This is a 79-year-old white male patient with past medical history lung cancer status post left upper lobectomy in 2012 followed by chemotherapy postoperatively, 30-ifcv-dfvy smoking history, currently in remission, hypertension, hyperlipidemia, previous myocardial infarction in 1998, coronary artery disease with PCI and stenting of the LAD and the circumflex in 1998, daily EtOH use, diabetes mellitus, family history of early onset coronary artery disease. Patient has a PCP in [facility], however patient spends a lot of time in the [facility] in the summer. He has been having symptoms of progressive exertional dyspnea the last couple months and weakness in his bilateral lower extremities. Denied any chest pain, no nausea, vomiting, or diaphoresis, no orthopnea, no peripheral edema, no palpitations. On 01/01/2020 patient presented to the emergency department for evaluation of his shortness of breath. He was transferred from another facility. Patient was noted to have elevated troponins here in the emergency department concerning for nonacute non- ST elevated myocardial infarction. EKG showed normal sinus rhythm with nonspecific ST abnormality. CTA chest showed thickening along the minor fissure which does not appear masslike, some right hilar adenopathy, extensive emphysema, coronary artery disease, no evident pulmonary embolism, small hiatal hernia, interstitial lung disease and cholelithiasis. His troponins were 0.279, 0.282, 0.290, 0.182. Heart catheterization was done yesterday on 01/02/2020 showing severely calcified coronary artery, severe triple-vessel coronary artery disease with chronic occlusion of the right coronary artery and significant disease in LAD and the left circumflex. Patient was referred to CT surgery for consideration for myocardial revascularization. Echocardiogram showed mild concentric LVH, mild to moderate impairment of the LV function with an EF of 40- 45%, septal hypokinesis, no aortic stenosis or regurgitation, mild MR, mild TR, no pulmonary hypertension. Chronic Doppler was negative for evidence of hemodynamically significant stenosis. Bedside spirometry revealed FEV1 of 1.64 L or 55% of predicted, FVC is 2.92 L or 70% of predicted, with FEV1/FVC of 78% of predicted, consistent with moderately severe obstruction. On 01/04/2020 patient seen in follow-up in the postoperative period following three-vessel coronary artery bypass grafting in the intensive care unit, he is sedated, intubated, current vent settings are SIMV with a rate of 12, tidal volume is 500, FiO2 100%, PEEP of 5, the rate was increased to 16. Currently on lactated Ringer's at 50 ML per hour, nitroglycerin at 10 mics per minute, levo fed at 0.02 mics per kilo per minute, nitroglycerin at 5 mics per kilo per minute, Primacor is at 0.375 mics per kilo per minute, and epinephrine at 0.3 mics per kilo per minute, during the surgery patient had to be placed on IABP on which he remains with one-to-one augmentation, and augmented diastolic of 10 9 mmHg, PA pressures are 80/27, CVP is 12, cardiac output is 5.1, and cardiac index is 2.7. Patient has pacemaker wires in place, currently in sinus rhythm. postoperative blood gas shows pO2 of 117, pCO2 44, and pH of 7.36, operative hemoglobin was 7.7. patient received 1 unit of packed red blood cells, 4 units of fresh frozen plasma and 1 unit of platelets, with another one ordered. 2 mediastinal chest tubes with 80 mL of sanguinous output, and right and left chest tubes Y connected together with 100 mL of sanguinous output. patient is still quite sedated, no plans for extubation in view of hemodynamic status, IABP support. Awaiting repeat blood gases and postoperative chest x-ray. Patient was reevaluated today on 01/05/20, remains intubated and on mechanical ventilation. Patient is on assist control rate of 24 tidal volume is 550 FiO2 is 50% and PEEP is at 5. ABG showed a pO2 of 91 pCO2 of 35 pH of 7.40. Intra- aortic balloon pump was discontinued today, however the patient remains on multiple pressors and inotropes. He is on epinephrine at 0.17 mcg/kg/m norepinephrine at 0.03 mcg/kg/m he is also on milrinone 0.375 mcg/kg/m. On propofol at 20 mcg/kg/m, patient was noted to have low hemoglobin of 6.8 today, and a unit of packed RBCs was given earlier today. His cardiac index is 3.2 after removal of intra-aortic balloon pump. Chest x-ray clearly shows evidence of pulmonary edema, and the patient is receiving diuretics as per your thoracic surgery on the case. Hemoglobin today is 6.8. ABG as noted above. Basic metabolic profile is relatively normal however his BUN is 17 and his creatinine is slightly up to 1.03 from 0.69 yesterday. Patient is in normal sinus rhythm, rate of 85, atrial and ventricular epicardial pacemaker wires remain in place. And he is connected to a backup pacemaker generator with VVI 50 beats per minutes. Patient is arousable, moving all extremities, seems appropriate. Left and right pleural chest tubes and mediastinal chest seems to remain in place to low continuous suction. No air leaks noted. Reevaluated today on 01/06/20, patient remains in the ICU, intubated and mechanically ventilated. His present ventilator settings are assist control rate of 18 tidal volume is 550 FiO2 40% and PEEP of 5. ABG showed a pO2 of 101 pCO2 of 32 pH of 7.44. Patient is still requiring epinephrine which will be discontinued shortly, Primacor at 0.375 mcg/kg/m, and norepinephrine at 0.05 mcg/kg/m. Propofol is on hold this morning, patient is on senna insulin at 8 units per hour. His cardiac index is 2.7 cardiac output is 5.1, chest x-ray s howed mild interstitial edema. Patient was awakened, propofol was placed on hold, and brief assessment of weaning parameters done, patient was switched to a pressure support of 8 and CPAP, and 1 hour of this mode of weaning, his ABG remains excellent, patient was extubated. ABG on pressure support and CPAP showed a pO2 of 106 pCO2 of 34 pH of 7.42. Hemoglobin was noted to be low at 7.1, hence I recommended a unit of packed RBCs to be given, and that will be decided upon by surgery on the case Objective - Vital Signs Vital signs: Vital Signs Temp 98.8 F 01/06/20 11:14 Pulse 99 01/06/20 11:14 Resp 23 01/06/20 11:14 BP 170/56 01/06/20 11:14 Pulse Ox 99 01/06/20 11:29 Intake & Output 01/05/20 01/06/20 01/06/20 18:59 06:59 18:59 Intake Total 2027.285 2360.702 1049.831 Output Total 698 695 287 Balance 1161.508 0167.702 762.831 Weight 85.2 kg 87.1 kg Intake: IV 889 988 405 Lactated Ringers 1,000 ml 500 600 250 @ 50 mls/hr IV .Q20H [facility] Rx#:[id number] Nitroglycerine 6 cardiac output 260 280 110 pressure bags 123 108 45 Intake, IV Titration 738.285 802.702 434.831 Amount EPINEPHrine 4 mg In 261.530 Dextrose 5% in Water 250 ml @ 0.01 MCG/KG/MIN 2. 768 mls/hr IV .Q24H [facility] Rx#:[id number] EPINEPHrine 4 mg In 185.576 188.133 42.600 Dextrose 5% in Water 250 ml @ 0.14 MCG/KG/MIN 44. 73 mls/hr IV .Q5H36M [facility] Rx#:[id number] Insulin Regular 100 unit 42.732 50.636 31.976 In Sodium Chloride 0.9% 100 ml @ Per Protocol IV .Q0M [facility] Rx#:[id number] Magnesium Sulfate-D5w Pmx 200 1 gm In Dextrose/Water 1 100ml.bag @ 100 mls/hr IVPB Q1H [facility] Rx#: [id number] Milrinone-D5w Pmx 20 mg 100 93.27 In Dextrose/Water 1 100ml .bag @ Per Protocol IV . Q0M [facility] Rx#:[id number] Norepinephrine 4 mg In 270.663 64.490 Sodium Chloride 0.9% 250 ml @ 0.03 MCG/KG/MIN 9. 738 mls/hr IV .Q24H [facility] Rx#:[id number] propofoL 1,000 mg In 148.447 200 95.765 Empty Bag 1 bag @ Titrate IV .Q0M [facility] Rx#: [id number] Tube Feeding 60 480 180 Blood Product 310 0 Rc As-1 Unit 310 [id number] Rc As-1 Unit 0 [id number] Other 30 90 30 Output: Chest Tube Drainage 265 240 80 left and right pleural 75 80 10 mediastinal x2 190 160 70 Urine 433 455 207 Other: Voiding Method Indwelling Catheter Indwelling Catheter Indwelling Catheter ABP, PAP, CO, CI - Last Documented Arterial Blood Pressure 142/53 Pulmonary Artery Pressure 60/29 Cardiac Output 5.4 Cardiac Index 2.8 - Exam GENERAL EXAM: sedated, intubated, arousable off propofol, and followed simple instructions. Head: Atraumatic, normocephalic. EYES: Normal reaction of pupils, equal size. Conjunctiva pink, sclera white. NOSE: Clear with pink turbinates. THROAT: No erythema or exudates. NECK: No masses, no JVD, no thyroid enlargement, no adenopathy. CHEST: No chest wall deformity. Symmetrical expansion. Left and right pleural chest tubes and mediastinal chest tubes remain in place to low continuous wall suction -20 cm H2O. No air leak is present. Left and right pleural chest tubes draining thin serosanguineous drainage with 60 mL output in the last 8 hours and 150 mL output in the last 24 hours. Mediastinal chest tubes draining thin serosanguineous drainage with 90 mL output in the last 8 hours, 300 mL output in the last 24 hours. CVS:Regular rhythm and rate. S1 and S2 present, negative for S3, gallop or m urmur. Sternum is stable. Bedside telemetry showing normal sinus rhythm heart rate 94. Atrial and ventricular epicardial pacemaker wires in place and connected to back up to bedside pacemaker generator with a VVI 50 BPM. Right IJ Cordis in place with Echo-Malaika catheter, current cardiac output 5.3, cardiac index 2.8, PA pressures 48/28, CVP 8 mmHg. Heart hugger is in place. Knee-high EDUARDO hose and sequential compression devices in place to his bilateral lower extremities. No edema present. ABDOMEN: Soft, nontender. No hepatosplenomegaly, normal bowel sounds, no guarding or rigidity. EXTREMITIES: No clubbing, no edema, no cyanosis, 2+ pulses and upper and lower extremities.SCDs are present on bilateral lower extremities MUSCULOSKELETAL: Muscle strength and tone normal. SPINE: No scoliosis or deformity SKIN: No rashes CENTRAL NERVOUS SYSTEM: Arousable, off propofol, follows simple instructions. - Labs CBC & Chem 7: 01/06/20 04:25 01/06/20 04:25 Labs: Abnormal Lab Results - Last 24 Hours (Table) 01/03/20 01/05/20 01/05/20 Range/Units 07:40 12:56 14:22 WBC 12.4 H (3.8-10.6) k/uL RBC 2.65 L (4.30-5.90) m/uL Hgb 7.5 L (13.0-17.5) gm/dL Hct 23.0 L (39.0-53.0) % RDW 17.8 H (11.5-15.5) % Plt Count 128 L (150-450) k/uL Neutrophils # (1.3-7.7) k/uL ABG pCO2 (35-45) mmHg ABG pO2 (83-108) mmHg ABG O2 Saturation (94-97) % Sodium (137-145) mmol/L Carbon Dioxide (22-30) mmol/L Glucose (74-99) mg/dL POC Glucose (mg/dL) 134 H (75-99) mg/dL Calcium (8.4-10.2) mg/dL Total Protein (6.3-8.2) g/dL Albumin (3.5-5.0) g/dL Crossmatch See Detail 01/05/20 01/05/20 01/05/20 Range/Units 14:22 14:57 15:54 WBC (3.8-10.6) k/uL RBC (4.30-5.90) m/uL Hgb (13.0-17.5) gm/dL Hct (39.0-53.0) % RDW (11.5-15.5) % Plt Count (150-450) k/uL Neutrophils # (1.3-7.7) k/uL ABG pCO2 (35-45) mmHg ABG pO2 (83-108) mmHg ABG O2 Saturation (94-97) % Sodium (137-145) mmol/L Carbon Dioxide (22-30) mmol/L Glucose (74-99) mg/dL POC Glucose (mg/dL) 129 H 125 H 115 H (75-99) mg/dL Calcium (8.4-10.2) mg/dL Total Protein (6.3-8.2) g/dL Albumin (3.5-5.0) g/dL Crossmatch 01/05/20 01/05/20 01/05/20 Range/Units 17:54 19:06 19:59 WBC (3.8-10.6) k/uL RBC (4.30-5.90) m/uL Hgb (13.0-17.5) gm/dL Hct (39.0-53.0) % RDW (11.5-15.5) % Plt Count (150-450) k/uL Neutrophils # (1.3-7.7) k/uL ABG pCO2 (35-45) mmHg ABG pO2 (83-108) mmHg ABG O2 Saturation (94-97) % Sodium (137-145) mmol/L Carbon Dioxide (22-30) mmol/L Glucose (74-99) mg/dL POC Glucose (mg/dL) 106 H 135 H 143 H (75-99) mg/dL Calcium (8.4-10.2) mg/dL Total Protein (6.3-8.2) g/dL Albumin (3.5-5.0) g/dL Crossmatch 01/05/20 01/05/20 01/05/20 Range/Units 20:39 22:12 23:06 WBC (3.8-10.6) k/uL RBC (4.30-5.90) m/uL Hgb (13.0-17.5) gm/dL Hct (39.0-53.0) % RDW (11.5-15.5) % Plt Count (150-450) k/uL Neutrophils # (1.3-7.7) k/uL ABG pCO2 32 L (35-45) mmHg ABG pO2 (83-108) mmHg ABG O2 Saturation 97.3 H (94-97) % Sodium (137-145) mmol/L Carbon Dioxide (22-30) mmol/L Glucose (74-99) mg/dL POC Glucose (mg/dL) 111 H 113 H (75-99) mg/dL Calcium (8.4-10.2) mg/dL Total Protein (6.3-8.2) g/dL Albumin (3.5-5.0) g/dL Crossmatch 01/06/20 01/06/20 01/06/20 Range/Units 00:07 01:08 01:55 WBC (3.8-10.6) k/uL RBC (4.30-5.90) m/uL Hgb (13.0-17.5) gm/dL Hct (39.0-53.0) % RDW (11.5-15.5) % Plt Count (150-450) k/uL Neutrophils # (1.3-7.7) k/uL ABG pCO2 (35-45) mmHg ABG pO2 (83-108) mmHg ABG O2 Saturation (94-97) % Sodium (137-145) mmol/L Carbon Dioxide (22-30) mmol/L Glucose (74-99) mg/dL POC Glucose (mg/dL) 155 H 163 H 157 H (75-99) mg/dL Calcium (8.4-10.2) mg/dL Total Protein (6.3-8.2) g/dL Albumin (3.5-5.0) g/dL Crossmatch 01/06/20 01/06/20 01/06/20 Range/Units 02:54 04:25 04:25 WBC 13.3 H (3.8-10.6) k/uL RBC 2.51 L (4.30-5.90) m/uL Hgb 7.1 L (13.0-17.5) gm/dL Hct 21.7 L (39.0-53.0) % RDW 18.1 H (11.5-15.5) % Plt Count 123 L (150-450) k/uL Neutrophils # 10.9 H (1.3-7.7) k/uL ABG pCO2 (35-45) mmHg ABG pO2 (83-108) mmHg ABG O2 Saturation (94-97) % Sodium 130 L (137-145) mmol/L Carbon Dioxide 21 L (22-30) mmol/L Glucose 144 H (74-99) mg/dL POC Glucose (mg/dL) 148 H (75-99) mg/dL Calcium 7.8 L (8.4-10.2) mg/dL Total Protein 4.0 L (6.3-8.2) g/dL Albumin 2.4 L (3.5-5.0) g/dL Crossmatch 01/06/20 01/06/20 01/06/20 Range/Units 04:25 05:07 06:19 WBC (3.8-10.6) k/uL RBC (4.30-5.90) m/uL Hgb (13.0-17.5) gm/dL Hct (39.0-53.0) % RDW (11.5-15.5) % Plt Count (150-450) k/uL Neutrophils # (1.3-7.7) k/uL ABG pCO2 (35-45) mmHg ABG pO2 (83-108) mmHg ABG O2 Saturation (94-97) % Sodium (137-145) mmol/L Carbon Dioxide (22-30) mmol/L Glucose (74-99) mg/dL POC Glucose (mg/dL) 161 H 158 H 181 H (75-99) mg/dL Calcium (8.4-10.2) mg/dL Total Protein (6.3-8.2) g/dL Albumin (3.5-5.0) g/dL Crossmatch 01/06/20 01/06/20 01/06/20 Range/Units 06:57 07:23 08:20 WBC (3.8-10.6) k/uL RBC (4.30-5.90) m/uL Hgb (13.0-17.5) gm/dL Hct (39.0-53.0) % RDW (11.5-15.5) % Plt Count (150-450) k/uL Neutrophils # (1.3-7.7) k/uL ABG pCO2 32 L (35-45) mmHg ABG pO2 (83-108) mmHg ABG O2 Saturation 98.2 H (94-97) % Sodium (137-145) mmol/L Carbon Dioxide (22-30) mmol/L Glucose (74-99) mg/dL POC Glucose (mg/dL) 155 H 157 H (75-99) mg/dL Calcium (8.4-10.2) mg/dL Total Protein (6.3-8.2) g/dL Albumin (3.5-5.0) g/dL Crossmatch 01/06/20 01/06/20 01/06/20 Range/Units 09:01 10:00 10:04 WBC (3.8-10.6) k/uL RBC (4.30-5.90) m/uL Hgb (13.0-17.5) gm/dL Hct (39.0-53.0) % RDW (11.5-15.5) % Plt Count (150-450) k/uL Neutrophils # (1.3-7.7) k/uL ABG pCO2 33 L (35-45) mmHg ABG pO2 82 L (83-108) mmHg ABG O2 Saturation (94-97) % Sodium (137-145) mmol/L Carbon Dioxide (22-30) mmol/L Glucose (74-99) mg/dL POC Glucose (mg/dL) 186 H 146 H (75-99) mg/dL Calcium (8.4-10.2) mg/dL Total Protein (6.3-8.2) g/dL Albumin (3.5-5.0) g/dL Crossmatch 01/06/20 01/06/20 01/06/20 Range/Units 10:52 11:37 11:40 WBC (3.8-10.6) k/uL RBC (4.30-5.90) m/uL Hgb (13.0-17.5) gm/dL Hct (39.0-53.0) % RDW (11.5-15.5) % Plt Count (150-450) k/uL Neutrophils # (1.3-7.7) k/uL ABG pCO2 34 L (35-45) mmHg ABG pO2 (83-108) mmHg ABG O2 Saturation 98.5 H (94-97) % Sodium (137-145) mmol/L Carbon Dioxide (22-30) mmol/L Glucose (74-99) mg/dL POC Glucose (mg/dL) 119 H 109 H (75-99) mg/dL Calcium (8.4-10.2) mg/dL Total Protein (6.3-8.2) g/dL Albumin (3.5-5.0) g/dL Crossmatch Assessment and Plan Assessment: Impression: Status post three-vessel CABG, postoperative day #2. Recent non-ST elevation myocardial infarction on this admission. Type 2 diabetes. Daily alcohol use. History of lung cancer/adenocarcinoma stage IIB and previous left upper lobectomy in 2012. Postoperative acute blood loss anemia, expected. Postoperative hypotension, expected. Patient required intra-aortic balloon pump placement post surgery. This was removed today. Recommendation: Discontinue propofol. Given a weaning trial on pressure support of 8 and CPAP, tolerated the trial well, then proceeded to extubating the patient. Continue pressors as needed. Continue inotropes and titrate accordingly. As there cardiac surgery on the case. Continue diuretics as needed. Continue bronchodilators. Continue GI and DVT prophylaxis. Continue pain control. Discussed his condition with cardiothoracic surgery on the case, and we'll proceed with extubation. Critical care time is 32 minutes Time with Patient: Greater than 30
[2020-01-06 12:58] LABS: Glucose,Whole Blood 99 mg/dL (75-99)
[2020-01-06] MEDS: MILRINONE-D5W PMX 20 MG in DEXTROSE/WATER 1 100ML.BAG IV SCH ×2 (13:00→23:55)
[2020-01-06 14:10] LABS: Glucose,Whole Blood 125 mg/dL (75-99)
[2020-01-06] MEDS: METOPROLOL TARTRATE 25 MG TAB PO SCH ×2 (14:14→21:16)
[2020-01-06] MEDS: INSULIN REGULAR 100 UNIT in SODIUM CHLORIDE 0.9% 100 ML IV SCH (14:15)
[2020-01-06 15:00] LABS: Glucose,Whole Blood 135 mg/dL (75-99)
[2020-01-06 16:03] LABS: Glucose,Whole Blood 117 mg/dL (75-99)
[2020-01-06 17:05] LABS: Glucose,Whole Blood 107 mg/dL (75-99)
[2020-01-06 18:21] LABS: Glucose,Whole Blood 111 mg/dL (75-99)
[2020-01-06 19:07] LABS: Glucose,Whole Blood 111 mg/dL (75-99)
[2020-01-06] MEDS: SENNOSIDES-DOCUSATE SODIUM 1 EACH TAB PO SCH (21:16)
[2020-01-06 21:45] LABS: Glucose,Whole Blood 114 mg/dL (75-99)
[2020-01-06 22:55] LABS: Glucose,Whole Blood 117 mg/dL (75-99)
[2020-01-07 00:05] LABS: Glucose,Whole Blood 134 mg/dL (75-99)
[2020-01-07 00:55] LABS: Glucose,Whole Blood 123 mg/dL (75-99)
[2020-01-07 02:06] LABS: Glucose,Whole Blood 124 mg/dL (75-99)
[2020-01-07] MEDS: LACTATED RINGERS 1,000 ML IV SCH (04:01)
[2020-01-07 04:02] LABS: Glucose,Whole Blood 129 mg/dL (75-99)
[2020-01-07 04:12] LABS: Anisocytosis Slight; Basophils % (A) 0 %; Eosinophils # (A) 0.1 k/uL (0-0.7); Eosinophils % (A) 2 %; HCT 25.3 % (39.0-53.0); HGB 8.2 gm/dL (13.0-17.5); Lymphocytes # (A) 0.9 k/uL (1.0-4.8); Lymphocytes % (A) 9 %; MCH 27.8 pg (25.0-35.0); MCHC 32.2 g/dL (31.0-37.0); MCV 86.3 fL (80.0-100.0); Mean Platelet Volume 8.9; Monocytes # (A) 0.6 k/uL (0-1.0); Monocytes % (A) 7 %; Neutrophils # (A) 7.6 k/uL (1.3-7.7); Neutrophils % (A) 80 %; Platelet Count 109 k/uL (150-450); RBC 2.93 m/uL (4.30-5.90); RDW 17.4 % (11.5-15.5); WBC 9.5 k/uL (3.8-10.6)
[2020-01-07 04:23] LABS: ALT <6 U/L (4-49); AST 27 U/L (17-59); African American GFR (CKD) >90 (>60 ml/min/1.73 sqM); Albumin 2.5 g/dL (3.5-5.0); Alkaline Phosphatase 48 U/L (38-126); Anion Gap 6 mmol/L; Blood Urea Nitrogen 20 mg/dL (9-20); Carbon Dioxide 22 mmol/L (22-30); Chloride 106 mmol/L (98-107); Glucose 121 mg/dL (74-99); Magnesium 1.6 mg/dL (1.6-2.3); Non-African American GFR(CKD) 83 (>60 ml/min/1.73 sqM); Potassium 3.8 mmol/L (3.5-5.1); Sodium 134 mmol/L (137-145); Total Bilirubin 0.8 mg/dL (0.2-1.3); Total Protein 4.3 g/dL (6.3-8.2)
[2020-01-07] MEDS: POTASSIUM CHLORIDE 10 MEQ in WATER FOR INJECTION 1 100ML.BAG IVPB SCH ×2 (05:08→06:46)
[2020-01-07] MEDS: MAGNESIUM SULFATE-D5W PMX 1 GM in DEXTROSE/WATER 1 100ML.BAG IVPB SCH ×2 (05:08→06:46)
[2020-01-07 06:44] LABS: Glucose,Whole Blood 156 mg/dL (75-99)
[2020-01-07] MEDS: THIAMINE 100 MG TAB PO SCH ×2 (06:47→17:15)
[2020-01-07] MEDS: IPRATROPIUM-ALBUTEROL 3 ML NEB INHALATION SCH ×4 (07:23→19:10)
[2020-01-07] MEDS: KETOROLAC 15 MG/ML 1 ML VIAL IVP SCH ×3 (08:02→20:04)
[2020-01-07] MEDS: FUROSEMIDE 10 MG/ML 2 ML VIAL IV SCH (08:03)
[2020-01-07] MEDS: HEPARIN SODIUM,PORCINE 5,000 UNIT/ML 1 ML VIAL SQ SCH ×2 (08:03→16:25)
[2020-01-07] MEDS: PANTOPRAZOLE 40 MG TABLET PO SCH (08:03)
--- NOTE | 2020-01-07 08:15 | XR ---
EXAMINATION TYPE: XR chest 1V portable DATE OF EXAM: 01/07/2020 Comparison: 01/06/2020 Clinical History: 79-year-old male Postoperative CABG Findings: Right-sided STARS COORDINATOR shunt catheter. Mediastinal drains are present with bilateral chest tubes. No apprecia ble pneumothorax. External artifacts projecting at the periphery of the left upper lung. [id number] erate left effusion with diffuse interstitial density and patchy bibasilar opacity. Interval extubati on and removal of NG tube. Impression: 1. Interstitial changes. Correlate for mild interstitial edema, similar to slightly worsened from marlin or. 2. Moderate left effusion with adjacent atelectasis and/or consolidation relatively similar. Mild pat radha density at the right base as well.
[2020-01-07 08:28] LABS: Glucose,Whole Blood 162 mg/dL (75-99)
[2020-01-07] MEDS: ASPIRIN 325 MG TAB PO SCH (09:07)
[2020-01-07] MEDS: CLOPIDOGREL 75 MG TAB OG-TUBE SCH (09:07)
[2020-01-07] MEDS: ATORVASTATIN 40 MG TAB PO SCH (09:07)
[2020-01-07] MEDS: METOPROLOL TARTRATE 25 MG TAB PO SCH ×2 (09:08→20:04)
[2020-01-07] MEDS: MUPIROCIN 2% OINT 22 GM TUBE NASAL SCH ×2 (09:08→21:20)
--- NOTE | 2020-01-07 09:08 | P.PN ---
Subjective Progress Note Date: 01/07/20 Principal diagnosis: Multivessel coronary artery disease, non-ST elevation myocardial infarction this admission. 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 Preoperative nasal swab positive for MSSA. POD #2 coronary artery bypass grafting 3 with off-pump left internal mammary artery to the left anterior descending coronary artery and on pump beating heart saphenous vein graft to the acute marginal and a saphenous vein graft to the obtuse marginal with endarterectomy and patch angioplasty of the obtuse marginal. Also placement of intra-aortic balloon pump and ligation of the left atrial appendage with a 40 mm AtriCure clip and endovascular vein harvest left greater saphenous vein from the thigh to just below the knee. Postoperative acute blood loss anemia, expected given cardiopulmonary bypass and hemodilution. Postoperative hypotension, unexpected Postoperative prolonged mechanical ventilation, unexpected The patient is currently sitting up in the recliner in the intensive care unit in no acute distress. He was successfully extubated at 11:50 yesterday morning. Does complain of significant pain in his right side, unrelieved by current narcotics. Denies shortness of breath. Remains in normal sinus rhythm and hemo dynamically stable on Primacor at 0.25 mcg/kg/min. Right Reddick/cordis, right radial arterial line, mediastinal, right and left pleural chest tubes all present. No other new concerns. Objective - Vital Signs Vital signs: Vital Signs Temp 99.7 F H 01/06/20 16:00 Pulse 97 01/07/20 07:35 Resp 18 01/07/20 07:00 BP 112/63 01/07/20 07:00 Pulse Ox 93 L 01/07/20 07:00 Intake & Output 01/06/20 01/07/20 01/07/20 18:59 06:59 18:59 Intake Total 2031.697 1218.229 Output Total 1112 1635 Balance 919.697 -416.771 Weight 87.6 kg Intake: IV 898 1127 Lactated Ringers 1,000 ml 540 390 @ 20 mls/hr IV .Q24H [facility]ANK Rx#:[id number] Magnesium Sulfate-D5w Pmx 200 1 gm In Dextrose/Water 1 100ml.bag @ 100 mls/hr IVPB Q1H FRANK Rx#: [id number] Potassium Chloride 10 meq 200 In Water For Injection 1 100ml.bag @ 100 mls/hr IVPB Q1H FRANK Rx#: [id number] cardiac output 250 120 ceFAZolin 2 gm In Sodium 100 Chloride 0.9% 50 ml @ 100 mls/hr IVPB Q8HR FRANK Rx# :[id number] pressure bags 108 117 Intake, IV Titration 563.697 91.229 Amount EPINEPHrine 4 mg In 42.600 Dextrose 5% in Water 250 ml @ 0.14 MCG/KG/MIN 44. 73 mls/hr IV .Q5H36M FRANK Rx#:[id number] Insulin Regular 100 unit 60.842 30.805 In Sodium Chloride 0.9% 100 ml @ Per Protocol IV .Q0M FRANK Rx#:[id number] Magnesium Sulfate-D5w Pmx 200 1 gm In Dextrose/Water 1 100ml.bag @ 100 mls/hr IVPB Q1H FRANK Rx#: [id number] Milrinone-D5w Pmx 20 mg 100 60.424 In Dextrose/Water 1 100ml .bag @ Per Protocol IV . Q0M FRANK Rx#:[id number] Norepinephrine 4 mg In 64.490 Sodium Chloride 0.9% 250 ml @ 0.03 MCG/KG/MIN 9. 738 mls/hr IV .Q24H FRANK Rx#:[id number] propofoL 1,000 mg In 95.765 Empty Bag 1 bag @ Titrate IV .Q0M FRANK Rx#: [id number] Oral 50 Tube Feeding 180 Blood Product 310 Rc As-1 Unit 310 [id number] Other 30 Output: Chest Tube Drainage 220 330 left and right pleural 70 170 mediastinal x2 150 160 Urine 892 1305 Other: Voiding Method Indwelling Catheter Indwelling Catheter ABP, PAP, CO, CI - Last Documented Arterial Blood Pressure 125/47 Pulmonary Artery Pressure 61/23 Cardiac Output 5.3 Cardiac Index 2.8 - Constitutional General appearance: Present: cooperative, no acute distress - Respiratory Details: Lung sounds diminished bilaterally. Respiration even, non-labored. Currently on 6LPM Hi-flow nasal cannula with oxygen saturation 97%. Able to achieve 1000 mL on his incentive spirometry. Strong cough. Mediastinal chest tube present to continuous wall suction, 90 mL thin serosanguinous drainage overnight, 300 mL in the last 24 hours. Right/left pleural chest tubes present to continuous wall suction, 70 mL thin serosanguinous drainage overnight, 200 mL in the last 24 hours. No air leaks present. - Cardiovascular Details: S1/S2 present. Regular rate and rhythm on telemetry. Sternum stable. A/V epicardial wires present, grounded. Palpable peripheral pulses bilaterally, no edema present. Right internal jugular swan/cordis, right radial arterial line present. Last CO/CI 5.3/2.8 on 2.5 mcg/kg/min of Primacor. Heart hugger in pl [place] with patient demonstrating appropriate use. Antiembolism stockings, SCDs presnt. - Gastrointestinal Gastrointestinal Comment(s): Abdomen soft, non-tender, non-distended. Active bowel sounds x 4 quadrants. Tolerating liquids. Positive flatus, negative BM - Genitourinary Genitourinary Comment(s): Salazar present draining clear yellow urine. Output overnight 100-150 mL/hr. - Integumentary Integumentary Comment(s): Skin is warm and dry with evidence of good perfusion. Anterior chest incision well approximated and covered with dry intact dressing. Left lower extremity EVH site well approximated - Neurologic Neurologic: Present: CNII-XII intact - Musculoskeletal Musculoskeletal: Present: gait normal, strength equal bilaterally - Psychiatric Psychiatric: Present: A&O x's 3, appropriate affect, intact judgment & insight - Allied health notes Allied health notes reviewed: nursing - Labs CBC & Chem 7: 01/07/20 04:00 01/07/20 04:00 Labs: Abnormal Lab Results - Last 24 Hours (Table) 01/03/20 01/06/20 01/06/20 Range/Units 07:40 08:20 09:01 RBC (4.30-5.90) m/uL Hgb (13.0-17.5) gm/dL Hct (39.0-53.0) % RDW (11.5-15.5) % Plt Count (150-450) k/uL Lymphocytes # (1.0-4.8) k/uL ABG pCO2 (35-45) mmHg ABG pO2 (83-108) mmHg ABG O2 Saturation (94-97) % Sodium (137-145) mmol/L Glucose (74-99) mg/dL POC Glucose (mg/dL) 157 H 186 H (75-99) mg/dL Calcium (8.4-10.2) mg/dL Total Protein (6.3-8.2) g/dL Albumin (3.5-5.0) g/dL Crossmatch See Detail 01/06/20 01/06/20 01/06/20 Range/Units 10:00 10:04 10:52 RBC (4.30-5.90) m/uL Hgb (13.0-17.5) gm/dL Hct (39.0-53.0) % RDW (11.5-15.5) % Plt Count (150-450) k/uL Lymphocytes # (1.0-4.8) k/uL ABG pCO2 33 L (35-45) mmHg ABG pO2 82 L (83-108) mmHg ABG O2 Saturation (94-97) % Sodium (137-145) mmol/L Glucose (74-99) mg/dL POC Glucose (mg/dL) 146 H 119 H (75-99) mg/dL Calcium (8.4-10.2) mg/dL Total Protein (6.3-8.2) g/dL Albumin (3.5-5.0) g/dL Crossmatch 01/06/20 01/06/20 01/06/20 Range/Units 11:37 11:40 14:08 RBC (4.30-5.90) m/uL Hgb (13.0-17.5) gm/dL Hct (39.0-53.0) % RDW (11.5-15.5) % Plt Count (150-450) k/uL Lymphocytes # (1.0-4.8) k/uL ABG pCO2 34 L (35-45) mmHg ABG pO2 (83-108) mmHg ABG O2 Saturation 98.5 H (94-97) % Sodium (137-145) mmol/L Glucose (74-99) mg/dL POC Glucose (mg/dL) 109 H 125 H (75-99) mg/dL Calcium (8.4-10.2) mg/dL Total Protein (6.3-8.2) g/dL Albumin (3.5-5.0) g/dL Crossmatch 01/06/20 01/06/20 01/06/20 Range/Units 14:59 16:01 17:04 RBC (4.30-5.90) m/uL Hgb (13.0-17.5) gm/dL Hct (39.0-53.0) % RDW (11.5-15.5) % Plt Count (150-450) k/uL Lymphocytes # (1.0-4.8) k/uL ABG pCO2 (35-45) mmHg ABG pO2 (83-108) mmHg ABG O2 Saturation (94-97) % Sodium (137-145) mmol/L Glucose (74-99) mg/dL POC Glucose (mg/dL) 135 H 117 H 107 H (75-99) mg/dL Calcium (8.4-10.2) mg/dL Total Protein (6.3-8.2) g/dL Albumin (3.5-5.0) g/dL Crossmatch 01/06/20 01/06/20 01/06/20 Range/Units 18:18 19:06 21:44 RBC (4.30-5.90) m/uL Hgb (13.0-17.5) gm/dL Hct (39.0-53.0) % RDW (11.5-15.5) % Plt Count (150-450) k/uL Lymphocytes # (1.0-4.8) k/uL ABG pCO2 (35-45) mmHg ABG pO2 (83-108) mmHg ABG O2 Saturation (94-97) % Sodium (137-145) mmol/L Glucose (74-99) mg/dL POC Glucose (mg/dL) 111 H 111 H 114 H (75-99) mg/dL Calcium (8.4-10.2) mg/dL Total Protein (6.3-8.2) g/dL Albumin (3.5-5.0) g/dL Crossmatch 01/06/20 01/07/20 01/07/20 Range/Units 22:54 00:03 00:54 RBC (4.30-5.90) m/uL Hgb (13.0-17.5) gm/dL Hct (39.0-53.0) % RDW (11.5-15.5) % Plt Count (150-450) k/uL Lymphocytes # (1.0-4.8) k/uL ABG pCO2 (35-45) mmHg ABG pO2 (83-108) mmHg ABG O2 Saturation (94-97) % Sodium (137-145) mmol/L Glucose (74-99) mg/dL POC Glucose (mg/dL) 117 H 134 H 123 H (75-99) mg/dL Calcium (8.4-10.2) mg/dL Total Protein (6.3-8.2) g/dL Albumin (3.5-5.0) g/dL Crossmatch 01/07/20 01/07/20 01/07/20 Range/Units 02:05 04:00 04:00 RBC 2.93 L (4.30-5.90) m/uL Hgb 8.2 L (13.0-17.5) gm/dL Hct 25.3 L (39.0-53.0) % RDW 17.4 H (11.5-15.5) % Plt Count 109 L (150-450) k/uL Lymphocytes # 0.9 L (1.0-4.8) k/uL ABG pCO2 (35-45) mmHg ABG pO2 (83-108) mmHg ABG O2 Saturation (94-97) % Sodium 134 L (137-145) mmol/L Glucose 121 H (74-99) mg/dL POC Glucose (mg/dL) 124 H (75-99) mg/dL Calcium 8.0 L (8.4-10.2) mg/dL Total Protein 4.3 L (6.3-8.2) g/dL Albumin 2.5 L (3.5-5.0) g/dL Crossmatch 01/07/20 01/07/20 Range/Units 04:00 06:43 RBC (4.30-5.90) m/uL Hgb (13.0-17.5) gm/dL Hct (39.0-53.0) % RDW (11.5-15.5) % Plt Count (150-450) k/uL Lymphocytes # (1.0-4.8) k/uL ABG pCO2 (35-45) mmHg ABG pO2 (83-108) mmHg ABG O2 Saturation (94-97) % Sodium (137-145) mmol/L Glucose (74-99) mg/dL POC Glucose (mg/dL) 129 H 156 H (75-99) mg/dL Calcium (8.4-10.2) mg/dL Total Protein (6.3-8.2) g/dL Albumin (3.5-5.0) g/dL Crossmatch - Imaging and Cardiology Chest x-ray: report reviewed, image reviewed Assessment and Plan Assessment: 1. Multivessel coronary artery disease, non-STEMI this admission, S/P 3V CABG 2. History of coronary artery disease status post stent placement to the LAD and RCA in 1998 3. History of hypertension 4. History of hyperlipidemia 5. Diabetes mellitus type 2 with preoperative hemoglobin A1c 6.7% 6. Daily EtOH use 7. 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 History of lung cancer, status post left upper lobectomy in 2012 followed by chemotherapy 9. History of squamous cell and basal cell skin cancer 10. Family history of early onset coronary artery disease 11. Preoperative nasal swab positive for MSSA 12. Postoperative acute blood loss anemia 13. Postoperative hypotension 14. Postoperative prolonged mechanical ventilation Plan: 1. Continue aspirin, statin, Plavix, beta junior therapy. Will increase beta junior as tolerated 2. Will wean Primacor as tolerated. Will discontinue swan, cordis once Primacor DC'd 3. Wean oxygen as tolerated. Bronchodilators per pulmonology 4. Increase activity, ambulate as tolerated. PT/OT/cardiac rehab following 5. Will monitor daily labs, x-rays. Electrolyte replacement per protocol. 6. Pain control with current medication regimen. Will add Toradol 7. Insulin management per primary care 8. Will DC atrial epicardial wire, mediastinal and left pleural chest tubes. Keep V wires, right pleural chest tube 9. DC salaazr. May bladder scan and straight cath for >300 cc residual 10. Continue CIWA protocol 11. More recommendations to follow Time with Patient: Greater than 30
[2020-01-07 09:18] LABS: Glucose,Whole Blood 195 mg/dL (75-99)
[2020-01-07 10:13] LABS: Glucose,Whole Blood 171 mg/dL (75-99)
[2020-01-07 10:27] VITALS: BMI 27.7
--- NOTE | 2020-01-07 11:00 | P.PN ---
Subjective Progress Note Date: 01/07/20 Pt awake and alert today. No immediate complaints. Reports feeling very happy to have breathing tube removed. Spoke with CT Sx, and plan is to remove A pacing wire, leave V pacing wire. Will also remove mediastinal and L chest tube, will leave right chest tube. Objective - Vital Signs Vital signs: Vital Signs Temp 37.1 F L 01/07/20 08:00 Pulse 93 01/07/20 10:00 Resp 19 01/07/20 10:00 BP 110/63 01/07/20 10:00 Pulse Ox 98 01/07/20 10:00 Intake & Output 01/06/20 01/07/20 01/07/20 18:59 06:59 18:59 Intake Total 2031.697 1218.229 336.228 Output Total 1112 1635 160 Balance 919.697 -416.771 176.228 Weight 87.6 kg 87.6 kg Intake: IV 898 1127 154 Lactated Ringers 1,000 ml 540 390 110 @ 20 mls/hr IV .Q24H [facility] Rx#:[id number] Magnesium Sulfate-D5w Pmx 200 1 gm In Dextrose/Water 1 100ml.bag @ 100 mls/hr IVPB Q1H [facility] Rx#: [id number] Potassium Chloride 10 meq 200 In Water For Injection 1 100ml.bag @ 100 mls/hr IVPB Q1H [facility] Rx#: [id number] cardiac output 250 120 20 ceFAZolin 2 gm In Sodium 100 Chloride 0.9% 50 ml @ 100 mls/hr IVPB Q8HR [facility]ANK Rx# :[id number] pressure bags 108 117 24 Intake, IV Titration 563.697 91.229 62.228 Amount EPINEPHrine 4 mg In 42.600 Dextrose 5% in Water 250 ml @ 0.14 MCG/KG/MIN 44. 73 mls/hr IV .Q5H36M [facility]ANK Rx#:[id number] Insulin Regular 100 unit 60.842 30.805 14.35 In Sodium Chloride 0.9% 100 ml @ Per Protocol IV .Q0M FRANK Rx#:[id number] Magnesium Sulfate-D5w Pmx 200 1 gm In Dextrose/Water 1 100ml.bag @ 100 mls/hr IVPB Q1H [facility] Rx#: [id number] Milrinone-D5w Pmx 20 mg 100 60.424 47.878 In Dextrose/Water 1 100ml .bag @ Per Protocol IV . Q0M FRANK Rx#:[id number] Norepinephrine 4 mg In 64.490 Sodium Chloride 0.9% 250 ml @ 0.03 MCG/KG/MIN 9. 738 mls/hr IV .Q24H FRANK Rx#:[id number] propofoL 1,000 mg In 95.765 Empty Bag 1 bag @ Titrate IV .Q0M FRANK Rx#: [id number] Oral 50 120 Tube Feeding 180 Blood Product 310 Rc As-1 Unit 310 [id number] Other 30 Output: Chest Tube Drainage 220 330 10 left and right pleural 70 170 10 mediastinal x2 150 160 Urine 892 1305 150 Other: Voiding Method Indwelling Catheter Indwelling Catheter ABP, PAP, CO, CI - Last Documented Arterial Blood Pressure 106/42 Pulmonary Artery Pressure 38/17 Cardiac Output 5.1 Cardiac Index 2.7 - Exam Gen: intubated/responsive to voice HEENT: normocephalic, atraumatic, moist mucous membranes : no SPT, no CVAT, salazar catheter is present MSK: no pitting edema, no clubbing Lines: 3 x chest tubes (1 mediastinal), RIJ, Salazar, Pacing wire - Labs CBC & Chem 7: 01/07/20 04:00 01/07/20 04:00 Labs: Abnormal Lab Results - Last 24 Hours (Table) 01/03/20 01/06/20 01/06/20 Range/Units 07:40 11:37 11:40 RBC (4.30-5.90) m/uL Hgb (13.0-17.5) gm/dL Hct (39.0-53.0) % RDW (11.5-15.5) % Plt Count (150-450) k/uL Lymphocytes # (1.0-4.8) k/uL ABG pCO2 34 L (35-45) mmHg ABG O2 Saturation 98.5 H (94-97) % Sodium (137-145) mmol/L Glucose (74-99) mg/dL POC Glucose (mg/dL) 109 H (75-99) mg/dL Calcium (8.4-10.2) mg/dL Total Protein (6.3-8.2) g/dL Albumin (3.5-5.0) g/dL Crossmatch See Detail 01/06/20 01/06/20 01/06/20 Range/Units 14:08 14:59 16:01 RBC (4.30-5.90) m/uL Hgb (13.0-17.5) gm/dL Hct (39.0-53.0) % RDW (11.5-15.5) % Plt Count (150-450) k/uL Lymphocytes # (1.0-4.8) k/uL ABG pCO2 (35-45) mmHg ABG O2 Saturation (94-97) % Sodium (137-145) mmol/L Glucose (74-99) mg/dL POC Glucose (mg/dL) 125 H 135 H 117 H (75-99) mg/dL Calcium (8.4-10.2) mg/dL Total Protein (6.3-8.2) g/dL Albumin (3.5-5.0) g/dL Crossmatch 01/06/20 01/06/20 01/06/20 Range/Units 17:04 18:18 19:06 RBC (4.30-5.90) m/uL Hgb (13.0-17.5) gm/dL Hct (39.0-53.0) % RDW (11.5-15.5) % Plt Count (150-450) k/uL Lymphocytes # (1.0-4.8) k/uL ABG pCO2 (35-45) mmHg ABG O2 Saturation (94-97) % Sodium (137-145) mmol/L Glucose (74-99) mg/dL POC Glucose (mg/dL) 107 H 111 H 111 H (75-99) mg/dL Calcium (8.4-10.2) mg/dL Total Protein (6.3-8.2) g/dL Albumin (3.5-5.0) g/dL Crossmatch 01/06/20 01/06/20 01/07/20 Range/Units 21:44 22:54 00:03 RBC (4.30-5.90) m/uL Hgb (13.0-17.5) gm/dL Hct (39.0-53.0) % RDW (11.5-15.5) % Plt Count (150-450) k/uL Lymphocytes # (1.0-4.8) k/uL ABG pCO2 (35-45) mmHg ABG O2 Saturation (94-97) % Sodium (137-145) mmol/L Glucose (74-99) mg/dL POC Glucose (mg/dL) 114 H 117 H 134 H (75-99) mg/dL Calcium (8.4-10.2) mg/dL Total Protein (6.3-8.2) g/dL Albumin (3.5-5.0) g/dL Crossmatch 01/07/20 01/07/20 01/07/20 Range/Units 00:54 02:05 04:00 RBC 2.93 L (4.30-5.90) m/uL Hgb 8.2 L (13.0-17.5) gm/dL Hct 25.3 L (39.0-53.0) % RDW 17.4 H (11.5-15.5) % Plt Count 109 L (150-450) k/uL Lymphocytes # 0.9 L (1.0-4.8) k/uL ABG pCO2 (35-45) mmHg ABG O2 Saturation (94-97) % Sodium (137-145) mmol/L Glucose (74-99) mg/dL POC Glucose (mg/dL) 123 H 124 H (75-99) mg/dL Calcium (8.4-10.2) mg/dL Total Protein (6.3-8.2) g/dL Albumin (3.5-5.0) g/dL Crossmatch 01/07/20 01/07/20 01/07/20 Range/Units 04:00 04:00 06:43 RBC (4.30-5.90) m/uL Hgb (13.0-17.5) gm/dL Hct (39.0-53.0) % RDW (11.5-15.5) % Plt Count (150-450) k/uL Lymphocytes # (1.0-4.8) k/uL ABG pCO2 (35-45) mmHg ABG O2 Saturation (94-97) % Sodium 134 L (137-145) mmol/L Glucose 121 H (74-99) mg/dL POC Glucose (mg/dL) 129 H 156 H (75-99) mg/dL Calcium 8.0 L (8.4-10.2) mg/dL Total Protein 4.3 L (6.3-8.2) g/dL Albumin 2.5 L (3.5-5.0) g/dL Crossmatch 01/07/20 01/07/20 01/07/20 Range/Units 08:22 09:17 10:12 RBC (4.30-5.90) m/uL Hgb (13.0-17.5) gm/dL Hct (39.0-53.0) % RDW (11.5-15.5) % Plt Count (150-450) k/uL Lymphocytes # (1.0-4.8) k/uL ABG pCO2 (35-45) mmHg ABG O2 Saturation (94-97) % Sodium (137-145) mmol/L Glucose (74-99) mg/dL POC Glucose (mg/dL) 162 H 195 H 171 H (75-99) mg/dL Calcium (8.4-10.2) mg/dL Total Protein (6.3-8.2) g/dL Albumin (3.5-5.0) g/dL Crossmatch Assessment and Plan Assessment: Acute hypoxic respiratory failure Acute blood loss anemia Hypotension Severe CAD with non-ST elevation Diabetes mellitus Hypertension Dyslipidemia COPD Currently extubated, awake, alert. Daily ABG. Repeat chest x-ray tomorrow morning. Full ventilator support. Pulmonary consult for ongoing intensive care needs. Hemoglobin 7.7. INR 1.3. Repeat CBC tomorrow daily Continue norepi/epinephrine drip. Continue milrinone drip. Maintain MAP greater than 65. Gtts will be weaned as tolerated, likely to be off of milrinone shortly Cardiac cath shows multivessel disease. POD 3 CABG triple-vessel bypass. Continue aspirin and Lipitor. Continue beta junior. Telemetry monitoring. Cardiology and Cardiothoracic surgery on board. [id number] glucose 177. Insulin sliding scale. Regular Accu-Cheks. Hypoglycemic precautions. Continue Coreg. Monitor vitals, adjust medications if necessary. Continue Lipitor. DuoNeb as needed for shortness of breath or wheezing Plans to remove mediastinal, L chest tube, A pacing wire. Leaving R chest tube, V pacing wire.
[2020-01-07 11:44] LABS: Glucose,Whole Blood 164 mg/dL (75-99)
--- NOTE | 2020-01-07 11:48 | P.PN ---
Subjective Progress Note Date: 01/07/20 Principal diagnosis: Status post CABG HISTORY OF PRESENTING ILLNESS This is a pleasant 79-year-old male past medical history significant for multivessel coronary artery disease, NSTEMI, prior PCI of his LAD and RCA in 1998, hypertension, hyperlipidemia, diabetes mellitus type 2, alcohol use, previous tobacco dependence, lung cancer status post lobectomy in 2012 who underwent coronary artery bypass grafting with a PIÑA to LAD and SVG to OM and acute marginal. He additionally had a left atrial appendage clip and an intra aortic balloon pump was placed secondary to hypotension. The balloon pump has since been removed. 01/07/2020 Today patient states is doing well. His unit breakfast. He denies any chest pain or pressure. Denies any cough or shortness breath. DIAGNOSTICS Chest xray chest x-ray from 01/06 shows interstitial changes concerning for mild interstitial edema and moderate left effusion with atelectasis. Laboratory reviewed, white blood cell count 9.5, hemoglobin 8.2, platelets 109, creatinine 0.88. Current cardiac medications include []. REVIEW OF SYSTEMS At the time of my exam: CONSTITUTIONAL: Denies fever or chills. CARDIOVASCULAR: Denies chest pain, shortness of breath, orthopnea, PND or palpitations. RESPIRATORY: Denies cough. GASTROINTESTINAL: Denies abdominal pain, diarrhea, constipation, nausea or vomiting. MUSCULOSKELETAL: Denies myalgias. NEUROLOGIC: Denies numbness, tingling or weakness. ENDOCRINE: Denies fatigue, weight change, polydipsia or polyurina. GENITOURINARY: Denies burning, hematuria or urgency with micturation. HEMATOLOGIC: Denies history of anemia or bleeding. PHYSICAL EXAMINATION Blood pressure 110/63 heart rate 93 afebrile and maintaining oxygen saturation on 2 L nasal cannula. CONSTITUTIONAL: No apparent distress. HEENT: Head is normocephalic. Pupils are equal, round. Sclerae anicteric. Mucous membranes of the mouth are moist. No JVD. No carotid bruit. CHEST EXAMINATION: Lungs are clear to auscultation. No chest wall tenderness is noted on palpation or with deep breathing. HEART EXAMINATION: Regular rate and rhythm. S1, S2 heard. No murmurs, gallops or rub. ABDOMEN: Soft, nontender. Positive bowel sounds. EXTREMITIES: 2+ peripheral pulses, no lower extremity edema and no calf tenderness. NEUROLOGIC EXAMINATION: Patient is awake, alert and oriented x3. ASSESSMENT 1. Multivessel coronary artery disease with non-STEMI, status post 3 vessel CABG 2. History of coronary artery disease with prior PCI of LAD and RCA the past 3. History of hypertension 4. Hyperlipidemia 5. Diabetes mellitus type 2 6. Postoperative blood loss anemia 7. History of lung cancer status post lobectomy PLAN Continue aspirin and Plavix for recent non-STEMI. Continue Lopressor 25 mg 3 times a day. Continue Lipitor 40 mg daily. Patient appears to be healing well and will continue to monitor. Optimize medical therapy as able. Objective - Vital Signs Vital signs: Vital Signs Temp 37.1 F L 01/07/20 08:00 Pulse 88 01/07/20 11:30 Resp 19 01/07/20 11:00 BP 100/59 01/07/20 11:00 Pulse Ox 98 01/07/20 11:00 Intake & Output 01/06/20 01/07/20 01/07/20 18:59 06:59 18:59 Intake Total 2031.697 1218.229 385.228 Output Total 1112 1635 210 Balance 919.697 -416.771 175.228 Weight 87.6 kg 87.6 kg Intake: IV 898 1127 203 Lactated Ringers 1,000 ml 540 390 130 @ 20 mls/hr IV .Q24H [facility] Rx#:[id number] Magnesium Sulfate-D5w Pmx 200 1 gm In Dextrose/Water 1 100ml.bag @ 100 mls/hr IVPB Q1H [facility] Rx#: [id number] Potassium Chloride 10 meq 200 In Water For Injection 1 100ml.bag @ 100 mls/hr IVPB Q1H [facility] Rx#: [id number] cardiac output 250 120 40 ceFAZolin 2 gm In Sodium 100 Chloride 0.9% 50 ml @ 100 mls/hr IVPB Q8HR [facility] Rx# :[id number] pressure bags 108 117 33 Intake, IV Titration 563.697 91.229 62.228 Amount EPINEPHrine 4 mg In 42.600 Dextrose 5% in Water 250 ml @ 0.14 MCG/KG/MIN 44. 73 mls/hr IV .Q5H36M [facility] Rx#:[id number] Insulin Regular 100 unit 60.842 30.805 14.35 In Sodium Chloride 0.9% 100 ml @ Per Protocol IV .Q0M [facility] Rx#:[id number] Magnesium Sulfate-D5w Pmx 200 1 gm In Dextrose/Water 1 100ml.bag @ 100 mls/hr IVPB Q1H [facility] Rx#: [id number] Milrinone-D5w Pmx 20 mg 100 60.424 47.878 In Dextrose/Water 1 100ml .bag @ Per Protocol IV . Q0M [facility] Rx#:[id number] Norepinephrine 4 mg In 64.490 Sodium Chloride 0.9% 250 ml @ 0.03 MCG/KG/MIN 9. 738 mls/hr IV .Q24H [facility] Rx#:[id number] propofoL 1,000 mg In 95.765 Empty Bag 1 bag @ Titrate IV .Q0M [facility] Rx#: [id number] Oral 50 120 Tube Feeding 180 Blood Product 310 Rc As-1 Unit 310 [id number] Other 30 Output: Chest Tube Drainage 220 330 30 left and right pleural 70 170 10 mediastinal x2 150 160 20 Urine 892 1305 180 Other: Voiding Method Indwelling Catheter Indwelling Catheter ABP, PAP, CO, CI - Last Documented Arterial Blood Pressure 143/51 Pulmonary Artery Pressure 48/14 Cardiac Output 4.2 Cardiac Index 2.2 - Labs CBC & Chem 7: 01/07/20 04:00 01/07/20 04:00 Labs: Abnormal Lab Results - Last 24 Hours (Table) 01/03/20 01/06/20 01/06/20 Range/Units 07:40 11:37 11:40 RBC (4.30-5.90) m/uL Hgb (13.0-17.5) gm/dL Hct (39.0-53.0) % RDW (11.5-15.5) % Plt Count (150-450) k/uL Lymphocytes # (1.0-4.8) k/uL ABG pCO2 34 L (35-45) mmHg ABG O2 Saturation 98.5 H (94-97) % Sodium (137-145) mmol/L Glucose (74-99) mg/dL POC Glucose (mg/dL) 109 H (75-99) mg/dL Calcium (8.4-10.2) mg/dL Total Protein (6.3-8.2) g/dL Albumin (3.5-5.0) g/dL Crossmatch See Detail 01/06/20 01/06/20 01/06/20 Range/Units 14:08 14:59 16:01 RBC (4.30-5.90) m/uL Hgb (13.0-17.5) gm/dL Hct (39.0-53.0) % RDW (11.5-15.5) % Plt Count (150-450) k/uL Lymphocytes # (1.0-4.8) k/uL ABG pCO2 (35-45) mmHg ABG O2 Saturation (94-97) % Sodium (137-145) mmol/L Glucose (74-99) mg/dL POC Glucose (mg/dL) 125 H 135 H 117 H (75-99) mg/dL Calcium (8.4-10.2) mg/dL Total Protein (6.3-8.2) g/dL Albumin (3.5-5.0) g/dL Crossmatch 01/06/20 01/06/20 01/06/20 Range/Units 17:04 18:18 19:06 RBC (4.30-5.90) m/uL Hgb (13.0-17.5) gm/dL Hct (39.0-53.0) % RDW (11.5-15.5) % Plt Count (150-450) k/uL Lymphocytes # (1.0-4.8) k/uL ABG pCO2 (35-45) mmHg ABG O2 Saturation (94-97) % Sodium (137-145) mmol/L Glucose (74-99) mg/dL POC Glucose (mg/dL) 107 H 111 H 111 H (75-99) mg/dL Calcium (8.4-10.2) mg/dL Total Protein (6.3-8.2) g/dL Albumin (3.5-5.0) g/dL Crossmatch 01/06/20 01/06/20 01/07/20 Range/Units 21:44 22:54 00:03 RBC (4.30-5.90) m/uL Hgb (13.0-17.5) gm/dL Hct (39.0-53.0) % RDW (11.5-15.5) % Plt Count (150-450) k/uL Lymphocytes # (1.0-4.8) k/uL ABG pCO2 (35-45) mmHg ABG O2 Saturation (94-97) % Sodium (137-145) mmol/L Glucose (74-99) mg/dL POC Glucose (mg/dL) 114 H 117 H 134 H (75-99) mg/dL Calcium (8.4-10.2) mg/dL Total Protein (6.3-8.2) g/dL Albumin (3.5-5.0) g/dL Crossmatch 01/07/20 01/07/20 01/07/20 Range/Units 00:54 02:05 04:00 RBC 2.93 L (4.30-5.90) m/uL Hgb 8.2 L (13.0-17.5) gm/dL Hct 25.3 L (39.0-53.0) % RDW 17.4 H (11.5-15.5) % Plt Count 109 L (150-450) k/uL Lymphocytes # 0.9 L (1.0-4.8) k/uL ABG pCO2 (35-45) mmHg ABG O2 Saturation (94-97) % Sodium (137-145) mmol/L Glucose (74-99) mg/dL POC Glucose (mg/dL) 123 H 124 H (75-99) mg/dL Calcium (8.4-10.2) mg/dL Total Protein (6.3-8.2) g/dL Albumin (3.5-5.0) g/dL Crossmatch 01/07/20 01/07/20 01/07/20 Range/Units 04:00 04:00 06:43 RBC (4.30-5.90) m/uL Hgb (13.0-17.5) gm/dL Hct (39.0-53.0) % RDW (11.5-15.5) % Plt Count (150-450) k/uL Lymphocytes # (1.0-4.8) k/uL ABG pCO2 (35-45) mmHg ABG O2 Saturation (94-97) % Sodium 134 L (137-145) mmol/L Glucose 121 H (74-99) mg/dL POC Glucose (mg/dL) 129 H 156 H (75-99) mg/dL Calcium 8.0 L (8.4-10.2) mg/dL Total Protein 4.3 L (6.3-8.2) g/dL Albumin 2.5 L (3.5-5.0) g/dL Crossmatch 01/07/20 01/07/20 01/07/20 Range/Units 08:22 09:17 10:12 RBC (4.30-5.90) m/uL Hgb (13.0-17.5) gm/dL Hct (39.0-53.0) % RDW (11.5-15.5) % Plt Count (150-450) k/uL Lymphocytes # (1.0-4.8) k/uL ABG pCO2 (35-45) mmHg ABG O2 Saturation (94-97) % Sodium (137-145) mmol/L Glucose (74-99) mg/dL POC Glucose (mg/dL) 162 H 195 H 171 H (75-99) mg/dL Calcium (8.4-10.2) mg/dL Total Protein (6.3-8.2) g/dL Albumin (3.5-5.0) g/dL Crossmatch
[2020-01-07] MEDS: INSULIN ASPART (NovoLOG) 100 UNIT/ML VIAL SQ SCH ×3 (12:26→20:59)
--- NOTE | 2020-01-07 12:31 | PN ---
PROGRESS NOTE PULMONARY/CRITICAL CARE PROGRESS NOTE: DATE OF SERVICE: 01/07/2020 This is a 79-year-old male who is status post 3-vessel bypass grafting. He is postop day #3. The patient was admitted on December 31. He had a three-vessel bypass grafting done and it was done on January 03. He was extubated on January 05. He is currently on 5 L nasal cannula. He is receiving lactated Ringer's at a 40 cc now, Primacor 0.1 mcg/kg/minute and insulin 5.5 units an hours. Other than that, he is doing relatively well. He is sitting up in a chair. We encourage him to deep breathe, cough and clear his secretions. We also encouraged hourly use of the incentive spirometer. From the pulmonary standpoint, he states he is doing well. PHYSICAL EXAMINATION: VITAL SIGNS: Current vital signs are reviewed. Temperature 37.1, heart rate 93, respiratory rate 19, blood pressure 110/63, mean 78, blood pressure 106/42. Pulmonary artery pressure is 38/17. Central venous pressure is 3. Saturations 98% on 5 L. GENERAL: Appears in no acute distress. Certainly no respiratory distress. No audible wheezing, use of accessory muscles or conversational dyspnea. HEENT: Examination is grossly unremarkable. NECK: Supple with full range of motion. No adenopathy. Neck veins are flat. CARDIOVASCULAR: Examination reveals regular rhythm and rate. Heart rate about 90 beats per minute. S1, S2 normal. No murmur. LUNGS: Relatively clear. A few scattered mild rhonchi. No wheezes or crackles. ABDOMEN: Soft. Bowel sounds are heard. EXTREMITIES: Intact. No cyanosis, clubbing, or edema. SKIN: Without rash. NEUROLOGIC: Examination is brief but nonfocal. LABS: Reviewed. White count 9.5, hemoglobin 8.2, hematocrit 25.3, platelet count 109,000. Sodium 134, potassium 3.8, chloride 106. CO2 22, anion gap is 6. BUN and creatinine were 20 and 0.88 respectively. The rest of the labs look pretty good. Microbiology showing a nasal screen which is positive for Staph aureus, but not methicillin-resistant Staph. IMAGING: A chest x-ray from this morning shows some mild interstitial edema. There is a small left-sided pleural effusions and some consolidation at the bases. CURRENT MEDICATIONS: Reviewed. The patient is on the above medications that I did mention as well as aspirin, Lipitor, benzocaine topical, Dulcolax, Plavix, Lasix, heparin, [place], insulin, DuoNeb, Toradol, Ativan p.r.n., magnesium replacement, Reglan, metoprolol, Bactroban ointment to the nasal passages, Zofran, Protonix, phosphorus and potassium replacement, Colace, and thiamine. ASSESSMENT: 1. Status post 3-vessel bypass grafting, postop day #3. 2. Routine postoperative ventilator management with extubation on January 05. 3. Type 2 diabetes mellitus. 4. History of daily alcohol use. 5. History of lung cancer/adenocarcinoma, stage IIB, the previous left upper lobectomy in 2012. 6. Postoperative hypotension, resolved. 7. Status post intra-aortic balloon placement, removed. PLAN: Currently, the patient is doing well. He remains on Primacor 0.1 mcg/kg/ minute and insulin drip of 5.5 units an hour. He is getting O2 of 5 L by nasal cannula. That can be titrated down. Continue IV DVT prophylaxis. Continue bronchodilators. Medications are reviewed. Everything else looks good. We will continue to follow. Prognosis is guarded. MMODL / IJN: [id number] /
[2020-01-07] MEDS ORDERED: ALBUMIN HUMAN 5% 500 ML in EMPTY BAG 1 BAG IVPB ONE (14:34)
[2020-01-07] MEDS ORDERED: ALBUMIN HUMAN 5% 250 ML IVPB ONE ×2 (14:42)
[2020-01-07] MEDS ORDERED: METOPROLOL TARTRATE 25 MG TAB PO SCH (16:00)
[2020-01-07] MEDS: ALBUMIN HUMAN 5% 250 ML in EMPTY BAG 1 BAG IVPB PRN (16:17)
[2020-01-07 17:07] LABS: Glucose,Whole Blood 161 mg/dL (75-99)
[2020-01-07] MEDS: SENNOSIDES-DOCUSATE SODIUM 1 EACH TAB PO SCH (20:03)
[2020-01-07] MEDS: MAGNESIUM OXIDE 400 MG TAB PO SCH (20:04)
[2020-01-07 20:55] LABS: Glucose,Whole Blood 201 mg/dL (75-99)
[2020-01-07] MEDS: HYDROcodone/APAP 5-325MG 1 EACH TAB PO PRN (21:22)
[2020-01-08] MEDS: HEPARIN SODIUM,PORCINE 5,000 UNIT/ML 1 ML VIAL SQ SCH ×3 (01:33→17:39)
[2020-01-08] MEDS: KETOROLAC 15 MG/ML 1 ML VIAL IVP SCH ×4 (02:16→19:59)
[2020-01-08 05:36] LABS: Anisocytosis Slight; HCT 25.6 % (39.0-53.0); HGB 8.2 gm/dL (13.0-17.5); Hypochromasia Slight; MCH 28.4 pg (25.0-35.0); MCV 88.7 fL (80.0-100.0); Mean Platelet Volume 7.5; Platelet Count 128 k/uL (150-450); RBC 2.88 m/uL (4.30-5.90); RDW 17.2 % (11.5-15.5)
[2020-01-08 05:55] LABS: Calcium 8.4 mg/dL (8.4-10.2); Magnesium 2.1 mg/dL (1.6-2.3); Potassium 4.3 mmol/L (3.5-5.1)
[2020-01-08 06:42] LABS: Glucose,Whole Blood 124 mg/dL (75-99)
[2020-01-08] MEDS: PANTOPRAZOLE 40 MG TABLET PO SCH (06:52)
[2020-01-08] MEDS: THIAMINE 100 MG TAB PO SCH ×2 (06:52→17:42)
[2020-01-08] MEDS: INSULIN ASPART (NovoLOG) 100 UNIT/ML VIAL SQ SCH ×4 (06:53→22:47)
--- NOTE | 2020-01-08 07:05 | XR ---
EXAMINATION TYPE: XR chest 1V portable DATE OF EXAM: 01/08/2020 CLINICAL HISTORY: Postopen cardiac surgery progress study. TECHNIQUE: Single AP portable upright view of the chest is obtained. COMPARISON: Chest x-ray from one day earlier and older studies. FINDINGS: Interval removal of left-sided chest tube, mediastinal drainage catheter, and right kinesiology internship al jugular [place] catheter. Stable right-sided chest tube. Persistent overlying sternal wires and mediastinal clips along with left atrial appendage clip. Backg round chronic parenchymal change with persistent left basilar and more patchy right basilar opacities . Improved interstitial opacities noted. Cardiac silhouette size is stable and upper limits of normal . No new pneumothorax. No new mediastinal shift. IMPRESSION: Interval removal of left-sided chest tube without pneumothorax. Improving interstitial ed nadia on background chronic parenchymal fibrosis bilaterally. Persistent left greater than right bibasi lar atelectasis and/or infiltrate with probable small left pleural effusion are all redemonstrated.
--- NOTE | 2020-01-08 08:03 | PN ---
PROGRESS NOTE PULMONARY/CRITICAL CARE PROGRESS NOTE: DATE OF SERVICE: 01/08/2020 This is a 79-year-old male, status post 3-vessel bypass grafting. He is postop day #4. Currently, on 2 L nasal cannula. Not receiving any IV fluids. He is sitting up in the chair. He looks like he is pretty stable. Yesterday, he was on Primacor. He was also on insulin drip. Both of those have been weaned off. He is doing reasonably well on his incentive spirometer. I encouraged him to take deep breaths, cough and clear secretions. Other than that, according to the nurse, he has had an uneventful night. PHYSICAL EXAMINATION: VITAL SIGNS: Current vital signs are reviewed and they include a temperature 97.7 heart rate 79, respiratory rate 14, blood pressure 135/86, 2 L saturation is 95-96 percent. Appears in no acute distress. HEENT: Examination is grossly unremarkable. Nasal O2 in place. NECK: Supple. Full range of motion. No adenopathy. Neck veins are flat. CARDIOVASCULAR: Examination reveals regular rhythm and rate. Heart rate 80 beats per minute. S1, S2 normal. LUNGS: A few scattered rhonchi. Breath sounds equal. ABDOMEN: Soft. Bowel sounds are heard. EXTREMITIES: Intact. No cyanosis, clubbing, or edema. SKIN: Without rash. NEUROLOGIC: Examination is nonfocal. LABORATORY DATA: CBC shows a white count of 7, hemoglobin 8.2, hematocrit 25.6, platelet count 128,000. Sodium 133, potassium 4.3, chloride 105, CO2 21, anion gap is 7. BUN and creatinine were 32 and 1.24. Microbiology is negative save for a nasal screen which was positive for non MRSA staph. IMAGING: Chest x-ray today shows some postoperative changes. Left chest tube was removed. No pneumothorax. There are some mild interstitial changes. Small effusions bilaterally. Some mild basilar atelectasis. MEDICATIONS: Medications are reviewed. ASSESSMENT: 1. Status post 3-vessel bypass grafting, postop day #4. 2. Routine postoperative ventilator management, with extubation on January 05. 3. Type 2 diabetes mellitus. 4. History of daily alcohol use. 5. History of lung cancer/adenocarcinoma, stage IIB, with previous left upper lobectomy in 2012. 6. Postoperative hypotension, resolved. 7. Status post intra-aortic balloon placement, removed. PLAN: Overall, the patient seems to be doing well. He is postop day #4, status post 3-vessel bypass grafting. The patient is on 2 L nasal cannula. Currently, we encourage him to deep breathe, cough, clear secretions and use the incentive spirometer every 1 hour. Chest x-ray showing typical postoperative changes. Oxygenation is reasonable. Hemodynamics are stable. We will continue to follow. DEISY / INEZ: [id number] /
[2020-01-08] MEDS: ASPIRIN 325 MG TAB PO SCH (08:50)
[2020-01-08] MEDS: MAGNESIUM OXIDE 400 MG TAB PO SCH ×2 (08:51→20:44)
[2020-01-08] MEDS: CLOPIDOGREL 75 MG TAB OG-TUBE SCH (08:51)
[2020-01-08] MEDS: ATORVASTATIN 40 MG TAB PO SCH (08:51)
[2020-01-08] MEDS: METOPROLOL TARTRATE 25 MG TAB PO SCH ×2 (08:52→20:44)
[2020-01-08] MEDS: IPRATROPIUM-ALBUTEROL 3 ML NEB INHALATION SCH ×4 (09:07→20:26)
--- NOTE | 2020-01-08 09:25 | P.PN ---
Subjective Progress Note Date: 01/08/20 Principal diagnosis: Multivessel coronary artery disease, non-ST elevation myocardial infarction this admission. 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 Preoperative nasal swab positive for MSSA. POD #4 coronary artery bypass grafting 3 with off-pump left internal mammary artery to the left anterior descending coronary artery and on pump beating heart saphenous vein graft to the acute marginal and a saphenous vein graft to the obtuse marginal with endarterectomy and patch angioplasty of the obtuse marginal. Also placement of intra-aortic balloon pump and ligation of the left atrial appendage with a 40 mm AtriCure clip and endovascular vein harvest left greater saphenous vein from the thigh to just below the knee. Postoperative acute blood loss anemia, expected given cardiopulmonary bypass and hemodilution. Postoperative hypotension, unexpected Postoperative prolonged mechanical ventilation, unexpected The patient is currently sitting up in the recliner in the intensive care unit in no acute distress. His pain is well controlled with Toradol/Fingal. Denies shortness of breath. Remains in normal sinus rhythm and hemodynamically stable, on no inotropes or pressors. Right pleural chest tube present. No other new concerns. Objective - Vital Signs Vital signs: Vital Signs Temp 97.7 F 01/08/20 04:00 Pulse 92 01/08/20 08:00 Resp 14 01/08/20 08:00 BP 118/61 01/08/20 08:00 Pulse Ox 95 01/08/20 08:00 Intake & Output 01/07/20 01/08/20 01/08/20 18:59 06:59 18:59 Intake Total 1533.228 260 Output Total 368 462 Balance 1165.228 -202 Weight 87.6 kg 87.7 kg Intake: IV 1111 260 Albumin Human 5% 250 ml @ 500 0 mls/hr IVPB .STK-MED ONE Rx#:[id number] Lactated Ringers 1,000 ml 500 260 @ 20 mls/hr IV .Q24H ON LICENSE OF [facility] Rx#:[id number] cardiac output 60 pressure bags 51 Intake, IV Titration 62.228 Amount Insulin Regular 100 unit 14.35 In Sodium Chloride 0.9% 100 ml @ Per Protocol IV .Q0M FRANK Rx#:[id number] Milrinone-D5w Pmx 20 mg 47.878 In Dextrose/Water 1 100ml .bag @ Per Protocol IV . Q0M FRANK Rx#:[id number] Oral 360 Output: Chest Tube Drainage 50 164 left and right pleural 20 164 mediastinal x2 30 Urine 318 298 Other: Voiding Method Indwelling Catheter Indwelling Catheter # Bowel Movements 3 ABP, PAP, CO, CI - Last Documented Arterial Blood Pressure 90/48 Pulmonary Artery Pressure 67/33 Cardiac Output 4 Cardiac Index 2.1 - Constitutional General appearance: Present: cooperative, no acute distress - Respiratory Details: Lung sounds diminished bilaterally. Respiration even, non-labored. Currently on 2L nasal cannula with oxygen saturation 95%. Able to achieve 1250 mL on his incentive spirometry. Strong cough. Right pleural chest tube present to continuous wall suction, 210 mL serosanguinous in the last 24 hours. No air leaks present. - Cardiovascular Details: S1/S2 present. Regular rate and rhythm on telemetry. Sternum stable. V epicardial wires present, grounded. Palpable peripheral pulses bilaterally, no edema present. Heart hugger in place with patient demonstrating appropriate use. Antiembolism stockings, SCDs presnt. - Gastrointestinal Gastrointestinal Comment(s): Abdomen soft, non-tender, non-distended. Active bowel sounds x 4 quadrants. Tolerating liquids. Positive flatus, positive BM - Genitourinary Genitourinary Comment(s): Salazar present draining clear yellow urine. Output overnight 15-25 mL/hr. - Integumentary Integumentary Comment(s): Skin is warm and dry with evidence of good perfusion. Anterior chest incision well approximated and covered with dry intact dressing. Left lower extremity EVH site well approximated - Neurologic Neurologic: Present: CNII-XII intact - Musculoskeletal Musculoskeletal: Present: gait normal, strength equal bilaterally - Psychiatric Psychiatric: Present: A&O x's 3 - Allied health notes Allied health notes reviewed: nursing - Labs CBC & Chem 7: 01/08/20 05:24 01/08/20 05:24 Labs: Abnormal Lab Results - Last 24 Hours (Table) 01/07/20 01/07/20 01/07/20 Range/Units 09:17 10:12 11:43 RBC (4.30-5.90) m/uL Hgb (13.0-17.5) gm/dL Hct (39.0-53.0) % RDW (11.5-15.5) % Plt Count (150-450) k/uL Sodium (137-145) mmol/L Carbon Dioxide (22-30) mmol/L BUN (9-20) mg/dL Glucose (74-99) mg/dL POC Glucose (mg/dL) 195 H 171 H 164 H (75-99) mg/dL 01/07/20 01/07/20 01/08/20 Range/Units 17:04 20:54 05:24 RBC 2.88 L (4.30-5.90) m/uL Hgb 8.2 L (13.0-17.5) gm/dL Hct 25.6 L (39.0-53.0) % RDW 17.2 H (11.5-15.5) % Plt Count 128 L (150-450) k/uL Sodium (137-145) mmol/L Carbon Dioxide (22-30) mmol/L BUN (9-20) mg/dL Glucose (74-99) mg/dL POC Glucose (mg/dL) 161 H 201 H (75-99) mg/dL 01/08/20 01/08/20 Range/Units 05:24 06:41 RBC (4.30-5.90) m/uL Hgb (13.0-17.5) gm/dL Hct (39.0-53.0) % RDW (11.5-15.5) % Plt Count (150-450) k/uL Sodium 133 L (137-145) mmol/L Carbon Dioxide 21 L (22-30) mmol/L BUN 32 H (9-20) mg/dL Glucose 120 H (74-99) mg/dL POC Glucose (mg/dL) 124 H (75-99) mg/dL - Imaging and Cardiology Chest x-ray: report reviewed, image reviewed Assessment and Plan Assessment: 1. Multivessel coronary artery disease, non-STEMI this admission, S/P 3V CABG 2. History of coronary artery disease status post stent placement to the LAD and RCA in 1998 3. History of hypertension 4. History of hyperlipidemia 5. Diabetes mellitus type 2 with preoperative hemoglobin A1c 6.7% 6. Daily EtOH use 7. 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 History of lung cancer, status post left upper lobectomy in 2013 followed by chemotherapy 9. History of squamous cell and basal cell skin cancer 10. Family history of early onset coronary artery disease 11. Preoperative nasal swab positive for MSSA 12. Postoperative acute blood loss anemia 13. Postoperative hypotension 14. Postoperative prolonged mechanical ventilation Plan: 1. Continue aspirin, statin, Plavix, beta junior therapy. Will increase beta junior as tolerated 2. Will change stools softeners to as needed. 3. Wean oxygen as tolerated. Bronchodilators per pulmonology 4. Increase activity, ambulate as tolerated. PT/OT/cardiac rehab following 5. Will monitor daily labs, x-rays. Electrolyte replacement per protocol. 6. Pain control with Toradol and Tylenol. Will DC Fingal with chest tube removal. 7. Insulin management per primary care 8. Will DC ventricular epicardial wire and right pleural chest tube. 9. DC salazar. May bladder scan and straight cath for >300 cc residual 10. Continue CIWA protocol 11. Transfer to stepdown once bed available. 12. Discharge planning in progress. Anticipate DC to home with home care in the next 24-48 hours. 13. More recommendations to follow Time with Patient: Greater than 30
[2020-01-08 11:54] LABS: Glucose,Whole Blood 177 mg/dL (75-99)
[2020-01-08] MEDS: MUPIROCIN 2% OINT 22 GM TUBE NASAL SCH ×2 (12:05→20:47)
--- NOTE | 2020-01-08 12:07 | P.PN ---
Subjective Progress Note Date: 01/08/20 No nwe complaints. Patient is in good spirits and recovering well. Plan to move out of ICU today Objective - Vital Signs Vital signs: Vital Signs Temp 97.7 F 01/08/20 04:00 Pulse 85 01/08/20 11:00 Resp 16 01/08/20 11:00 BP 116/64 01/08/20 11:00 Pulse Ox 96 01/08/20 11:00 Intake & Output 01/07/20 01/08/20 01/08/20 18:59 06:59 18:59 Intake Total 1533.228 260 100 Output Total 368 462 30 Balance 1165.228 -202 70 Weight 87.6 kg 87.7 kg Intake: IV 1111 260 Albumin Human 5% 250 ml @ 500 0 mls/hr IVPB .[facility] Rx#:[id number] Lactated Ringers 1,000 ml 500 260 @ 20 mls/hr IV .Q24H [facility] Rx#:[id number] cardiac output 60 pressure bags 51 Intake, IV Titration 62.228 Amount Insulin Regular 100 unit 14.35 In Sodium Chloride 0.9% 100 ml @ Per Protocol IV .Q0M [facility] Rx#:[id number] Milrinone-D5w Pmx 20 mg 47.878 In Dextrose/Water 1 100ml .bag @ Per Protocol IV . Q0M [facility] Rx#:[id number] Oral 360 100 Output: Chest Tube Drainage 50 164 30 left and right pleural 20 164 30 mediastinal x2 30 Urine 318 298 Other: Voiding Method Indwelling Catheter Indwelling Catheter Bedside Commode # Bowel Movements 3 ABP, PAP, CO, CI - Last Documented Arterial Blood Pressure 90/48 Pulmonary Artery Pressure 67/33 Cardiac Output 4 Cardiac Index 2.1 - Exam Gen: awake, alert HEENT: normocephalic, atraumatic, moist mucous membranes : no SPT, no CVAT, salazar catheter is present MSK: no pitting edema, no clubbing Lines:, RIJ, Salazar - Labs CBC & Chem 7: 01/08/20 05:24 01/08/20 05:24 Labs: Abnormal Lab Results - Last 24 Hours (Table) 01/07/20 01/07/20 01/08/20 Range/Units 17:04 20:54 05:24 RBC 2.88 L (4.30-5.90) m/uL Hgb 8.2 L (13.0-17.5) gm/dL Hct 25.6 L (39.0-53.0) % RDW 17.2 H (11.5-15.5) % Plt Count 128 L (150-450) k/uL Sodium (137-145) mmol/L Carbon Dioxide (22-30) mmol/L BUN (9-20) mg/dL Glucose (74-99) mg/dL POC Glucose (mg/dL) 161 H 201 H (75-99) mg/dL 01/08/20 01/08/20 01/08/20 Range/Units 05:24 06:41 11:52 RBC (4.30-5.90) m/uL Hgb (13.0-17.5) gm/dL Hct (39.0-53.0) % RDW (11.5-15.5) % Plt Count (150-450) k/uL Sodium 133 L (137-145) mmol/L Carbon Dioxide 21 L (22-30) mmol/L BUN 32 H (9-20) mg/dL Glucose 120 H (74-99) mg/dL POC Glucose (mg/dL) 124 H 177 H (75-99) mg/dL Assessment and Plan Assessment: Acute hypoxic respiratory failure Acute blood loss anemia Hypotension Severe CAD with non-ST elevation Diabetes mellitus Hypertension Dyslipidemia COPD Currently extubated, awake, alert. Daily ABG. Repeat chest x-ray tomorrow morning. Pulmonary consult following. Hemoglobin 7.7. INR 1.3. Repeat CBC tomorrow daily norepi/epinephrine drip stopped. milrinone drip stopped. Maintain MAP greater than 65. Cardiac cath shows multivessel disease. POD 3 CABG triple-vessel bypass. Continue aspirin and Lipitor. Continue beta junior. Telemetry monitoring. Cardiology and Cardiothoracic surgery on board. [id number] glucose 177. Insulin sliding scale. Regular Accu-Cheks. Hypoglycemic precautions. Continue Coreg. Monitor vitals, adjust medications if necessary. Continue Lipitor. DuoNeb as needed for shortness of breath or wheezing Plans to remove mediastinal, L chest tube, A pacing wire. Leaving R chest tube, V pacing wire.
--- NOTE | 2020-01-08 12:17 | PN ---
PROGRESS NOTE This is a 79-year-old gentleman that is admitted to the hospital for bypass surgery. The patient underwent surgery on Tuesday. His surgery involved PIÑA to LAD, venous graft to OM and marginal. Required balloon pump support initially. This morning he is feeling much better, stable hemodynamically. Remains in sinus rhythm. PHYSICAL EXAMINATION: On exam vital signs are stable. Chest exam reveals good air entry bilaterally. Heart exam reveals first and second heart sounds. No gallop. Abdomen is soft. Exam of extremities reveals mild edema. Peripheral pulses are felt. LABORATORY DATA: Lab show a hemoglobin of 8.2, potassium is 4.3, BUN is 32, creatinine is 1.2. ASSESSMENT: Coronary artery disease, status post coronary artery bypass grafting. PLAN: The patient is doing much better this morning. He is on Plavix, Lopressor 25 b.i.d., Lipitor 40 daily, aspirin, which he will continue. MMODL / IJN: [id number] /
[2020-01-08 17:25] LABS: Glucose,Whole Blood 169 mg/dL (75-99)
--- NOTE | 2020-01-08 17:49 | CDI ---
Documentation Clarification Form Date: 01/08/2020 05:33:38 PM From: Melany Boss RN, CCDS Admit Date: 01/01/2020 06:21:00 PM Patient Name: Dimas Clayton Visit Number: [id number] ATTENTION: The Clinical Documentation Specialists (CDI) and [facility] Coding Staff appreciate your assistance in clarifying documentation. Please respond to the clarification below the line at the bottom and electronically sign. The CDI & [facility] Coding staff will review the response and follow-up if needed. Please note: Queries are made part of the Legal Health Record. If you have any questions, please contact the author of this message via ITS. Dr. Tam Gama Postoperative hypotension, unexpected requiring IAPB and epinephrine drip have been documented and requires further specificity. Patient history/risk factors: CAD, HTN, NSTEMI, ETOH Clinical Indicators: 01/03 Procedure Note: " Coronary artery bypass grafting 3 with off-pump PIÑA to LAD and on pump beating heart saphenous vein graft to the acute marginal and saphenous vein graft to the obtuse marginal with endarterectomy and patch angioplasty of the acute marginal. Also placement of intra-aortic balloon pump and ligation of left atrial appendage with a 40 mm AtriCure clip and endovascular vein harvest 01/03 1530 Vitals: ABP 75/30, CVP 12, PAP 57/25 Spo2 94% on 100% MV, Hr 88, spo2 94% on 100% MV, Core temp 95.4 01/01 Echo: EF 40-45%, mild concentric LVH Treatment: 01/03 IABP is placed in OR 01/03-01/04 Epi Gtt 01/04-01/05 Levophed Gtt titrate for B/P 01/03-01/06 Primacor Gtt In your professional opinion, can you please further specify post-operative hypotension if known? Cardiogenic Shock (please specify if this is expected, unexpected, or do to co- morbid conditions -specify) Cause Hypovolemic Shock (please specify if this is expected, unexpected, or do to co- morbid conditions -specify) Cause Post-Operative hypotension (please specify cause) Other, please specify Unable to determine (Last Revision: February 2017) This was not postop hypotension but intraoperative. it was cardiogenic shock. [facility]
[2020-01-08] MEDS ORDERED: ALBUMIN HUMAN 5% 250 ML in EMPTY BAG 1 BAG IVPB ONE (18:20)
[2020-01-08] MEDS ORDERED: SENNOSIDES-DOCUSATE SODIUM 1 EACH TAB PO PRN (21:00)
[2020-01-08 22:46] LABS: Glucose,Whole Blood 143 mg/dL (75-99)
[2020-01-09] MEDS: HEPARIN SODIUM,PORCINE 5,000 UNIT/ML 1 ML VIAL SQ SCH ×3 (00:05→17:22)
[2020-01-09 02:26] LABS: Glucose,Whole Blood 183 mg/dL (75-99)
[2020-01-09] MEDS: KETOROLAC 15 MG/ML 1 ML VIAL IVP SCH ×4 (03:30→20:09)
[2020-01-09 05:10] LABS: Calcium 8.1 mg/dL (8.4-10.2)
[2020-01-09 05:11] LABS: Anisocytosis Slight; HCT 24.6 % (39.0-53.0); HGB 7.8 gm/dL (13.0-17.5); Hypochromasia Slight; MCH 28.3 pg (25.0-35.0); MCHC 31.6 g/dL (31.0-37.0); MCV 89.4 fL (80.0-100.0); Mean Platelet Volume 7.4; Platelet Count 163 k/uL (150-450); RBC 2.76 m/uL (4.30-5.90); RDW 17.2 % (11.5-15.5); WBC 7.9 k/uL (3.8-10.6)
[2020-01-09 07:10] LABS: Glucose,Whole Blood 122 mg/dL (75-99)
[2020-01-09] MEDS: THIAMINE 100 MG TAB PO SCH ×2 (07:10→17:22)
[2020-01-09] MEDS: PANTOPRAZOLE 40 MG TABLET PO SCH (07:10)
[2020-01-09] MEDS: INSULIN ASPART (NovoLOG) 100 UNIT/ML VIAL SQ SCH ×4 (07:12→20:55)
[2020-01-09] MEDS: IPRATROPIUM-ALBUTEROL 3 ML NEB INHALATION SCH ×4 (07:39→19:59)
[2020-01-09] MEDS: ASPIRIN 325 MG TAB PO SCH (08:13)
[2020-01-09] MEDS: MAGNESIUM OXIDE 400 MG TAB PO SCH ×2 (08:13→20:12)
[2020-01-09] MEDS: CLOPIDOGREL 75 MG TAB OG-TUBE SCH (08:14)
[2020-01-09] MEDS: ATORVASTATIN 40 MG TAB PO SCH (08:14)
[2020-01-09] MEDS: METOPROLOL TARTRATE 25 MG TAB PO SCH ×2 (08:15→17:22)
[2020-01-09] MEDS: MUPIROCIN 2% OINT 22 GM TUBE NASAL SCH ×2 (08:15→20:12)
--- NOTE | 2020-01-09 08:42 | XR ---
EXAMINATION TYPE: XR chest 2V DATE OF EXAM: 01/09/2020 COMPARISON: 01/08/2020 HISTORY: Shortness of breath TECHNIQUE: Frontal and lateral views of the chest are obtained. FINDINGS: Right-sided chest tube has been removed. No evidence for sizable pneumothorax. Pulmonary venous congestion with small left-sided pleural effusion. Heart size is stable. Mediastinal structures are stable and grossly unremarkable. No evidence for hilar prominence. Degenerative changes dorsal spine. IMPRESSION: 1. Right-sided chest tube has been removed. No evidence for sizable pneumothorax. Pulmonary venous congestion with small left-sided pleural effusion.
--- NOTE | 2020-01-09 09:16 | P.PN ---
Subjective Progress Note Date: 01/09/20 Principal diagnosis: coronary artery disease, exertional dyspnea This is a 79-year-old white male patient with past medical history lung cancer status post left upper lobectomy in 2012 followed by chemotherapy postoperatively, [id number] smoking history, currently in remission, hypertension, hyperlipidemia, previous myocardial infarction in 1998, coronary artery disease with PCI and stenting of the LAD and the circumflex in 1998, daily EtOH use, diabetes mellitus, family history of early onset coronary artery disease. Patient has a PCP in [facility], however patient spends a lot of time in the [facility] in the summer. He has been having symptoms of progressive exertional dyspnea the last couple months and weakness in his bilateral lower extremities. Denied any chest pain, no nausea, vomiting, or diaphoresis, no orthopnea, no peripheral edema, no palpitations. On 01/01/2020 patient presented to the emergency department for evaluation of his shortness of breath. He was transferred from another facility. Patient was noted to have elevated troponins here in the emergency department concerning for nonacute non- ST elevated myocardial infarction. EKG showed normal sinus rhythm with nonspecific ST abnormality. CTA chest showed thickening along the minor fissure which does not appear masslike, some right hilar adenopathy, extensive emphysema, coronary artery disease, no evident pulmonary embolism, small hiatal hernia, interstitial lung disease and cholelithiasis. His troponins were 0.279, 0.282, 0.290, 0.182. Heart catheterization was done yesterday on 01/02/2020 showing severely calcified coronary artery, severe triple-vessel coronary artery disease with chronic occlusion of the right coronary artery and significant disease in LAD and the left circumflex. Patient was referred to CT surgery for consideration for myocardial revascularization. Echocardiogram showed mild concentric LVH, mild to moderate impairment of the LV function with an EF of 40- 45%, septal hypokinesis, no aortic stenosis or regurgitation, mild MR, mild TR, no pulmonary hypertension. Chronic Doppler was negative for evidence of hemodynamically significant stenosis. Bedside spirometry revealed FEV1 of 1.64 L or 55% of predicted, FVC is 2.92 L or 70% of predicted, with FEV1/FVC of 78% of predicted, consistent with moderately severe obstruction. On 01/04/2020 patient seen in follow-up in the postoperative period following three-vessel coronary artery bypass grafting in the intensive care unit, he is sedated, intubated, current vent settings are SIMV with a rate of 12, tidal volume is 500, FiO2 100%, PEEP of 5, the rate was increased to 16. Currently on lactated Ringer's at 50 ML per hour, nitroglycerin at 10 mics per minute, levo fed at 0.02 mics per kilo per minute, nitroglycerin at 5 mics per kilo per minute, Primacor is at 0.375 mics per kilo per minute, and epinephrine at 0.3 mics per kilo per minute, during the surgery patient had to be placed on IABP on which he remains with one-to-one augmentation, and augmented diastolic of 10 9 mmHg, PA pressures are 80/27, CVP is 12, cardiac output is 5.1, and cardiac index is 2.7. Patient has pacemaker wires in place, currently in sinus rhythm. postoperative blood gas shows pO2 of 117, pCO2 44, and pH of 7.36, operative hemoglobin was 7.7. patient received 1 unit of packed red blood cells, 4 units of fresh frozen plasma and 1 unit of platelets, with another one ordered. 2 mediastinal chest tubes with 80 mL of sanguinous output, and right and left chest tubes Y connected together with 100 mL of sanguinous output. patient is still quite sedated, no plans for extubation in view of hemodynamic status, IABP support. Awaiting repeat blood gases and postoperative chest x-ray. On 01/09/2020 patient seen in follow-up in the intensive care unit. He is postop day #5, status post three-vessel coronary artery bypass grafting including PIÑA to the LAD. Patient is awake and alert, he is currently on 3 L of oxygen, pulse ox is 9200%, hemodynamically patient is stable, he is not on any IV fluids or infusions. He is in sinus mechanism with a controlled rate. No acute events overnight. Today's chest x-ray has been reviewed showing no evidence of sizable pneumothorax, status post removal of right-sided chest tube. Today's labs have been reviewed, showing white blood cell count of 7.9, hemoglobin of 7.8, sodium of 131, CO2 of 18, potassium 5.0, B1 is 42, creatinine is 1.1. Patient is working on incentive spirometer. No altered mentation. No acute events overnight Objective - Vital Signs Vital signs: Vital Signs Temp 97.9 F 01/09/20 03:00 Pulse 94 01/09/20 07:49 Resp 19 01/09/20 06:00 BP 150/82 01/09/20 07:00 Pulse Ox 98 01/09/20 07:00 Intake & Output 01/08/20 01/09/20 01/09/20 18:59 06:59 18:59 Intake Total 820 600 Output Total 30 490 0 Balance 790 110 0 Weight 89 kg Intake: IV 250 Albumin Human 5% 250 ml 250 In Empty Bag 1 bag @ 250 mls/hr IVPB ONCE ONE Rx#: [id number] Oral 570 600 Output: Chest Tube Drainage 30 left and right pleural 30 Urine 0 490 0 Other: Voiding Method Bedside Commode Bedside Commode ABP, PAP, CO, CI - Last Documented Arterial Blood Pressure 90/48 Pulmonary Artery Pressure 67/33 Cardiac Output 4 Cardiac Index 2.1 - Exam GENERAL EXAM: Awake and alertwhite male, on 3 L of oxygen the pulse ox of 98% . In the recliner, comfortable in no apparent distress. HEAD: Normocephalic/atraumatic. EYES: Normal reaction of pupils, equal size. Conjunctiva pink, sclera white. NOSE: Clear with pink turbinates. THROAT: No erythema or exudates. NECK: No masses, no JVD, no thyroid enlargement, no adenopathy. CHEST: No chest wall deformity. Symmetrical expansion. midsternal incision is clean dry and intact, interval removal of the right and left pleural, and mediastinal chest tubes LUNGS: Equal air entry with no crackles, wheeze, rhonchi or dullness. CVS: Regular rate and rhythm, normal S1 and S2, no gallops, no murmurs, no rubs ABDOMEN: Soft, nontender. No hepatosplenomegaly, normal bowel sounds, no guarding or rigidity. EXTREMITIES: No clubbing, no edema, no cyanosis, 2+ pulses and upper and lower extremities.SCDs are present on bilateral lower extremities MUSCULOSKELETAL: Muscle strength and tone normal. SPINE: No scoliosis or deformity SKIN: No rashes CENTRAL NERVOUS SYSTEM: Alert, oriented 3 No focal deficits, tone is normal in all 4 extremities. - Labs CBC & Chem 7: 01/09/20 04:34 01/09/20 04:34 Labs: Abnormal Lab Results - Last 24 Hours (Table) 0801/08/20 01/08/20 Range/Units 11:52 17:23 22:44 RBC (4.30-5.90) m/uL Hgb (13.0-17.5) gm/dL Hct (39.0-53.0) % RDW (11.5-15.5) % Sodium (137-145) mmol/L Carbon Dioxide (22-30) mmol/L BUN (9-20) mg/dL Glucose (74-99) mg/dL POC Glucose (mg/dL) 177 H 169 H 143 H (75-99) mg/dL Calcium (8.4-10.2) mg/dL 01/09/20 01/09/20 01/09/20 Range/Units 02:22 04:34 04:34 RBC 2.76 L (4.30-5.90) m/uL Hgb 7.8 L (13.0-17.5) gm/dL Hct 24.6 L (39.0-53.0) % RDW 17.2 H (11.5-15.5) % Sodium 131 L (137-145) mmol/L Carbon Dioxide 18 L (22-30) mmol/L BUN 42 H (9-20) mg/dL Glucose 136 H (74-99) mg/dL POC Glucose (mg/dL) 183 H (75-99) mg/dL Calcium 8.1 L (8.4-10.2) mg/dL 01/09/20 Range/Units 07:08 RBC (4.30-5.90) m/uL Hgb (13.0-17.5) gm/dL Hct (39.0-53.0) % RDW (11.5-15.5) % Sodium (137-145) mmol/L Carbon Dioxide (22-30) mmol/L BUN (9-20) mg/dL Glucose (74-99) mg/dL POC Glucose (mg/dL) 122 H (75-99) mg/dL Calcium (8.4-10.2) mg/dL Assessment and Plan Plan: Assessment: #1. Acute non-ST elevated myocardial infarction #2. Multivessel coronary artery disease, showing severely calcified coronary artery, severe triple-vessel coronary artery disease with chronic occlusion of the right coronary artery and significant disease in the LAD and the left circumflex, status post three-vessel bypass grafting including PIÑA to the LAD, on 01/04/2020 with intraoperative and postoperative IABP support at 1:1 augmentation which had been discontinued for last few days, postoperative day #5 #3. Acute blood loss anemia related to myocardial revascularization surgery, normal outcome of surgery, requiring transfusion with 4 unit of packed red blood cells, 4 units of fresh frozen plasma, and 2 units of platelets #4. Routine postoperative ventilator management, patient will be maintained on ventilator support on postoperative day 0 in view of postoperative bleeding and hemodynamic instability, requiring IABP support in the postoperative period, and not patient was weaned and extubated on 01/06/2020 #5. History of tobacco dependence, currently in remission, carries [id number] smoking history #6. History of lung cancer, status post left upper lobectomy in 2012 followed by chemotherapy #7. Diabetes mellitus type 2 #8. History of coronary artery disease with previous PCI stenting of the LAD and RCA in 1998 #9. Family history of early onset coronary artery disease #10. History of skin cancer #11. Daily EtOH use #12. Bedside spirometry revealed FEV1 of 55% of predicted, FVC of 70% of predicted, consistent with moderately severe obstruction, related to history of COPD Plan: Patient is doing well, hemodynamically stable, no acute events overnight, in sinus mechanism, chest tubes have been discontinued, IV fluids have been hep- locked, patient has been ambulating, encouraged deep breathing and coughing, today's chest x-ray has been reviewed, showing no evidence for sizable pneumothorax post removal of the right-sided chest tube. We'll continue to follow with CT surgery, anticipate discharge home tomorrow. I performed a history & physical examination of the patient and discussed their management with my nurse practitioner, Pratibha Waller. I reviewed the nurse practitioner's note and agree with the documented findings and plan of care. Lung sounds are positive for diminished breath sounds. The findings and the impression was discussed with the patient. I attest to the documentation by the nurse practitioner. Time with Patient: Less than 30
--- NOTE | 2020-01-09 10:14 | P.ARTDOP ---
Arterial Doppler LOWER EXTREMITY ARTERIAL DOPPLER: DATE OF SERVICE: 01/02/2020 Reason for study: Preop CABG. Doppler waveforms: Multiphasic bilaterally throughout. Pulse volume recording: []. Pressure gradients: None. Ankle-brachial indices: Greater than 1 bilaterally. Toe brachial indices: 0.82 on the right, 0.74 on the left Impression: Normal study.
--- NOTE | 2020-01-09 10:15 | P.VSCSTY ---
Greater Saphenous Vein Mapping This is bilateral lower extremity greater saphenous vein mapping. Date of service: 01/02/2020 Vein quality and ultrasound appearance: We see no intraluminal thrombus or wall changes. Vein size groin right : 9.1 x 8.7 groin left: 8.3 x 8.9 High thigh right: 6.1 x 4.1 high thigh left: 6.2 x 5.4 Mid thigh right: 3.9 x 4.1 mid thigh left: 3.9 x 4.4 Above-knee right: 5.8 x 5.2 above- knee left: 5.0 x 4.8 Below knee right: 4.6 x 3.9 below-knee left: 4.4 x 4.0 Mid calf right: 3.7 x 2.9 mid calf left: 3.9 x 2.9 Ankle right: 2.8 x 1.9 ankle left: 2.1 x 1.9 Impression: Usable bilateral greater saphenous vein. Ankle level may be a bit small for use as conduit..
--- NOTE | 2020-01-09 10:20 | P.PN ---
Subjective Progress Note Date: 01/09/20 Principal diagnosis: Coronary artery disease status post CABG This is a pleasant 79-year-old male past medical history significant for multivessel coronary artery disease, NSTEMI, prior PCI of his LAD and RCA in 1998, hypertension, hyperlipidemia, diabetes mellitus type 2, alcohol use, previous tobacco dependence, lung cancer status post lobectomy in 2012 who underwent coronary artery bypass grafting with a PIÑA to LAD and SVG to OM and acute marginal. He additionally had a left atrial appendage clip and an intra aortic balloon pump was placed secondary to hypotension. The balloon pump has since been removed. 01/07/2020 Today patient states is doing well. He denies any chest pain or pressure. Denies any cough or shortness breath. 01/09/2020 Patient states he is doing well. He does have some shortness breath and believes his legs are mildly swollen. He did have a chest x-ray today which showed the right chest tube has been removed, no pneumothorax, and mild pulmonary venous congestion with small left-sided pleural effusion. REVIEW OF SYSTEMS At the time of my exam: CONSTITUTIONAL: Denies fever or chills. CARDIOVASCULAR: Denies chest pain, + mild shortness of breath, no palpitations. RESPIRATORY: Denies cough. GASTROINTESTINAL: Denies abdominal pain, diarrhea, constipation, nausea or vomiting. MUSCULOSKELETAL: Denies myalgias. NEUROLOGIC: Denies numbness, tingling or weakness. ENDOCRINE: Denies fatigue, weight change, polydipsia or polyurina. GENITOURINARY: Denies burning, hematuria or urgency with micturation. HEMATOLOGIC: Denies history of anemia or bleeding. PHYSICAL EXAMINATION Blood pressure 162/94 heart rate 94 afebrile and maintaining oxygen saturation on 2 L nasal cannula. CONSTITUTIONAL: No apparent distress. HEENT: Head is normocephalic. Pupils are equal, round. Sclerae anicteric. Mucous membranes of the mouth are moist. No JVD. No carotid bruit. CHEST EXAMINATION: Lungs are clear to auscultation. No chest wall tenderness is noted on palpation or with deep breathing. HEART EXAMINATION: Regular rate and rhythm. S1, S2 heard. No murmurs, gallops or rub. ABDOMEN: Soft, nontender. Positive bowel sounds. EXTREMITIES: 2+ peripheral pulses, no lower extremity edema and no calf tenderness. NEUROLOGIC EXAMINATION: Patient is awake, alert and oriented x3. ASSESSMENT 1. Multivessel coronary artery disease with non-STEMI, status post 3 vessel CABG 2. History of coronary artery disease with prior PCI of LAD and RCA the past 3. Hypertension, mildly elevated 4. Hyperlipidemia 5. Diabetes mellitus type 2 6. Postoperative blood loss anemia 7. History of lung cancer status post lobectomy 8. Ischemic cardiomyopathy with ejection fraction 45% from echo 01/02/2020 9. Acute on chronic heart failure, appears mildly volume overloaded with mild vascular congestion on chest x-ray and mild lower extremity edema PLAN Patient's blood pressure is mildly elevated today. We will like to optimize his heart failure regimen and will continue with metoprolol. We will add low-dose losartan as well as daily Lasix. Continue to monitor platelets for recent non- STEMI. Continue with supportive care and your pulmonary and cardiothoracic care. Objective - Vital Signs Vital signs: Vital Signs Temp 97.9 F 01/09/20 03:00 Pulse 94 01/09/20 07:49 Resp 19 01/09/20 06:00 BP 150/82 01/09/20 07:00 Pulse Ox 98 01/09/20 07:00 Intake & Output 01/08/20 01/09/20 01/09/20 18:59 06:59 18:59 Intake Total 820 600 Output Total 30 490 0 Balance 790 110 0 Weight 89 kg Intake: IV 250 Albumin Human 5% 250 ml 250 In Empty Bag 1 bag @ 250 mls/hr IVPB ONCE ONE Rx#: [id number] Oral 570 600 Output: Chest Tube Drainage 30 left and right pleural 30 Urine 0 490 0 Other: Voiding Method Bedside Commode Bedside Commode ABP, PAP, CO, CI - Last Documented Arterial Blood Pressure 90/48 Pulmonary Artery Pressure 67/33 Cardiac Output 4 Cardiac Index 2.1 - Labs CBC & Chem 7: 01/09/20 04:34 01/09/20 04:34 Labs: Abnormal Lab Results - Last 24 Hours (Table) 01/08/20 01/08/20 01/08/20 Range/Units 11:52 17:23 22:44 RBC (4.30-5.90) m/uL Hgb (13.0-17.5) gm/dL Hct (39.0-53.0) % RDW (11.5-15.5) % Sodium (137-145) mmol/L Carbon Dioxide (22-30) mmol/L BUN (9-20) mg/dL Glucose (74-99) mg/dL POC Glucose (mg/dL) 177 H 169 H 143 H (75-99) mg/dL Calcium (8.4-10.2) mg/dL 01/09/20 01/09/20 01/09/20 Range/Units 02:22 04:34 04:34 RBC 2.76 L (4.30-5.90) m/uL Hgb 7.8 L (13.0-17.5) gm/dL Hct 24.6 L (39.0-53.0) % RDW 17.2 H (11.5-15.5) % Sodium 131 L (137-145) mmol/L Carbon Dioxide 18 L (22-30) mmol/L BUN 42 H (9-20) mg/dL Glucose 136 H (74-99) mg/dL POC Glucose (mg/dL) 183 H (75-99) mg/dL Calcium 8.1 L (8.4-10.2) mg/dL 01/09/20 Range/Units 07:08 RBC (4.30-5.90) m/uL Hgb (13.0-17.5) gm/dL Hct (39.0-53.0) % RDW (11.5-15.5) % Sodium (137-145) mmol/L Carbon Dioxide (22-30) mmol/L BUN (9-20) mg/dL Glucose (74-99) mg/dL POC Glucose (mg/dL) 122 H (75-99) mg/dL Calcium (8.4-10.2) mg/dL
[2020-01-09] MEDS ORDERED: FUROSEMIDE 20 MG TAB PO SCH (10:30)
--- NOTE | 2020-01-09 10:42 | P.PN ---
Subjective Progress Note Date: 01/09/20 No nwe complaints today. patient able to walk the hallway, salazar catheter removed, still has oxygen requirement. Objective - Vital Signs Vital signs: Vital Signs Temp 98.4 F 01/09/20 08:00 Pulse 84 01/09/20 09:00 Resp 16 01/09/20 09:00 BP 140/68 01/09/20 09:00 Pulse Ox 99 01/09/20 09:00 Intake & Output 01/08/20 01/09/20 01/09/20 18:59 06:59 18:59 Intake Total 820 600 360 Output Total 30 490 200 Balance 790 110 160 Weight 89 kg Intake: IV 250 Albumin Human 5% 250 ml 250 In Empty Bag 1 bag @ 250 mls/hr IVPB ONCE ONE Rx#: [id number] Oral 570 600 360 Output: Chest Tube Drainage 30 left and right pleural 30 Urine 0 490 200 Other: Voiding Method Bedside Commode Bedside Commode Bedside Commode ABP, PAP, CO, CI - Last Documented Arterial Blood Pressure 90/48 Pulmonary Artery Pressure 67/33 Cardiac Output 4 Cardiac Index 2.1 - Exam Gen: awake, alert HEENT: normocephalic, atraumatic, moist mucous membranes : no SPT, no CVAT, salazar catheter not present MSK: no pitting edema, no clubbing Lines:, Peripheral IVs - Labs CBC & Chem 7: 01/09/20 04:34 01/09/20 04:34 Labs: Abnormal Lab Results - Last 24 Hours (Table) 01/08/20 01/08/20 01/08/20 Range/Units 11:52 17:23 22:44 RBC (4.30-5.90) m/uL Hgb (13.0-17.5) gm/dL Hct (39.0-53.0) % RDW (11.5-15.5) % Sodium (137-145) mmol/L Carbon Dioxide (22-30) mmol/L BUN (9-20) mg/dL Glucose (74-99) mg/dL POC Glucose (mg/dL) 177 H 169 H 143 H (75-99) mg/dL Calcium (8.4-10.2) mg/dL 01/09/20 01/09/20 01/09/20 Range/Units 02:22 04:34 04:34 RBC 2.76 L (4.30-5.90) m/uL Hgb 7.8 L (13.0-17.5) gm/dL Hct 24.6 L (39.0-53.0) % RDW 17.2 H (11.5-15.5) % Sodium 131 L (137-145) mmol/L Carbon Dioxide 18 L (22-30) mmol/L BUN 42 H (9-20) mg/dL Glucose 136 H (74-99) mg/dL POC Glucose (mg/dL) 183 H (75-99) mg/dL Calcium 8.1 L (8.4-10.2) mg/dL 01/09/20 Range/Units 07:08 RBC (4.30-5.90) m/uL Hgb (13.0-17.5) gm/dL Hct (39.0-53.0) % RDW (11.5-15.5) % Sodium (137-145) mmol/L Carbon Dioxide (22-30) mmol/L BUN (9-20) mg/dL Glucose (74-99) mg/dL POC Glucose (mg/dL) 122 H (75-99) mg/dL Calcium (8.4-10.2) mg/dL Assessment and Plan Assessment: Acute hypoxic respiratory failure Acute blood loss anemia Hypotension Severe CAD with non-ST elevation Diabetes mellitus Hypertension Dyslipidemia COPD Currently extubated, awake, alert. Daily ABG. Repeat chest x-ray tomorrow morning. Pulmonary consult following. Hemoglobin 7.7. INR 1.3. Repeat CBC tomorrow daily norepi/epinephrine drip stopped. milrinone drip stopped. Maintain MAP greater than 65. Cardiac cath shows multivessel disease. POD 3 CABG triple-vessel bypass. Continue aspirin and Lipitor. Continue beta junior. Telemetry monitoring. Cardiology and Cardiothoracic surgery on board. Svymn-bv-spew glucose 177. Insulin sliding scale. Regular Accu-Cheks. Hypoglycemic precautions. Continue Coreg. Monitor vitals, adjust medications if necessary. Continue Lipitor. DuoNeb as needed for shortness of breath or wheezing Plans to ambulate TID, transfer to the floor if possible, anticipate discharge tomorrow AM.
--- NOTE | 2020-01-09 11:55 | P.PN ---
Subjective Progress Note Date: 01/09/20 Principal diagnosis: Multivessel coronary artery disease, non-ST elevation myocardial infarction this admission. 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 Preoperative nasal swab positive for MSSA. POD #5 coronary artery bypass grafting 3 with off-pump left internal mammary artery to the left anterior descending coronary artery and on pump beating heart saphenous vein graft to the acute marginal and a saphenous vein graft to the obtuse marginal with endarterectomy and patch angioplasty of the obtuse marginal. Also placement of intra-aortic balloon pump and ligation of the left atrial appendage with a 40 mm AtriCure clip and endovascular vein harvest left greater saphenous vein from the thigh to just below the knee. Postoperative acute blood loss anemia, expected given cardiopulmonary bypass and hemodilution. Postoperative hypotension, unexpected Postoperative prolonged mechanical ventilation, unexpected The patient is currently sitting up in the recliner in the intensive care unit in no acute distress. His pain is well controlled. Denies shortness of breath, but remains on oxygen. Remains in normal sinus rhythm and hemodynamically stable. Remaining lines tubes were discontinued yesterday and transfer orders w ere placed for 3 [facility] cardiac stepdown unit. No other new concerns. Objective - Vital Signs Vital signs: Vital Signs Temp 98.4 F 01/09/20 08:00 Pulse 80 01/09/20 11:06 Resp 16 01/09/20 09:00 BP 140/68 01/09/20 09:00 Pulse Ox 99 01/09/20 09:00 Intake & Output 01/08/20 01/09/20 01/09/20 18:59 06:59 18:59 Intake Total 820 600 360 Output Total 30 490 200 Balance 790 110 160 Weight 89 kg Intake: IV 250 Albumin Human 5% 250 ml 250 In Empty Bag 1 bag @ 250 mls/hr IVPB ONCE ONE Rx#: [id number] Oral 570 600 360 Output: Chest Tube Drainage 30 left and right pleural 30 Urine 0 490 200 Other: Voiding Method Bedside Commode Bedside Commode Bedside Commode ABP, PAP, CO, CI - Last Documented Arterial Blood Pressure 90/48 Pulmonary Artery Pressure 67/33 Cardiac Output 4 Cardiac Index 2.1 - Constitutional General appearance: Present: cooperative, no acute distress - Respiratory Details: Lung sounds diminished bilaterally. Respiration even, non-labored. Currently on 3L nasal cannula with oxygen saturation 99%. Able to achieve 1500 mL on his incentive spirometry. Strong cough. - Cardiovascular Details: S1/S2 present. Regular rate and rhythm on telemetry. Sternum stable. Palpable peripheral pulses bilaterally, trace generalized edema present. Heart hugger in place with patient demonstrating appropriate use. Antiembolism stockings, SCDs presnt. - Gastrointestinal Gastrointestinal Comment(s): Abdomen soft, non-tender, non-distended. Active bowel sounds x 4 quadrants. Tolerating . Positive BM - Genitourinary Genitourinary Comment(s): Prieto catheter discontinued yesterday. Patient has voided - Integumentary Integumentary Comment(s): Skin is warm and dry with evidence of good perfusion. Anterior chest incision well approximated and covered with dry intact dressing. Left lower extremity EVH site well approximated - Neurologic Neurologic: Present: CNII-XII intact - Musculoskeletal Musculoskeletal: Present: gait normal, generalized weakness, strength equal bilaterally - Psychiatric Psychiatric: Present: A&O x's 3, appropriate affect, intact judgment & insight - Allied health notes Allied health notes reviewed: nursing - Labs CBC & Chem 7: 01/09/20 04:34 01/09/20 04:34 Labs: Abnormal Lab Results - Last 24 Hours (Table) 01/08/20 01/08/20 01/08/20 Range/Units 11:52 17:23 22:44 RBC (4.30-5.90) m/uL Hgb (13.0-17.5) gm/dL Hct (39.0-53.0) % RDW (11.5-15.5) % Sodium (137-145) mmol/L Carbon Dioxide (22-30) mmol/L BUN (9-20) mg/dL Glucose (74-99) mg/dL POC Glucose (mg/dL) 177 H 169 H 143 H (75-99) mg/dL Calcium (8.4-10.2) mg/dL 01/09/20 01/09/20 01/09/20 Range/Units 02:22 04:34 04:34 RBC 2.76 L (4.30-5.90) m/uL Hgb 7.8 L (13.0-17.5) gm/dL Hct 24.6 L (39.0-53.0) % RDW 17.2 H (11.5-15.5) % Sodium 131 L (137-145) mmol/L Carbon Dioxide 18 L (22-30) mmol/L BUN 42 H (9-20) mg/dL Glucose 136 H (74-99) mg/dL POC Glucose (mg/dL) 183 H (75-99) mg/dL Calcium 8.1 L (8.4-10.2) mg/dL 01/09/20 Range/Units 07:08 RBC (4.30-5.90) m/uL Hgb (13.0-17.5) gm/dL Hct (39.0-53.0) % RDW (11.5-15.5) % Sodium (137-145) mmol/L Carbon Dioxide (22-30) mmol/L BUN (9-20) mg/dL Glucose (74-99) mg/dL POC Glucose (mg/dL) 122 H (75-99) mg/dL Calcium (8.4-10.2) mg/dL - Imaging and Cardiology Chest x-ray: report reviewed, image reviewed Assessment and Plan Assessment: 1. Multivessel coronary artery disease, non-STEMI this admission, S/P 3V CABG 2. History of coronary artery disease status post stent placement to the LAD and RCA in 1998 3. History of hypertension 4. History of hyperlipidemia 5. Diabetes mellitus type 2 with preoperative hemoglobin A1c 6.7% 6. Daily EtOH use 7. 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 History of lung cancer, status post left upper lobectomy in 2013 followed by chemotherapy 9. History of squamous cell and basal cell skin cancer 10. Family history of early onset coronary artery disease 11. Preoperative nasal swab positive for MSSA 12. Postoperative acute blood loss anemia 13. Postoperative hypotension 14. Postoperative prolonged mechanical ventilation Plan: 1. Continue aspirin, statin, Plavix, beta junior therapy. Will increase beta junior as tolerated, increased to 25 mg 3 times daily today. Cozaar added for afterload reduction 2. Wean oxygen as tolerated. Bronchodilators per pulmonology 3. Increase activity, ambulate as tolerated. PT/OT/cardiac rehab following 4. Will monitor daily labs, x-rays. Electrolyte replacement per protocol. Continue magnesium. Daily orally Lasix added per cardiology 5. Pain control with current medication regimen 6. GI/DVT prophylaxis 7. Insulin management per primary care 8. Continue CIWA protocol 9. Transfer orders placed yesterday for 3S stepdown, may transfer once bed available. 10. Discharge planning in progress. Anticipate DC to home with home care in the next 24-48 hours. We were going to consult Dr. Long for possible inpatient rehab, however patient adamantly refuses rehab and insists he is going home 11. More recommendations to follow Time with Patient: Greater than 30
[2020-01-09 11:56] LABS: Glucose,Whole Blood 188 mg/dL (75-99)
[2020-01-09] MEDS: LOSARTAN 25 MG TAB PO SCH (12:02)
[2020-01-09 17:03] LABS: Glucose,Whole Blood 136 mg/dL (75-99)
[2020-01-09 20:42] LABS: Glucose,Whole Blood 208 mg/dL (75-99)
[2020-01-10] MEDS: HEPARIN SODIUM,PORCINE 5,000 UNIT/ML 1 ML VIAL SQ SCH ×2 (00:36→09:03)
[2020-01-10] MEDS: METOPROLOL TARTRATE 25 MG TAB PO SCH (00:37)
[2020-01-10] MEDS: KETOROLAC 15 MG/ML 1 ML VIAL IVP SCH ×2 (00:44→09:24)
[2020-01-10 05:00] LABS: Anisocytosis Slight; HCT 25.2 % (39.0-53.0); HGB 7.8 gm/dL (13.0-17.5); Hypochromasia Slight; MCH 28.1 pg (25.0-35.0); MCV 90.7 fL (80.0-100.0); Mean Platelet Volume 7.2; Platelet Count 249 k/uL (150-450); RBC 2.78 m/uL (4.30-5.90); RDW 17.3 % (11.5-15.5); WBC 8.7 k/uL (3.8-10.6)
[2020-01-10 05:11] LABS: Calcium 8.2 mg/dL (8.4-10.2); Magnesium 1.9 mg/dL (1.6-2.3); Potassium 4.2 mmol/L (3.5-5.1)
[2020-01-10] MEDS: PANTOPRAZOLE 40 MG TABLET PO SCH (06:51)
[2020-01-10] MEDS: THIAMINE 100 MG TAB PO SCH (06:51)
--- NOTE | 2020-01-10 07:01 | XR ---
EXAMINATION TYPE: XR chest 2V DATE OF EXAM: 01/10/2020 COMPARISON: 01/09/2020 TECHNIQUE: PA and lateral views submitted. HISTORY: Post cardiac surgery FINDINGS: Postsurgical changes are seen with bilateral infiltrate and small effusion. Mild central interstitial prominence and there is mild hyperinflation. Atherosclerotic change aorta. Mild prominence of the le ft hilum is seen. IMPRESSION: 1. There is nodular prominence of the left hilum which is stable. Correlate with CT scan as clinicall y warranted. 2. Stable bilateral infiltrate and small effusion with no sizable pneumothorax. 3. Postsurgical changes
[2020-01-10] MEDS ORDERED: FUROSEMIDE 10 MG/ML 2 ML VIAL IV STA (07:03)
[2020-01-10 07:12] LABS: Glucose,Whole Blood 138 mg/dL (75-99)
[2020-01-10] MEDS: INSULIN ASPART (NovoLOG) 100 UNIT/ML VIAL SQ SCH ×2 (07:26→12:13)
--- NOTE | 2020-01-10 07:39 | P.PN ---
Subjective Progress Note Date: 01/10/20 Principal diagnosis: Multivessel coronary artery disease, non-ST elevation myocardial infarction this admission. 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 Preoperative nasal swab positive for MSSA. POD #6 coronary artery bypass grafting 3 with off-pump left internal mammary artery to the left anterior descending coronary artery and on pump beating heart saphenous vein graft to the acute marginal and a saphenous vein graft to the obtuse marginal with endarterectomy and patch angioplasty of the obtuse marginal. Also placement of intra-aortic balloon pump and ligation of the left atrial appendage with a 40 mm AtriCure clip and endovascular vein harvest left greater saphenous vein from the thigh to just below the knee. Postoperative acute blood loss anemia, expected given cardiopulmonary bypass and hemodilution. Postoperative hypotension, unexpected Postoperative prolonged mechanical ventilation, unexpected The patient is currently sitting up in the recliner in the intensive care unit in no acute distress eating breakfast. His pain is well controlled. Denies shortness of breath, but remains on oxygen. Remains in normal sinus rhythm and hemodynamically stable. Anticipate discharge this afternoon. No other new con cerns. Objective - Vital Signs Vital signs: Vital Signs Temp 97.6 F 01/10/20 04:00 Pulse 87 01/10/20 04:00 Resp 21 01/10/20 04:00 BP 140/79 01/10/20 04:00 Pulse Ox 92 L 01/10/20 04:00 Intake & Output 01/09/20 01/10/20 01/10/20 18:59 06:59 18:59 Intake Total 1440 350 Output Total 700 250 Balance 740 100 Weight 87.8 kg Intake: Oral 1440 350 Output: Urine 700 250 Other: Voiding Method Bedside Commode Bedside Commode # Voids 0 ABP, PAP, CO, CI - Last Documented Arterial Blood Pressure 90/48 Pulmonary Artery Pressure 67/33 Cardiac Output 4 Cardiac Index 2.1 - Constitutional General appearance: Present: cooperative, no acute distress - Respiratory Details: Lung sounds diminished bilaterally. Respiration even, non-labored. Currently on 4L nasal cannula with oxygen saturation 94%. Able to achieve 1250 mL on his incentive spirometry. Strong cough. - Cardiovascular Details: S1/S2 present. Regular rate and rhythm on telemetry. Sternum stable. Palpable peripheral pulses bilaterally, generalized edema present. Heart hugger in place with patient demonstrating appropriate use. Antiembolism stockings, SCDs presnt. - Gastrointestinal Gastrointestinal Comment(s): Abdomen soft, non-tender, non-distended. Active bowel sounds x 4 quadrants. Tolerating . Positive BM - Genitourinary Genitourinary Comment(s): Patient continues to void - Integumentary Integumentary Comment(s): Skin is warm and dry with evidence of good perfusion. Anterior chest incision well approximated and covered with dry intact dressing. Left lower extremity EVH site well approximated - Neurologic Neurologic: Present: CNII-XII intact - Musculoskeletal Musculoskeletal: Present: gait normal, strength equal bilaterally - Psychiatric Psychiatric: Present: A&O x's 3, appropriate affect, intact judgment & insight - Allied health notes Allied health notes reviewed: nursing - Labs CBC & Chem 7: 01/10/20 04:15 01/10/20 04:15 Labs: Abnormal Lab Results - Last 24 Hours (Table) 01/09/20 01/09/20 01/09/20 Range/Units 11:55 17:01 20:40 RBC (4.30-5.90) m/uL Hgb (13.0-17.5) gm/dL Hct (39.0-53.0) % RDW (11.5-15.5) % Sodium (137-145) mmol/L BUN (9-20) mg/dL Glucose (74-99) mg/dL POC Glucose (mg/dL) 188 H 136 H 208 H (75-99) mg/dL Calcium (8.4-10.2) mg/dL 01/10/20 01/10/20 01/10/20 Range/Units 04:15 04:15 07:10 RBC 2.78 L (4.30-5.90) m/uL Hgb 7.8 L (13.0-17.5) gm/dL Hct 25.2 L (39.0-53.0) % RDW 17.3 H (11.5-15.5) % Sodium 133 L (137-145) mmol/L BUN 43 H (9-20) mg/dL Glucose 124 H (74-99) mg/dL POC Glucose (mg/dL) 138 H (75-99) mg/dL Calcium 8.2 L (8.4-10.2) mg/dL - Imaging and Cardiology Chest x-ray: report reviewed, image reviewed Assessment and Plan Assessment: 1. Multivessel coronary artery disease, non-STEMI this admission, S/P 3V CABG 2. History of coronary artery disease status post stent placement to the LAD and RCA in 1998 3. History of hypertension 4. History of hyperlipidemia 5. Diabetes mellitus type 2 with preoperative hemoglobin A1c 6.7% 6. Daily EtOH use 7. 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 History of lung cancer, status post left upper lobectomy in 2013 followed by chemotherapy 9. History of squamous cell and basal cell skin cancer 10. Family history of early onset coronary artery disease 11. Preoperative nasal swab positive for MSSA 12. Postoperative acute blood loss anemia 13. Postoperative hypotension 14. Postoperative prolonged mechanical ventilation Plan: 1. Continue aspirin, statin, Plavix, beta junior therapy. Will increase beta junior as tolerated, increased to 50 mg twice daily today. Continue Cozaar for afterload reduction 2. Wean oxygen as tolerated. Bronchodilators per pulmonology 3. Increase activity, ambulate as tolerated. PT/OT/cardiac rehab following 4. Will monitor daily labs, x-rays. Electrolyte replacement per protocol. Continue magnesium. Will give 1 dose IV Lasix today, patient will be discharged on oral Lasix 5. Pain control with current medication regimen 6. GI/DVT prophylaxis 7. Insulin management per primary care 8. Continue CIWA protocol 9. Home oxygen evaluation be completed, patient will likely need oxygen upon discharge 10. Discharge planning in progress. Anticipate DC to home with home care this afternoon. We will do discharge teaching with patient and family 11. More recommendations to follow Time with Patient: Greater than 30
[2020-01-10] MEDS: IPRATROPIUM-ALBUTEROL 3 ML NEB INHALATION SCH ×2 (08:01→11:46)
--- NOTE | 2020-01-10 08:51 | P.PN ---
Subjective Progress Note Date: 01/10/20 Principal diagnosis: Coronary artery disease This is a 79-year-old white male patient with past medical history lung cancer status post left upper lobectomy in 2012 followed by chemotherapy postoperatively, [id number] smoking history, currently in remission, hypertension, hyperlipidemia, previous myocardial infarction in 1998, coronary artery disease with PCI and stenting of the LAD and the circumflex in 1998, daily EtOH use, diabetes mellitus, family history of early onset coronary artery disease. Patient has a PCP in [facility], however patient spends a lot of time in the [facility] in the summer. He has been having symptoms of progressive exertional dyspnea the last couple months and weakness in his bilateral lower extremities. Denied any chest pain, no nausea, vomiting, or diaphoresis, no orthopnea, no peripheral edema, no palpitations. On 01/01/2020 patient presented to the emergency department for evaluation of his shortness of breath. He was transferred from another facility. Patient was noted to have elevated troponins here in the emergency department concerning for nonacute non- ST elevated myocardial infarction. EKG showed normal sinus rhythm with nonspecific ST abnormality. CTA chest showed thickening along the minor fissure which does not appear masslike, some right hilar adenopathy, extensive emphysema, coronary artery disease, no evident pulmonary embolism, small hiatal hernia, interstitial lung disease and cholelithiasis. His troponins were 0.279, 0.282, 0.290, 0.182. Heart catheterization was done yesterday on 01/02/2020 showing severely calcified coronary artery, severe triple-vessel coronary artery disease with chronic occlusion of the right coronary artery and significant disease in LAD and the left circumflex. Patient was referred to CT surgery for consideration for myocardial revascularization. Echocardiogram showed mild concentric LVH, mild to moderate impairment of the LV function with an EF of 40- 45%, septal hypokinesis, no aortic stenosis or regurgitation, mild MR, mild TR, no pulmonary hypertension. Chronic Doppler was negative for evidence of hemodynamically significant stenosis. Bedside spirometry revealed FEV1 of 1.64 L or 55% of predicted, FVC is 2.92 L or 70% of predicted, with FEV1/FVC of 78% of predicted, consistent with moderately severe obstruction. On 01/04/2020 patient seen in follow-up in the postoperative period following three-vessel coronary artery bypass grafting in the intensive care unit, he is sedated, intubated, current vent settings are SIMV with a rate of 12, tidal volume is 500, FiO2 100%, PEEP of 5, the rate was increased to 16. Currently on lactated Ringer's at 50 ML per hour, nitroglycerin at 10 mics per minute, levo fed at 0.02 mics per kilo per minute, nitroglycerin at 5 mics per kilo per minute, Primacor is at 0.375 mics per kilo per minute, and epinephrine at 0.3 mics per kilo per minute, during the surgery patient had to be placed on IABP on which he remains with one-to-one augmentation, and augmented diastolic of 10 9 mmHg, PA pressures are 80/27, CVP is 12, cardiac output is 5.1, and cardiac index is 2.7. Patient has pacemaker wires in place, currently in sinus rhythm. postoperative blood gas shows pO2 of 117, pCO2 44, and pH of 7.36, operative hemoglobin was 7.7. patient received 1 unit of packed red blood cells, 4 units of fresh frozen plasma and 1 unit of platelets, with another one ordered. 2 mediastinal chest tubes with 80 mL of sanguinous output, and right and left chest tubes Y connected together with 100 mL of sanguinous output. patient is still quite sedated, no plans for extubation in view of hemodynamic status, IABP support. Awaiting repeat blood gases and postoperative chest x-ray. On 01/09/2020 patient seen in follow-up in the intensive care unit. He is postop day #5, status post three-vessel coronary artery bypass grafting including PIÑA to the LAD. Patient is awake and alert, he is currently on 3 L of oxygen, pulse ox is 9200%, hemodynamically patient is stable, he is not on any IV fluids or infusions. He is in sinus mechanism with a controlled rate. No acute events overnight. Today's chest x-ray has been reviewed showing no evidence of sizable pneumothorax, status post removal of right-sided chest tube. Today's labs have been reviewed, showing white blood cell count of 7.9, hemoglobin of 7.8, sodium of 131, CO2 of 18, potassium 5.0, B1 is 42, creatinine is 1.1. Patient is working on incentive spirometer. No altered mentation. No acute events overnight The patient is seen today 01/10/2020 in follow-up in the intensive care unit. This is postoperative day #6. He is currently sitting up in a chair at the bedside. Awake and alert in no acute distress. He is still requiring 3 L/m nasal cannula to maintain O2 saturation in the low 90s. He is afebrile. Hemodynamically stable. White count 8.7. Hemoglobin 7.8. Sodium 133. Potassium 4.2. Creatinine 1.16. Chest x-ray reveals stable nodular prominence of the left hilum. Stable bilateral infiltrate and a small effusion. No sizable pneumothorax. Received a dose of IV Lasix today. Objective - Vital Signs Vital signs: Vital Signs Temp 97.6 F 01/10/20 04:00 Pulse 94 01/10/20 08:09 Resp 21 01/10/20 04:00 BP 140/79 01/10/20 04:00 Pulse Ox 92 L 01/10/20 04:00 Intake & Output 01/09/20 01/10/20 01/10/20 18:59 06:59 18:59 Intake Total 1440 350 Output Total 700 250 Balance 740 100 Weight 87.8 kg Intake: Oral 1440 350 Output: Urine 700 250 Other: Voiding Method Bedside Commode Bedside Commode # Voids 0 ABP, PAP, CO, CI - Last Documented Arterial Blood Pressure 90/48 Pulmonary Artery Pressure 67/33 Cardiac Output 4 Cardiac Index 2.1 - Exam GENERAL EXAM: Awake and alert 79-year-old male patient, on 3 L of oxygen the pulse ox of 92% . In the recliner, comfortable in no apparent distress. HEAD: Normocephalic/atraumatic. EYES: Normal reaction of pupils, equal size. Conjunctiva pink, sclera white. NOSE: Clear with pink turbinates. THROAT: No erythema or exudates. NECK: No masses, no JVD, no thyroid enlargement, no adenopathy. CHEST: No chest wall deformity. Symmetrical expansion. midsternal incision is c lean dry and intact, interval removal of the right and left pleural, and mediastinal chest tubes LUNGS: Equal air entry with no crackles, wheeze, rhonchi or dullness. CVS: Regular rate and rhythm, normal S1 and S2, no gallops, no murmurs, no rubs ABDOMEN: Soft, nontender. No hepatosplenomegaly, normal bowel sounds, no guarding or rigidity. EXTREMITIES: No clubbing, no edema, no cyanosis, 2+ pulses and upper and lower extremities.SCDs are present on bilateral lower extremities MUSCULOSKELETAL: Muscle strength and tone normal. SPINE: No scoliosis or deformity SKIN: No rashes CENTRAL NERVOUS SYSTEM: Alert, oriented 3 No focal deficits, tone is normal in all 4 extremities. - Labs CBC & Chem 7: 01/10/20 04:15 01/10/20 04:15 Labs: Abnormal Lab Results - Last 24 Hours (Table) 01/09/20 01/09/20 01/09/20 Range/Units 11:55 17:01 20:40 RBC (4.30-5.90) m/uL Hgb (13.0-17.5) gm/dL Hct (39.0-53.0) % RDW (11.5-15.5) % Sodium (137-145) mmol/L BUN (9-20) mg/dL Glucose (74-99) mg/dL POC Glucose (mg/dL) 188 H 136 H 208 H (75-99) mg/dL Calcium (8.4-10.2) mg/dL 01/10/20 01/10/20 01/10/20 Range/Units 04:15 04:15 07:10 RBC 2.78 L (4.30-5.90) m/uL Hgb 7.8 L (13.0-17.5) gm/dL Hct 25.2 L (39.0-53.0) % RDW 17.3 H (11.5-15.5) % Sodium 133 L (137-145) mmol/L BUN 43 H (9-20) mg/dL Glucose 124 H (74-99) mg/dL POC Glucose (mg/dL) 138 H (75-99) mg/dL Calcium 8.2 L (8.4-10.2) mg/dL Assessment and Plan Assessment: #1. Acute non-ST elevated myocardial infarction #2. Multivessel coronary artery disease, showing severely calcified coronary artery, severe triple-vessel coronary artery disease with chronic occlusion of the right coronary artery and significant disease in the LAD and the left circumflex, status post three-vessel bypass grafting including PIÑA to the LAD, postoperative day #6 #3. Acute blood loss anemia related to myocardial revascularization surgery, normal outcome of surgery, requiring transfusion with 4 unit of packed red blood cells, 4 units of fresh frozen plasma, and 2 units of platelets #4. Routine postoperative ventilator management, patient will be maintained on ventilator support on postoperative day 0 in view of postoperative bleeding and hemodynamic instability, requiring IABP support in the postoperative period, and not patient was weaned and extubated on 01/06/2020 #5. History of tobacco dependence, currently in remission, carries 50-[id number]-tcas smoking history #6. History of lung cancer, status post left upper lobectomy in 2013 followed by chemotherapy #7. Diabetes mellitus type 2 #8. History of coronary artery disease with previous PCI stenting of the LAD and RCA in 1998 #9. Family history of early onset coronary artery disease #10. History of skin cancer #11. Daily EtOH use #12. Bedside spirometry revealed FEV1 of 55% of predicted, FVC of 70% of predicted, consistent with moderately severe obstruction, related to history of COPD Plan: The patient was seen and evaluated by Dr. Beckford Chest x-ray and labs reviewed Received a dose of IV Lasix today Possible need for home oxygen Continue to work with the incentive spirometer Home once cleared by CT services Follow up in the office in 1 week We'll repeat chest x-ray then I, the cosigning physician, performed a history & physical examination of the patient. Lungs sounds with crackles in the bilateral posterior bases. Maintaining good O2 saturations in the 90s on 3 L/m per nasal cannula. I discussed the assessment and plan of care with my nurse practitioner, Kaitlin Montgomery. I attest to the above note as dictated by her.
--- NOTE | 2020-01-10 08:54 | P.PN ---
Subjective Progress Note Date: 01/10/20 Principal diagnosis: Coronary artery disease status post CABG This is a pleasant 79-year-old male past medical history significant for multivessel coronary artery disease, NSTEMI, prior PCI of his LAD and RCA in 1998, hypertension, hyperlipidemia, diabetes mellitus type 2, alcohol use, previous tobacco dependence, lung cancer status post lobectomy in 2012 who underwent coronary artery bypass grafting with a PIÑA to LAD and SVG to OM and acute marginal. He additionally had a left atrial appendage clip and an intra aortic balloon pump was placed secondary to hypotension. The balloon pump has since been removed. 01/07/2020 Today patient states is doing well. He denies any chest pain or pressure. Denies any cough or shortness breath. 01/09/2020 Patient states he is doing well. He does have some shortness breath and believes his legs are mildly swollen. He did have a chest x-ray today which showed the right chest tube has been removed, no pneumothorax, and mild pulmonary venous congestion with small left-sided pleural effusion. 01/10/2020 Patient seen and examined. Patient excited that he is likely going home soon. Denies any chest pain or pressure. Does admit to feeling some shortness breath which is similar to prior. He was started on Lasix yesterday and admits to good urine output with this. He does admit to some weight gain over the course of the hospitalization. REVIEW OF SYSTEMS At the time of my exam: CONSTITUTIONAL: Denies fever or chills. CARDIOVASCULAR: Denies chest pain, + mild shortness of breath, no palpitations. RESPIRATORY: Denies cough. GASTROINTESTINAL: Denies abdominal pain, diarrhea, constipation, nausea or vomiting. MUSCULOSKELETAL: Denies myalgias. NEUROLOGIC: Denies numbness, tingling or weakness. ENDOCRINE: Denies fatigue, weight change, polydipsia or polyurina. GENITOURINARY: Denies burning, hematuria or urgency with micturation. HEMATOLOGIC: Denies history of anemia or bleeding. PHYSICAL EXAMINATION Blood pressure 140/79 heart rate 89 afebrile and maintaining oxygen saturation on 2 L nasal cannula. CONSTITUTIONAL: No apparent distress. HEENT: Head is normocephalic. Pupils are equal, round. Sclerae anicteric. Mucous membranes of the mouth are moist. No JVD. No carotid bruit. CHEST EXAMINATION: Lungs are clear to auscultation. No chest wall tenderness is noted on palpation or with deep breathing. HEART EXAMINATION: Regular rate and rhythm. S1, S2 heard. No murmurs, gallops or rub. ABDOMEN: Soft, nontender. Positive bowel sounds. EXTREMITIES: 2+ peripheral pulses, no lower extremity edema and no calf tenderness. NEUROLOGIC EXAMINATION: Patient is awake, alert and oriented x3. ASSESSMENT 1. Multivessel coronary artery disease with non-STEMI, status post 3 vessel CABG 2. History of coronary artery disease with prior PCI of LAD and RCA the past 3. Hypertension, mildly elevated 4. Hyperlipidemia 5. Diabetes mellitus type 2 6. Postoperative blood loss anemia 7. History of lung cancer status post lobectomy 8. Ischemic cardiomyopathy with ejection fraction 45% from echo 01/02/2020 9. Acute on chronic heart failure, appears mildly volume overloaded with mild vascular congestion on chest x-ray and mild lower extremity edema PLAN Patient appears to continue to heal well from surgery. Losartan was added yesterday for his cardiomyopathy and we will continue with Lopressor 50 mg twice a day. May consider addition of spironolactone as an outpatient. Continue aspirin and Plavix. Would recommend discharge on a diuretic and careful monitoring of his fluid status. Discussed importance of low sodium diet and monitoring his weights. Objective - Vital Signs Vital signs: Vital Signs Temp 97.6 F 01/10/20 04:00 Pulse 94 01/10/20 08:09 Resp 21 01/10/20 04:00 BP 140/79 01/10/20 04:00 Pulse Ox 92 L 01/10/20 04:00 Intake & Output 01/09/20 01/10/20 01/10/20 18:59 06:59 18:59 Intake Total 1440 350 Output Total 700 250 Balance 740 100 Weight 87.8 kg Intake: Oral 1440 350 Output: Urine 700 250 Other: Voiding Method Bedside Commode Bedside Commode # Voids 0 ABP, PAP, CO, CI - Last Documented Arterial Blood Pressure 90/48 Pulmonary Artery Pressure 67/33 Cardiac Output 4 Cardiac Index 2.1 - Labs CBC & Chem 7: 01/10/20 04:15 01/10/20 04:15 Labs: Abnormal Lab Results - Last 24 Hours (Table) 01/09/20 01/09/20 01/09/20 Range/Units 11:55 17:01 20:40 RBC (4.30-5.90) m/uL Hgb (13.0-17.5) gm/dL Hct (39.0-53.0) % RDW (11.5-15.5) % Sodium (137-145) mmol/L BUN (9-20) mg/dL Glucose (74-99) mg/dL POC Glucose (mg/dL) 188 H 136 H 208 H (75-99) mg/dL Calcium (8.4-10.2) mg/dL 01/10/20 01/10/20 01/10/20 Range/Units 04:15 04:15 07:10 RBC 2.78 L (4.30-5.90) m/uL Hgb 7.8 L (13.0-17.5) gm/dL Hct 25.2 L (39.0-53.0) % RDW 17.3 H (11.5-15.5) % Sodium 133 L (137-145) mmol/L BUN 43 H (9-20) mg/dL Glucose 124 H (74-99) mg/dL POC Glucose (mg/dL) 138 H (75-99) mg/dL Calcium 8.2 L (8.4-10.2) mg/dL
[2020-01-10] MEDS ORDERED: METOPROLOL TARTRATE 50 MG TAB PO SCH (09:00)
[2020-01-10] MEDS: LOSARTAN 25 MG TAB PO SCH (09:03)
[2020-01-10] MEDS: ATORVASTATIN 40 MG TAB PO SCH (09:03)
[2020-01-10] MEDS: MAGNESIUM OXIDE 400 MG TAB PO SCH (09:03)
[2020-01-10] MEDS: ASPIRIN 325 MG TAB PO SCH (09:03)
[2020-01-10] MEDS: MUPIROCIN 2% OINT 22 GM TUBE NASAL SCH (09:04)
[2020-01-10] MEDS: CLOPIDOGREL 75 MG TAB OG-TUBE SCH (09:05)
[2020-01-10] MEDS ORDERED: ACETAMINOPHEN TAB 500 MG TAB PO PRN (09:18)
--- NOTE | 2020-01-10 09:26 | CDI ---
Documentation Clarification Form Date: 01/10/2020 09:06:05 AM From: Melany Boss RN, CCDS Admit Date: 01/01/2020 06:21:00 PM Patient Name: Dimas Clayton Visit Number: [id number] ATTENTION: The Clinical Documentation Specialists (CDI) and [facility] Coding Staff appreciate your assistance in clarifying documentation. Please respond to the clarification below the line at the bottom and electronically sign. The CDI & [facility] Coding staff will review the response and follow-up if needed. Please note: Queries are made part of the Legal Health Record. If you have any questions, please contact the author of this message via ITS. Dr. Beni Denson "Acute on chronic heart failure" is documented in the 01/08 Cardiology Progress Note and requires further specificity. History/Risk Factors: NSTEMI, CAD with TVD, ischemic cardiomyopathy, COPD, CHF, DM, HTN, Hyperlipidemia Clinical Indicators: 01/08 Cardiology Progress Note: Acute on chronic heart failure appears mildly volume overloaded with mild vascular congestion on chest x-ray and mild lower extremity edema. Ischemic cardiomyopathy with ejection fraction 45% from echo 01/02/2020. We will like to optimize his heart failure regimen and will continue with metoprolol." 01/09/800 VS/Pulse OX: Temp 98.4, HR 99, RR 18, B/P 150/82, Spo2 93% #L NC 12/31 BNP: 1200 01/01 Echocardiogram Results: EF 45-50%. Moderate concentric LVH. Left Atrium is moderately dilated. Septal hypokinesis. 01/08 Chest X Ray: "Right-sided chest tube has been removed. No evidence for sizable pneumothorax. Pulmonary venous congestion with small left-sided pleural effusion." Treatment: 12/31-01/02 Coreg 25 mg PO BID 01/03 Lasix 20 mg IVP x 1 dose 01/04-01/06 Lasix 40 mg IVP q 8 hrs 01/08 Lasix 20 mg PO QD x 1 dose 01/09 Lasix 20 mg IVP x 1 dose 01/02 Zestril 5 mg PO x 2 doses 01/08-Current Cozaar 25 mg PO QD Several Lopressor dose adjustments- current dosing 50 mg PO BID 01/03-01/06 Primacor Drip per protocol 01/02-01/03 Nitro Gtt @ 10 mcg/min 01/04-01/05 Levophed Gtt titrate for B/P In your professional opinion, can you please clarify the type of CHF if known? Acute on Chronic Systolic Heart Failure: XXXXX YES Acute on Chronic Systolic & Diastolic Heart Failure: Unable to Determine Other, please specify (Last Revision: August 2017) MTDD
--- NOTE | 2020-01-10 10:33 | P.PN ---
Subjective Progress Note Date: 01/10/20 No new complaints today. Plan for discharge today on home oxygen. Objective - Vital Signs Vital signs: Vital Signs Temp 97.6 F 01/10/20 08:00 Pulse 97 01/10/20 09:23 Resp 24 01/10/20 08:00 BP 144/80 01/10/20 08:00 Pulse Ox 84 L 01/10/20 09:23 Intake & Output 01/09/20 01/10/20 01/10/20 18:59 06:59 18:59 Intake Total 1440 350 Output Total 700 250 Balance 740 100 Weight 87.8 kg Intake: Oral 1440 350 Output: Urine 700 250 Other: Voiding Method Bedside Commode Bedside Commode # Voids 0 1 ABP, PAP, CO, CI - Last Documented Arterial Blood Pressure 90/48 Pulmonary Artery Pressure 67/33 Cardiac Output 4 Cardiac Index 2.1 - Exam Gen: awake, alert HEENT: normocephalic, atraumatic, moist mucous membranes : no SPT, no CVAT, salazar catheter not present MSK: no pitting edema, no clubbing Lines:, Peripheral IVs - Labs CBC & Chem 7: 01/10/20 04:15 01/10/20 04:15 Labs: Abnormal Lab Results - Last 24 Hours (Table) 01/09/20 01/09/20 01/09/20 Range/Units 11:55 17:01 20:40 RBC (4.30-5.90) m/uL Hgb (13.0-17.5) gm/dL Hct (39.0-53.0) % RDW (11.5-15.5) % Sodium (137-145) mmol/L BUN (9-20) mg/dL Glucose (74-99) mg/dL POC Glucose (mg/dL) 188 H 136 H 208 H (75-99) mg/dL Calcium (8.4-10.2) mg/dL 01/10/20 01/10/20 01/10/20 Range/Units 04:15 04:15 07:10 RBC 2.78 L (4.30-5.90) m/uL Hgb 7.8 L (13.0-17.5) gm/dL Hct 25.2 L (39.0-53.0) % RDW 17.3 H (11.5-15.5) % Sodium 133 L (137-145) mmol/L BUN 43 H (9-20) mg/dL Glucose 124 H (74-99) mg/dL POC Glucose (mg/dL) 138 H (75-99) mg/dL Calcium 8.2 L (8.4-10.2) mg/dL Assessment and Plan Assessment: Acute hypoxic respiratory failure Acute blood loss anemia Hypotension Severe CAD with non-ST elevation Diabetes mellitus Hypertension Dyslipidemia COPD Currently extubated, awake, alert. Daily ABG. Repeat chest x-ray tomorrow morning. Pulmonary consult following. Hemoglobin 7.7. INR 1.3. Repeat CBC tomorrow daily norepi/epinephrine drip stopped. milrinone drip stopped. Maintain MAP greater than 65. Cardiac cath shows multivessel disease. POD 3 CABG triple-vessel bypass. Continue aspirin and Lipitor. Continue beta junior. Telemetry monitoring. Cardiology and Cardiothoracic surgery on board. [id number] glucose 177. Insulin sliding scale. Regular Accu-Cheks. Hypoglycemic precautions. Continue Coreg. Monitor vitals, adjust medications if necessary. Continue Lipitor. DuoNeb as needed for shortness of breath or wheezing Plans to ambulate TID, transfer to the floor if possible, anticipate discharge today.
[2020-01-10 11:46] LABS: Glucose,Whole Blood 150 mg/dL (75-99)
--- NOTE | 2020-01-10 12:19 | P.DS ---
Providers Date of admission: 01/01/20 18:21 Expected date of discharge: 01/10/20 Attending physician: Tam Gama Consults: 01/01/20 18:21 Consult Physician Urgent Consulting Provider: Deloris Huizar Consult Reason/Comments: nstemi Do you want consulting provider notified?: Yes 01/02/20 13:49 Consult Physician Routine Consulting Provider: Tam Gama Consult Reason/Comments: cabg Do you want consulting provider notified?: Already Contacted 01/02/20 15:15 Consult Physician Routine Consulting Provider: Aurora Jin Consult Reason/Comments: Pulmonary critical care management Do you want consulting provider notified?: Yes 01/03/20 08:00 Consult to Anesthesia Routine Consulting Provider: Anesthesia,Services Consult Reason/Comments: Cardiac Surgery Pre-Op Primary care physician: Jack Torres MD Hospital Course: FINAL DIAGNOSIS: 1. Multivessel coronary artery disease, non-ST elevation myocardial infarctions this admission 2. Mild to moderately impaired left ventricular systolic function with EF 40- 45% 3. History of coronary artery disease with stent placement to the LAD and RCA in 1998 4. Hypertension 5. Hyperlipidemia 6. Diabetes mellitus type 2 with hemoglobin A1c 6.7% 7. Daily EtOH use 8. Previous tobacco dependence 9. Moderate COPD with preoperative FEV1 55% of predicted 10. History of lung cancer status post left upper lobectomy in 2013 followed by chemotherapy 11. History of squamous cell and basal cell skin cancer 12. Family history of early onset coronary artery disease 13. Preoperative nasal swab positive for MSSA 14. Postoperative acute blood loss anemia 15. Postoperative hypotension 16. Postoperative prolonged mechanical ventilation PRINCIPAL PROCEDURE: 1. Urgent coronary artery bypass grafting 3 with off-pump left internal mammary artery to the left anterior descending coronary artery and on pump beating heart saphenous vein graft to the acute marginal artery and saphenous vein graft to the obtuse marginal artery with endarterectomy and patch angioplasty of the obtuse marginal artery 2. Placement of intra-aortic balloon pump 3. Ligation of the left atrial appendage with 40 mm AtriCure clip 4. Endovascular vein harvest of the left greater saphenous vein from the thigh to just below the knee HISTORY OF PRESENT ILLNESS: This is a 79-year-old gentleman who follows on an outpatient basis with Dr. Jack Torres in [place], as well as Drs. Rafael Miguel and Darrin Monahan in [place]. The patient spends most of his time in [place] and bower in [place] in the [place] area. Over the previous couple of months he began experiencing progressive shortness of breath and weakness in his bilateral lower extremities. He had lab work completed at his primary care office and was instructed to report to the nearest emergency room. He presented to [facility] emergency room at the direction of his physician. 12-lead EKG was completed demonstrating normal sinus rhythm with nonspecific STT wave changes. CT angiogram of the chest demonstrated no pulmonary embolism, presence of coronary artery calcifications, extensive emphysema, and interstitial lung disease. 2-D echocardiogram was completed demonstrating mild to moderately impaired left ventricular systolic function with ejection fraction 40-45%, septal hypokinesis, mild mitral valve regurgitation, and mild tricuspid valve regurgitation. Troponin was elevated and he was ruled in for non-STEMI. He was recommended to undergo heart catheterization which demonstrated LAD with an eccentric lesion in a heavy calcified segment with stenosis 80-90%, the stented segment in the mid LAD was patent with mild to moderate in-stent restenosis, proximal circumflex with 90-95% stenosis with mid circumflex stenosis 80%, chronic total occlusion of the right coronary artery with collaterals from the left side. In view of his heart catheterization findings consultations placed to Dr. Gama from cardiothoracic surgery. He was recommended to undergo urgent coronary artery bypass surgery. The usual perioperative course was discussed in detail with the patient and his family, all risks and benefits were explained, a ll questions were answered, and consent was obtained to proceed with surgery. The patient was kept inpatient due to the nature of his disease process. HOSPITAL COURSE: The patient was brought to the preoperative area on 01/04/2020, prepared in the usual fashion, and subsequently taken to the operating room where Dr. Gama performed urgent three-vessel CABG. Upon completion of surgery the patient was transferred to the cardiovascular intensive care unit where he was recovered, monitored hemodynamically, and where he progressed to cardiac rehabilitation phase 1. He did experience acute postoperative blood loss anemia requiring blood transfusion, hypotension requiring vasopressor support for short amount of time, and prolonged mechanical ventilation. He was eventually extubated on postop day #2, all lines, tubes, and drips were discontinued when appropriate, and transfer orders were placed for 3 S. cardiac stepdown unit, however there was no bed availability and the patient remained on ICU as a stepdown patient until discharge. His oxygen was titrated down although he was unable to be weaned off oxygen completely, he continued to work with physical and occupational therapy, he was tolerating oral diet, his pain was controlled, and he was ready to be discharged to home with [facility] care on postoperative day #6. He was sent home on oxygen at 4 L nasal cannula. He received written and verbal instruction regarding his medications, activity restrictions, signs and symptoms requiring physician notification, and follow-up appointments. COMPLICATIONS: The patient experienced postoperative complications of acute blood loss anemia, hypotension, and prolonged mechanical ventilation, all treated accordingly. Patient Condition at Discharge: Fair Plan - Discharge Summary Discharge Rx Participant: No New Discharge Prescriptions: New Aspirin 325 mg PO DAILY #30 tab Losartan [Cozaar] 25 mg PO DAILY #30 tab Furosemide [Lasix] 20 mg PO DAILY #7 tab Metoprolol Tartrate [Lopressor] 50 mg PO BID #60 tab Magnesium Oxide [Mag-Ox] 400 mg PO BID #60 tab Clopidogrel [Plavix] 75 mg PO DAILY #30 tab Pantoprazole [Protonix] 40 mg PO AC-BRKFST #30 tablet.dr Patten-Docusate Sodium [Senokot-S] 2 each PO HS PRN tab PRN Reason: Constipation Acetaminophen Tab [Tylenol] 1,000 mg PO Q6HR PRN tab PRN Reason: Fever And/ Or Pain Continue Multivitamins, Thera [Multivitamin (formulary)] 1 tab PO DAILY Loratadine [Claritin] 10 mg PO DAILY Cholecalciferol [Vitamin D3 (25 Mcg = 1000 Iu)] 2,000 unit PO DAILY Vascepa 1gm 1 gm PO QID metFORMIN HCL [Glucophage] 1,000 mg PO BID Atorvastatin Calcium [Lipitor] 80 mg PO HS Discontinued Aspirin EC [Ecotrin Low Dose] 81 mg PO DAILY Carvedilol [Coreg] 25 mg PO BID Discharge Medication List Atorvastatin Calcium [Lipitor] 80 mg PO HS 01/01/20 [History] Cholecalciferol [Vitamin D3 (25 Mcg = 1000 Iu)] 2,000 unit PO DAILY 01/01/20 [History] Loratadine [Claritin] 10 mg PO DAILY 01/01/20 [History] Multivitamins, Thera [Multivitamin (formulary)] 1 tab PO DAILY 01/01/20 [History] Vascepa 1gm 1 gm PO QID 01/01/20 [History] metFORMIN HCL [Glucophage] 1,000 mg PO BID 01/01/20 [History] Acetaminophen Tab [Tylenol] 1,000 mg PO Q6HR PRN tab 01/10/20 [Rx] Aspirin 325 mg PO DAILY #30 tab 01/10/20 [Rx] Clopidogrel [Plavix] 75 mg PO DAILY #30 tab 01/10/20 [Rx] Furosemide [Lasix] 20 mg PO DAILY #7 tab 01/10/20 [Rx] Losartan [Cozaar] 25 mg PO DAILY #30 tab 01/10/20 [Rx] Magnesium Oxide [Mag-Ox] 400 mg PO BID #60 tab 01/10/20 [Rx] Metoprolol Tartrate [Lopressor] 50 mg PO BID #60 tab 01/10/20 [Rx] Pantoprazole [Protonix] 40 mg PO AC-BRKFST #30 tablet. 01/10/20 [Rx] Sennosides-Docusate Sodium [Senokot-S] 2 each PO HS PRN tab 01/10/20 [Rx] Follow up Appointment(s)/Referral(s): Aurora Jin MD [STAFF PHYSICIAN] - 01/30/20 8:30 am Krissy Thomas NPC [Nurse Practitioner] - 01/16/20 12:15 pm (At the surgeon's office behind the [facility], [address] [place] [address], [facility]) Deloris Huizar MD [STAFF PHYSICIAN] - 01/21/20 2:00 pm [facility] ,Cardiac [NON-STAFF] - 4 Weeks (You will receive a phone call for Cardiac Rehab evaluation 4-6 weeks after surgery) Jack Torres MD [Primary Care Provider] - 02/11/20 11:30 am Tam Gama MD [STAFF PHYSICIAN] - 02/07/20 9:30 am [facility], [NON-STAFF] - 1-2 Days Ambulatory/Diagnostic Orders: Complete Blood Count w/diff [LAB.AMB] Time Frame: 3 Days, Location: None Selected Comprehensive Metabolic Panel [LAB.AMB] Time Frame: 3 Days, Location: None Selected Activity/Diet/Wound Care/Special Instructions: DISCHARGE INSTRUCTIONS: 1. No driving for 4 weeks, or until physician gives their ok. 2. The patient should sleep in their own bed, no medical bed needed. 3. Stairs are not an issue. If the bedroom is upstairs, it is advised that the patient go up at night and down in the morning for the first week. Go slowly, using handrail and take 1 step at a time. 4. EDUARDO hose are to be worn for 30 days or until physician discontinues. 5. Heart hugger is to be worn 100% of the time until physician discontinues.(except when showering) 6. No lifting, pushing, or pulling more than 10 pounds for 12 weeks. The physician will advise of any restriction changes. 7. The patient is expected to continue the prescribed walking program. 8. Continue pain control per as needed orders. 9. Continue with incentive spirometry and splinting/heart hugger until otherwise directed by the physician. 10. Must shower daily using liquid antibacterial soap and a separate white washcloth for each individual incision. 11. Routine sternal incision care. No powders, lotions, ointments on incisions. No dressings are necessary on incisions unless they are draining. Dermabond tape is to remain on sternal incision until surgeon follow-up. 12. Please call surgeon/CITY PLANNING AIDE for temp greater than 101 F or purulent drainage from incisions. 13. All prescriptions given by surgeon for 30 days. Refills need to be filled through [facility] stone/primary care physician. 14. A Red armband has been placed on the patient. It should be worn for 30 days post surgery and will be removed by the cardiac surgeons. If an ER visit is necessary, please make sure the number on the Red armband is called. 15. You have been referred to and are expected to begin Cardiac Rehab in approximately 4-6 weeks. HOME HEALTH SERVICES TO PROVIDE: RN SKILLED HOME CARE SERVICES FOR POST-OP SURGICAL PATIENTS WITH THE FOLLOWING: Coronary Artery Bypass Surgery (CABG), Mitral Valve Replacement/Repair ( MVR), Aortic Valve Replacement/Repair (AVR) RN TO CONTINUE EDUCATION FROM ``ROAD TO A HEALTH HEART PATIENT EDUCATION MANUAL (GIVEN TO PATIENT IN THE HOSPITAL) MEDICATION RECONCILIATION WITH EDUCATION NEEDED ON FIRST HOME VISIT EMPHASIZE IMPORTANCE OF WEARING BREAST SUPPORT/HEART HUGGER ENCOURAGE USE OF INCENTIVE SPIROMETER 10 X EVERY HOUR WHILE AWAKE ENCOURAGE UTILIZATION OF LOWER EXTREMITY COMPRESSION STOCKINGS/EDUARDO HOSE and ELEVATE LEGS ABOVE LEVEL OF HEART WHILE AT REST. ENCOURAGE AMBULATION 3-5x/day INCREASING TOLERATES, WHILE AVOIDING EXTREMES IN TEMPERATURE FREQUENCY: RN TO OPEN THE PATIENT WITHIN 24 HOURS OF DISCHARGE FROM THE HOSPITAL WITH TELEHEALTH INSTALLED AT [facility], RN TO VISIT 2-3 X A WEEK FOR 4 WEEKS ESTABLISHED BY PATIENT NEEDS. LABORATORY: CBC, CMP TO BE DRAWN ON THE THIRD DAY HOME, (RAN STAT) FAX RESULTS TO [phone]. TELEHEALTH PARAMETERS: WEIGHT: NOTIFY MD OF WEIGHT GAIN OF 2 LBS IN 24 HOURS OR 5 LBS IN ONE WEEK HR: NOTIFY MD OF HR <55 BPM OR HR>100 BPM BP: NOTIFY MD IF BP <90/55 OR BP>140/100 O2 SAT: NOTIFY MD IF PO2<93% ON ROOM AIR SEND TELEHEALTH REPORT TO ENGINE REPAIRER AND CARDIOVASCULAR SURGEON THE FIRST WEEK OF CARE AND THEN BI-WEEKLY. PLEASE ADDITIONALLY COMMUNICATE ANY ABNORMALS AND NEW FINDINGS TO THE SURGEONS OFFICE. For any questions or concerns please call radio talk show host Krissy @ or [place] @ Discharge Disposition: HOME WITH HOME HEALTH SERVICES
[2020-01-10 14:49] VITALS: BP 118/68; PULSE 81; RESP 19; TEMP 97.9
--- NOTE | 2020-01-12 13:46 | CDI ---
Documentation Clarification Form Date: 01/12/20 From: Joan Kelley Phone: If you have a question about this query, please contact Bess Mcginnis Car Wash Supervisor at [phone] between 8am and 5pm. Admit Date: 01/01/20 Discharge Date:01/10/20 Patient Name: Dimas Clayton Visit Number: [id number] ATTENTION: The Clinical Documentation Specialists (CDI) and [facility] Coding Staff appreciate your assistance in clarifying documentation. Please respond to the clarification below the line at the bottom and electronically sign. The CDI & [facility] Coding staff will review the response and follow-up if needed. Please note: Queries are made part of the Legal Health Record. If you have any questions, please contact the author of this message via ITS. Dear Dr. Gama Non-ST elevated myocardial infarction is documented throughout the chart. Patient was admitted with exertional dsypnea and elevated troponin. Patient underwent a heart cath and the stented segment in the mid LAD is patent with [id number] in-stent restenosis. Patient History/Risk Factors: CAD, previous cardiac stents, hypertension, hyperlipidemia Clinical Indicators: exertional dsypnea and elevated troponin Troponin: 0.279, 0.282, 0.290 EKG Results: Revealed a sinus mechanism, normal axis and intervals with nonspecific ST-T wave changes Treatment: CABG x 3 vessels - PIÑA to LAD, saphenous vein graft to the acute marginal and saphenous vein graft to the obtuse marginal and endarterectomy and patch angioplasty of the acute marginal. Consult: Dr. Huizar - progressive symptoms of dyspnea on exertion with mild elevation of troponin suggestive of non ST-segment elevation myocardial infarction. In order to capture the severity of condition and necessary documentation specificity, please clarify: NSTEMI due to in-stent restenosis of the LAD stent NSTEMI not due to in-stent restenosis of the LAD stent Other, please specify: Unable to determine MTDD
--- NOTE | 2020-01-29 17:14 | CDI ---
Documentation Clarification Form Date: 01/29/20 From: Joan Kelley Phone: If you have a question about this query, please contact Bess Mcginnis Mobile Homes Repairer at [phone] between 8am and 5pm. Admit Date: 01/01/20 Discharge Date:01/10/20 Patient Name: Dimas Clayton Visit Number: [id number] ATTENTION: The Clinical Documentation Specialists (CDI) and [facility] Coding Staff appreciate your assistance in clarifying documentation. Please respond to the clarification below the line at the bottom and electronically sign. The CDI & [facility] Coding staff will review the response and follow-up if needed. Please note: Queries are made part of the Legal Health Record. If you have any questions, please contact the author of this message via ITS. Dear Dr. Huizar Non-ST elevated myocardial infarction is documented throughout the chart. Patient was admitted with exertional dsypnea and elevated troponin. Patient underwent a heart cath and the stented segment in the mid LAD is patent with [id number] in-stent restenosis. Patient History/Risk Factors: CAD, previous cardiac stents, hypertension, hyperlipidemia Clinical Indicators: exertional dsypnea and elevated troponin Troponin: 0.279, 0.282, 0.290 EKG Results: Revealed a sinus mechanism, normal axis and intervals with nonspecific ST-T wave changes Treatment: CABG x 3 vessels - PIÑA to LAD, saphenous vein graft to the acute marginal and saphenous vein graft to the obtuse marginal and endarterectomy and patch angioplasty of the acute marginal. Consult: Dr. Huizar - progressive symptoms of dyspnea on exertion with mild elevation of troponin suggestive of non ST-segment elevation myocardial infarction. In order to capture the severity of condition and necessary documentation specificity, please clarify: NSTEMI due to in-stent restenosis of the LAD stent NSTEMI not due to in-stent restenosis of the LAD stent XXX Other, please specify: Unable to determine MTDD
== END 2020-01-10 14:39 | disposition home health service (06) | DRG 228 ==
LOC: EC 15:48 → 3SCARD 18:21 → 2SICU 01-04 09:45
PROVIDERS: ADMIT Thoracic Surgery (Cardiothoracic Vascular Surgery); ATTEND Thoracic Surgery (Cardiothoracic Vascular Surgery)
PROC: 4A023N7 Measurement of Cardiac Sampling and Pressure, Left Heart, Percutaneous Approach (ICD-10-PCS; 2020-01-02)
PROC: B2111ZZ Fluoroscopy of Multiple Coronary Arteries using Low Osmolar Contrast (ICD-10-PCS; 2020-01-02)
PROC: B54DZZZ Ultrasonography of Bilateral Lower Extremity Veins (ICD-10-PCS; 2020-01-02)
PROC: 02C00ZZ Extirpation of Matter from Coronary Artery, One Artery, Open Approach (ICD-10-PCS; principal; 2020-01-02 17:05)
PROC: B24BZZ4 Ultrasonography of Heart with Aorta, Transesophageal (ICD-10-PCS; principal; 2020-01-02 17:05)
PROC: 5A1223Z Performance of Cardiac Pacing, Continuous (ICD-10-PCS; principal; 2020-01-02 17:05)
PROC: 5A1221Z Performance of Cardiac Output, Continuous (ICD-10-PCS; principal; 2020-01-02 17:05)
PROC: 02L70CK Occlusion of Left Atrial Appendage with Extraluminal Device, Open Approach (ICD-10-PCS; principal; 2020-01-02 17:05)
PROC: 06BQ4ZZ Excision of Left Saphenous Vein, Percutaneous Endoscopic Approach (ICD-10-PCS; principal; 2020-01-02 17:05)
PROC: 021109W Bypass Coronary Artery, Two Arteries from Aorta with Autologous Venous Tissue, Open Approach (ICD-10-PCS; principal; 2020-01-02 17:05)
PROC: 02100Z9 Bypass Coronary Artery, One Artery from Left Internal Mammary, Open Approach (ICD-10-PCS; principal; 2020-01-02 17:05)
PROC: 5A02210 Assistance with Cardiac Output using Balloon Pump, Continuous (ICD-10-PCS; principal; 2020-01-02 17:05)
PROC: 3E033XZ Introduction of Vasopressor into Peripheral Vein, Percutaneous Approach (ICD-10-PCS; 2020-01-04)
PROC: 30243K1 Transfusion of Nonautologous Frozen Plasma into Central Vein, Percutaneous Approach (ICD-10-PCS; 2020-01-04)
PROC: 30243N1 Transfusion of Nonautologous Red Blood Cells into Central Vein, Percutaneous Approach (ICD-10-PCS; 2020-01-04)
PROC: 30243R1 Transfusion of Nonautologous Platelets into Central Vein, Percutaneous Approach (ICD-10-PCS; 2020-01-04)
PROC: 5A1945Z Respiratory Ventilation, 24-96 Consecutive Hours (ICD-10-PCS; 2020-01-04)
PROC: 0BH17EZ Insertion of Endotracheal Airway into Trachea, Via Natural or Artificial Opening (ICD-10-PCS; 2020-01-04)
DX: I21.4 Non-ST elevation (NSTEMI) myocardial infarction (principal); I50.23 Acute on chronic systolic (congestive) heart failure; J96.01 Acute respiratory failure with hypoxia; D62 Acute posthemorrhagic anemia; I97.88 Other intraoperative complications of the circulatory system, not elsewhere classified; I25.5 Ischemic cardiomyopathy; J43.9 Emphysema, unspecified; I11.0 Hypertensive heart disease with heart failure; E11.9 Type 2 diabetes mellitus without complications; Z20.828 Contact with and (suspected) exposure to other viral communicable diseases; E78.5 Hyperlipidemia, unspecified; E83.42 Hypomagnesemia; I25.2 Old myocardial infarction; I25.10 Atherosclerotic heart disease of native coronary artery without angina pectoris; K80.20 Calculus of gallbladder without cholecystitis without obstruction; K44.9 Diaphragmatic hernia without obstruction or gangrene; I08.1 Rheumatic disorders of both mitral and tricuspid valves; I95.89 Other hypotension; Z79.82 Long term (current) use of aspirin; Z79.84 Long term (current) use of oral hypoglycemic drugs; Z79.899 Other long term (current) drug therapy; Z90.2 Acquired absence of lung [part of]; Z87.891 Personal history of nicotine dependence; Z85.828 Personal history of other malignant neoplasm of skin; Z85.118 Personal history of other malignant neoplasm of bronchus and lung; Z90.49 Acquired absence of other specified parts of digestive tract; Z22.321 Carrier or suspected carrier of Methicillin susceptible Staphylococcus aureus; Z92.21 Personal history of antineoplastic chemotherapy; Z82.49 Family history of ischemic heart disease and other diseases of the circulatory system; Z82.61 Family history of arthritis; Y83.2 Surgical operation with anastomosis, bypass or graft as the cause of abnormal reaction of the patient, or of later complication, without mention of misadventure at the time of the procedure; Y83.1 Surgical operation with implant of artificial internal device as the cause of abnormal reaction of the patient, or of later complication, without mention of misadventure at the time of the procedure
CPT/HCPCS: 36415; 36430; 36600; 71045; 71046; 71275; 80048; 80053; 80061; 80074; 81001; 82330; 82805; 83036; 83735; 83880; 84132; 84443; 84484; 85025; 85027; 85384; 85520; 85610; 85730; 86850; 86891; 86900; 86901; 86920; 87070; 88304; 88311; 93005; 93306; 93458; 93880; 93922; 93970; 94002; 94003; 94150; 94640; 96365; 96366; 96368; 96375; 96376; 99291

== ENCOUNTER → 2020-02-05 | Outpatient (CLI) | payer MEDICARE, OTHER ==
[2020-02-05 13:22] LABS: Anisocytosis Slight; Basophils % (A) 0 %; Eosinophils # (A) 0.2 k/uL (0-0.7); Eosinophils % (A) 2 %; HCT 33.4 % (39.0-53.0); Hypochromasia Marked; Lymphocytes # (A) 1.2 k/uL (1.0-4.8); Lymphocytes % (A) 15 %; MCH 25.8 pg (25.0-35.0); MCHC 29.1 g/dL (31.0-37.0); MCV 88.7 fL (80.0-100.0); Mean Platelet Volume 6.8; Monocytes # (A) 0.5 k/uL (0-1.0); Monocytes % (A) 6 %; Neutrophils # (A) 5.8 k/uL (1.3-7.7); Neutrophils % (A) 75 %; Platelet Count 361 k/uL (150-450); Poikilocytosis Slight; RBC 3.77 m/uL (4.30-5.90); RDW 16.4 % (11.5-15.5); WBC 7.7 k/uL (3.8-10.6)
[2020-02-05 13:30] LABS: HGB 9.7 gm/dL (13.0-17.5)
[2020-02-05 20:05] LABS: African American GFR (CKD) 67.2 (60.0-200.0); Albumin 4.1 g/dL (3.80-4.90); Albumin/Globulin Ratio 1.78 (1.60-3.17); Anion Gap 8.2 mmol/L (4.00-12.00); BUN/Creat Ratio 28.33 Ratio (12.00-20.00); Calcium 9.3 mg/dL (8.7-10.3); Carbon Dioxide 25.8 mmol/L (21.6-31.8); Chol/HDL Ratio 3.09; Globulin 2.3 g/dL (1.6-3.3); Potassium 5.7 mmol/L (3.5-5.5); Total Bilirubin 1.1 mg/dL (0.3-1.2); Total Protein 6.4 g/dL (6.2-8.2)
[2020-02-05 20:22] LABS: Hemoglobin A1C 5.8 % (4.0-6.0)
== END | disposition home or self-care (01) ==
LOC: LABWHC1 11:06
PROVIDERS: ATTEND Internal Medicine Interventional Cardiology
DX: E78.2 Mixed hyperlipidemia (principal); I10 Essential (primary) hypertension; E11.9 Type 2 diabetes mellitus without complications; R53.83 Other fatigue; I25.10 Atherosclerotic heart disease of native coronary artery without angina pectoris; R74.0 Nonspecific elevation of levels of transaminase and lactic acid dehydrogenase [LDH]
CPT/HCPCS: 36415; 80053; 80061; 82977; 83036; 85025

== ENCOUNTER → 2020-02-20 | Outpatient (CLI) | payer MEDICARE, OTHER ==
[2020-02-20 22:28] LABS: African American GFR (CKD) 55.8 (60.0-200.0); Anion Gap 11.9 mmol/L (4.00-12.00); BUN/Creat Ratio 35.71 Ratio (12.00-20.00); Calcium 9.8 mg/dL (8.7-10.3); Carbon Dioxide 20.1 mmol/L (21.6-31.8); Non-African American GFR(CKD) 48.1 (60.0-200.0); Potassium 4.9 mmol/L (3.5-5.5)
== END | disposition home or self-care (01) ==
LOC: LABWHC1 11:31
PROVIDERS: ATTEND Nurse Practitioner Adult Health
DX: E87.5 Hyperkalemia (principal)
CPT/HCPCS: 36415; 80048

== ENCOUNTER → 2020-03-06 | Outpatient (CLI) | payer MEDICARE, OTHER ==
[2020-03-06 12:38] LABS: Anisocytosis Slight; HGB 12.2 gm/dL (13.0-17.5); Hypochromasia Marked; MCH 27.4 pg (25.0-35.0); MCHC 28.4 g/dL (31.0-37.0); Macrocytosis Slight; Mean Platelet Volume 7.1; Platelet Count 185 k/uL (150-450); RBC 4.46 m/uL (4.30-5.90); RDW 19.5 % (11.5-15.5); WBC 8.8 k/uL (3.8-10.6)
[2020-03-06 12:45] LABS: MCV 96.3 fL (80.0-100.0)
[2020-03-06 21:35] LABS: African American GFR (CKD) 67.2 (60.0-200.0); Albumin 3.8 g/dL (3.80-4.90); Albumin/Globulin Ratio 1.9 (1.60-3.17); Anion Gap 9.7 mmol/L (4.00-12.00); BUN/Creat Ratio 31.67 Ratio (12.00-20.00); Calcium 9.3 mg/dL (8.7-10.3); Carbon Dioxide 26.3 mmol/L (21.6-31.8); Potassium 4.6 mmol/L (3.5-5.5); Total Bilirubin 1.2 mg/dL (0.3-1.2); Total Protein 5.8 g/dL (6.2-8.2)
== END | disposition home or self-care (01) ==
LOC: LABWHC1 10:55
PROVIDERS: ATTEND Internal Medicine Interventional Cardiology
DX: Z48.812 Encounter for surgical aftercare following surgery on the circulatory system (principal); Z95.1 Presence of aortocoronary bypass graft
CPT/HCPCS: 36415; 80053; 85027